=== PATIENT | male | born 1955 ===

== ENCOUNTER 2020-04-18 13:44 | Outpatient (REF) | payer OTHER, SELFPAY | END 2020-04-18 13:45 | disposition home or self-care (01) | LOC: HO.LAB 13:44 | PROVIDERS: PCP Family Medicine; Visit Provider Internal Medicine | DX: Z20.828 Contact with and (suspected) exposure to other viral communicable diseases (principal) | CPT/HCPCS: C9803; U0003 ==

== ENCOUNTER 2020-06-04 03:18 | Emergency (ER) | payer OTHER, SELFPAY ==
[2020-06-04 03:21] VITALS: BP 164/101; PULSE 110; RESP 18; TEMP 36.4; O2SAT 100; BMI 28.4
[2020-06-04 04:00] VITALS: BP 156/86; PULSE 106; RESP 18; O2SAT 99
[2020-06-04 04:46] LABS: Glucose Urine UA NEG (NEG); Leukocyte Esterase Urine NEG (NEG); Nitrite Urine NEG (NEG); Specific Gravity - Urine 1.025 (1.005-1.025); Urine Blood 3+ (NEG); Urine Ketones 5 MG/DL (NEG); Urine Protein TRACE MG/DL (NEG-TRACE)
[2020-06-04 05:01] LABS: Appearance Urine CLEAR; Color Urine YELLOW
[2020-06-04 05:12] LABS: Mucus Urine 2+ /LPF; Squamous Epithelial Cell Urine 1+ /LPF; Uric Acid Crystals Urine TRACE /LPF; WBC Urine 0-2 /HPF (0-4); Waxy Casts Urine 0-2 /LPF
[2020-06-04 05:13] LABS: Sperm Urine NOTED
--- NOTE | 2020-06-04 05:18 | ED_ITS ---
HPI - Male Genitourinary General Chief complaint: Urogenital-Male Stated complaint: Pain/Urination Time Seen by Provider: 06/04/20 04:02 Source: patient Mode of arrival: ambulatory History of Present Illness HPI Narrative: This is a 65-year-old male who presents with inability to urinate, which he states has happened previously. This is not associated with any fevers or chills or GI symptoms. Related Data Allergies Allergy/AdvReac Type Severity Reaction Status Date / Time No Known Allergies Allergy Unverified 01/20/20 15:01 [No Known Allergies*] Review of Systems Review of Systems: Pertinent positives and negatives as stated in HPI 10 point review of systems is otherwise negative. [facility] Past Medical History Source: nursing notes reviewed Medical History No known health problems Social History Social History Advance Directives: No Physical Exam Vital Signs: Vital Signs: Last Vital Signs Temp 97.6 F 06/04/20 03:21 Pulse 106 H 06/04/20 04:00 Resp 18 06/04/20 04:00 BP 156/86 H 06/04/20 04:00 Pulse Ox 99 06/04/20 04:00 Body Mass Index 28.4 VITAL SIGNS: Reviewed. GENERAL: Well developed, well nourished, in no acute distress. HEAD: Normocephalic/atraumatic, EYES: PERRLA, EOMI EARS: Ext canals without abnormality NOSE: Nares patent bilateral OROPHARYNX: no oral lesions noted, posterior pharynx clear NECK: Supple, no adenopathy LUNGS: Normal breath sounds. SpO2<100> CARDIOVASCULAR: Regular rate and rhythm without noted murmurs, no JVD or lower extremity edema. ABDOMEN: Soft, mild tenderness palpation suprapubic and a firmness noted, non- distended with bowel sounds. NEUROLOGIC: Alert and oriented x 4. Course Course Course Narrative: This is a 65-year-old male with history and clinical presentation consistent with urinary retention and no evidence of UTI in review of urinalysis. Patient had a Kelly catheter successfully placed and endorses that he is feeling much better on re-evaluation. The plan will be for him to follow up with Urology which she fully understands. MDM - Male Genitourinary Lab Data Labs: Lab Results 06/04/20 Range/Units 04:20 Urine Color YELLOW Urine Appearance CLEAR Urine pH 5.0 (5.0-8.0) Ur Specific [place] 1.025 (1.005-1.025) Urine Protein TRACE (NEG-TRACE) MG/DL Urine Glucose (UA) NEG (NEG) MG/DL Urine Ketones 5 (NEG) MG/DL Urine Blood 3+ H (NEG) Urine Nitrite NEG (NEG) Ur Leukocyte Esterase NEG (NEG) Urine RBC 15-29 H (0) /HPF Urine WBC 0-2 (0-4) /HPF Ur Squamous Epith Cells 1+ /LPF Uric Acid Crystals TRACE /LPF Urine Bacteria NONE /LPF Hyaline Casts 1-4 /LPF Waxy Casts 0-2 /LPF Urine Mucus 2+ /LPF Urine Sperm NOTED Discharge Plan Discharge Clinical Impression: Urinary retention Patient Disposition: Home, Self-Care Instructions: Urinary Retention in Men (ED), Kelly Catheter Placement and Care (ED) Additional Instructions: Please resume all home medications as prescribed. Please keep the Kelly catheter in place until you are further evaluated by Urology. Call the urology office on Friday morning to set up an appointment. Return to the emergency department if you developed acute worsening of your symptoms or notice that the Kelly catheter is no longer working. Referrals: Jorge Alberto Boss MD [Physician] - 2 days (Evaluation and treatment for urinary retention in a 65-year-old male. Kelly catheter was placed.)
== END 2020-06-04 06:30 | disposition home or self-care (01) ==
PROVIDERS: Emergency Provider Student in an Organized Health Care Education/Training Program; PCP Family Medicine
DX: R33.9 Retention of urine, unspecified (principal); R30.0 Dysuria
CPT/HCPCS: 81001; 81003; 99283; 99284

== ENCOUNTER 2020-06-08 14:20 | Emergency (ER) | payer OTHER, SELFPAY ==
[2020-06-08 15:35] VITALS: BP 181/94; PULSE 92; RESP 18; TEMP 36.6; O2SAT 92; BMI 29.2
--- NOTE | 2020-06-08 15:35 | ED.GENADULT ---
HPI - General Adult General Chief complaint: Urogenital-Male Stated complaint: PAIN @ F/C SITE Time Seen by Provider: 06/08/20 15:34 Source: patient Mode of arrival: ambulatory Limitations: no limitations History of Present Illness HPI narrative: 65 male here with pain at nunez catheter site. Placed friday for urinary retention, appt with urology next week. Having pain at site. No issues with draining. Related Data Allergies Allergy/AdvReac Type Severity Reaction Status Date / Time No Known Allergies Allergy Verified 06/08/20 15:40 [No Known Allergies*] Review of Systems Review of Systems: Yes all other systems are reviewed and are negative Constitutional: Constitutional: Reports no additional constitutional complaints, Denies body ache(s), Denies chills, Denies fever(s), Denies headache(s) and Denies weakness Eyes: Eyes: Reports no additional eye complaints and Denies change in vision ENT: Reports system reviewed and no additional complaints, except as documented, Denies dizziness, Denies headache(s), Denies nasal congestion, Denies nasal discharge and Denies neck pain Cardiovascular: Cardiovascular: Reports no additional cardiovascular complaints, Denies chest pain, Denies leg edema and Denies dyspnea Respiratory: Respiratory: Reports no additional respiratory complaints, Denies cough and Denies dyspnea Gastrointestinal: Gastrointestinal: Reports no additional gastrointestinal complaints, Denies abdominal pain, Denies diarrhea, Denies nausea and Denies vomiting Genitourinary: Genitourinary: Denies testicular pain Musculoskeletal: Musculoskeletal: Reports no additional musculoskeletal complaints, Denies back pain, Denies arthralgias, Denies joint swelling, Denies neck pain, Denies numbness and Denies tingling Integumentary/Breasts: Skin/Breast: Reports system reviewed and no additional complaints, except as docu and Denies rash Neurologic: Reports system reviewed and no additional complaints, except as documented, Denies Abnormal speech present, Denies dizziness, Denies headache(s), Denies numbness, Denies tingling and Denies weakness PMFSH Past Medical History Attestation statement: The following information was validated with the patient. Source: old records reviewed and nursing notes reviewed Medical History No known health problems Social History Social History Advance Directives: No Advance Directives Information Provided: No Physical Exam Vital Signs: Vital Signs: Last Vital Signs Temp 97.8 F 06/08/20 15:35 Pulse 92 06/08/20 15:35 Resp 18 06/08/20 15:35 BP 181/94 H 06/08/20 15:35 Pulse Ox 92 06/08/20 15:35 Body Mass Index 29.2 Const: General: cooperative, healthy appearing, comfortable and no acute distress Orientation/consciousness: patient oriented x3 Limitations: no limitations HENMT: Head: Yes normal to inspection Ears: hearing grossly normal bilaterally General nose exam: Normal external nose present Face and sinus: Yes normal facial exam Mouth: Normal oral and palatal mucosa present Throat: Yes posterior oropharynx normal Eyes: General: appearance normal, both eyes and all related structures Pupils: Equal, round and reactive pupils present Neck: Neck: Yes normal visual inspection Chest: Chest palpation & inspection: normal inspection of the chest Resp: Effort & Inspection: normal respiratory effort Auscultation: clear to auscultation bilaterally Cardio: Rate: regular rate Rhythm: regular rhythm Peripheral pulses: Peripheral pulses 2+ throughout GI: Inspection: Yes normal to inspection Palpation (GI): Soft to palpation and nontender Auscultation: normal bowel sounds : Other: nunez catheter noted, draining clear yellow urine. patient points to discomfort at urethra. No obvious lesion or skin breakdown or rash. Back/Spine/Pelvis: Thoracic/Lumbar Spine: thoracic and lumbar spine normal to inspection Skin: General skin exam: no rashes or lesions noted Neuro: General: patient oriented x3, no focal motor deficits and normal sensation to monofilament Cranial nerves: Yes Equal, round and reactive pupils present Cognition (Neuro): normal cognition Speech: No Abnormal speech present Gait exam (Neuro): Normal gait present Motor exam (neuro): 5/5 motor strength present throughout Extrem: General: Yes normal to inspection Course Course Course Narrative: 65 yo male here with pain at nunez catheter insertion site. Patient has 18fr nunez catheter in place, draining well. Urethra normal in appearance with no open areas or skin breakdown noted. To change catheter to help with discomfort. 1620-Nursing with difficulty to place catheter. Able to place a 16fr coude with no difficulty. Patient feels much improved after placement. Discussed nunez catheter care at home. Reviewed worrisome signs/symptoms with patient and when to return to ED. Comfortable with discharge home. Medical Decision Making Medical Records Medical records reviewed: Yes I reviewed the patient's medical records. Discharge Plan Discharge Clinical Impression: Nunez catheter problem Qualifiers: Encounter type: initial encounter Qualified Code(s): T83.9XXA - Unspecified complication of genitourinary prosthetic device, implant and graft, initial encounter Patient Disposition: Home, Self-Care Instructions: Nunez Catheter Placement and Care (ED)
== END 2020-06-08 17:39 | disposition home or self-care (01) ==
LOC: HO.ED 17:06
PROVIDERS: Emergency Provider Emergency Medicine; PCP Family Medicine
DX: T83.9XXA Unspecified complication of genitourinary prosthetic device, implant and graft, initial encounter (principal); X58.XXXA Exposure to other specified factors, initial encounter
CPT/HCPCS: 99283

== ENCOUNTER → 2020-06-13 09:21 | Outpatient (BNVA) | payer OTHER, SELFPAY | PROVIDERS: PCP Family Medicine; Visit Provider Urology | DX: N40.1 Benign prostatic hyperplasia with lower urinary tract symptoms (principal); N13.8 Other obstructive and reflux uropathy; R33.9 Retention of urine, unspecified; R39.12 Poor urinary stream | CPT/HCPCS: 51700; 99202 ==

== ENCOUNTER → 2020-07-11 14:36 | Outpatient (BNVA) | payer OTHER, SELFPAY | PROVIDERS: PCP Family Medicine; Visit Provider Urology | DX: Z13.9 Encounter for screening, unspecified (principal); N40.1 Benign prostatic hyperplasia with lower urinary tract symptoms; N13.8 Other obstructive and reflux uropathy | CPT/HCPCS: 81002; 99212 ==

== ENCOUNTER → 2020-08-03 09:59 | Outpatient (BNVA) | payer OTHER, SELFPAY | PROVIDERS: PCP Family Medicine; Visit Provider Surgery Vascular Surgery | DX: I73.9 Peripheral vascular disease, unspecified (principal) | CPT/HCPCS: 99202 ==

== ENCOUNTER 2020-08-08 08:45 | Outpatient (REF) | payer OTHER, SELFPAY ==
--- NOTE | ~2020-08-08 | US_ITS ---
EXAMINATION: NON-INVASIVE ASSESSMENT OF THE ARTERIES OF BOTH LOWER EXTREMITIES WITH ANKLE PRESSURE MEASUREMENTS, ANKLE BRACHIAL INDICES, PVR MEASUREMENTS AND BILATERAL LOWER EXTREMITY DUPLEX. CLINICAL INFORMATION: Peripheral vascular disease. TECHNIQUE: Ankle pressure measurements, ankle brachial indices and PVR tracings were obtained of the lower extremity arterial system bilaterally. In addition, duplex Doppler techniques with wave form analysis and measurement of velocities in the common femoral, profunda femoral, superficial femoral, popliteal and tibial arteries was performed. The study was performed only at rest. COMPARISON: None. FINDINGS: NONINVASIVE ASSESSMENT OF THE ARTERIES OF BOTH LOWER EXTREMITIES WITH ABIs: RIGHT LEG: Right ankle-brachial index: 1.06 PVR (ankle): Normal LEFT LEG: Ankle-brachial index: 1.05 PVR (ankle): Normal BILATERAL LOWER EXTREMITY DUPLEX ULTRASOUND: RIGHT LEG: Common femoral artery: 141 cm/s, Diastolic flow reversal: Yes Profunda femoris artery: 86.8 cm/s, Diastolic flow reversal: Yes Superficial femoral artery (proximal): 106 cm/s, Diastolic flow reversal: Yes Superficial femoral artery (mid): 93.2 cm/s, Diastolic flow reversal: Yes Superficial femoral artery (distal): 78 cm/s, Diastolic flow reversal: Yes Popliteal artery: 63.3 cm/s, Diastolic flow reversal: Yes Posterior tibial artery: 62.9 cm/s, Diastolic flow reversal: Yes LEFT LEG: Common femoral artery: 133 cm/s, Diastolic flow reversal: Yes Profunda femoris artery: 103 cm/s, Diastolic flow reversal: Yes Superficial femoral artery (proximal): 147 cm/s, Diastolic flow reversal: Yes Superficial femoral artery (mid): 138 cm/s, Diastolic flow reversal: Yes Superficial femoral artery (distal): 85 cm/s, Diastolic flow reversal: Yes Popliteal artery: 87.9 cm/s, Diastolic flow reversal: Yes Posterior tibial artery: 61.3 cm/s, Diastolic flow reversal: Yes US/US arterial duplex LE BI IMPRESSION: RIGHT LEG: LAMAR 1.06. No evidence of hemodynamically significant stenosis. LEFT LEG: LAMAR 1.05. Mild, nonhemodynamically significant stenosis throughout the left leg. LAMAR Reference: - >0.97-1.25 = normal - no significant arterial disease - 0.75-0.96 = mild peripheral arterial disease - 0.5-0.74 = moderate peripheral arterial disease - <0.50 = severe peripheral arterial disease
== END 2020-08-08 08:46 | disposition home or self-care (01) ==
LOC: HO.US 08:45
PROVIDERS: Visit Provider Surgery Vascular Surgery
DX: I70.213 Atherosclerosis of native arteries of extremities with intermittent claudication, bilateral legs (principal)
CPT/HCPCS: 93923; 93925

== ENCOUNTER → 2020-08-22 12:00 | Outpatient (BNVA) | payer OTHER, SELFPAY | PROVIDERS: PCP Family Medicine; Visit Provider Surgery Vascular Surgery | DX: M79.604 Pain in right leg (principal); M79.605 Pain in left leg | CPT/HCPCS: 99212 ==

== ENCOUNTER 2020-12-04 14:40 | Emergency (ER) | payer OTHER, SELFPAY ==
--- NOTE | ~2020-12-04 | CT_ITS ---
EXAMINATION: CT HEAD WITHOUT CONTRAST CLINICAL INFORMATION: Question TIA. COMPARISON: Head CT from 09/03/2015. TECHNIQUE: Contiguous axial imaging was performed from the skull base to vertex without intravenous administration of contrast. This CT examination was performed using dose optimization techniques as appropriate, variously including the following: *Automated exposure control *Adjustment of mA and/or kV according to patient size (this includes techniques or standardized protocols for targeted exams where dose is matched to indication/reason for exam; i.e. extremities or head) *Use of iterative reconstruction technique DLP: 688 mGy-cm FINDINGS: There is no evidence of acute intracranial hemorrhage or territorial infarction. No abnormal mass effect or midline shift is seen. Peoples to white matter differentiation is well preserved. No extra-axial fluid collections are identified. The ventricles are normal in size. There is no abnormal attenuation within the brain parenchyma. A depressed defect of the medial wall of the right orbit is unchanged, potentially chronically posttraumatic in etiology. The osseous structures and soft tissues are otherwise normal. The mastoid air cells and visualized portions of the paranasal sinuses are well aerated. CT/CT head/brain wo con IMPRESSION: No acute intracranial pathology.
[2020-12-04 16:19] VITALS: BP 100/66; PULSE 82; RESP 18; TEMP 36.8; O2SAT 97; BMI 27.2
[2020-12-04 18:03] LABS: Hemoglobin 13.1 g/dl (14.0-18.0); Mean Corpuscular HGB Conc 33.6 g/dl (31.0-36.0); Mean Corpuscular Hemoglobin 29.5 pg (27.0-33.0); Mean Corpuscular Volume 87.8 fL (80-98); Mean Platelet Volume 9.7 fL (9.4-12.4); Platelet Count 274 X10*3/uL (160-400); Red Blood Count 4.44 X10*6/uL (4.60-5.80); Red Cell Distribution Width 12.9 % (11.0-16.0); White Blood Count 7.1 X10*3/uL (4.8-10.8)
[2020-12-04 18:22] LABS: Anion Gap 15 (12-20); Blood Urea Nitrogen 24 mg/dL (9-16); Carbon Dioxide 26 mmol/L (22-29); Chloride 101 mmol/L (96-108); Creatinine Clr Calc Pharmacy 29.8; Estimated Glomerular Filt Rate 32; Glucose Random 114 mg/dL (60-115); Potassium 4.8 mmol/L (3.3-5.1); Sodium 137 mmol/L (135-145)
[2020-12-04 18:25] VITALS: BP 109/68; PULSE 73; RESP 18; O2SAT 100
[2020-12-04 18:28] LABS: Troponin-I High Sensitivity 4.5 ng/L (<3.5-35.0)
--- NOTE | 2020-12-04 18:40 | ED_ITS ---
HPI - Dizziness General Chief Complaint: Dizziness Stated Complaint: dizziness Time Seen by Provider: 12/04/20 18:39 Source: patient Mode of arrival: ambulatory Limitations: no limitations History of Present Illness HPI Narrative: Patient is 65 years old with history of hypertension, history of alcohol abuse comes in for dizziness for last 4 days off and on feels feels things spinning around whenever he quickly changes position. Around 1300 today patient suddenly noticed weakness in the right arm which lasted for 5 minutes and with complete recovery no other extremity weakness no nausea no vomiting at this time patient is back to normal no dizziness on arrival no palpitation no chest Related Data Home Medications Medication Instructions Recorded Confirmed alcohol swabs 0 pad TOPICAL 06/13/20 aspirin 81 mg tablet,delayed 81 mg PO DAILY 06/13/20 release atorvastatin 40 mg tablet mg PO 06/13/20 blood sugar diagnostic #10 ea 06/13/20 carvedilol 6.25 mg tablet 6.25 mg PO 06/13/20 flu vac qs 2019(4 yr up)CD(PF) ml IM 06/13/20 fluticasone propionate 50 0 mcg INTRANASAL 06/13/20 mcg/actuation nasal spray,suspension hydrochlorothiazide 25 mg tablet 25 mg PO QAM 06/13/20 lancets 33 gauge #100 ea 06/13/20 lisinopril 20 mg tablet 20 mg PO BEDTIME 06/13/20 loratadine 10 mg tablet 10 mg PO DAILY 06/13/20 metformin 500 mg tablet 500 mg PO BEDTIME 06/13/20 montelukast 10 mg tablet 10 mg PO DAILY 06/13/20 varicella-zoster glycoE [id number] ml IM 06/13/20 adj(PF) 50 mcg/0.5 mL IM susp, kit Previous Rx's Medication Instructions Recorded tamsulosin 0.4 mg capsule 0.4 mg PO BEDTIME #30 cap 07/04/20 finasteride 5 mg tablet 5 mg PO DAILY 90 Days #90 tab 11/15/20 amlodipine 5 mg tablet 5 mg PO DAILY #30 tab 12/04/20 glipizide 2.5 mg tablet, extended 2.5 mg PO DAILY #30 tab 12/04/20 release 24 hr Allergies Allergy/AdvReac Type Severity Reaction Status Date / Time No Known Allergies Allergy Verified 08/22/20 11:59 [No Known Allergies*] Review of Systems Review of Systems: Yes all other systems are reviewed and are negative [facility] Past Medical History Medical History Alcohol abuse Allergic rhinitis Backache Cardiomyopathy Depression Glaucoma HTN (hypertension) Hypercholesteremia Leg pain, bilateral No known health problems Pain in limb Sleep apnea Social History Social History Advance Directives: No Advance Directives Information Provided: Yes Physical Exam Vital Signs: Vital Signs: Last Vital Signs Temp 98.2 F 12/04/20 16:19 Pulse 74 12/04/20 20:30 Resp 16 12/04/20 20:30 BP 154/88 H 12/04/20 20:30 Pulse Ox 100 12/04/20 20:30 Body Mass Index 27.2 Appearance: Alert. Oriented X3. No acute distress. Eyes: PERRLA, No Nystagmus ENT: Pharynx normal. Oral Mucosa moist Neck: Normal inspection. Neck supple. CVS: Normal heart rate and rhythm. Pulses normal. Respiratory: No respiratory distress. Equal air entry bilateral, no wheezing/rales/rhonchi Abdomen: Soft and nontender. Bowel sounds are present, no mass palpable, no CVA tenderness Skin: Skin warm and dry. Normal skin color. Normal skin turgor. Extremities: No lower extremity edema. No calf tenderness Neuro: Oriented X 3. No motor deficit. No sensory deficit.No cerebellar signs , cranial nerves II-XII intact MDM - Dizziness MDM Narrative Medical decision making narrative: Patient nonspecific dizziness ambulatory in the ER CT scan negative no dizziness or weakness at this time patient is on aspirin also noticed to have elevated creatinine level previous creatinine was in 2019 patient advised to stop metformin lisinopril and hydrochlorothiazide advised to follow with dental hygienist mobile coordinator Lab Data Attestation: I reviewed the patient's lab results. Result diagrams: 12/04/20 17:48 12/04/20 17:48 Labs: Lab Results 12/04/20 12/04/20 12/04/20 Range/Units 17:48 17:48 17:48 WBC 7.1 (4.8-10.8) X10*3/uL RBC 4.44 L (4.60-5.80) X10*6/uL Hgb 13.1 L (14.0-18.0) g/dl Hct 39.0 L (42-52) % MCV 87.8 (80-98) fL MCH 29.5 (27.0-33.0) pg MCHC 33.6 (31.0-36.0) g/dl RDW 12.9 (11.0-16.0) % Plt Count 274 (160-400) X10*3/uL MPV 9.7 (9.4-12.4) fL Absolute Nucleated RBC 0.000 (0.0-0.012) X10*3/uL Nucleated RBC % (auto) 0.0 (0.0-0.2) /100WBC Sodium 137 (135-145) mmol/L Potassium 4.8 (3.3-5.1) mmol/L Chloride 101 (96-108) mmol/L Carbon Dioxide 26 (22-29) mmol/L Anion Gap 15 (12-20) BUN 24 H (9-16) mg/dL Creatinine 2.09 H (0.5-1.4) mg/dL Estim Creat Clear Calc 29.8 Estimated GFR 32 Random Glucose 114 (60-115) mg/dL Calcium 10.0 (8.4-10.2) mg/dL Troponin I High Sens 4.5 (<3.5-35.0) ng/L ECG Data Attestation: I personally reviewed and interpreted this ECG as follows: Interpretation: Normal sinus rhythm heart rate 69 beats per minute nonspecific ST T wave changes normal intervals no acute ischemia Discharge Plan Discharge Clinical Impression: Dizziness Acute kidney failure Qualifiers: Acute renal failure type: unspecified Qualified Code(s): N17.9 - Acute kidney failure, unspecified Patient Disposition: Home, Self-Care Instructions: Acute Kidney Injury (DC), Dizziness (ED) Additional Instructions: continue to take baby aspirin daily drink plenty of fluids Follow-up with dental hygienist mobile coordinator stop lisinopril and metformin and hydrochlorthiazide start on amlodipine 5 mg daily and glipizide daily Prescriptions: New amlodipine 5 mg tablet 5 mg PO DAILY Qty: 30 RF: 0 glipizide 2.5 mg tablet extended release 24hr 2.5 mg PO DAILY Qty: 30 RF: 0 No Action tamsulosin 0.4 mg capsule 0.4 mg PO BEDTIME Qty: 30 RF: 6 finasteride 5 mg tablet 5 mg PO DAILY 90 Days Qty: 90 RF: 1 (DME) lancets 33 gauge misc See Rx Instructions ea .ROUTE .MEDSUPPLY Qty: 100 RF: 0 (DME) FreeStyle Lite Strips Strip See Rx Instructions strip Not Applicable BID Qty: 10 RF: 0 hydrochlorothiazide 25 mg tablet 25 mg PO QAM RF: 0 aspirin 81 mg tablet,delayed release (DR/EC) 81 mg PO DAILY RF: 0 carvedilol 6.25 mg tablet 6.25 mg PO RF: 0 metformin 500 mg tablet 500 mg PO BEDTIME RF: 0 atorvastatin 40 mg tablet PO RF: 0 loratadine 10 mg tablet 10 mg PO DAILY RF: 0 fluticasone propionate 50 mcg/actuation spray,suspension 0 mcg intranasal RF: 0 alcohol swabs Pads, Medicated 0 pad topical RF: 0 montelukast 10 mg tablet 10 mg PO DAILY RF: 0 lisinopril 20 mg tablet 20 mg PO BEDTIME RF: 0 Flucelvax Quad (PF) 60 mcg (15 mcg x 4)/0.5 mL syringe IM RF: 0 Shingrix (PF) 50 mcg/0.5 mL suspension for reconstitution IM RF: 0 Referrals: Catrachito Pressley MD [Physician] - 2 days Interventions: ED Discharge Assessment Last Done: 12/04/20 21:38 Discharge Date/Time: 12/04/20 21:40
--- NOTE | 2020-12-04 19:04 | ECG_ITS ---
Test Reason : DIZZINESS Blood Pressure : / mmHG Vent. Rate : 069 BPM Atrial Rate : 069 BPM P-R Int : 136 ms QRS Dur : 088 ms QT Int : 352 ms P-R-T Axes : 052 029 036 degrees QTc Int : 377 ms Normal sinus rhythm Nonspecific T wave abnormality Abnormal ECG When compared with ECG of 12-SEP-2015 15:53, Nonspecific T wave abnormality, improved in Inferior leads Referred By: Abiel Wang Electronically Signed By:Sumanth Mcnamara
[2020-12-04 20:30] VITALS: BP 154/88; PULSE 74; RESP 16; O2SAT 100
[2020-12-04] MEDS: Aspirin 81 MG TAB.CHEW PO (21:35)
== END 2020-12-04 21:40 | disposition home or self-care (01) ==
PROVIDERS: Emergency Provider Internal Medicine; PCP Family Medicine
DX: R42 Dizziness and giddiness (principal); N17.9 Acute kidney failure, unspecified; I10 Essential (primary) hypertension; F10.10 Alcohol abuse, uncomplicated; Y90.9 Presence of alcohol in blood, level not specified
CPT/HCPCS: 36415; 70450; 80048; 84484; 85027; 93005; 99284

== ENCOUNTER → 2021-01-17 14:25 | Outpatient (BNVA) | payer OTHER, SELFPAY | PROVIDERS: PCP Family Medicine; Visit Provider Urology | DX: N40.1 Benign prostatic hyperplasia with lower urinary tract symptoms (principal); N13.8 Other obstructive and reflux uropathy; R39.12 Poor urinary stream; R39.15 Urgency of urination; R33.9 Retention of urine, unspecified; I10 Essential (primary) hypertension; E78.00 Pure hypercholesterolemia, unspecified; F10.10 Alcohol abuse, uncomplicated | CPT/HCPCS: 51798; 99212 ==

== ENCOUNTER 2021-04-10 09:00 | Outpatient (REF) | payer OTHER, SELFPAY ==
[2021-04-10 10:34] LABS: Hematocrit 41.4 % (42.0-52.0); Hemoglobin 13.8 g/dl (14.0-18.0); Mean Corpuscular HGB Conc 33.3 g/dl (31.0-36.0); Mean Corpuscular Hemoglobin 28.5 pg (27.0-33.0); Mean Corpuscular Volume 85.4 fL (80.0-98.0); Mean Platelet Volume 9.3 fL (9.4-12.4); Platelet Count 279 X10*3/uL (160-400); Red Blood Count 4.85 X10*6/uL (4.60-5.80); Red Cell Distribution Width 12.9 % (11.0-16.0); White Blood Count 6.6 X10*3/uL (4.8-10.8)
[2021-04-10 11:06] LABS: Estimated Glomerular Filt Rate > 60
[2021-04-10 11:43] LABS: PSA,Total (Free>4and<10) 2.09 ng/mL (0.00-4.00)
== END 2021-04-10 09:01 | disposition home or self-care (01) ==
LOC: HO.LAB 09:00
PROVIDERS: Urology; PCP Family Medicine; Referring Provider Family Medicine; Visit Provider Nurse Practitioner Family
DX: Z01.818 Encounter for other preprocedural examination (principal); Z12.5 Encounter for screening for malignant neoplasm of prostate; N13.8 Other obstructive and reflux uropathy; N40.1 Benign prostatic hyperplasia with lower urinary tract symptoms; R39.15 Urgency of urination; D36.9 Benign neoplasm, unspecified site
CPT/HCPCS: 36415; 82565; 84153; 85027; 99202

== ENCOUNTER → 2021-07-17 08:37 | Outpatient (BNVA) | payer OTHER, SELFPAY | PROVIDERS: PCP Family Medicine; Visit Provider Urology | DX: N40.1 Benign prostatic hyperplasia with lower urinary tract symptoms (principal); N13.8 Other obstructive and reflux uropathy; R39.12 Poor urinary stream | CPT/HCPCS: 51798; 99212 ==

== ENCOUNTER 2021-07-27 10:55 | Emergency (ER) | payer OTHER, SELFPAY ==
[2021-07-27 11:28] VITALS: BP 128/72; PULSE 73; RESP 16; TEMP 36.4; O2SAT 97; BMI 27.8
--- NOTE | 2021-07-27 12:41 | ED_ITS ---
HPI - Extremity Problem General Chief complaint: Extremity Problem Stated complaint: Leg/Foot pain Time Seen by Provider: 07/27/21 11:59 History of Present Illness HPI Narrative: Patient complains of longstanding pain in both feet which shoots down the legs and cause a burning and tingling sensation in both feet which makes it very hard for walk distance is more than 1 or 2 blocks He has seen his doctor who referred him to specialist for arterial testing so he saw Dr. morrell who evaluated and found that arterial blood flow was normal and was concerned might be diabetic neuropathy or some kind of sciatic presentation, patient has no weakness in his feet no changes to bowel or bladder Related Data Home Medications Medication Instructions Recorded Confirmed alcohol swabs 0 pad TOPICAL 06/13/20 aspirin 81 mg tablet,delayed 81 mg PO DAILY 06/13/20 release atorvastatin 40 mg tablet mg PO 06/13/20 blood sugar diagnostic #10 ea 06/13/20 carvedilol 6.25 mg tablet 6.25 mg PO 06/13/20 flu vac qs 2019(4 yr up)CD(PF) ml IM 06/13/20 fluticasone propionate 50 0 mcg INTRANASAL 06/13/20 mcg/actuation nasal spray,suspension hydrochlorothiazide 25 mg tablet 25 mg PO QAM 06/13/20 lancets 33 gauge #100 ea 06/13/20 lisinopril 20 mg tablet 20 mg PO BEDTIME 06/13/20 loratadine 10 mg tablet 10 mg PO DAILY 06/13/20 metformin 500 mg tablet 500 mg PO BEDTIME 06/13/20 montelukast 10 mg tablet 10 mg PO DAILY 06/13/20 varicella-zoster glycoE [id number] ml IM 06/13/20 adj(PF) 50 mcg/0.5 mL IM susp, kit amlodipine 10 mg tablet 10 mg PO DAILY 01/17/21 Previous Rx's Medication Instructions Recorded amlodipine 5 mg tablet 5 mg PO DAILY #30 tab 12/04/20 glipizide 2.5 mg tablet, extended 2.5 mg PO DAILY #30 tab 12/04/20 release 24 hr bisacodyl 5 mg tablet,delayed 10 mg PO ONCE 1 Days #2 tab 04/10/21 release (Dulcolax (bisacodyl)) polyethylene glycol 3350 17 238 g PO ONCE #238 g 04/10/21 gram/dose oral powder (Miralax) finasteride 5 mg tablet 5 mg PO DAILY 90 Days #90 tab 07/17/21 tamsulosin 0.4 mg capsule 0.4 mg PO BEDTIME #90 cap 07/17/21 oxycodone 5 mg tablet 5 mg PO Q6H PRN #20 tab 07/27/21 Allergies Allergy/AdvReac Type Severity Reaction Status Date / Time No Known Allergies Allergy Verified 07/27/21 11:30 [No Known Allergies*] Review of Systems Review of Systems: Positive for bilateral foot pain for months No acute changes no fever no dizziness no weakness no chest pain no shortness of breath no weakness no loss of sensation no rash Yes all other systems are reviewed and are negative [facility] Past Medical History Source: nursing notes reviewed Medical History Alcohol abuse Allergic rhinitis Backache Cardiomyopathy Depression Glaucoma HTN (hypertension) Hypercholesteremia Leg pain, bilateral No known health problems Pain in limb Sleep apnea Tubular adenoma Surgical History Hx of colonoscopy Social History Social History Alcohol intake: current Alcohol intake frequency: holidays/special occasions only Patient Tobacco Use Status: Never used Tobacco Physical Exam Vital Signs: Vital Signs: Last Vital Signs Temp 97.5 F 07/27/21 11:28 Pulse 73 07/27/21 11:28 Resp 16 07/27/21 11:28 BP 128/72 07/27/21 11:28 Pulse Ox 97 07/27/21 11:28 BMI result Body Mass Index 27.8 General appearance is no acute distress Head is normocephalic atraumatic Neck is supple Respiratory no distress Back full range of motion without any significant back tenderness The abdomen soft nontender Extremities is full range of motion x4, patient ambulates without a limp Bilateral feet are normal in appearance with no wounds no redness, sensation is intact and motor is 5/5 x4 symmetrical bilaterally and pulses are detectable by Doppler Course Course Course Narrative: Patient already had an evaluation of his arteries which was normal and is informed he likely has possibly sciatica radiating to both feet but more likely diabetic neuropathy and is treated pain killers Discharge Plan Discharge Clinical Impression: Bilateral lower extremity pain, Diabetic neuropathy Patient Disposition: Home, Self-Care Additional Instructions: I am not sure what is causing the pain in your legs and feet, but I am concerned it might be diabetic neuropathy which is a result of diabetes There are medications for this but often they need to be adjusted so best plan is follow with primary care doctor to discuss this of whether not You need treatment for diabetic neuropathy It is also possible that the pain is from pinched nerve in her back so again follow with primary doctor for appropriate referral and further evaluation Return any time any worse condition or any concerns Prescriptions: New oxycodone 5 mg tablet 5 mg PO Q6H PRN (Reason: pain) Qty: 20 0RF Rx Instructions: This medication may cause drowsiness so no driving for 6 hours after taking No Action amlodipine 5 mg tablet 5 mg PO DAILY Qty: 30 0RF glipizide 2.5 mg tablet extended release 24hr 2.5 mg PO DAILY Qty: 30 0RF amlodipine 10 mg tablet 10 mg PO DAILY 0RF tamsulosin 0.4 mg capsule 0.4 mg PO BEDTIME Qty: 90 2RF finasteride 5 mg tablet 5 mg PO DAILY 90 Days Qty: 90 1RF (DME) lancets 33 gauge misc See Rx Instructions ea .ROUTE .MEDSUPPLY Qty: 100 0RF Rx Instructions: As directed (DME) FreeStyle Lite Strips Strip See Rx Instructions strip Not Applicable BID Qty: 10 0RF Rx Instructions: As directed hydrochlorothiazide 25 mg tablet 25 mg PO QAM 0RF aspirin 81 mg tablet,delayed release (DR/EC) 81 mg PO DAILY 0RF carvedilol 6.25 mg tablet 6.25 mg PO 0RF metformin 500 mg tablet 500 mg PO BEDTIME 0RF atorvastatin 40 mg tablet PO 0RF loratadine 10 mg tablet 10 mg PO DAILY 0RF fluticasone propionate 50 mcg/actuation spray,suspension 0 mcg intranasal 0RF alcohol swabs Pads, Medicated 0 pad topical 0RF montelukast 10 mg tablet 10 mg PO DAILY 0RF lisinopril 20 mg tablet 20 mg PO BEDTIME 0RF Flucelvax Quad 2459-0383 (PF) 60 mcg (15 mcg x 4)/0.5 mL syringe IM 0RF Shingrix (PF) 50 mcg/0.5 mL suspension for reconstitution IM 0RF bisacodyl [Dulcolax (bisacodyl)] 5 mg tablet,delayed release (DR/EC) 10 mg PO ONCE 1 Days Qty: 2 0RF Rx Instructions: take 2 tabs at noon the day before your colonoscopy polyethylene glycol 3350 [Miralax] 17 gram/dose powder 238 g PO ONCE Qty: 238 0RF Rx Instructions: As directed by gastroenterology department at [facility] Interventions: ED Discharge Assessment Last Done: 07/27/21 12:53 Discharge Date/Time: 07/27/21 12:53
--- NOTE | 2021-07-27 12:51 | PC.NURSE ---
PT WAS EXAMINED BY PROVIDER. PLAN IS FOR DC HOME PT AGREEABLE TO DISPO GIVEN PAPERWORK BY Shan MARTINEZ
== END 2021-07-27 12:53 | disposition home or self-care (01) ==
PROVIDERS: Emergency Provider Emergency Medicine; PCP Family Medicine
DX: E11.40 Type 2 diabetes mellitus with diabetic neuropathy, unspecified (principal); M79.672 Pain in left foot; M79.671 Pain in right foot; M79.605 Pain in left leg; M79.604 Pain in right leg; E11.9 Type 2 diabetes mellitus without complications; I10 Essential (primary) hypertension
CPT/HCPCS: 99283

== ENCOUNTER 2022-02-21 05:41 | Emergency (ER) | payer OTHER, SELFPAY ==
[2022-02-21 05:48] VITALS: BP 158/79; PULSE 108; RESP 20; TEMP 36.6; O2SAT 96; BMI 27.8
[2022-02-21 06:01] LABS: Glucose, Whole Blood 151 mg/dL (60-115)
--- NOTE | 2022-02-21 06:32 | PC.NURSE ---
pt ambulates with steady gait.
--- NOTE | 2022-02-21 06:38 | ED_ITS ---
HPI - Extremity Problem General Chief complaint: Extremity Problem Stated complaint: foot pain Time Seen by Provider: 02/21/22 06:36 Source: patient Mode of arrival: ambulatory Limitations: no limitations History of Present Illness HPI Narrative: 66 yo male with hx of HTN, DM, HLD, PAD, BPH, here with c/o 1 year of foot pain burning in nature Complaint: extremity pain Onset (ago): year(s) (1) Pain Consistency: constant Location: left, right and other (foot) Quality: burning Radiation: none Relieving factors: nothing Exacerbating factors: nothing Associated symptoms: denies other symptoms Context: other (diabetic ) Related Data Home Medications Medication Instructions Recorded Confirmed alcohol swabs 0 pad topical 06/13/20 aspirin 81 mg tablet,delayed 81 mg PO DAILY 06/13/20 release atorvastatin 40 mg tablet mg PO 06/13/20 blood sugar diagnostic #10 ea 06/13/20 carvedilol 6.25 mg tablet 6.25 mg PO 06/13/20 flu vac qs 2019(4 yr up)CD(PF) 60 ml IM 06/13/20 mcg(15 mcgx4)/0.5 mL IM syringe fluticasone propionate 50 0 mcg intranasal 06/13/20 mcg/actuation nasal spray,suspension hydrochlorothiazide 25 mg tablet 25 mg PO QAM 06/13/20 lancets 33 gauge #100 ea 06/13/20 lisinopril 20 mg tablet 20 mg PO BEDTIME 06/13/20 loratadine 10 mg tablet 10 mg PO DAILY 06/13/20 metformin 500 mg tablet 500 mg PO BEDTIME 06/13/20 montelukast 10 mg tablet 10 mg PO DAILY 06/13/20 varicella-zoster glycoE [id number] ml IM 06/13/20 adj(PF) 50 mcg/0.5 mL IM susp, kit amlodipine 10 mg tablet 10 mg PO DAILY 01/17/21 Previous Rx's Medication Instructions Recorded amlodipine 5 mg tablet 5 mg PO DAILY #30 tabs 12/04/20 glipizide 2.5 mg tablet, extended 2.5 mg PO DAILY #30 tabs 12/04/20 release 24 hr tamsulosin 0.4 mg capsule 0.4 mg PO BEDTIME #90 caps 07/17/21 oxycodone 5 mg tablet 5 mg PO Q6H PRN pain #20 tabs 07/27/21 finasteride 5 mg tablet 5 mg PO DAILY 90 days #90 tabs 01/18/22 bisacodyl 5 mg tablet,delayed 10 mg PO ONCE 1 day #2 tabs 02/05/22 release (Dulcolax (bisacodyl)) polyethylene glycol 3350 17 238 g PO ONCE #238 grams 02/05/22 gram/dose oral powder (Miralax) gabapentin 100 mg capsule 100 mg PO TID #90 caps 02/21/22 Allergies Allergy/AdvReac Type Severity Reaction Status Date / Time No Known Allergies Allergy Verified 01/21/22 15:32 [No Known Allergies*] Review of Systems Review of Systems: Constitutional : No Fever, No Chills Cardiovascular : No Chest Pain, No SOB Respiratory : No Cough, No Dyspnea Gastrointestinal : No Nausea, No Vomiting, No Diarrhea, No abdominal Pain Genitourinary : No Dysuria, No Hematuria Musculoskeletal : positive joint pain, No Myalgias, No Joint Swelling Skin : No Skin lacerations, No rash Neuro : No Weakness, No Numbness, No Loss of Consciousness, No Dizziness, No Headache Psych : No Anxiety/Panic, No Depression PMFSH Past Medical History Medical History Alcohol abuse Allergic rhinitis Backache Cardiomyopathy Depression Glaucoma HTN (hypertension) Hypercholesteremia Leg pain, bilateral No known health problems Pain in limb Sleep apnea Tubular adenoma Surgical History Hx of colonoscopy Social History Social History Alcohol intake: current Alcohol intake frequency: holidays/special occasions only Patient Tobacco Use Status: Never used Tobacco Advance Directives: No Physical Exam Vital Signs: Vital Signs: Last Vital Signs Temp 97.8 F 02/21/22 05:48 Pulse 108 H 02/21/22 05:48 Resp 20 02/21/22 05:48 BP 158/79 H 02/21/22 05:48 Pulse Ox 96 02/21/22 05:48 O2 Del Method 02/21/22 05:48 BMI result Body Mass Index 27.8 Appearance: Alert. Oriented X3. No acute distress. Eyes: Pupils equal, round and reactive to light. ENT: Pharynx normal. Neck: Normal inspection. Neck supple. CVS: Normal heart rate and rhythm. Pulses normal. Respiratory: No respiratory distress. Breath sounds normal. Abdomen: Soft and nontender. Skin: Skin warm and dry. Normal skin color. Normal skin turgor. Extremities: No lower extremity edema. No calf ttp normal pulses in feet, skin intact, no signs of infection Neuro: Oriented X 3. No motor deficit. No sensory deficit. MDM - Extremity (Nontraumatic) MDM Narrative Medical decision making narrative: 66 yo male with hx of HTN, DM, HLD, PAD, BPH, here with c/o 1 year of foot pain where he feels like it is burning in nature and sometimes he cannot feel the heat of the shower water. He has no signs of infection, he has normal pulses. At this time given his DM history suspect diabetic neuropathy. BS stable here will start on gabapentin and refer to PCP and pain management. Lab Data Labs: Lab Results 02/21/22 Range/Units 05:59 POC Glucose 151 H (60-115) mg/dL Discharge Plan Discharge Clinical Impression: Diabetic neuropathy Qualifiers: Diabetes mellitus type: type 2 Diabetes mellitus complication detail: diabetic polyneuropathy Qualified Code(s): E11.42 - Type 2 diabetes mellitus with diabetic polyneuropathy Patient Disposition: Home, Self-Care Instructions: Diabetic Peripheral Neuropathy (ED) Additional Instructions: return to ED for any worsening symptoms or concerns Prescriptions: New gabapentin 100 mg capsule 100 mg PO TID Qty: 90 0RF No Action finasteride 5 mg tablet 5 mg PO DAILY 90 Days Qty: 90 1RF bisacodyl [Dulcolax (bisacodyl)] 5 mg tablet,delayed release (DR/EC) 10 mg PO ONCE 1 Days Qty: 2 0RF Rx Instructions: take 2 tabs at noon the day before your colonoscopy polyethylene glycol 3350 [Miralax] 17 gram/dose powder 238 g PO ONCE Qty: 238 0RF Rx Instructions: As directed by gastroenterology department at [facility] amlodipine 5 mg tablet 5 mg PO DAILY Qty: 30 0RF glipizide 2.5 mg tablet extended release 24hr 2.5 mg PO DAILY Qty: 30 0RF oxycodone 5 mg tablet 5 mg PO Q6H PRN (Reason: pain) Qty: 20 0RF Rx Instructions: This medication may cause drowsiness so no driving for 6 hours after taking amlodipine 10 mg tablet 10 mg PO DAILY tamsulosin 0.4 mg capsule 0.4 mg PO BEDTIME Qty: 90 2RF (DME) lancets 33 gauge misc See Rx Instructions .ROUTE .MEDSUPPLY Qty: 100 Rx Instructions: As directed (DME) FreeStyle Lite Strips Strip See Rx Instructions Not Applicable BID Qty: 10 Rx Instructions: As directed hydrochlorothiazide 25 mg tablet 25 mg PO QAM aspirin 81 mg tablet,delayed release (DR/EC) 81 mg PO DAILY carvedilol 6.25 mg tablet 6.25 mg PO metformin 500 mg tablet 500 mg PO BEDTIME atorvastatin 40 mg tablet PO loratadine 10 mg tablet 10 mg PO DAILY fluticasone propionate 50 mcg/actuation spray,suspension 0 mcg intranasal alcohol swabs Pads, Medicated 0 pad topical montelukast 10 mg tablet 10 mg PO DAILY lisinopril 20 mg tablet 20 mg PO BEDTIME Flucelvax Quad [id number] (PF) 60 mcg (15 mcg x 4)/0.5 mL syringe IM Shingrix (PF) 50 mcg/0.5 mL suspension for reconstitution IM Referrals: Dottie Christine MD [Primary Care Provider] - 1 week Print Language: St Helen[place]
--- NOTE | 2022-02-21 07:01 | PC.NURSE ---
patient a/ox4 . patient given contact information for pain management . went over discharge information as provided by provider . patient to return if symptoms worsen . no questions at this time .
== END 2022-02-21 07:03 | disposition home or self-care (01) ==
PROVIDERS: Emergency Provider Emergency Medicine; PCP Family Medicine
DX: E11.42 Type 2 diabetes mellitus with diabetic polyneuropathy (principal); Z79.899 Other long term (current) drug therapy
CPT/HCPCS: 82947; 99282; 99283

== ENCOUNTER → 2022-07-08 | Day surgery (SDC) | payer OTHER, SELFPAY ==
[2022-07-08 09:27] VITALS: BP 170/78; PULSE 87; RESP 16; TEMP 36.9; O2SAT 96; BMI 25.9
[2022-07-08] MEDS: Lactated Ringers 1,000 ML 50 ML IVCONT (09:32)
--- NOTE | 2022-07-08 09:42 | MHC.SHP ---
Pre-Procedural Eval Section A Date of Service: 07/08/22 The History & Physical has been completed within 30 days and I have reviewed it.: No Section B Chief Complaint: screening, tubular adenoma Details of Present Illness: COLON CANCER SCREENING Relevant Family History (Specify if Yes): No Relevant Social History: None Present Medications: see Short Stay Collaborative assessment Medical History: Significant History (Alcohol abuse Allergic rhinitis Backache Cardiomyopathy Depression Glaucoma HTN (hypertension) Hypercholesteremia Leg pain, bilateral No known health problems Pain in limb Sleep apnea) History of Previous Operations: Relevant previous surgery/procedure and date(s) (HISTORY OF COLONOSCOPY) Allergies: Allergies Allergy/AdvReac Type Severity Reaction Status Date / Time No Known Allergies Allergy Verified 07/03/22 15:25 [No Known Allergies*] Review of Systems Sugical H&P ROS: Negative: Constitution, Cardiovascular, Respiratory and Gastrointestinal Exam Surgical H&P Exam: Normal: Heart, Normal: Lungs, Normal: Extremities and Normal: Abdomen Plan Diagnosis/Plan: Unchanged I have reviewed the history and physical and performed a pertinent physical examination on my patient. No changes have occurred unless specified. Time Spent With Patient Time: Total time managing care of this patient today ____ minutes.
--- NOTE | 2022-07-08 09:48 | HO.ANESPROP2 ---
[facility] Active Problems Active Problems: All Active Problems (Updated 07/03/22 @ 15:36 by Belkys Archer, RN) Urinary retention with incomplete bladder emptying (Acute) Weak urinary stream (Acute) BPH w urinary obs/LUTS (Acute) PAD (peripheral artery disease) (Acute) Tubular adenoma (Acute) Past Medical History Medical History (Updated 07/03/22 @ 15:36 by Belkys Archer, RN) Alcohol abuse Allergic rhinitis Backache Cardiomyopathy Depression DM type 2 (diabetes mellitus, type 2) Glaucoma HTN (hypertension) Hypercholesteremia Leg pain, bilateral Pain in limb Sleep apnea Tubular adenoma Functional capacity: wheelchair bound Family History Family history of problems with anesthesia: No Surgical History Surgical History (Updated 07/03/22 @ 15:36 by Belkys Archer, RN) History of right inguinal hernia repair Hx of colonoscopy History of Problems with Anesthesia: No Social History Social History Alcohol intake: current Alcohol intake frequency: holidays/special occasions only Patient Tobacco Use Status: Never used Tobacco Advance Directives: No Meds Allergies Allergy/AdvReac Type Severity Reaction Status Date / Time No Known Allergies Allergy Verified 07/03/22 15:25 [No Known Allergies*] Home Medications Medication Instructions Recorded Confirmed Last Taken Type alcohol swabs 0 pad topical 06/13/20 Unknown History aspirin 81 mg tablet,delayed 81 mg PO DAILY 06/13/20 07/03/22 07/08/22 History release atorvastatin 40 mg tablet mg PO 06/13/20 Unknown History blood sugar diagnostic #10 ea 06/13/20 Unknown History carvedilol 6.25 mg tablet 6.25 mg PO 06/13/20 07/08/22 History fluticasone propionate 50 0 mcg intranasal 06/13/20 Unknown History mcg/actuation nasal spray,suspension hydrochlorothiazide 25 mg tablet 25 mg PO QAM 06/13/20 07/03/22 Unknown History lancets 33 gauge #100 ea 06/13/20 Unknown History loratadine 10 mg tablet 10 mg PO DAILY 06/13/20 07/03/22 Unknown History amlodipine 10 mg tablet 10 mg PO DAILY 01/17/21 07/03/22 07/08/22 History montelukast 10 mg tablet 10 mg PO QPM 07/03/22 07/03/22 Unknown History (Singulair) Exam Exam Date and Time: July 08, 2022 0948 Height,Weight and Vital Signs: Height 5 ft 2 in Weight 64.41 kg Last Vital Signs Temp 98.5 F 07/08/22 09:27 Pulse 87 07/08/22 09:27 Resp 16 07/08/22 09:27 BP 170/78 H 07/08/22 09:27 Pulse Ox 96 07/08/22 09:27 O2 Del Method 07/08/22 09:27 Airway Mallampati Class: II TM Dist: >3cm Neck ROM: Full Heart: rrr Lungs: cta Assessment and Plan Assessment Anesthesia Assessment: Anesthesia Plan Discussed and Chart Reviewed Final Anesthetic Review Family History of Problems with Anesthesia: No History of Problems with Anesthesia: No NPO: Yes ASA Class: II Final Preanesthetic Review: No Changes in Pt Med Stat, Meds/Allgs Chart Reviewed and Consent Obtained/Reviewed Patient Risk: Intermediate Procedure Risk: Intermediate Anesthetic Plan Anesthetic Plan: MAC: Disposition: Standard PACU
--- NOTE | 2022-07-08 09:50 | P.BOP_ITS ---
Brief Operative Note Date of Service: 07/08/22 Pre-op diagnosis: COLON CANCER SCREENING, HISTORY OF COLON POLYPS Post-op diagnosis: other (Colon polyps, diverticulosis, hemorrhoids) Procedure: COLONOSCOPY TILL CECUM WITH BIOPSIES, SNARE POLYPECTOMY, SUBMUCOSAL INJECTION AND HEMOCLIP PLACEMENT Surgeon: Naty Howe MD Anesthesia: MAC Was an Window Systems Administrator used for this Procedure?: Yes Window Systems Administrator: Tab Torres Estimated blood loss (mL): 2 Pathology: other (A) Polyps Transverse Colon B) Polyps Ascending Colon C) Polyps Cecum D) Polyps Sigmoid Colon 50cm) Condition: stable Disposition: PACU
--- NOTE | 2022-07-08 09:50 | W.PM.OPN ---
Operative Note Operative Note Date of Service: 07/08/22 Narrative: COLONOSCOPY TILL CECUM WITH BIOPSIES, SNARE POLYPECTOMY, SUBMUCOSAL INJECTION AND HEMOCLIP PLACEMENT Indication:? Colon cancer screening Endoscopist:? Naty Howe MD Anesthesia Provider:?Dr Rachel Anesthesia type:?MAC Consent: Indications for the procedure and potential complications of bleeding, perforation, reaction to medications and missed diagnosis were discussed with the patient with the help of an [facility] [place] knitter wire mesh and informed consent was obtained. Instrument: Olympus PCF H 190 L variable stiffness pediatric colonoscope Monitoring: Vital signs and clinical assessment, intermittent blood pressure monitoring, continuous EKG monitoring, Pulse oximetry and Carbon Dioxide monitoring were done throughout the procedure. Please see anesthesia flowsheet. Colon withdrawl time was 40 minutes. Procedure: The patient was placed in the left lateral decubitis position and pre-procedure medications were administered. After a digital rectal examination of the ano-rectum, the video colonoscope was inserted into the rectum and advanced through the colon to the cecum. The colonoscope was slowly withdrawn in a retrograde panoramic fashion and the colon mucosa was carefully examined including a retroflexed view of the rectum. Findings and interventions are described below. Procedure Difficulty: Without difficulty Findings: Terminal Ileum: Not evaluated Cecum: A 2.5 cms sessile polyp raised with 4 cc of normal saline and removed with a hot snare. Polypectomy site was closed with 2 hemoclips. Polyp was retrieved with the help of a [employer] Net. Ascending Colon: Three 15 to 20 mm sessile polyps removed with a hot snare Transverse Colon: Three 8 to 10 mm sessile polyps removed with a hot snare. A 4th 3-4 mm sessile polyp removed with a cold bx Descending Colon: Moderate diverticulosis Sigmoid Colon: Three 1.5 to 2.5 cms sessile polyps removed with a hot snare. A few additonal smaller polyps in the left colon - not removed due to excessive length of procedure. Moderate diverticulosis Rectum: Normal Ano-rectum: Moderate internal hemorrhoids Colon preparation: Good after copious irrigation Impression and Post Procedure Diagnosis: Colonoscopy Findings: Eleven medium to large sized polyps removed A few additonal smaller polyps in the left colon - not removed due to excessive length of procedure. Moderate diverticulosis seen in the left colon Moderate hemorrhoids on retroflexed exam. Plan: Await pathology results Patient has an appointment on 07/22/22 in the GI [facility] with Jaymie Beyer FNP-BC. Repeat Colonoscopy interval based on path results - in 6 to 12 months if polyps are adenomatous to check polypectomy sites in the cecum, rt and left colon/ Above findings were reviewed with the patient and colon polyps and diverticulosis handouts were given in the discharge area
[2022-07-08 10:19] LABS: Glucose, Whole Blood 121 mg/dL (60-115)
[2022-07-08 10:53] VITALS: BP 140/78; PULSE 78; RESP 14; TEMP 36.2; O2SAT 96
[2022-07-08 11:07] VITALS: BP 137/73; PULSE 73; RESP 16; TEMP 36.4; O2SAT 97
== END | disposition home or self-care (01) ==
PROVIDERS: PCP Family Medicine; Visit Provider Internal Medicine Gastroenterology
PROC: 0DJD8ZZ Inspection of Lower Intestinal Tract, Via Natural or Artificial Opening Endoscopic (ICD-10-PCS; CPT 45378; principal; 2022-07-08 10:10)
DX: Z12.11 Encounter for screening for malignant neoplasm of colon (principal); Z86.010 Personal history of colon polyps; D12.0 Benign neoplasm of cecum; D12.2 Benign neoplasm of ascending colon; D12.3 Benign neoplasm of transverse colon; D12.5 Benign neoplasm of sigmoid colon; K57.30 Diverticulosis of large intestine without perforation or abscess without bleeding; K64.8 Other hemorrhoids; I10 Essential (primary) hypertension; E78.00 Pure hypercholesterolemia, unspecified; I42.9 Cardiomyopathy, unspecified; J30.9 Allergic rhinitis, unspecified; R00.0 Tachycardia, unspecified; E11.9 Type 2 diabetes mellitus without complications; Z79.84 Long term (current) use of oral hypoglycemic drugs; Z79.899 Other long term (current) drug therapy; Z79.51 Long term (current) use of inhaled steroids; Z79.82 Long term (current) use of aspirin
CPT/HCPCS: 45385; 45380; 45381; 82947; 88305

== ENCOUNTER → 2022-07-22 08:45 | Outpatient (BNVA) | payer OTHER, SELFPAY | PROVIDERS: PCP Family Medicine; Visit Provider Nurse Practitioner Family | DX: D36.9 Benign neoplasm, unspecified site (principal); Z98.890 Other specified postprocedural states | CPT/HCPCS: 99212 ==

== ENCOUNTER 2022-11-21 19:13 | Emergency (ER) | payer OTHER, SELFPAY ==
--- NOTE | ~2022-11-21 | CT_ITS ---
Examination: CT brain and CT cervical spine without contrast. CLINICAL INDICATION: Head injury intoxicated. Change in behavior. COMPARISON: None. TECHNIQUE: 5 minutes thin axial and reformatted 2 minutes thin sagittal and coronal images of brain were obtained. Subsequently axial 3 minutes thin and reformatted 2 minutes thin sagittal and coronal images of cervical spine were obtained. DLP [id number]. FINDINGS: Brain: There is acute subarachnoid in the right cerebral fissure and along bilateral inferior frontal lobes and a subdural component projecting into the interhemispheric fissure and bilateral frontoparietal and maxillary. No acute infarction seen. There is no acute edema. No midline shift. The lateral ventricles are symmetrical in size and configuration without enlargement. Bone windows reveal no calvarial abnormality. There is no fracture identified. Bilateral paranasal sinuses are well-aerated except for mucoperiosteal thickening left frontal sinus. The paranasal sinuses and mastoid air cells are well-aerated. There is air-fluid level in the right maxillary sinus with no fracture identified. Cervical spine: Sagittal reconstructed images reveal maintained cervical lordosis. The vertebral heights and alignment is normal. There is loss of C5-C6 disc height with mild ventral spondylosis C3-C4, C4-C5 and C5-C6 disc levels. The craniovertebral junction and the C1-C2 alignment is normal. CT/CT cervical spine wo IV con IMPRESSION: 1. Acute subarachnoid hemorrhage right sylvian fissure and bilateral inferior frontal lobes. There is a small subdural component projecting into the interhemispheric fissure and bilateral frontoparietal convexity. 2. There is no calvarial fracture. 3. There is no acute fracture or dislocation cervical spine. There are degenerative disc changes C5-C6 disc level with mild ventral spondylosis C3-C4, C4-C5 and C5-C6 disc levels. 4. Results were called immediately by phone to Dr. Gill and Jean Cruz by phone in the ER at 10:25 PM
[2022-11-21 19:44] VITALS: BP 137/80; PULSE 90; O2SAT 94
[2022-11-21 19:55] VITALS: BP 146/71; PULSE 94; RESP 22; TEMP 36.4; O2SAT 88; BMI 24.3
[2022-11-21] MEDS: Haloperidol Lactate 5 MG/ML VIAL IM (20:08)
[2022-11-21] MEDS: LORazepam 2 MG/ML VIAL IM (20:09)
[2022-11-21 20:30] VITALS: RESP 22
[2022-11-21 20:31] LABS: MANUAL DIFF FLAG NO
--- NOTE | 2022-11-21 20:35 | ED_ITS ---
HPI - General Adult General Chief complaint: Altered Mental Status Stated complaint: FALL ON SIDEWALK Time Seen by Provider: 11/21/22 19:55 Source: EMS Mode of arrival: EMS Limitations: altered mental status History of Present Illness HPI narrative: 67-year-old male presents after a witness head injury. Patient was witnessed to fall backwards. Is unclear whether he lost consciousness. Patient was noted to have some tremulous movements when water was splashed on him. He arrives here with slurred speech, smell of alcohol. He is uncooperative, agitated, spitting on staff in flipping them off. Patient is generally non cooperative and history is only obtainable through EMS. History is limited by EMS as well. Related Data Home Medications Medication Instructions Recorded Confirmed alcohol swabs 0 pad topical 06/13/20 aspirin 81 mg tablet,delayed 81 mg PO DAILY 06/13/20 07/03/22 release atorvastatin 40 mg tablet mg PO 06/13/20 blood sugar diagnostic #10 ea 06/13/20 carvedilol 6.25 mg tablet 6.25 mg PO 06/13/20 fluticasone propionate 50 0 mcg intranasal 06/13/20 mcg/actuation nasal spray,suspension hydrochlorothiazide 25 mg tablet 25 mg PO QAM 06/13/20 07/03/22 lancets 33 gauge #100 ea 06/13/20 loratadine 10 mg tablet 10 mg PO DAILY 06/13/20 07/03/22 amlodipine 10 mg tablet 10 mg PO DAILY 01/17/21 07/03/22 montelukast 10 mg tablet 10 mg PO QPM 07/03/22 07/03/22 (Singulair) Previous Rx's Medication Instructions Recorded glipizide 2.5 mg tablet, extended 2.5 mg PO DAILY #30 tabs 12/04/20 release 24 hr finasteride 5 mg tablet 5 mg PO DAILY 90 days #90 tabs 01/18/22 gabapentin 100 mg capsule 100 mg PO TID #90 caps 02/21/22 tamsulosin 0.4 mg capsule 0.4 mg PO BEDTIME #90 caps 04/22/22 Allergies Allergy/AdvReac Type Severity Reaction Status Date / Time Unable to Assess Allergy Unverified 11/21/22 19:58 Review of Systems Review of Systems: Yes Unobtainable due to mental status [facility] Past Medical History Medical History Alcohol abuse Allergic rhinitis Backache Cardiomyopathy Depression DM type 2 (diabetes mellitus, type 2) Glaucoma HTN (hypertension) Hypercholesteremia Leg pain, bilateral Pain in limb Sleep apnea Tubular adenoma Surgical History History of right inguinal hernia repair Hx of colonoscopy Social History Social History Alcohol intake: current Alcohol intake frequency: a few times a week Alcohol type: beer Patient Tobacco Use Status: Never used Tobacco Smoked in Last 30 Days: Yes Use of substances other than those prescribed or required for medical reasons: No Advance Directives: No Advance Directives Information Provided: No Physical Exam ED Vital Signs: Vital Signs - 24 hr 11/21/22 19:55 11/21/22 20:30 Temperature 97.6 F Pulse Rate 94 Respiratory Rate 22 H 22 H Blood Pressure 146/71 H Pulse Oximetry 88 L Oxygen Delivery Method Room Air BMI result Body Mass Index 24.3 Initial vital signs unobtainable due to non cooperativeness GEN: Well developed, no acute distress, alert, disoriented, noncooperative, smell of alcohol HEENT: Normocephalic, atraumatic, normal external ears, nose appears normal, no oropharyngeal edema or exudates Eyes: Normal to appearance Neck: Supple, no lymphadenopathy, patient remove cervical collar Respiratory: Talks in complete sentences, no respiratory distress, clear to auscultation bilaterally Cardiovascular: Regular rate and rhythm, no murmurs rubs or gallops Abdomen: Soft, nontender, nondistended, no guarding, no rebound Back: No CVA tenderness Extremities: No clubbing cyanosis or edema Neurologic: No focal neurologic deficits, cranial nerves 2-12 intact, strength is 5/5 bilaterally Skin: No rash Course Course Course Narrative: Patient has altered mental status presumably due to alcohol intoxication or other intoxicant. Patient is spitting at staff members, posing a threat to o thers in limiting our ability to make sure he is in stable condition especially given head injury with mental status changes. This could be certainly concerning for intracranial injury. Patient will receive Haldol and Ativan in order to help us facilitate his complete workup. Reevaluation(s) Reevaluation #1: Patient may have evidence of a subarachnoid hemorrhage on CT scan. And have not been able to fully evaluate the images as his imaging studies were initially on Tom Virgen and currently being transitioned to his name. We will have the radiology department read the images stat and consideration for transfer to a [facility]. Time: 21:25 Medications Administered Discontinued Medications Generic Name Dose Route Start Last Admin Trade Name Noah PRN Reason Stop Dose Admin Haloperidol Lactate 5 mg 11/21/22 20:01 11/21/22 20:08 Haloperidol Lactate 5 Mg/Ml Vial IM 11/21/22 20:02 5 mg ONCE ONE Administration Lorazepam 2 mg 11/21/22 20:01 11/21/22 20:09 Lorazepam 2 Mg/Ml Vial IM 11/21/22 20:02 2 mg STAT STA Administration Medical Decision Making Medical Decision Making [facility] Narrative: 67-year-old male presents with a witnessed head injury. Patient appears to be intoxicated. He is agitated, noncooperative in actually spitting on staff. At this point in order to facilitate a complete workup to make sure patient does not have any intracranial bleeding, patient will be administered Ativan and Haldol. We will obtain a CT scan of the head and neck. Will obtain routine laboratory analysis as well. Differential diagnosis includes head injury, intoxication, subdural hematoma, epidural hematoma could Ms. Subarachnoid hemorrhage, cerebral contusion, and polysubstance abuse, encephalopathy. Differential Diagnosis Differential Diagnoses: The differential diagnosis associated with the presentation includes (See above) Admission/Observation Consideration of admission/observation: Escalation of care including admission/observation considered Lab Data [facility] Lab Attestation statement: I reviewed the patient's lab results. 11/21/22 20:27 11/21/22 20:27 Labs: Lab Results 11/21/22 11/21/22 Range/Units 20:27 20:27 WBC 8.5 (4.8-10.8) X10*3/uL RBC 5.43 (4.60-5.80) X10*6/uL Hgb 15.5 (14.0-18.0) g/dl Hct 45.5 (42.0-52.0) % MCV 83.8 (80.0-98.0) fL MCH 28.5 (27.0-33.0) pg MCHC 34.1 (31.0-36.0) g/dl RDW 13.2 (11.0-16.0) % Plt Count 265 (160-400) X10*3/uL MPV 9.2 L (9.4-12.4) fL Immature Gran % (Auto) 0.2 (0.0-0.4) % Neut % (Auto) 75.9 H (45-73) % Lymph % (Auto) 14.4 L (20-40) % Andrew % (Auto) 8.0 (2-11) % Eos % (Auto) 0.9 (0-4) % Baso % (Auto) 0.6 (0-2) % Lymph # (Auto) 1.2 (1.2-4.9) X10*3/uL Andrew # (Auto) 0.7 (0.1-1.2) X10*3/uL Eos # (Auto) 0.1 (0.0-0.4) X10*3/uL Baso # (Auto) 0.1 (0.0-0.2) X10*3/uL Abs Immat Gran (auto) 0.02 (0.00-0.03) X10*3/uL Absolute Neuts (auto) 6.5 (2.0-8.3) x10*3/uL Absolute Nucleated RBC 0.000 (0.0-0.012) X10*3/uL Nucleated RBC % (auto) 0.0 (0.0-0.2) /100WBC Sodium 134 L (135-145) mmol/L Potassium 3.3 D (3.3-5.1) mmol/L Chloride 99 (96-108) mmol/L Carbon Dioxide 24 (22-29) mmol/L Anion Gap 14 (12-20) BUN 18 H (9-16) mg/dL Creatinine 1.22 (0.5-1.4) mg/dL Estim Creat Clear Calc 56.8 Estimated GFR 59 Random Glucose 129 H (60-115) mg/dL Calcium 9.4 (8.4-10.2) mg/dL Total Bilirubin 0.6 (0.0-1.0) mg/dL AST 37 (5-37) U/L ALT 41 H (0-40) U/L Alkaline Phosphatase 83 (39-117) U/L Total Protein 7.4 (6.5-8.0) g/dL Albumin 4.4 (3.5-5.0) g/dL Ethyl Alcohol 337 H* mg/dL Independent Interpretation I performed an independent interpretation of an: CT Scan (C-spine: Degenerative changes with osteophyte formation, no acute traumatic fracture. CT scan head: Possible areas of left frontal subarachnoid hemorrhage) Radiology Impression Discussion of test interpretation with radiology: I have reviewed the radiologist's reading. Independent Historian Clinical information obtained from an independent historian. History obtained from or confirmed by: EMS Critical Care Time Critical Care Time Critical Care Time: Yes Total Critical Care Time: 40 Attestation: Approximately 40 minutes of critical care time spent with patient under direct patient care, re-evaluation patient, medical management, consultation with other staff members, attempts to calm patient down in order to make a full assessment offered potentially life-threatening condition all outside medical procedures. Discharge Plan Discharge Clinical Impression: Acute head injury, Alcoholic intoxication Patient Disposition: Still a Patient Instructions: Head Injury (ED) Prescriptions: No Action finasteride 5 mg tablet 5 mg PO DAILY 90 Days Qty: 90 1RF tamsulosin 0.4 mg capsule 0.4 mg PO BEDTIME Qty: 90 1RF glipizide 2.5 mg tablet extended release 24hr 2.5 mg PO DAILY Qty: 30 0RF gabapentin 100 mg capsule 100 mg PO TID Qty: 90 0RF montelukast [Singulair] 10 mg Tablet 10 mg PO QPM amlodipine 10 mg tablet 10 mg PO DAILY (DME) lancets 33 gauge misc See Rx Instructions .ROUTE .MEDSUPPLY Qty: 100 Rx Instructions: As directed (DME) blood sugar diagnostic Strip See Rx Instructions Not Applicable BID Qty: 10 Rx Instructions: As directed hydrochlorothiazide 25 mg tablet 25 mg PO QAM aspirin 81 mg tablet,delayed release (DR/EC) 81 mg PO DAILY carvedilol 6.25 mg tablet 6.25 mg PO atorvastatin 40 mg tablet PO loratadine 10 mg tablet 10 mg PO DAILY fluticasone propionate 50 mcg/actuation spray,suspension 0 mcg intranasal alcohol swabs Pads, Medicated 0 pad topical Referrals: [facility] [place] Family Medicine [Provider Group]
[2022-11-21 20:41] LABS: Basophils Absolute Auto 0.1 X10*3/uL (0.0-0.2); Basophils Percent Auto 0.6 % (0-2); Eosinophils Absolute Auto 0.1 X10*3/uL (0.0-0.4); Eosinophils Percent Auto 0.9 % (0-4); Hematocrit 45.5 % (42.0-52.0); Hemoglobin 15.5 g/dl (14.0-18.0); Imm Gran Abs Auto 0.02 X10*3/uL (0.00-0.03); Imm Gran Pct Auto 0.2 % (0.0-0.4); Lymphocytes Absolute Auto 1.2 X10*3/uL (1.2-4.9); Lymphocytes Percent Auto 14.4 % (20-40); Mean Corpuscular HGB Conc 34.1 g/dl (31.0-36.0); Mean Corpuscular Hemoglobin 28.5 pg (27.0-33.0); Mean Corpuscular Volume 83.8 fL (80.0-98.0); Mean Platelet Volume 9.2 fL (9.4-12.4); Monocytes Absolute Auto 0.7 X10*3/uL (0.1-1.2); Neutrophils Absolute Auto 6.5 x10*3/uL (2.0-8.3); Neutrophils Percent Auto 75.9 % (45-73); Platelet Count 265 X10*3/uL (160-400); Red Blood Count 5.43 X10*6/uL (4.60-5.80); Red Cell Distribution Width 13.2 % (11.0-16.0); White Blood Count 8.5 X10*3/uL (4.8-10.8)
--- NOTE | 2022-11-21 20:50 | PC.NURSE ---
Patient showing improvement in behavior and speech patterns. Remains confused as to date/time and location. Patient no longer exhibiting agitation or aggressive behavior at this time.
[2022-11-21 21:03] LABS: Alanine Aminotransferase 41 U/L (0-40); Albumin Level 4.4 g/dL (3.5-5.0); Alkaline Phosphatase 83 U/L (39-117); Anion Gap 14 (12-20); Aspartate Amino Transferase 37 U/L (5-37); Bilirubin Total 0.6 mg/dL (0.0-1.0); Blood Urea Nitrogen 18 mg/dL (9-16); Calcium 9.4 mg/dL (8.4-10.2); Carbon Dioxide 24 mmol/L (22-29); Chloride 99 mmol/L (96-108); Creatinine Clr Calc Pharmacy 56.8; Estimated Glomerular Filt Rate 59; Ethanol 337 mg/dL; Glucose Random 129 mg/dL (60-115); Potassium 3.3 mmol/L (3.3-5.1); Sodium 134 mmol/L (135-145); Total Protein 7.4 g/dL (6.5-8.0)
[2022-11-21 21:48] VITALS: BP 134/67; PULSE 89; RESP 20; TEMP 36.4; O2SAT 95
--- NOTE | 2022-11-21 21:48 | MHC.EDTECH ---
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
[2022-11-21 21:59] LABS: Partial Thromboplastin Time 30.9 SEC (26.0-36.4)
[2022-11-21 22:46] VITALS: BP 127/71; PULSE 94; RESP 20; TEMP 37.3; O2SAT 98
--- NOTE | 2022-11-21 22:49 | MHC.EDTECH ---
covid swab collected and sent to lab ,patient still sleeping .
[2022-11-21 23:17] LABS: COVID-19 Test Negative (Negative); IDNOW Serial# 6674DD1D
== END 2022-11-21 23:28 | disposition still patient (30) ==
PROVIDERS: Emergency Provider Emergency Medicine; PCP Family Medicine
DX: S06.6XAA Traumatic subarachnoid hemorrhage with loss of consciousness status unknown, initial encounter (principal); S06.5XAA Traumatic subdural hemorrhage with loss of consciousness status unknown, initial encounter; W18.30XA Fall on same level, unspecified, initial encounter; F10.120 Alcohol abuse with intoxication, uncomplicated; Y90.8 Blood alcohol level of 240 mg/100 ml or more; E11.9 Type 2 diabetes mellitus without complications; I10 Essential (primary) hypertension; E78.00 Pure hypercholesterolemia, unspecified; Y93.9 Activity, unspecified; Y92.9 Unspecified place or not applicable; Y99.9 Unspecified external cause status; Z79.82 Long term (current) use of aspirin; Z79.899 Other long term (current) drug therapy; Z20.822 Contact with and (suspected) exposure to COVID-19
CPT/HCPCS: 36415; 70450; 72125; 80053; 80307; 85025; 85730; 86850; 86900; 86901; 87635; 96372; 99285; J2060

== ENCOUNTER 2022-12-17 10:35 | Outpatient (REF) | payer OTHER, SELFPAY ==
[2022-12-17 11:11] LABS: MANUAL DIFF FLAG NO
[2022-12-17 11:27] LABS: Prothrombin Time 11.7 SEC (11.1-13.3)
[2022-12-17 11:30] LABS: Estimated Average Glucose 123 mg/dL; Hemoglobin A1c % 5.9 %
[2022-12-17 11:31] LABS: Basophils Absolute Auto 0.1 X10*3/uL (0.0-0.2); Basophils Percent Auto 1.2 % (0-2); Eosinophils Absolute Auto 0.1 X10*3/uL (0.0-0.4); Eosinophils Percent Auto 1.5 % (0-4); Hematocrit 47.5 % (42.0-52.0); Hemoglobin 15.2 g/dl (14.0-18.0); Imm Gran Abs Auto 0.02 X10*3/uL (0.00-0.03); Imm Gran Pct Auto 0.3 % (0.0-0.4); Lymphocytes Absolute Auto 1.2 X10*3/uL (1.2-4.9); Mean Corpuscular Hemoglobin 28.5 pg (27.0-33.0); Mean Corpuscular Volume 89.1 fL (80.0-98.0); Mean Platelet Volume 9.9 fL (9.4-12.4); Monocytes Absolute Auto 0.4 X10*3/uL (0.1-1.2); Monocytes Percent Auto 6.2 % (2-11); Neutrophils Absolute Auto 4.8 x10*3/uL (2.0-8.3); Neutrophils Percent Auto 72.8 % (45-73); Platelet Count 300 X10*3/uL (160-400); Red Blood Count 5.33 X10*6/uL (4.60-5.80); White Blood Count 6.6 X10*3/uL (4.8-10.8)
[2022-12-17 12:13] LABS: Alanine Aminotransferase 290 U/L (0-40); Albumin Level 4.2 g/dL (3.5-5.0); Alkaline Phosphatase 91 U/L (39-117); Anion Gap 12 (12-20); Aspartate Amino Transferase 168 U/L (5-37); Bilirubin Total 0.3 mg/dL (0.0-1.0); Blood Urea Nitrogen 24 mg/dL (9-16); Calcium 10.4 mg/dL (8.4-10.2); Carbon Dioxide 28 mmol/L (22-29); Chloride 106 mmol/L (96-108); Estimated Glomerular Filt Rate 56; Glucose Random 121 mg/dL (60-115); Iron 103 mcg/dL (45-160); Percent Iron Saturation 40 % (15-50); Potassium 4.1 mmol/L (3.3-5.1); Sodium 142 mmol/L (135-145); Total Iron Binding Capacity 258 mcg/dL (228-428); Total Protein 7.6 g/dL (6.5-8.0); Unsaturated Iron Binding 155 ug/dL
[2022-12-17 12:17] LABS: Syphilis Screen Nonreactive (Nonreactive)
[2022-12-17 12:19] LABS: HIV AB/AG Nonreactive (Nonreactive); HIV Num 1 0.07 S/CO (0.00-0.99)
[2022-12-17 12:30] LABS: Ferritin 532 ng/mL (20-250)
[2022-12-17 12:41] LABS: Vitamin B12 532 pg/mL (200-900)
== END 2022-12-17 10:36 | disposition home or self-care (01) ==
LOC: HO.HHCL 10:35
PROVIDERS: Visit Provider Student in an Organized Health Care Education/Training Program
DX: Z11.4 Encounter for screening for human immunodeficiency virus [HIV] (principal); R41.3 Other amnesia; E53.8 Deficiency of other specified B group vitamins; E11.9 Type 2 diabetes mellitus without complications; I60.9 Nontraumatic subarachnoid hemorrhage, unspecified; F10.10 Alcohol abuse, uncomplicated
CPT/HCPCS: 36415; 80053; 82607; 82728; 82746; 83036; 83540; 85025; 85610; 85730; 86780; 87389

== ENCOUNTER 2023-01-13 07:51 | Outpatient (AMB) | payer OTHER, SELFPAY ==
[2023-01-13 08:59] VITALS: BP 129/76; PULSE 68; BMI 21.4
--- NOTE | 2023-01-13 08:59 | A.OFFVIS_ITS ---
Intake Vital Signs 01/13/23 08:59 Height 5 ft 8 in Weight 140 lb 10.479 oz BMI 21.4 BP 129/76 Blood Pressure Location Lt brachial Position Sitting Pulse 68 Intake Visit Reasons: 6 month follow up Intake Note: [place] presents in office as a est.patient for a 6 month f/u s/p colonoscopy. Patient reports doing well today and denies having any GI issues. Newscast Producer Required: Yes Newscast Producer Language: Lao Accompanied by: Self / Same As Patient Allergies No Known Drug Allergies Allergy (Unknown, Verified 01/13/23 09:03) none HPI 6 month follow up HPI Details LAST VISIT Tubular adenoma Tubular adenoma found without high-grade dysplasia or carcinoma. Two of them were large polyps over 2 cm. Patient will need to return in 6-12 months for colonoscopy. Patient is agreeable and understands. Status post colonoscopy Patient denies any ill effects from the prep, anesthesia or procedure itself. He is aware that he needs to return for colorectal screening in 6-12 months. I will see him in 6 months so we can discuss going for colonoscopy. Patient will call us sooner if he will have any GI concerning symptoms. He is agreeable to this plan and verbalizes understanding of instructions. He was given the opportunity to ask questions all questions answered. ? TODAY'S VISIT: Patient is here today for follow-up and to discuss going for colonoscopy again. Patient had colonoscopy in July and was found to have 31.5-2.5 cm polyps. Recommendation was to return for colorectal screening in 6-12 months. Patient denies any GI concerning symptoms. Denies any issues with anesthesia in the past. No history of sleep apnea. Denies any cardiac or respiratory symptoms. Patient reports that he did well with it prep last time. Patient denies melena, hematochezia, unintentional weight loss or ribbon like stools. Denies dyspepsia, dysphagia or odynophagia [facility] Medical History DM type 2 (diabetes mellitus, type 2) Tubular adenoma Leg pain, bilateral Backache Alcohol abuse Cardiomyopathy HTN (hypertension) Hypercholesteremia Depression Glaucoma Allergic rhinitis Pain in limb Sleep apnea Surgical History History of right inguinal hernia repair Hx of colonoscopy Social History Alcohol intake: current Alcohol intake frequency: a few times a week Alcohol type: beer Patient Tobacco Use Status: Never used Tobacco Review of Systems Const Denies weight gain and Denies weight loss ENT Reports no additional complaints, Denies dysphagia and Denies odynophagia Card Reports no additional complaints Resp Reports no additional complaints GI Denies abdominal pain, Denies belching, Denies melena, Denies bloating, Denies change in bowel habits, Denies dysphagia, Denies excessive flatus, Denies dyspepsia, Denies heartburn, Denies diarrhea, Denies loose stools, Denies nausea, Denies odynophagia and Denies vomiting Reports no additional complaints Musc Reports no additional complaints Neuro Reports no additional complaints Psych Reports no additional complaints Endo Reports no additional complaints Physical Exam Vital Signs: Last Vital Signs Pulse 68 01/13/23 08:59 BP 129/76 01/13/23 08:59 BMI result Body Mass Index 21.4 Const General: healthy appearing, no acute distress and well developed Nutritional Appearance: well nourished Orientation/consciousness: patient oriented x3 HEENT Head: Yes normal to inspection, Yes normocephalic and Yes atraumatic Face and sinus: Yes normal facial exam Mouth: Normal oral and palatal mucosa present Throat: Yes posterior oropharynx normal, Yes tonsils normal and Yes uvula midline Eyes General: appearance normal, both eyes and all related structures Neck Neck: Yes normal visual inspection, Yes full ROM and Yes trachea midline Thyroid: Thyroid normal Resp Effort & Inspection: normal respiratory effort, able to speak in complete sentences, no tracheal deviation and symmetric chest movement Auscultation: clear to auscultation bilaterally Cardio Rate: regular rate Heart sounds: S1 normal heart sound present and S2 normal heart sound present GI Inspection: Yes normal to inspection and No distended Palpation (GI): Soft to palpation, not firm, nontender and No hepatosplenomegaly present Auscultation: normal bowel sounds General: Yes no CVA tenderness Back/Spine/Pelvis Back: no CVA tenderness Skin General skin exam: elasticity normal, turgor normal and dry skin Neuro General: patient oriented x3 Psych Appearance: grossly normal Mental Status: mental status grossly normal Speech and movement: Normal speech and movement present Assessment & Plan Assessment & Plan (1) Tubular adenoma: Code(s): D36.9 - Benign neoplasm, unspecified site Plan: Tubular adenoma without high-grade dysplasia or carcinoma seen on last colonoscopy. (2) Screen for colon cancer: Code(s): Z12.11 - Encounter for screening for malignant neoplasm of colon Plan: May proceed with procedure. Patient denies any melena, hematochezia, unintentional weight loss or ribbon like stools. Denies any issues with anesthesia in the past. No history of sleep apnea. Patient is on low-dose aspirin. What to expect before during and after the procedure discussed with patient. The importance of clear liquid diet as well as good bowel prep before the procedure discussed with patient. I will see him after the procedure, sooner on as needed basis. Patient is agreeable to this plan and verbalizes understanding of instructions. He was given the opportunity to ask questions and all questions answered. Thank you for allowing me to participate in his care Coding Level of Care Code Est Pt Level 3 (56433) Diagnoses Tubular adenoma D36.9 Screen for colon cancer Z12.11 Time Spent (min) 30 Comment 20 minutes spent with patient and additional 10 minutes spent reviewing his records
== END 2023-01-13 09:57 | disposition home or self-care (01) ==
PROVIDERS: Visit Provider Nurse Practitioner Family
DX: D36.9 Benign neoplasm, unspecified site (principal); Z12.11 Encounter for screening for malignant neoplasm of colon
CPT/HCPCS: 99213

== ENCOUNTER → 2023-01-13 07:51 | Outpatient (BNVA) | payer OTHER, SELFPAY | PROVIDERS: Visit Provider Nurse Practitioner Family | DX: D12.6 Benign neoplasm of colon, unspecified (principal) | CPT/HCPCS: 99212 ==

== ENCOUNTER 2023-02-13 10:01 | Outpatient (REF) | payer OTHER, SELFPAY ==
[2023-02-13 12:20] LABS: Alanine Aminotransferase 23 U/L (0-40); Albumin Level 4.3 g/dL (3.5-5.0); Alkaline Phosphatase 71 U/L (39-117); Aspartate Amino Transferase 22 U/L (5-37); Bilirubin Direct 0.2 mg/dL (0.0-0.5); Bilirubin Total 0.6 mg/dL (0.0-1.0); Total Protein 7.5 g/dL (6.5-8.0)
[2023-02-13 13:24] LABS: Microalbum/Creatinine Ratio Ur 3.6 ug/mg cr (<30)
== END 2023-02-13 10:02 | disposition home or self-care (01) ==
LOC: HO.HHCL 10:01
PROVIDERS: Visit Provider Family Medicine
DX: E11.9 Type 2 diabetes mellitus without complications (principal); R74.01 Elevation of levels of liver transaminase levels
CPT/HCPCS: 36415; 80076; 82043; 82570

== ENCOUNTER 2023-02-14 11:15 | Outpatient (AMB) | payer OTHER, SELFPAY ==
--- NOTE | 2023-02-14 11:20 | A.OFFVIS_ITS ---
Intake Intake Visit Reasons: follow up/PVR Intake Note: Patient is Present for Follow Up PVR Urology Medication: Finasteride, Tamsulosin Antibiotic Allergies: None Blood Thinners: Aspirin Pharmacy: [facility] PVR:0 Allergies No Known Drug Allergies Allergy (Unknown, Verified 02/14/23 11:28) none Medication List - Last Reconciled 02/14/23 by Jorge Alberto Boss MD alcohol swabs 0 pad topical amlodipine 10 mg PO DAILY aspirin 81 mg PO DAILY atorvastatin mg PO blood sugar diagnostic As directed carvedilol 6.25 mg PO finasteride 5 mg PO DAILY 90 days fluticasone propionate 50 mcg/actuation 0 mcg intranasal gabapentin 100 mg PO TID glipizide ER 2.5 mg PO DAILY hydrochlorothiazide 25 mg PO QAM lancets As directed loratadine 10 mg PO DAILY montelukast (Singulair) 10 mg PO QPM tamsulosin 0.4 mg PO BEDTIME HPI HPI Comments History of Present Illness Details Micho[place]ano is a pleasant male. He is a patient of Dr. Christine. He is seen for following urologic conditions - lower urinary tract symptoms with epis ode of urinary retention PVR 0 cc Remains on combination therapy with tamsulosin and finasteride Continue to follow Lower urinary tract symptoms Episode of urinary retention December 2020 Past initial voiding trial Follow-up PVR low Current therapy combination with tamsulosin 0.5 mg and finasteride Background of diabetes PSA 04/24 2.1, Cr 1.1 PFSH Medical History DM type 2 (diabetes mellitus, type 2) Tubular adenoma Leg pain, bilateral Backache Alcohol abuse Cardiomyopathy HTN (hypertension) Hypercholesteremia Depression Glaucoma Allergic rhinitis Pain in limb Sleep apnea Surgical History History of right inguinal hernia repair Hx of colonoscopy Social History Alcohol intake: current Alcohol intake frequency: a few times a week Alcohol type: beer Patient Tobacco Use Status: Never used Tobacco Review of Systems Const Denies chills and Denies fever(s) Card Reports no additional complaints and Denies syncope Resp Denies cough GI Denies abdominal pain and Denies heartburn Reports as per HPI and Denies change in libido Neuro Denies syncope Psych Denies change in libido Endo Denies change in libido Physical Exam Const General: cooperative, healthy appearing, comfortable and no acute distress Orientation/consciousness: patient oriented x3 HEENT Face and sinus: Yes normal facial exam Mouth: moist mucous membranes Neck Neck: Yes normal visual inspection, Yes full ROM and Yes trachea midline Chest Chest palpation & inspection: normal inspection of the chest Resp Effort & Inspection: normal respiratory effort, able to speak in complete sentences and no respiratory distress GI Inspection: Yes normal to inspection Back/Spine/Pelvis Cervical Spine: normal cervical lordosis Thoracic/Lumbar Spine: thoracic and lumbar spine normal to inspection Skin General skin exam: no rashes or lesions noted Neuro General: patient oriented x3, gait normal, tone normal and moves all extremities Extrem General: Yes normal to inspection and Yes capillary refill normal Office Procedures Post Void Residual Post Residual Void Post Void Residual (PVR): 0 [id number] Void Residual by ultrasound Results AMB Urinalysis, Automated UA Leukoctes 15 Sera/uL Last Edit by LUZ MARIA Andersen on 02/14/23 11:31 UA Nitrite Negative Last Edit by Valentina Rincon [facility] on 02/14/23 11:31 UA Urobilinogen 1 mg/dL Last Edit by Valentina Rincon [facility] on 02/14/23 11:31 UA Protein 30 mg/dL Last Edit by Valentina Rincon [facility] on 02/14/23 11:31 UA pH 6.0 Last Edit by Valentina Rincon [facility] on 02/14/23 11:31 UA Blood 0 Sergio/uL Last Edit by Valentina Rincon [facility] on 02/14/23 11:31 UA Specific [place] 1.025 Last Edit by Valentina Rincon [facility] on 02/14/23 11: 31 UA Ketone Positive Last Edit by Valentina Rincon [facility] on 02/14/23 11:31 5 mg/dL Valentina Rincon 02/14/23 11:31 UA Bilirubin 2 mg/dL Last Edit by Valentina Rincon [facility] on 02/14/23 11:31 UA Glucose 0 mg/dL Last Edit by Valentina Rincon [facility] on 02/14/23 11:31 Results Reviewed Results Reviewed: Laboratory Last Values Urine pH (Auto) 6.0 02/14/23 11:22 Specific [place] (Auto) 1.025 02/14/23 11:22 Urine Protein (Auto) 30 mg/dL 02/14/23 11:22 Glucose (UA)(Auto) 0 mg/dL 02/14/23 11:22 Urine Ketones (Auto) Positive 02/14/23 11:22 Urine Blood (Auto) 0 Sergio/uL 02/14/23 11:22 Urine Nitrite (Auto) Negative 02/14/23 11:22 Urine Bilirubin (Auto) 2 mg/dL 02/14/23 11:22 Urine Urobilinogen (Auto) 1 mg/dL 02/14/23 11:22 Leukocyte Esterase (Auto) 15 Sera/uL 02/14/23 11:22 Assessment & Plan Assessment & Plan (1) Urinary retention with incomplete bladder emptying: Code(s): R33.9 - Retention of urine, unspecified (2) BPH w urinary obs/LUTS: Code(s): N40.1 - Benign prostatic hyperplasia with lower urinary tract symptoms; N13.8 - Other obstructive and reflux uropathy Plan One year follow-up Orders: Orders AMB Urinalysis Automated 02/14/23 Z13.9 - Encounter for screening, unspecified AMB Post Void Residual by ultrasound 02/14/23 R33.9 - Retention of urine, unspecified Prostate Specific Antigen 364 Days N13.8 - Other obstructive and reflux uropathy, N40.1 - Benign prostatic hyperplasia with lower urinary tract symptoms Medications: New finasteride 5 mg PO DAILY 90 tabs 3RF 90 days N13.8 - Other obstructive and reflux uropathy, N40.0 - Benign prostatic hyperplasia without lower urinary tract symptoms, N40.1 - Benign prostatic hyperplasia with lower urinary tract symptoms Patient Instructions: Imaging studies, laboratory and physical exam results were discussed and reviewed in detail. No major barriers to patient understanding were identified. An opportunity to ask questions regarding the treatment plan was provided. All questions were answered. The patient expressed understanding and agreement with the above treatment plan. The patient is aware they should contact our office by phone for worsening of their current condition or the appearance of new urologic symptoms. Compliance is encouraged with any medications and followup testing that is ordered. It is a privilege to participate in the urologic care of your patient. If you have any questions or concerns regarding treatment for the above conditions, or other urologic issues, please do not hesitate to contact me. The office telephone contact is [phone]. This note is constructed using voice recognition software. While every effort has been made to ensure accuracy barrel centerer errors may have been included. Yours sincerely, Dr Jorge Alberto Boss MD, [facility] - Urology Providers of Expert, Compassionate Care for the Genitourinary System Coding Level of Care Code Est Pt Level 3 (73592) Diagnoses Urinary retention with incomplete bladder emptying R33.9 BPH w urinary obs/LUTS N40.1; N13.8 CPT Codes Post Residual Void - PVR CPT Code: 87757-Vqqn Void Residual by ultrasound ([id number])
== END 2023-02-14 11:37 | disposition home or self-care (01) ==
LOC: HO.HUSH 11:15
PROVIDERS: PCP Family Medicine; Visit Provider Urology
DX: R33.9 Retention of urine, unspecified (principal); N40.1 Benign prostatic hyperplasia with lower urinary tract symptoms; N13.8 Other obstructive and reflux uropathy
CPT/HCPCS: 99213

== ENCOUNTER → 2023-02-14 11:15 | Outpatient (BNVA) | payer OTHER, SELFPAY | PROVIDERS: PCP Family Medicine; Visit Provider Urology | DX: N40.1 Benign prostatic hyperplasia with lower urinary tract symptoms (principal); N13.8 Other obstructive and reflux uropathy; R33.9 Retention of urine, unspecified | CPT/HCPCS: 51798; 81003; 99212 ==

== ENCOUNTER 2023-04-04 20:26 | Emergency (ER) | payer OTHER, SELFPAY ==
--- NOTE | 2023-04-04 | ECG_ITS ---
Test Reason : FALL Blood Pressure : / mmHG Vent. Rate : 084 BPM Atrial Rate : 084 BPM P-R Int : 152 ms QRS Dur : 094 ms QT Int : 350 ms P-R-T Axes : 055 027 -32 degrees QTc Int : 413 ms Normal sinus rhythm Nonspecific T wave abnormality Abnormal ECG No previous ECGs available Referred By: Generic ED Physician Electronically Signed By:LUÍS TOMPKINS MD
--- NOTE | ~2023-04-04 | CT_ITS ---
EXAMINATION: CT HEAD WITHOUT CONTRAST CT FACIAL BONES WITHOUT CONTRAST CT CERVICAL SPINE WITHOUT CONTRAST CLINICAL INFORMATION: Trauma. COMPARISON: None. TECHNIQUE: Imaging was performed from the skull base to vertex without intravenous administration of contrast. In addition, helical noncontrast CT imaging was acquired through the cervical spine and facial bones and source images were reviewed along with axial reconstructions and sagittal and coronal MPRs. [This CT examination was performed using dose optimization techniques as appropriate, variously including the following: *Automated exposure control *Adjustment of mA and/or kV according to patient size (this includes techniques or standardized protocols for targeted exams where dose is matched to indication/reason for exam; i.e. extremities or head) *Use of iterative reconstruction technique] DLP: [phone] mGy-cm FINDINGS: HEAD: Hypodensity in the inferior frontal lobes bilaterally. This is likely due to old posttraumatic injury/infarct with gliosis. No acute intracranial abnormality. No intracranial hemorrhage or mass effect. No extra-axial collection. FACIAL BONES: Comminuted mildly displaced fracture of the left zygomatic arch. Mildly comminuted displaced fracture of the lateral wall of the left orbit. Comminuted mildly displaced fracture of the left maxillary sinus involving the lateral wall and the superior wall of the sinus extending into the floor of the left orbit. No evidence of trapping of the extraocular muscles. The left orbital globe and retrobulbar structures are normal. Fluid in the left ethmoid and maxillary sinuses consistent with hemo-sinus. CERVICAL SPINE: There is no evidence of acute cervical spine fracture. Vertebrae have normal height. There is degenerative spondylosis. Multilevel disc height narrowing and vertebral endplate spurring and mild facet joint arthrosis. No pre- or paravertebral soft tissue abnormality is identified. Limited assessment of the lung apices is unremarkable. CT/CT cervical spine wo IV con IMPRESSION: 1. No acute intracranial process . 2. Left facial bone fractures. 3. No acute cervical spine fracture or traumatic subluxation.
[2023-04-04 20:47] VITALS: BP 172/79; PULSE 87; RESP 16; TEMP 36.5; O2SAT 95; BMI 26.6
[2023-04-04 20:51] VITALS: BP 198/120; PULSE 88; O2SAT 98
[2023-04-04 20:52] VITALS: BP 172/79; PULSE 87; RESP 17; TEMP 36.5
[2023-04-04 21:07] LABS: MANUAL DIFF FLAG NO
[2023-04-04 21:09] LABS: Basophils Percent Auto 0.6 % (0-2); Eosinophils Percent Auto 0.4 % (0-4); Hematocrit 47.1 % (42.0-52.0); Hemoglobin 16.4 g/dl (14.0-18.0); Imm Gran Abs Auto 0.02 X10*3/uL (0.00-0.03); Imm Gran Pct Auto 0.3 % (0.0-0.4); Lymphocytes Absolute Auto 1.7 X10*3/uL (1.2-4.9); Lymphocytes Percent Auto 24.9 % (20-40); Mean Corpuscular HGB Conc 34.8 g/dl (31.0-36.0); Mean Corpuscular Hemoglobin 29.2 pg (27.0-33.0); Monocytes Absolute Auto 0.5 X10*3/uL (0.1-1.2); Monocytes Percent Auto 6.9 % (2-11); Neutrophils Absolute Auto 4.7 x10*3/uL (2.0-8.3); Neutrophils Percent Auto 66.9 % (45-73); Platelet Count 287 X10*3/uL (160-400); Red Blood Count 5.61 X10*6/uL (4.60-5.80); Red Cell Distribution Width 12.4 % (11.0-16.0)
[2023-04-04 21:41] LABS: Alanine Aminotransferase 30 U/L (0-40); Albumin Level 4.5 g/dL (3.5-5.0); Alkaline Phosphatase 80 U/L (39-117); Anion Gap 16 (12-20); Aspartate Amino Transferase 28 U/L (5-37); Bilirubin Direct 0.2 mg/dL (0.0-0.5); Bilirubin Total 0.5 mg/dL (0.0-1.0); Blood Urea Nitrogen 18 mg/dL (9-16); Calcium 9.3 mg/dL (8.4-10.2); Carbon Dioxide 22 mmol/L (22-29); Chloride 103 mmol/L (96-108); Creatinine Clr Calc Pharmacy 55.5; Estimated Glomerular Filt Rate > 60; Ethanol 331 mg/dL; Glucose Random 123 mg/dL (60-115); Potassium 3.2 mmol/L (3.3-5.1); Sodium 138 mmol/L (135-145); Total Protein 7.6 g/dL (6.5-8.0)
[2023-04-05] MEDS: Amoxicillin/Potassium Clav 875 MG TABLET PO (00:57)
[2023-04-05 00:58] VITALS: BP 120/72; PULSE 79; RESP 18; TEMP 36.3; O2SAT 92
--- OUTSIDE RECORDS SUMMARY | 2023-04-05 02:13 | XMS_ITS | Continuity of Care Document ---
Author Name Unknown Organization [facility] Address [address] [place] [address] [address] [place] [address]- Care Team Providers Care Tool Planner Name Role Phone Dottie Christine MD Primary Care Physician Encounter [id number] Date(s): 12/25/22 - 01/24/[address] [place] [address]- Attending Physician: Tutu Warner Admitting Physician: AdmtrTutu Referring Physician: Admtr Ar8 Allergies, Adverse Reactions, Alerts No Known Allergies Medications Ambien 10 mg oral tablet 1 tablet = 10 mg, By Mouth, Daily at bedtime, Maintenance Start Date: 08/28/10 Status: Ordered carvedilol 12.5 mg oral tablet 1 tablet = 12.5 mg, By Mouth, 2 times a day, Maintenance Start Date: 08/28/10 Status: Ordered Cerovite Senior 1 tablet, By Mouth, Daily, Maintenance Start Date: 08/28/10 Status: Ordered Claritin 10 mg oral tablet 10 mg, 1, tablet, By Mouth, Daily, PRN, Refills 0, Maintenance, Seasonal Allergies, 11/24/22 12:05:00 EDT, Partial fill upon patient request if the prescription is for a schedule II opioid drug. Start Date: 11/24/22 Status: Ordered Coreg 6.25 mg oral tablet 6.25 mg, 1, tablet, By Mouth, 2 times a day, Refills 0, Maintenance, 11/24/22 12:05:00 EDT, Partialfill upon patient request if the prescription is for a schedule II opioid drug. Start Date: 11/24/22 Status: Ordered Flomax 0.4 mg oral capsule 0.4 mg, 1, capsule, By Mouth, Daily at bedtime, Refills 0, Maintenance, 11/24/22 12:06:00 EDT, Partial fill upon patient request if the prescription is for a schedule II opioid drug. Start Date: 11/24/22 Status: Ordered Flonase Allergy Relief 50 mcg/inh nasal spray 1 sprays, Nares, Both, Daily, 0 Refills, Maintenance, 11/24/22 12:05:00 EDT, Partial fill upon patient request if the prescription is for a schedule II opioid drug. Start Date: 11/24/22 Status: Ordered glipiZIDE 2.5 mg oral tablet, extended release 1 tablet = 2.5 mg, By Mouth, Daily before breakfast, 0 Refills, Maintenance, 11/24/22 12:05:00 EDT,Partial fill upon patient request if the prescription is for a schedule II opioid drug. Start Date: 11/24/22 Status: Ordered levETIRAcetam 500 mg oral tablet = 500 mg, By Mouth, 2 times a day, 0 Refills, Maintenance, 11/24/22 16:38:00 EDT, Tablet, Partial fill upon patient request if the prescription is for a schedule II opioid drug. Start Date: 11/24/22 Status: Ordered Lipitor 40 mg oral tablet 1 tablet = 40 mg, By Mouth, Daily at bedtime, 0 Refills, Maintenance, 11/24/22 12:06:00 EDT, Partial fill upon patient request if the prescription is for a schedule II opioid drug. Start Date: 11/24/22 Status: Ordered Norvasc 10 mg oral tablet 10 mg, 1, tablet, By Mouth, Daily at supper, Refills 0, Maintenance, 11/24/22 12:04:00 EDT, Partialfill upon patient request if the prescription is for a schedule II opioid drug. Start Date: 11/24/22 Status: Ordered omeprazole 20 mg oral enteric coated capsule 1 capsule = 20 mg, By Mouth, Daily, Maintenance Start Date: 08/28/10 Status: Ordered oxycodone 5 mg oral tablet 1 tablet = 5 mg, By Mouth, Every 6 hours, PRN for pain, # 12 tablet, 0 Refills, Maintenance, Tablet Start Date: 10/04/11 Status: Ordered pravastatin 20 mg oral tablet 1 tablet = 20 mg, By Mouth, Daily at bedtime, Maintenance Start Date: 08/28/10 Status: Ordered sertraline 100 mg oral tablet 1 tablet = 100 mg, By Mouth, Daily at bedtime, Maintenance Start Date: 08/28/10 Status: Ordered Singulair 10 mg oral tablet 10 mg, 1, tablet, By Mouth, Daily at bedtime, Refills 0, Maintenance, 11/24/22 12:06:00 EDT, Partial fill upon patient request if the prescription is for a schedule II opioid drug. Start Date: 11/24/22 Status: Ordered Xalatam Multi-Pack 0.005% Ophthalmic Solution 1 drops, Eyes, Both, Daily at bedtime, Maintenance, Solution Start Date: 08/28/10 Status: Ordered Problem List Condition Confirmation Course Effective Dates Status Health St atus Informant Brain bleed Confirmed Active Patient Care team information Care Team Personnel Name: Dottie Christine MD Position: [facility] Outreach Member Role: PCP Address: Address: [address] [place] [address] [place] [id number]- Name: Dai Sainz RN Position: S RN Member Role: Primary Care Nurse Name: Lindsey Avelar RN Position: S RN Member Role: Primary Care Nurse Care Team Related Persons Name: SKYLAR GUTIERREZ Address: home [address] [place] [id number]
--- OUTSIDE RECORDS SUMMARY | 2023-04-05 02:13 | XMS_ITS | Continuity of Care Document ---
Author Name Unknown Organization [facility] Address [address] [place] [address] [address] [place] [address]- Care Team Providers Care Acrobatic Rigger Name Role Phone Nanci Dottie KO Primary Care Phys[facility] [id number] Date(s): 12/17/22 - 01/24/[address] [place] [address]- Attending Physician: Jen SIN MD, Curt T Allergies, Adverse Reactions, Alerts No Known Allergies [...] Care team information Care Team Personnel Name: Nanci KO , Dottie Cherry Position: [facility] Outreach Member Role: PCP Address: Address: [address] [place] [address] [place] [id number]- Name: Alistair HONG, Dai Position: S RN Member Role: Primary Care Nurse Name: Lindsey Avelar RN Position: S RN Member Role: Primary Care Nurse Care Team Related Persons Name: SKYLAR GUTIERREZ Address: home [address] [place] [id number]
--- OUTSIDE RECORDS SUMMARY | 2023-04-05 02:13 | XMS_ITS | Continuity of Care Document ---
Author Name Unknown Organization [facility] ter Address [address] [place] [id number] Care Team Providers Care Director Acute Name Role Phone Dottie Christine MD Primary Care Physician Encounter [facility] Date(s): 11/22/22 - 11/24/[address] [id number]- Encounter Diagnosis Trauma(Final) - 11/21/22 SAH (subarachnoid hemorrhage)(Final) - 11/22/22 SDH (subdural hematoma)(Final) - 11/22/22 Discharge Disposition: A-Transfer SNF Attending Physician: Benito Bergeron MD Admitting Physician: Benito Bergeron MD Referring Physician: Not on Staff, Referring MD Allergies, Adverse Reactions, Alerts No Known Allergies Medications Claritin 10 mg oral tablet 10 mg, [...] Coreg 6.25 mg oral tablet 6.25 mg, Tablet, By Mouth, 11/24/22 12:56:00 EDT Start Date: 11/24/22 Stop Date: 11/24/22 Status: Completed Flomax 0.4 mg oral capsule 0.4 mg, [...] opioid drug. Start Date: 11/24/22 Status: Ordered Singulair 10 mg oral tablet 10 mg, 1, tablet, By Mouth, Daily at bedtime, Refills 0, Maintenance, 11/24/22 12:06:00 EDT, Partial fill upon patient request if the prescription is for a schedule II opioid drug. Start Date: 11/24/22 Status: Ordered Problem List Condition Confirmation Course Effective Dates Status [facility] Informant Brain bleed Confirmed Active Results Orders for Microbiology Reports Name Date Blood Culture 11/22/22 Blood Culture #2 11/22/22 Microbiology Reports TEST:Blood Culture, Second Order STATUS:Unauthenticated BODY SITE: SOURCE:Blood COLLECTED DATE/TIME:11/22/22 1:02 AM Blood Culture, Second Order SPECIMEN DESCRIPTION : BLOOD LEFT HAND SPECIAL REQUESTS : NONE CULTURE : NO GROWTH AFTER 48 HOURS REPORT STATUS : PRELIMINARY REPORT TEST:Blood Culture STATUS:Unauthenticated BODY SITE: SOURCE:Blood COLLECTED DATE/TIME:11/22/22 12:51 AM Blood Culture SPECIMEN DESCRIPTION : BLOOD NO SITE SPECIAL REQUESTS : NONE CULTURE : NO GROWTH AFTER 48 HOURS REPORT STATUS : PRELIMINARY REPORT Radiology Reports * Exam Date Time Procedure Performing Provider Status 11/23/22 7:[address] Head/Brain W/O Contrast Jesus Sam; Auth (Verified) Notes: (CT Head/Brain W/O Contrast) Reason For Exam: Trauma RESULT: CT Head/Brain W/O Contrast CT Head/Brain W/O Contrast INDICATION: Reason: Trauma; Clinical Question(s): Hematoma; Order Comment: TECHNIQUE: Noncontrast head CT using axial technique and reconstructed in axial and coronal planes.Iterative reconstruction techniques are used to optimize dose and image quality. CTDIvol Head: 45.50 mGy, DLP Head: 772 mGy*cm. COMPARISON: 11/22/2022. Baseline 11/21/2022 exam. FINDINGS: Spiral Winder view findings, lines and tubes: None. BRAIN AND EXTRA-AXIAL SPACES: No significant change in extensive bifrontal hemorrhagic contusions that are greatest inferiorly. Dominant focal hematoma is seen inferiorly in the left frontal lobe measuring 1.7 x 2.4 x 1.6 cm, unchanged using similar technique. Unchanged moderate hemorrhage in the sylvian fissure and scattered regions of subarachnoid hemorrhage bilaterally. There remains effacement of bifrontal sulci with proximal edema. No midline shift. The ventricular system remains anatomic without intraventricular hemorrhage. Basal cisterns patent without surrounding hemorrhage. No white matter lesions. CALVARIUM, SKULL BASE, AND SOFT TISSUES: Nondisplaced right frontal bone fracture again noted. Chronic right orbital blowout deformity. The middle ears and mastoid air cells are clear. Mild mucosal thickening in the sinuses. Visualized orbits and globes reveal no acute abnormality. The extracranial soft tissues are unremarkable. IMPRESSION: No significant change since 11/22/2022. WSN: [id number] Ordering Physician: Shagufta Alexander Dictated By: Preston Tolentino MD Dictated Date/Time: 11/23/22 9:00 am Reviewed By: Preston Tolentino MD Signed By: Preston Tolentino MD Signed Date/Time: 11/23/22 9:00 am Transcribed By: PARTH Transcribed Date/Time: 11/23/22 8:52 am * Exam Date Time Procedure Performing Provider Status 11/22/22 12:00 AM Chest Portable Donna Barnes; Auth (Verified) Notes: (Chest Portable) Reason For Exam: Other: RESULT: Chest Portable Chest Portable INDICATION: Clinical Question(s): Trauma / Trauma COMPARISON: Subsequent chest CT. FINDINGS: LINES AND TUBES: None. LUNGS AND PLEURA: Low lung volumes with hazy opacity throughout the right mid to lower lung and to a lesser extent atthe left lung base. No pleural effusion. No pneumothorax. HEART, MEDIASTINUM AND OSCAR: Heart is normal in size. Normal mediastinal and hilar contour. BONES AND SOFT TISSUES: No acute abnormality. IMPRESSION: Hazy opacity in the right greater than left lung. In the setting of trauma this could be due to contusion or hemorrhage. Aspiration is also possible. WSN: [id number] Ordering Physician: Oswaldo Amaya Dictated By: Preston Vale MD Dictated Date/Time: 11/22/22 9:08 am Reviewed By: Preston Vale MD Signed By: Preston Vale MD Signed Date/Time: 11/22/22 9:08 am Transcribed By: PARTH Transcribed Date/Time: 11/22/22 9:07 am * Exam Date Time Procedure Performing Provider Status 11/22/22 5:[address] Head/Brain W/O Contrast Stupak , Ol eg; Auth (Verified) Notes: (CT Head/Brain W/O Contrast) Reason For Exam: Trauma RESULT: CT Head/Brain W/O Contrast CT Head/Brain W/O Contrast Reason: Trauma; Clinical Question(s): Hematoma. TECHNIQUE: Incremental CT without contrast through the head was formatted in axial and coronal plane. Weight-based protocol using automatic tube modulation was performed to optimize scan parameters. CTDIvol Head: 46.50 mGy, DLP Head: 772 mGy*cm. COMPARISON: Earlier the same day. FINDINGS: BRAIN and EXTRA-AXIAL SPACES: Worsening hemorrhagic parenchymal contusions in the bilateral frontallobes, the largest on the left measuring up to 2.8 cm in transverse dimension axial image 37 [id number], coronal image 13 series 205. Multifocal bifrontal subarachnoid and subdural hemorrhages also appears slightly increased in the interval. No parenchymal hemorrhage, midline shift or mass effect. Peoples-white matter CALVARIUM, SKULL BASE AND SOFT TISSUES: There is a vertical fracture superiorly along the right frontal bone which does not appear to extend into the frontal sinus. There is mild to moderate diffuse mucosal thickening along the included portions of the inferior frontal, bilateral ethmoid, sphenoid, and maxillary sinuses. Mastoid air cells are clear. Visualized orbits and globes are intact. The extracranial soft tissues are unremarkable. IMPRESSION: Increasing bifrontal hemorrhagic contusions, subarachnoid hemorrhages, and trace subdural hematomas. An actionable message ([place]) has been communicated via the [employer] system on 11/22/2022 8:49 AM, Message ID [id number]. WSN: [id number] Ordering Physician: Navneet Wagner Dictated By: Isaias Ramos MD Dictated Date/Time: 11/22/22 8:49 am Reviewed By: Isaias Ramos MD Signed By: Isaias Ramos MD Signed Date/Time: 11/22/22 8:49 am Transcribed By: PARTH Transcribed Date/Time: 11/22/22 8:39 am * Exam Date Time Procedure Performing Provider Status 11/22/22 12:[address] Chest W/ Contrast Adelfo Hurtado; Augustin [facility] (Verified) Notes: (CT Chest W/ Contrast) Reason For Exam: Chest trauma, blunt;Other: RESULT: CT Chest W/ Contrast CT Chest W/ Contrast INDICATION: Reason: Chest trauma, blunt; Clinical Question(s): Aortic hilar injury TECHNIQUE: Helical CT scan of the chest with IV contrast, formatted in 3 planes. 100 cc of Omnipaque 300 was administered intravenously. Weight-based protocol was performed using automatic exposure control. CTDIvol Body: 8.20 mGy, DLP Body: 319 mGy*cm. COMPARISON: None. FINDINGS: Mildly motion degraded. Spiral Winder view findings, lines and tubes: None. Trachea and airways: Patent without evidence of tracheal or endobronchial lesion. Lungs and pleura: Alveolar opacities centrally in the right lung. Small amount of groundglass opacity in the left lower lobe. No effusion or pneumothorax. Mediastinum and oscar: No mass or hematoma. No mediastinal or hilar lymphadenopathy. No esophageal abnormality. Heart: Heart is normal in size. No pericardial effusion. Aorta: No aortic aneurysm. Pulmonary arteries: Normal caliber. No evidence of pulmonary embolism on this study performed without angiographic technique. Chest wall soft tissues: No acute abnormality. Diaphragm: Intact. Upper abdomen: No significant abnormality. Bones: No acute abnormality. IMPRESSION: Right lung perihilar airspace opacities, in the setting of trauma may represent pulmonary contusionor hemorrhage. Differential includes aspiration pneumonia. I have personally reviewed the images and I agree with this report. WSN: [id number] Ordering Physician: Oswaldo Amaya Dictated By: Dave Lagos DO Dictated Date/Time: 11/22/22 7:06 am Reviewed By: Eran Mijares MD Signed By: Eran Mijares MD Signed Date/Time: 11/22/22 7:11 am Transcribed By: PARTH Transcribed Date/Time: 11/22/22 0:55 am * Exam Date Time Procedure Performing Provider Status 11/22/22 12:[address] Cervical Spine W/O Contrast Stupak , Adelfo; Auth (Verified) Notes: (CT Cervical Spine W/O Contrast) Reason For Exam: Neck trauma, dangerous injury mechanism;Other: RESULT: CT Cervical Spine W/O Contrast CT Head/Brain W/O Contrast, CT Cervical Spine W/O Contrast INDICATION: Reason: Head trauma, mod-severe; Clinical Question(s): Hematoma TECHNIQUE: Noncontrast head CT using axial technique was reconstructed in axial and coronal planes.Noncontrast spiral CT through the cervical spine was formatted in 3 planes. Automatic tube modulation was used for the cervical spine and iterative dose reconstruction was used for both the head and cervical spine to optimize scan parameters and image quality. CTDIvol Body: 15.10 mGy, DLP Body: 382 mGy*cm. CTDIvol Head: 39.30 mGy, DLP Head: 2014 mGy*cm. COMPARISON: None. FINDINGS: Significantly motion degraded. Spiral Winder View Findings, Lines and Tubes: None. BRAIN AND EXTRA-AXIAL SPACES: Small amount of subarachnoid and subdural hemorrhage overlying bilateral frontal lobes. 1.8 x 1.6 cm focus of parenchymal hemorrhage in the left frontal lobe. 1.3 cm focus of intraparenchymal hemorrhage in the right frontal lobe. Peoples-white matter differentiation is well preserved. No acute infarct. Ventricles, sulci, and basilar cisterns are normal. No white matter lesions. No subarachnoid hemorrhage. No subdural or epidural collection. CALVARIUM, SKULL BASE, AND SOFT TISSUES: Generally limited evaluation of the bony structures. Right frontal calvarial fracture without displacement. Scattered mucosal thickening in the paranasal sinuses. Mastoid air cells are clear. Visualized orbits and globes are intact. The extracranial soft tissues are unremarkable. CERVICAL SPINE: No fracture. No acute osseous abnormalities. Normal alignment. No locked or perched facet. Intervertebral disc spaces and vertebral body heightsare preserved. OTHER BONES: No acute abnormality. CERVICAL SOFT TISSUES AND LUNG APICES: Normal soft tissues. Visualized lung apices are clear. IMPRESSION: Extremely motion degraded. Small volume subarachnoid and subdural hemorrhage overlying the frontal lobes. An 1.8 cm focus of parenchymal hemorrhage in the left frontal lobe. 1.3 cm focus of parenchymal hemorrhage in the right frontal lobe. Evaluation of the bony structures is significantly limited, right frontal calvarial fracture. No evidence of cervical spine fracture or subluxation within the limits of motion degradation. Findings were communicated by [employer] by Dr. Dave Lagos to Navneetlayo Wagner DO on 11/22/2022 at 12:42 AM with understanding acknowledged. I have personally reviewed the images and I agree with this report. WSN: [id number] Ordering Physician: Oswaldo Amaya Dictated By: Dave Lagos DO Dictated Date/Time: 11/22/22 7:01 am Reviewed By: Eran Mijares MD Signed By: Eran Mijares MD Signed Date/Time: 11/22/22 7:06 am Transcribed By: PARTH Transcribed Date/Time: 11/22/22 0:42 am * Exam Date Time Procedure Performing Provider Status 11/22/22 12:[address] Head/Brain W/O Contrast Stupak , O leg; Auth (Verified) Notes: (CT Head/Brain W/O Contrast) Reason For Exam: Head trauma, mod-severe;Other: RESULT: CT Head/Brain W/O Contrast CT Head/Brain W/O Contrast, CT Cervical Spine W/O Contrast INDICATION: Reason: Head trauma, mod-severe; Clinical Question(s): Hematoma TECHNIQUE: Noncontrast head CT using axial technique was reconstructed in axial and coronal planes.Noncontrast spiral CT through the cervical spine was formatted in 3 planes. Automatic tube modulation was used for the cervical spine and iterative dose reconstruction was used for both the head and cervical spine to optimize scan parameters and image quality. CTDIvol Body: 15.10 mGy, DLP Body: 382 mGy*cm. CTDIvol Head: 39.30 mGy, DLP Head: 2014 mGy*cm. COMPARISON: None. FINDINGS: Significantly motion degraded. Spiral Winder View Findings, Lines and Tubes: None. BRAIN AND EXTRA-AXIAL SPACES: Small amount of subarachnoid and subdural hemorrhage overlying bilateral frontal lobes. 1.8 x 1.6 cm focus of parenchymal hemorrhage in the left frontal lobe. 1.3 cm focus of intraparenchymal hemorrhage in the right frontal lobe. Peoples-white matter differentiation is well preserved. No acute infarct. Ventricles, sulci, and basilar cisterns are normal. No white matter lesions. No subarachnoid hemorrhage. No subdural or epidural collection. CALVARIUM, SKULL BASE, AND SOFT TISSUES: Generally limited evaluation of the bony structures. Right frontal calvarial fracture without displacement. Scattered mucosal thickening in the paranasal sinuses. Mastoid air cells are clear. Visualized orbits and globes are intact. The extracranial soft tissues are unremarkable. CERVICAL SPINE: No fracture. No acute osseous abnormalities. Normal alignment. No locked or perched facet. Intervertebral disc spaces and vertebral body heightsare preserved. OTHER BONES: No acute abnormality. CERVICAL SOFT TISSUES AND LUNG APICES: Normal soft tissues. Visualized lung apices are clear. IMPRESSION: Extremely motion degraded. Small volume subarachnoid and subdural hemorrhage overlying the frontal lobes. An 1.8 cm focus of parenchymal hemorrhage in the left frontal lobe. 1.3 cm focus of parenchymal hemorrhage in the right frontal lobe. Evaluation of the bony structures is significantly limited, right frontal calvarial fracture. No evidence of cervical spine fracture or subluxation within the limits of motion degradation. Findings were communicated by [employer] by Dr. Dave Lagos to Navneet Wagner DO on 11/22/2022 at 12:42 AM with understanding acknowledged. I have personally reviewed the images and I agree with this report. WSN: [id number] Ordering Physician: Oswaldo Amaya Dictated By: Dave Lagos DO Dictated Date/Time: 11/22/22 7:01 am Reviewed By: Eran Mijares MD Signed By: Eran Mijares MD Signed Date/Time: 11/22/22 7:06 am Transcribed By: PARTH Transcribed Date/Time: 11/22/22 0:42 am Vital Signs Most recent to oldest [Reference Range]: 1 2 3 Weight 66.2 kg (11/23/22 4:58 AM) Oxygen Saturation [94-100 %] 95 % (11/24/22 2:00 PM) 98 % (11/24/22 12:00 PM) 94 % (11/24/22 10:00 AM) Pulse Rate [55-90 bpm] 85 bpm (11/24/22 12:42 PM) 88 bpm (11/23/22 6:03 PM) 90 bpm (11/23/22 3:06 PM) Blood Pressure [90-138/55-84 mm Hg] 123/63mm Hg (11/24/22 2:00 PM) 110/55mm Hg (11/24/22 1:15 PM) 110/55mm Hg (11/24/22 12:42 PM) Respiratory Rate [16-30 br/min] 22 br/min (11/24/22 2:00 PM) 16 br/min (11/24/22 1:15 PM) 19 br/min (11/24/22 12:00 PM) Temperature [96.8-100.4 DegF] 98.7 DegF (11/24/22 3:00 PM) 98.3 DegF (11/24/22 11:00 AM) 97.9 DegF (11/24/22 7:00 AM) Liters per Minute 4 L/min (11/23/22 8:00 PM) 4 L/min (11/23/22 6:00 PM) 4 L/min (11/23/22 4:00 PM) Mode of Delivery (Oxygen) Room air (11/24/22 12:00 PM) Room air (11/24/22 10:00 AM) Room air (11/24/22 8:00 AM) Blood pressure sites Arm, left (11/24/22 12:00 PM) Arm, left (11/24/22 10:00 AM) Arm, left (11/24/22 8:00 AM) Temperature Route Oral (11/24/22 3:00 PM) Oral (11/24/22 11:00 AM) Oral (11/24/22 7:00 AM) Dry Weight 66.2 kg (11/23/22 4:59 AM) Admission evaluation note * Jonatan Huynh DO: MODIFY, SIGN Monique KO, Oswaldo: PERFORM, MODIFY Oswaldo Amaya MD: MODIFY, SIGN Oswaldo Amaya MD: SIGN, VERIFY Oswaldo Amaya MD: VERIFY, MODIFY Oswaldo Amaya MD: MODIFY Event Display: Admission Note Authored Date: [id number] Patient: MARIO BATISTA Age: 67 years Sex: Male : 1955 Associated Diagnoses: None Author: Oswaldo Amaya MD Trauma History 67yoM cat2 trauma s/p FFS. ?LOC, +EtOH, GCS 14. Per EMS, at 1900 pt fell was brought to [facility], found to have frontal SAH and SDH. Given haldol and ativan for combativeness. Upon arrival, primary survey was completed and is as follows: airway patent, breath sounds present equal bilaterally, BP 110/58, pupils 3mm and reactive, GCS13 (E4 V3 M6). Secondary survey was completed and is documented below. [place] collar was placed for c-spine precaution. IV fluids were administered. Following CXR, the patient was taken to CT for further workup. Past Medical History unknown Past Surgical History unknown Medications aspirin Allergies unknown Family History noncontributory Social History unknown Review of Systems A 14-point review of systems was negative except as documented above Past Medical History Allergies No allergies have been recorded. Social History Social History No qualifying data available. . Physical Examination Vital Signs: T 99.7, BP 110/58, HR 106, RR 18, SpO2 88% on RA General: intoxicated Head: normocephalic, atraumatic, no hematomas, no abrasions, no wounds, no deformities Face: no ecchymosis, no abrasions, no wounds Eyes: pupils are 2mm L, 3mm R, round, and reactive; extraocular movement intact Ears: no hemotympanum, no blood in external auditory canal, no abrasions, no aragon's sign Nose: no epistaxis, no deformity Mandible: no deformity, no malocclusion Neck: cervical-collar in place, no hematoma, no ecchymosis, no wounds, trachea midline Chest: symmetric, no deformity, sternum, chest wall, and clavicles are nontender to palpation, no crepitus appreciated Heart: regular rate and rhythm Lungs: clear to auscultation bilaterally Abdomen: soft, nondistended, nontender, no wounds, no ecchymosis, no hematoma Pelvis: stable, nontender Back: no ecchymosis, no abrasions, no hematoma, no wounds Cervical spine: no midline deformities or stepoffs, no tenderness, cervical- collar in place Thoracic spine: no midline deformities or stepoffs, no tenderness Lumbar spine: no midline deformities or stepoffs, no tenderness Extremities: b/l UE ecchymoses of undetermined age. no long bone deformities, no wounds, no abrasions, no hematomas, full active range of motion Neurologic: GCS13; 5/5 strength and sensation to light touch intact in the bilateral upper and lower extremities Vascular: palpable dorsalis pedis and radial pulses bilaterally Impression and Plan 67yoM cat2 trauma s/p FFS. ?LOC, +EtOH, GCS 14. Per EMS, at 1900 pt fell was brought to [facility], found to have frontal SAH and SDH. Given haldol and ativan for combativeness. Upon arrival, primary survey was completed and is as follows: airway patent, breath sounds present equal bilaterally, BP 110/58, pupils 3mm and reactive, GCS13 (E4 V3 M6). Secondary survey was completed and is documented below. [place] collar was placed for c-spine precaution. IV fluids were administered. Following CXR, the patient was taken to CT for further workup. Injuries Small SAH SDH x2 frontal IPH Interventions none Consultants NSGY consulted at 00:00 Plan admit, intercare, Q4hr NC, repeat head CT, TXA [x], keppra, SBP <[address] chest for CAP - Aspiration vs Community Acquired Pneumonia. Discussed with Dr. Huynh [facility] Progress note * Alistair HONG, Dai: MODIFY, SIGN, PERFORM, SIGN, VERIFY Event Display: Progress Note Hospital Authored Date: Patient: MAIRO BATISTA Age: 67 years Sex: Male : 1955 Associated Diagnoses: None Author: Alistair HONG, Dai Findings Problem Related to Alteration in Neurological : Alteration in Neurological Function/new 11/24/2022 9:00 EDT Alteration in Neuro status Related to Traumatic brain injury, Other: traumatic bleed Goals & Outcomes, Neurological Lab studies/diagnostic tests within pt specific limits, Pt is safe with transfers & activities, Pt will be hemodynamically stable, Pt will be Neurologically stable, Pt will maintain intact skin integrity, Pt will remain free from injury, Pt/caregiver will receive psychosocial support as needed, Pt/caregiver will state understanding of plan/goals of care Interventions, Neurological Assess/monitor neurologic status, Assess/monitor VS per unit standards & prn, Call/Report variances in assessments to provider, Collaborate w/ provider to implement appropriate guidelines, Collaborate with provider re: medication regime, Identify psychosocial issues related to diagnosis/illness, If no bowel movement in 3 days activate bowel regime, Keep patient's head & body in good alignment, Maintain HOB at least 30 deg, Maintain normothermia, report temp >101.5 F, Maintain patient safety if unsteady gait, Monitor Fluid & Electrolytes, Serum Osmolarity, Monitor for headaches, nausea, vomiting, Monitor speech fluency, aphasia, word finding difficulty, Physical assessment per unit standards, Provide emotional support to Pt/caregiver, Teach & encourage deep breath & cough exercises, Teach pt/caregiver on plan of care, treatment, s/s & meds, Teach pt/caregiver on use of pain scale BH Goals/Interventions, Neurological Yes Neurological, Problem Start 11/22/2022 3:32 Reviewed plan with, Neurological Patient, Children Patient Progression, Neurological Pt progressing according to plan . Nursing Data Neurological Data. : Neurological Data. 11/24/2022 12:00 EDT Neurological Assessment Status Unchanged from recorder's assessment 11/24/2022 10:00 EDT Neurological Assessment Status Unchanged from recorder's assessment 11/24/2022 8:00 EDT Tongue Disposition Midline Neurological Symptoms Lack of coordination, Vertigo (feeling of spinning) Level of Consciousness Confusion Orientated to person, place, time Person, Place, Time Facial Symmetry Intact Characteristics of Speech Clear and normal Swallowing Difficulty None Pupil description, left Regular Pupil description, right Irregular Pupil reaction, left Brisk Pupil reaction, right Nonreactive Pupil Size, Left 3 mm Strength LUE 5-Active movement against gravity & full resistance Strength RUE 5-Active movement against gravity & full resistance Strength LLE 5-Active movement against gravity & full resistance Strength RLE 5-Active movement against gravity & full resistance Tone LUE Normal Tone RUE Normal Tone LLE Normal Tone RLE Normal Sensation LUE Intact Sensation RUE Intact Sensation LLE Intact Sensation RLE Intact Movement LUE Spontaneous, To command Movement RUE Spontaneous, To command Movement LLE Spontaneous, To command Movement RLE Spontaneous, To command Gait Unsteady Tremors None Response Eye Opening Spontaneously Motor Response-Adult Obeys commands Verbal Response-Adult Disoriented and converses Blake Coma Score 14 Neuro WNL except Corneal/Blink Reflex Intact left Headache None Memory Intact Swallow - Neuro Normal . Vital Signs : VITAL SIGNS SECTION 11/24/2022 13:15 EDT Respiratory Rate 16 br/min Systolic Blood Pressure 110 mm Hg Diastolic Blood Pressure 55 mm Hg 11/24/2022 13:07 EDT Early Warning Score 0.00 11/24/2022 12:42 EDT Early Warning Score 2.00 11/24/2022 12:42 EDT Pulse Rate 85 bpm Systolic Blood Pressure 110 mm Hg Diastolic Blood Pressure 55 mm Hg 11/24/2022 12:00 EDT Heart Rate Monitored 87 bpm Respiratory Rate 19 br/min Blood pressure sites Arm, left Oxygen Saturation 98 % Mode of Delivery (Oxygen) Room air 11/24/2022 11:04 EDT Early Warning Score 2.00 11/24/2022 11:00 EDT Temperature 98.3 DegF Temperature Route Oral 11/24/2022 10:21 EDT Early Warning Score 4.00 11/24/2022 10:00 EDT Heart Rate Monitored 81 bpm Respiratory Rate 18 br/min Systolic Blood Pressure 141 mm Hg H Diastolic Blood Pressure 60 mm Hg Blood pressure sites Arm, left Pulse Pressure 81 mm Hg Oxygen Saturation 94 % Mode of Delivery (Oxygen) Room air 11/24/2022 9:14 EDT Early Warning Score 5.00 11/24/2022 9:14 EDT Early Warning Score 5.00 11/24/2022 9:14 EDT Early Warning Score 5.00 11/24/2022 8:47 EDT Early Warning Score 5.00 11/24/2022 8:10 EDT Early Warning Score 5.00 11/24/2022 8:00 EDT Heart Rate Monitored 81 bpm Respiratory Rate 31 br/min H Systolic Blood Pressure 136 mm Hg Diastolic Blood Pressure 74 mm Hg Blood pressure sites Arm, left Pulse Pressure 62 mm Hg Oxygen Saturation 97 % Mode of Delivery (Oxygen) Room air 11/24/2022 7:42 EDT Early Warning Score 2.00 11/24/2022 7:00 EDT Temperature 97.9 DegF Temperature Route Oral . Narrative/Incidental No acute changes during the shift. Patient is alert/oriented x4, however waxes and wanes, off date and situation at times, wants to go home, continuous redirection and emotional support, R/pupil-irregular/non-reactive, L/pupil-3mm, round//brisk, denies any visual deficits, ? very slight R/facial droop, speech clear, follows commands. LOCKE-5/5, shoulder shrug intact, no pronator drift; he was able to ambulate with assist of one, unsteady gait.. Lungs diminished at bases, no respiratory distress. ekg monitor on-SR, +pedal pulses, +plantar/dorsi flexion, no edema. SBP w/in a goal. Multiple bruising/ecchymosis, RUE-abrasions. Bowel sounds present x4, Nunez cath patent, draining casi-coloredurine, UOP improved after AM bolus (verbal order). Patient denies any N/T, N/V, dizziness/weakness,acute pain/discomfort. Patient refused hospital food, however ate homemade meal that his daughter brought him. Call levy w/in a reach, safety precautions maintained, will continue to monitor and report changes. For further assessment please see [facility] Biophysical Patient will be transferred to Rehab facility at 5 PM, Nunez cath D/nena will monitor. Discharge Information Rehabilitation Discharge : Rehab Discharge Index 11/22/2022 10:21 EDT Comments on treatment indicated 67yo Guamanian speaking M cat2 trauma s/p FFS. ?LOC, +EtOH, GCS 14. Per EMS, at 1900 pt fell was brought to [facility], found to have frontal SAH and SDH. WBAT, fall risk. PT f/u for ther ex, bed mob, balance, txfrs, gait. Rec post-acute rehab/IRF. Distance pt will ambulate 100' Full chart review completed Yes Hospital course see comment Other findings Other findings Plan of care PT Gait training, Transfer training, Therapeutic exercise, Functional Activities, Balance training, Neuromuscular education 11/22/2022 10:13 EDT Comments on treatment indicated OT to address ADL's, transfers, safety/cog Full chart review completed Yes Hospital course Please see comment Transfer tub/shower OT Plan Contact guard * Trever Hewitt: PERFORM, SIGN, VERIFY Event Display: Progress Note Hospital Authored Date: Patient: MARIO BATISTA Age: 67 years Sex: Male : 1955 Associated Diagnoses: None Author: Trever Hewitt Subjective Patient seen at bedside during AM rounds, MIKEY overnight, he is voiding via nunez and receiving LR 84cc hr and got a 500cc bolus this morning due to decrease urine output. He otherwise has no complaints and tolerating a diet. Denies any fever, chills, nausea, vomiting, chest pain or shortness of breath. Objective Vital Signs Vitals 11/24/2022 10:00 EDT Heart Rate Monitored 81 bpm Respiratory Rate 18 br/min Systolic Blood Pressure 141 mm Hg H Diastolic Blood Pressure 60 mm Hg Blood pressure sites Arm, left Pulse Pressure 81 mm Hg Oxygen Saturation 94 % Mode of Delivery (Oxygen) Room air . GENERAL APPEARANCE: Comfortable in bed NECK: Trachea is midline. CHEST: Symmetric. Nontender to palpation. LUNGS: RR even/unlabored, no visible increased WOB HEART: Regular rate ABDOMEN: Soft, non tender EXTREMITIES: Full ROM of all extremities, no edema noted. NEUROLOGIC: No focal sensory or motor deficits are noted. Cranial nerves II through XII are intact.GCS15 SKIN: Warm, dry, and well perfused. Good turgor. Results Review 7 Day Results Results Laboratory 11/24/2022 8:06 EDT WBC 8.9 k/mm3 RBC 4.24 m/mm3 L Hgb 12.0 Gm/dL L Hct 37.1 % L MCV 87.5 femtoliters MCH 28.3 pg MCHC 32.3 g/dL L Platelet Count 220 k/mm3 RDW-SD 43.0 femtoliters MPV 9.6 femtoliters Nucleated RBC (Automated) 0.0 #/100 WBC'S Abs. NRBC 0.0 k/mm3 Abs. Neut 7.3 k/mm3 H Abs. Lymph 0.8 k/mm3 Abs. [place] 0.5 k/mm3 Abs. Eo 0.2 k/mm3 Abs. Baso 0.0 k/mm3 Neut % 81.8 % H Lymph % 9.4 % L [place] % 5.9 % Eos % 2.1 % Baso % 0.4 % Imm Gran 0.4 % Abs. Imm Gran 0.0 k/mm3 Sodium 139 mmol/L Potassium 3.8 mmol/L Chloride 104 mmol/L Bicarbonate Level 20 mmol/L L Anion Gap 15 Glucose Level 67 mg/dL L BUN 13 mg/dL Creatinine-Blood 0.8 mg/dL Estimated GFR Creatinine 97 ML/MIN/1.73 M2 Calcium, Ionized pH Corrected 1.27 mmol/L Phosphorus 2.3 mg/dL L Magnesium 2.1 mg/dL Phenobarb Level 7.1 mg/L L Impression and Plan Mr. Batista is a 67 year old man who presented as a trauma transfer from OSH on 11/21/22 s/p found down while intoxicated, reportedly on Aspirin. CT Head revealed bifrontal hemorrhagic contusions, scattered tSAH, and right frontal skull fracture. Repeat CT Head on 11/22 revealed worsening bifrontal hemorrhagic contusion. Repeat CT head on 11/23 was stable. Neuro intact on exam. Remainder of nsg recommendations as seen below. Tertiary on 11/23 did not reveal any additional injuries. Nunez placed forurine retention, however found to have low urine output despite fluids, will continue to monitor. Downgraded to [facility], pending for dispo to rehab [facility] 11/23 Dr. Oshea: Recommendations: - No acute neurosurgical intervention - Neuro checks q4hrs - HOB > 30 degrees - SBP goal less than 160 - Keppra 500mg BID x 7 days, to be completed on 11/28 PM - Ok for chemical DVT ppx on 11/24. Until then pneumatic compression boots - STAT CT Head for decline in neuro exam - Hold aspirin for 2 weeks - The risk of restarting or initializing anticoagulation or antiplatelet therapy may cause recurrent or progression of hemorrhage and must be balanced against the risks of SC/DVT/PE/CVA in individualpatients. There risks must be discussed with the patient/family prior to making any decisions. In general only patients with exceptionally high risk of SC/DVT/PE/CVA should be restarted or initiated o n anticoagulation or antiplatelet therapy. -Neurosurgery will sign off. No routine follow up required. Refer back PRN. Plan: Acute lvl care Continue to monitor CIWA need for phenobarbital Weightbearing: As tolerated Diet: Regular PT-OT/CM/SW: PT/OT/case management/social work Antibiotics: Not indicated Bowel regimen: As needed DVT ppx: SCDs, SQH started on 11/24 Code status: Full PT- Rec rehab on 11/22 CM to work on rehab Please page Trauma Surgery with any questions or concerns [phone]. Discussed with attending physician Dr. Loco * Lindsey Avelar RN: MODIFY, SIGN, MODIFY, SIGN, PERFORM, SIGN, VERIFY Event Display: Progress Note Hospital Authored Date: [id number] Patient: MARIO BATISTA Age: 67 years Sex: Male : 1955 Associated Diagnoses: None Author: Lindsey Avelar RN Findings Problem Related to Alteration in Neurological : Alteration in Neurological Function/new 11/23/2022 23:00 EDT Alteration in Neuro status Related to Traumatic brain injury, Other: traumatic bleed Goals & Outcomes, Neurological Lab studies/diagnostic tests within pt specific limits, Pt is safe with transfers & activities, Pt will be hemodynamically stable, Pt will be Neurologically stable, Pt will maintain intact skin integrity, Pt will remain free from injury, Pt/caregiver will receive psychosocial support as needed, Pt/caregiver will state understanding of plan/goals of care Interventions, Neurological Assess/monitor neurologic status, Assess/monitor VS per unit standards & prn, Maintain patient safety if unsteady gait, Monitor for headaches, nausea, vomiting, Monitor speech fluency, aphasia, word finding difficulty, Physical assessment per unit standards, Provide emotional support to Pt/caregiver, Teach pt/caregiver on plan of care, treatment, s/s & meds Goals/Interventions, Neurological Yes Neurological, Problem Start 11/22/2022 3:32 Reviewed plan with, Neurological Patient Patient Progression, Neurological Pt progressing according to plan . Nursing Data Neurological Data. : Neurological Data. 11/23/2022 20:13 EDT Tongue Disposition Midline Neurological Symptoms Alteration in level of consciousness, Alteration in speech quality, Other: traumatic bleed Level of Consciousness Confusion Orientated to person, place, time Person, Place, Time, Event Facial Symmetry Intact Characteristics of Speech Slurred, Other: occasionally Swallowing Difficulty None Pupil description, left Round Pupil description, right Irregular Pupil reaction, left Brisk Pupil reaction, right Nonreactive Strength LUE 5-Active movement against gravity & full resistance Strength RUE 5-Active movement against gravity & full resistance Strength LLE 5-Active movement against gravity & full resistance Strength RLE 5-Active movement against gravity & full resistance Tone LUE Normal Tone RUE Normal Tone LLE Normal Tone RLE Normal Sensation LUE Intact Sensation RUE Intact Sensation LLE Intact Sensation RLE Intact Movement LUE Spontaneous, To command Movement RUE Spontaneous, To command Movement LLE Spontaneous, To command Movement RLE Spontaneous, To command Gait Unsteady Response Eye Opening Spontaneously Motor Response-Adult Obeys commands Verbal Response-Adult Oriented and converses [place] Coma Score 15 Pain Intensity 5 Neuro WNL except Corneal/Blink Reflex Intact left Eyes and Movements Conjugate gaze: Move in same direction at same speed Headache None Swallow - Neuro Normal . Narrative/Incidental Patient is alert and oriented, withdrawn. Guamanian speaking primarily. s.p. fall with imaging showing multiple areas of bleed. Denies headache/dizziness/vision changes. (R) pupil irregular and nonreactive, (L) pupil round and briskly reactive. Face is symmetrical. Tongue is midline with intact swallow. Speech is occasionally slurred. Moving all extremities to command, 5/5. Denies numbness/tingling. +CMS/pulses distally. LS clear. Maintaining sats high 93 on room air without shortness of breath or difficulty breathing. Nasal cannula applied when asleep. BS+. Last BM 11/23/2022. Casi urine via nunez catheter. Oral fluids encouraged. IV fluids infusing. Resting in bed currently. SR on telemetry, HR 80s. BP has been well controlled, currently, 121/77. Skin is warm, dry, and intact. Oral kepprafor seizure ppx. Denies pain, but tylenol given for comfort Patient has not been eating. Does not like the food but when offered alternatives says he's not hungry. Asked patient if he would like to ambulate around the unit, he declined. Please refer to [facility]IS flowsheet for further assessment details. Will continue to monitor for and document any changes in patient's status. Addendum 11/24/2022 0556: Patient has been asleep in between care. No neuro changes noted. BP well controlled. No confusion or impulsivity overnight.. Consult note * Forrest Watts: PERFORM, MODIFY, MODIFY, MODIFY Event Display: Consultation Note Authored Date: [id number] Patient: ??TRAUMA, [id number] ? Age:??89 Years?Sex:??Male?:???? Chief Complaint/Reason for Consult Neurotrauma paged: [phone] bedside 0016 History of Present Illness gentleman??appears to be in his 60s presents as a transfer from outside hospital??after being found down??and intoxicated.?? Reported to have??scattered traumatic subarachnoid hemorrhage as well as a subdural hematoma on aspirin ruling him in for big 3 criteria prompting neurosurgical consu ltation. ?? At the time my examination, the patient??is??awake however??severely intoxicated and??an unreliable historian. Review of Systems cannot obtain Physical Exam Vitals & Measurements HR:??105??(Peripheral)?? RR:??29?? BP:??140/73?? SpO2:??98%?? On examination he is a gentleman??who appears to be in his 60s. ??He is awake, alert, following commands Right pupil appears to be traumatic??and is nonreactive to light, left pupil is round, 4 mm, reactive to light Speech??is??inappropriate??and at times incomprehensible, there is no facial asymmetry, hearing is intact to voice Bilateral upper and lower extremity strength and sensation??are intact Gait deferred for safety Hard cervical collar applied ?? GCS 13: [id number] Assessment/Plan Gentleman appears to be in his 60s??presents as a transfer after being found down.?? Head CT obtained??reveals??scattered traumatic subarachnoid hemorrhage, bilateral inferior frontal??contusions, and a 2 mm thin left frontal subdural hematoma. ??On examination??he is GCS 13 ?? Recommendations Every 4 hours neurochecks Head of bed greater than 30 degrees 500 mg of Keppra twice daily x7 days 1 g of TXA??IV Repeat head CT tomorrow at 6 AM, sooner for acute neurologic decline of 2 or more GCS points Systolic blood pressure 100-160 Please hold chemical DVT prophylaxis for now Neurosurgery will continue to follow ?? Discussed with Dr. Roy * Narcisa Wilder: PERFORM Event Display: Consultation Note Authored Date: Repeat CT head with??blossoming of??bifrontal hemorrhagic contusions, subarachnoid hemorrhages, andtrace subdural hematomas ?? Recommendations: No acute neurosurgical intervention Repeat head CT tomorrow at 6 AM, sooner for acute neurologic decline of 2 or more GCS points Every??2 hours neuro checks Head of bed greater than 30 degrees 500 mg of Keppra twice daily x 7 days Systolic blood pressure 100-160 Please hold chemical DVT prophylaxis for now Neurosurgery will continue to follow Note * Dai Sainz RN: PERFORM Event Display: Discharge/Transfer Note Hospital Authored Date: Nursing Discharge Note Entered On: 11/24/2022 18:13 EDT Performed On: 11/24/2022 18:11 EDT by Dai Sainz RN Nursing Discharge Note 2 Discharge Time : 11/24/2022 18:01 EDT Discharge Level of Care at Discharge : FDC facility Discharge Nursing Homes/Rehab Facilities : [facility] Patient Left Unit Via : Ambulance Patient Accompanied Off Unit with : Ambulance/Chair Van Personnel Handover Given to Transport Personnel : Yes DC Instructions Provided & Signed by Pt : No Patient Understands D/C Instructions : Yes Patient Instructions Discharge Signed : Yes Discharge Comments : IV access removed intact Did Pt have Specialty Bed or Wound Vac : No Dai Sainz RN - 11/24/2022 18:11 EDT * Oswaldo Amaya MD: PERFORM Event Display: Discharge/Transfer Note Hospital Authored Date: Patient: ??MARIO BATISTA ? Age:??67 Years?Sex:??Male?:??1955?? Admit Date Admission Date: 11/22/2022 Discharge Date 11/24/22 Hospital Course Mr. Batista is a 67 year old man who presented as a trauma transfer from OSH on 11/21/22 s/p found down while intoxicated, reportedly on Aspirin. CT Head revealed bifrontal hemorrhagic contusions, scattered tSAH, and right frontal skull fracture. Repeat CT Head on 11/22 revealed worsening bifrontal hemorrhagic contusion. Repeat CT head on 11/23 was stable. Neuro intact on exam. Remainder of nsg recommendations as seen below. Tertiary on 11/23 did not reveal any additional injuries. Nunez placed forurine retention (plan for dc nunez 11/25), however found to have low urine output despite fluids. Downgraded to floor. Pt discharged to rehab on 11/24 on Keppra with f/u in outpatient clinic. ?? [facility] 11/23 Dr. Oshea:?? Recommendations: - No acute neurosurgical intervention - Neuro checks q4hrs - HOB > 30 degrees - SBP goal less than 160 - Keppra 500mg BID x 7 days, to be completed on 11/28 PM - Ok for chemical DVT ppx on 11/24. Until then pneumatic compression boots - STAT CT Head for decline in neuro exam - Hold aspirin for 2 weeks - The risk of restarting or initializing anticoagulation or antiplatelet therapy may cause recurrent or progression of hemorrhage and must be balanced against the?risks of SC/DVT/PE/CVA in individual patients. There risks must be discussed with the patient/family prior to making any decisions. In general only patients?with exceptionally high risk of SC/DVT/PE/CVA should be restarted or initiated on anticoagulation or antiplatelet therapy.?? -Neurosurgery will sign off. No routine follow up required. Refer back PRN. ? Objective/Physical Exam on Day of Discharge Vitals & Measurements T:??98.7?F?? HR:??93??(Monitored)?? RR:??22?? BP:??123/63?? SpO2:??95%?? WT:??66.2??kg?? GENERAL APPEARANCE: ??Comfortable in bed NECK: Trachea is midline.?? CHEST: Symmetric. Nontender to palpation. LUNGS: RR even/unlabored, no visible increased WOB HEART: Regular rate?? ABDOMEN: Soft, non tender EXTREMITIES: Full ROM of all extremities, no edema noted. NEUROLOGIC: No focal sensory or motor deficits are noted. Cranial nerves II through XII are intact.GCS15 SKIN: Warm, dry, and well perfused. Good turgor. ?? Home Health Face to Face *Denotes mandatory rodriguez ?? *I certify that this patient is under my care and that I or an allowed non- physician working with me had a face to face encounter with the patient on this date:??11/24/2022 17:13 ?? *The encounter with the patient was in whole, or in part, for the following medical condition, which is the primary diagnosis(es) for home health care:??SAH (subarachnoid hemorrhage) (I60.9) SDH (subdural hematoma) (S06.5XAA) SDH (subdural hematoma) (S06.5XAA) Trauma (T14.90XA) ? *Select the indications for the discipline/s that are being arranged for this patient. Nursing (select all that apply): [_] None [_] Medication management (reconciliation, teaching)?? [_] Chronic disease management?? [_] Wound care and treatment?? [_] Home safety evaluation [_] Administer SQ/IM/IV medications?? [_] Cath care?? [_] Drain care?? [_] Trach or GT care?? Other _ Occupation Therapy (select all that apply): [_] None [_] ADL Management [_] Fall prevention training [_] Energy conservation [_] Cognitive training Other _ Physical Therapy (select all that apply): [_] None [x] Functional mobility training [x] Home exercise program to strengthen [_] Increase ROM?? [x] Falls prevention training [_] Home maintenance program for chronic disease Other _ Speech Therapy (select all that apply): [_] None [_] Swallow evaluation and training [_] Speech and language training [_] Cognitive training to process, organize, and/or recall information Other _ ? *Homebound due to (select all that apply): [x] Inability to leave home without assistance/supervision [_] Inability to ambulate without assistance [_] Pain [_] Decreased strength and endurance [_] Unsteady gait [_] Severe SOB and fatigue [_] Impaired transfers [_] Inability to negotiate stairs [_] Limited weight bearing [_] Mental status change? *Physician Signature:??Dr. Li ?? *By signing this, I certify that I have personally evaluated the patient and agree with the findings and recommendations as documented above. ? TF Inpatient Medications Medications (16) Active SCHEDULED: (14) Atorvastatin 40 mg Tablet (Lipitor 40 mg oral tablet) ??40 mg, By Mouth, Daily at bedtime Carvedilol 6.25 mg Tablet (Coreg 6.25 mg oral tablet) ??6.25 mg, By Mouth, 2 times a day Docusate Sodium 100 mg Capsule (docusate sodium 100 mg oral capsule) ??100 mg 1 capsule, By Mouth, 2 times a day Fluticasone Propionate 50mcg/inh Nasal [place] (fluticasone 50 mcg/inh nasal spray) ??100 mcg 2 sprays, Nares, Both, Daily Folic Acid 1 mg Tablet (Folic Acid Tablet) ??1 mg, By Mouth, Daily Heparin 5000 units/mL Inj (1 mL) (Heparin Inj) ??5,000 units 1 mL, Subcutaneous Injection, Every 8 hours Keppra 500mg Tablet (levETIRAcetam 500 mg oral tablet) ??500 mg, By Mouth, 2 times a day Melatonin 3 mg Tablet (Melatonin Tablet) ??9 mg, By Mouth, Daily at bedtime Montelukast 10 mg Tablet (Singulair 10 mg oral tablet) ??10 mg, By Mouth, Daily at bedtime Multivitamin Tablet ??1 tablet, By Mouth, Daily Phenobarbital 30 mg Tablet (Phenobarbital Tablet) ??60 mg, By Mouth, 2 times a day Pyridoxine 50 mg Tablet (Pyridoxine Tablet) ??50 mg, By Mouth, Daily Tamsulosin 0.4 mg Capsule (Flomax 0.4 mg oral capsule) ??0.4 mg, By Mouth, Daily Thiamine 100 mg Tablet (Thiamine Tablet) ??100 mg, By Mouth, 2 times a day CONTINUOUS: (0) PRN: (2) Acetaminophen 325 mg Tablet (Tylenol 325 mg oral tablet) ??650 mg, By Mouth, Every 6 hours Phenobarbital 65 mg/mL Inj (Phenobarbital Inj) ??65 mg 1 mL, IV Push, Every 2 hours Discharge Medications Amlodipine (Norvasc 10 mg oral tablet)?10?Milligram?1?tablet?By Mouth?Daily at supper Aspirin (aspirin 81 mg oral tablet)?1?tab(s)?81?Milligram?By Mouth?Daily Atorvastatin (Lipitor 40 mg oral tablet)?1?tab(s)?40?Milligram?By Mouth?Daily at bedtime Carvedilol (Coreg 6.25 mg oral tablet)?6.25?Milligram?1?tablet?By Mouth?2 times aday Fluticasone Nasal (Flonase Allergy Relief 50 mcg/inh nasal spray)?1?spray(s)?Nares, Both?Daily GlipiZIDE (glipiZIDE 2.5 mg oral tablet, extended release)?1?tab(s)?2.5?Milligram?ByMouth?Daily before breakfast levETIRAcetam (levETIRAcetam 500 mg oral tablet)?500?Milligram?By Mouth?2 times a day Loratadine (Claritin 10 mg oral tablet)?10?Milligram?1?tablet?By Mouth?Daily?as needed?Seasonal Allergies Montelukast (Singulair 10 mg oral tablet)?10?Milligram?1?tablet?By Mouth?Daily atbedtime Tamsulosin (Flomax 0.4 mg oral capsule)?0.4?Milligram?1?capsule?By Mouth?Daily atbedtime Labs Last 24 Hours BLOOD COUNT & DIFF ? Event Name?? Event Result?? Date/Time?? WBC 8.9 k/mm3 11/24/22 08:06:00 RBC 4.24 m/mm3??Low 11/24/22 08:06:00 Hgb 12 Gm/dL??Low 11/24/22 08:06:00 Hct 37.1 %??Low 11/24/22 08:06:00 MCV 87.5 femtoliters 11/24/22 08:06:00 MCH 28.3 pg 11/24/22 08:06:00 MCHC 32.3 g/dL??Low 11/24/22 08:06:00 Platelet Count 220 k/mm3 11/24/22 08:06:00 MPV 9.6 femtoliters 11/24/22 08:06:00 Nucleated RBC (Automated) 0 #/100 WBC'S 11/24/22 08:06:00 ? CHEM GENERAL ? Event Name?? Event Result?? Date/Time?? Sodium 139 mmol/L 11/24/22 08:06:00 Chloride 104 mmol/L 11/24/22 08:06:00 Bicarbonate Level 20 mmol/L??Low 11/24/22 08:06:00 Anion Gap 15 11/24/22 08:06:00 Glucose Level 67 mg/dL??Low 11/24/22 08:06:00 BUN 13 mg/dL 11/24/22 08:06:00 Creatinine-Blood 0.8 mg/dL 11/24/22 08:06:00 Calcium, Ionized pH Corrected 1.27 mmol/L 11/24/22 08:06:00 Phosphorus 2.3 mg/dL??Low 11/24/22 08:06:00 Magnesium 2.1 mg/dL 11/24/22 08:06:00 ? Follow-Up Appointments Added Follow Up ?Time Frame ?Comments Trauma Surgery?2 ?? Terrance Christine MD Patient Instructions ?? Avoid strenuous activity until the follow-up appointment with your MD. ?? No driving until completely off narcotic pain medication ?? Light walking is allowed and encouraged. ?? Daily showering is allowed and encouraged. ? Call MD office for: ? Persistent nausea and vomiting. ?? If you have any sudden weakness, numbness, tingling, or confusion * Heike Gipson RN: PERFORM, SIGN, VERIFY Event Display: Case Management Discharge Plan Authored Date: [id number] Patient: MARIO BATISTA Age: 67 years Sex: Male : 1955 Associated Diagnoses: None Author: Heike Gipson RN Discharge Plan Case Management Discharge Plan : Case Management Discharge Plan Data 11/24/2022 15:18 EDT Discharge Level of Care at Discharge FDC facility Discharge Nursing Homes/Rehab Facilities [facility] Discharge Transportation Arranged [facility] [address] [place] [phone] Discharge Arranged Transport Date/Time 11/24/2022 17:00 Mode of Transportation Arranged Ambulance Name of Agency #1 [facility] Service Categories #1 Physical Therapy, Fdc Name of Person Notified of Transfer daughter-Yoko * Alistair HONG, Dai: PERFORM Event Display: Patient Education/Instruction Authored Date: [id number] Inpatient Adult Discharge Instructions [address] [id number] Name: MARIO BATISTA : 1955 Visit: 11/22/2022 01:31:00 Current Date: 11/24/2022 17:53 Account: [id number] Inpatient Adult Discharge Instructions We would like to thank you for allowing us to assist you with your healthcare needs. The following includes patient education materials and information regarding your injury/illness. Our entire staffstrives to provide an excellent experience for our patients and their families. PLEASE ENSURE YOU FOLLOW-UP PER THE INSTRUCTIONS BELOW! ?? YOUR OPINION IS IMPORTANT TO US! Please complete the survey you may receive by mail or email. Your feedback will be used to make improvements to the healthcare experiences of our patients and their families. Surveys are administered by [employer] ?? If further treatment with your primary care physician or another doctor is recommended, it is important for you to keep the appointment. Call your primary care physician or return to the Emergency Department immediately if your condition worsens, fails to improve, or new symptoms develop. If you need to find a doctor, you can call [facility] ERCOM for a referral at [phone] or toll free at [phone] or log in to [email or web address].. ?? You can view and manage your care through the patient portal or by using a health care bashir of your choosing. [employer] is a website that allows you to securely view your medical information including your hospital discharge summary, office visit summaries, medications and follow-up visits. You can also request appointments, renew medications, and request access to your medical information using a health care bashir of your choosing, or just ask a question. You can enroll at [email or web address] or register during your next office visit. You have been discharged from [facility], Patient Care Unit: [facility]. If you have any questions regarding these instructions after you leave, please call us and we will be happy to assist you. [facility] Your Care Team Attending Physician Benito Bergeron MD Discharging Providers Oswaldo Amaya MD Reason for Admission see taruma flow sheet Your Diagnosis Trauma SDH (subdural hematoma) SAH (subarachnoid hemorrhage) SDH (subdural hematoma) Tests Performed Below is a partial list of the tests performed during your hospitalization. You may have had other tests and procedures not included in this list. Please discuss all test results with your provider. Alcohol Level Amphetamine Urine Screen Amylase Barbiturate Urine Screen Basic Metabolic Panel Benzodiazepine Urine Screen BUN Calcium Ionized Cannabinoid Urine Screen CBC w/ Differential Cocaine Urine Screen COVID-19 (2019 Novel Coronavirus) PCR Creatinine Glucose Level GLUCOSE POC HOLD GREEN TUBE Hold Red Top Tube Lactate Level Lactic Acid Level Lytes Magnesium Level Opiate Screen Urine Phenobarbital Level Phosphorus Level PT (INR) PTT Type and Screen Urinalysis Complete CT Cervical Spine W/O Contrast CT Chest W/ Contrast CT Head/Brain W/O Contrast CXR Portable Primary Care Provider Nanci KO , Dottie Cherry Advance Directive Health Care Proxy on File No Patient refuses to discuss Discharge Vitals Temperature: 98.7 DegF Weight: 66.2 kg Pulse Rate: 85 bpm ?? Respiratory Rate: 22 br/min ?? Systolic Blood Pressure: 123 mm Hg ?? Diastolic Blood Pressure: 63 mm Hg ?? Oxygen Saturation: 95 % ?? Studies Pending All tests and labs ordered during this hospital stay have been completed unless listed below. Please discuss all pending results with your provider listed above in these instructions. ?? BUN Blood Culture Blood Culture #2 CBC w/ Differential Creatinine Electrolytes (Lytes) Glucose Level Ionized Calcium (Calcium Ionized) Magnesium Level Phosphorus Level What to do next Instructions From Your Doctor Discharge Orders You Need to Schedule the Following Appointments Follow Up with??Trauma Surgery When:??In 2 weeks 12/08/2022 EDT Where: [facility] Office Building [address] [place] [address]- Business (1) Follow Up with??Dottie Christine MD When:??In 0 days Where: [address] [facility] [address] [place] [address]- Business (1) Discharge Medications RHYSEUGENIORO :1955 Visit Date:11/22/2022 Medications: Please continue your medications until treatment is completed or stopped by your provider. Medications not listed below should be discontinued. Discuss any questions related to medications with your provider. What How Much When Instructions Next Dose New levETIRAcetam (levETIRAcetam 500 mg oral tablet) 500 Milligram Oral Twice a day tonight at 9 PM, 11/24/2022 Unchanged Amlodipine (Norvasc 10 mg oral tablet) 1 tab(s) Oral Daily at supper tonight at 9 PM, 11/24/2022 Unchanged Atorvastatin (Lipitor 40 mg oral tablet) 1 tab(s) Oral Daily at Bedtime tomorrow at bedtime, 11/25/2022 Unchanged Carvedilol (Coreg 6.25 mg oral tablet) 1 tab(s) Oral Twice a day tonight at 9 PM, 11/24/2022 Unchanged Fluticasone Nasal (Flonase Allergy Relief 50 mcg/ inh nasal spray) 1 spray(s) Nares, Both Daily tomorrow in AM, 11/25/2022 Unchanged GlipiZIDE (glipiZIDE 2.5 mg oral tablet, extended release) 1 tab(s) Oral Daily before breakfast please, follow your home routine Unchanged Loratadine (Claritin 10 mg oral tablet) 1 tab(s) Oral Daily as needed for Seasonal Allergies please, follow your home routine Unchanged Montelukast (Singulair 10 mg oral tablet) 1 tab(s) Oral Daily at Bedtime please, follow your home routine Unchanged Tamsulosin (Flomax 0.4 mg oral capsule) 1 capsule Oral Daily at Bedtime tomorrow at bedtime. 11/25/2022 ?? What How Much When Comments Stop Taking Aspirin (aspirin 81 mg oral tablet) 1 tab(s) Oral Daily Test Results Below is a partial list of the most recent Laboratory test results done prior to this discharge. You may have had other tests and procedures not included in this list. Please discuss all test resultswith your provider. Alcohol Level (11/21/2022) ???Ethanol, Serum or Plasma - 252 mg/dL Amphetamine Urine Screen (11/22/2022) ???Amphetamine Screen, Urine - NONE DETECTED Amylase (11/21/2022) ???Amylase - 189 units/L Barbiturate Urine Screen (11/22/2022) ???Barbiturate Screen, Urine - NONE DETECTED Basic Metabolic Panel (11/21/2022) ???Sodium - 136 mmol/L???Potassium - 4.0 mmol/L???Chloride - 96 mmol/L???Bicarbonate Level - 23 mmol/L???Anion Gap - 17???Glucose Level - 120 mg/dL???BUN - 20 mg/dL???Creatinine-Blood - 1.3 mg/dL???Estimated GFR Creatinine - 45 ML/MIN/1.73 M2???Calcium - 9.2 mg/dL Benzodiazepine Urine Screen (11/22/2022) ???Benzodiazepine Screen, Urine - NONE DETECTED BUN (11/24/2022) ???BUN - 13 mg/dL Calcium Ionized (11/24/2022) ???Calcium, Ionized pH Corrected - 1.27 mmol/L Cannabinoid Urine Screen (11/22/2022) ???Cannabinoid Screen, Urine - NONE DETECTED CBC w/ Differential (11/24/2022) ???WBC - 8.9 k/mm3???RBC - 4.24 m/mm3???Hgb - 12.0 Gm/dL???Hct - 37.1 %???MCV - 87.5 femtoliters???MCH - 28.3 pg???MCHC - 32.3 g/dL???Platelet Count - 220 k/mm3???RDW-SD - 43.0 femtoliters???MPV - 9.6 femtoliters???Nucleated RBC (Automated) - 0.0 #/100 WBC'S???Abs. NRBC - 0.0 k/mm3???Abs. Neut - 7.3 k/mm3???Abs. Lymph - 0.8 k/mm3???Abs. [place] - 0.5 k/mm3???Abs. Eo - 0.2 k/mm3???Abs. Baso - 0.0 k/mm3???Neut % - 81.8 %???Lymph % - 9.4 %???[place] % - 5.9 %???Eos % - 2.1 %???Baso % - 0.4 %???Imm Gran - 0.4 %???Abs. Imm Gran - 0.0 k/mm3 Cocaine Urine Screen (11/22/2022) ???Cocaine Metabolite Screen, Urine - NONE DETECTED COVID-19 (2019 Novel Coronavirus) PCR (11/21/2022) ???COVID-19 PCR Specimen Source - NASAL???COVID-19 PCR Result - NEGATIVE Creatinine (11/24/2022) ???Creatinine-Blood - 0.8 mg/dL???Estimated GFR Creatinine - 97 ML/MIN/1.73 M2 Glucose Level (11/24/2022) ???Glucose Level - 67 mg/dL GLUCOSE POC (11/21/2022) ???Glucose, POC - 132 mg/dL HOLD GREEN TUBE (11/21/2022) ???Hold Green Top - SPECIMEN DISCARDED AFTER 1 WEEK Hold Red Top Tube (11/21/2022) ???Hold Red Top - SPECIMEN DISCARDED AFTER 1 WEEK Lactate Level (11/22/2022) ???Lactate - 3.6 mmol/L Lactic Acid Level (11/21/2022) ???Lactate - 3.4 mmol/L Lytes (11/24/2022) ???Sodium - 139 mmol/L???Potassium - 3.8 mmol/L???Chloride - 104 mmol/L???Bicarbonate Level - 20 mmol/L???Anion Gap - 15 Magnesium Level (11/24/2022) ???Magnesium - 2.1 mg/dL Opiate Screen Urine (11/22/2022) ???Opiate Screen, Urine - NONE DETECTED Phenobarbital Level (11/24/2022) ???Phenobarb Level - 7.1 mg/L Phosphorus Level (11/24/2022) ???Phosphorus - 2.3 mg/dL PT (INR) (11/21/2022) ???INR - 1.0???Protime (PT) - 10.7 seconds PTT (11/21/2022) ???APTT - 24.9 seconds Type and Screen (11/21/2022) ???Blood Type - A Positive???Antibody Screen - Negative Urinalysis Complete (11/22/2022) ???Appear/Color, Urine - COLORLESS???Specific [place], Urine - 1.022???pH, Urine - 6.0???Albumin, Urine - TRACE???Glucose, Urine - NEGATIVE???Ketones, Urine - TRACE???Bilirubin, Urine - NEGATIVE???Hemoglobin, Urine - 1+???Nitrite, Urine - NEGATIVE???Leukocyte, Urine - NEGATIVE???Urobilinogen - NORMAL???WBC's, Urine - 2 /HPF???RBC's, Urine - 10 /HPF Allergies (NKA means No Known Allergies) NKA Problems Active Problems??(1) Brain bleed?? Education Materials Below is the list of Educational Leaflet Providered with your Discharge Instructions. What Is a Subdural Hematoma??? Head Trauma (Traumatic Brain Injury)?? What Is a Subdural Hematoma??? Head Trauma (Traumatic Brain Injury)?? Valuables and Belongings I fully understand and agree that [facility] accepts no responsibility for all my personal property including clothing, toilet articles, radios, jewelry, dentures, hearing aids, rings, money, or any other property that is in my possession or is brought to me after admission. I understand certain valuables may be placed in a hospital safe for a short period of time. I understand that the hospital is not liable for loss or damage due to accident, fire, or other natural occurrence while said property is in the safe. I accept full responsibility for any personal property that I keep with me, and will not hold the hospital responsible in case of loss or disappearance. I acknowledge that i have been encouraged to send valuables and belongings home. ?? Review of Valuable and Belonging List: With witness Date for Pt to Sign Valuables/Belongings: 11/22/22 03:48:00 ?? Other Discharge Information ? Case Management Discharge Plan?? Discharge Plan?? Discharge Agency Information?? Discharge Level of Care at Discharge: FDC facility Name of Agency #1: [facility] Discharge Rx Program: Discharge Prescription Program Service Categories #1: Physical Therapy, Fdc Discharge Transportation Arranged: [facility] [address] [facility] [address] [phone] Name of Person Notified of Transfer: [place] Mode of Transportation Arranged: Ambulance ?? Discharge Arranged Transport Date/Time: 11/24/22 17:00:00 ?? Discharge Nursing Homes/Rehab Facilities: [facility] ? Pulmonary Rehab Status?? Pulmonary Rehab Discharge Status?? Respiratory Rate: 22 br/min ? Common Emergency Awareness Tips IS IT A STROKE? Act FAST and Check for these signs: FACE Does the face look uneven? ARM Does one arm drift down? SPEECH Does their speech sound strange? TIME Call at any sign of stroke ?? Heart Attack Signs Chest discomfort: Most heart attacks involve discomfort in the center of the chest and lasts more than a few minutes, or goes away and comes back. It can feel like uncomfortable pressure, squeezing, fullness or pain. Discomfort in upper body: Symptoms can include pain or discomfort in one or both arms, back, neck, jaw or stomach. Shortness of breath: With or without discomfort. Other signs: Breaking out in a cold sweat, nausea, or lightheaded. Remember, MINUTES DO MATTER. If you experience any of these heart attack warning signs, call to get immediate medical attention! ?? Smoking can increase your chances of developing chronic health problems and can cause harmful effects to other family members in your house. If you smoke, you are strongly encouraged to quit. Please call [facility] PayRange Link at [phone] or [phone] ([phone]) or log in to [email or web address] for referrals to smoking cessation programs. ?? 741 Suicide & Crisis Lifeline is available 25/11 if you or someone you know needs to find a reason to keep living. By calling 720 you'll be connected to a skilled, trained counselor at a crisis center in your area. INPATIENT DISCHARGE INSTRUCTIONS SIGNATURE PAGE MARIO BATISTA Location:[facility] Registration Date and Time:11/22/2022 01:31 EDT Primary Care Physician: Nanci KO , Dottie Cherry, Attending Physician: Rubio KO, Benito Bradley, I MARIO BATISTA, have received the above patient education materials/instructions and have verbalized understanding. If ambulance or transport services are being used I further acknowledge being given a choice of service. ?? If you need to contact me, please call me at this number: . 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 ?? 99587 What Is a Subdural Hematoma? A subdural hematoma is a buildup of blood on the surface of the brain. The blood builds up in a space between the layers that surround your brain. Your brain sits inside a bony skull. Inside your skull are several layers called the meninges. These layers cover and protect the brain. The layer just inside the skull is called the dura mater, or just dura. It's a tough, fibrous layer of tissue. On the inside of the dura is a layer called the arachnoid. When blood builds up between these layers, it can cause severe problems. A subdural hematomais a medical emergency. Call 1 This condition is a medical emergency. Call 911if you have the symptoms listed below. ?? What causes a subdural hematoma? The most common cause is a head injury. This may be from a fall, a car crash, a sports injury, or violent attack. The sudden impact can strain the blood vessels inside the dura. This causes them to rip and bleed. Small arteries may break in the subdural space. In some people, the brain shrinks. This is often from aging. The subdural space gets bigger. This can make the blood vessels more likely to break. Another cause is taking medicine to prevent blood clots. These include warfarin, aspirin, and otherblood thinners. Rare causes include leaking of cerebrospinal fluid, a tumor, or rupture of a weak part of a blood vessel (cerebral aneurysm). ?? Symptoms of a subdural hematoma It may cause symptoms right away. Or it may grow slowly and cause symptoms weeks later. Symptoms may include: ??? Headache ??? Nausea or vomiting ??? Loss of consciousness ??? Confusion ??? Dizziness??? Balance or walking problems ??? Speech problems ??? Vision problems ??? Sleepiness ??? Weaknessor numbness that may come and go ??? Seizures ?? Treating a subdural hematoma The most common treatment is surgery. This helps to relieve the pressure on the brain. There are two surgeries to treat the hematoma: ??? Drilling a hole in the skull to allow the blood to drain (ganesh hole) ??? Cutting a flap of skull open to remove the blood (craniotomy) If the subdural hematoma is small, your doctor may not do surgery right away. Instead, they may closely watch it. In this case, you will likely stay in the hospital. You may need: ??? Repeated CT scans to watch the hematoma ??? A sensor inserted in your head to measure your intracranial pressure ??? Medicines to control symptoms ??? To stop blood-thinner medicine ??? Vitamin K therapy to reverse the effects of some blood-thinner medicines ?? Last Reviewed Date: 2021 ?? 7590-5304 [employer]. All rights reserved. This information is not intended as a substitute for professional medical care. Always follow your healthcare professional's instructions. ?? * Alistair HONG, Dai: PERFORM Event Display: Patient Education Leaflets Authored Date: [id number] Head Trauma (Traumatic Brain Injury) ?? 28538 Head Trauma (Traumatic Brain Injury) Head trauma can be fatal. The effects from some types of head trauma may not appear right away. So,it???s important to??get immediate medical attention for any head injury. Don't move a person with a head injury unless it is necessary to save their life. Call 911 and waitfor help. Head trauma often comes with severe neck injury. Sudden movements can result in paralysis. ?? Call 911 Call 911 right away after a head blow that results in: ??? Prolonged loss of consciousness (more than a few seconds) or prolonged drowsiness ??? Memory problems or confusion ??? Severe headache ??? Nausea or vomiting ??? Pupils dilated or different sizes ??? Severe bleeding ??? Blood or watery fluid leaking from nose or ears ??? Broken skull or a soft spot on skull ??? Slow breathing ??? Loss of balance ??? Weakness of or trouble using an arm or leg ??? Slurred speech ??? Seizure ?? What to expect in the ER Here is what will happen:? A neurological exam??is done. This is a series of simple questions and tests that evaluate the nervous system. Reflexes, movement, response to commands, response to pain, and mental state are assessed. ??? The??healthcare provider??shines a bright light into the eyesto check how the pupils respond. This can reveal more about any head injuries. ??? A head CT??scan may be done. This test combines X-rays and computer scans to create detailed images of the brain to detect bleeding, swelling, brain injury, and skull fractures. ??? A head MRI scan may be done. This test detects minute bleeding (microhemorrhage), bruising, swelling, and scarring that may not be visible on CT scanning. ?? Treatment for head trauma Here is what is generally done:? Sometimes, severe head injuries cause bleeding on the brain that needs to be treated right away with??surgery. In certain cases, the injured person will be watched closely and taken for surgery only if injuries become worse. After surgery, special care helps prevent further brain damage. ??? Minor head trauma may need little treatment beyond pain control and observation. The??healthcare provider??may suggest using cold packs to reduce swelling and pain. ?? Once you are home After treatment for head trauma, know which symptoms to watch for. Then call for medical help. At home, call 911 right away if the affected person: ??? Becomes very drowsy or confused ??? Has a headache or trouble seeing ??? Has a stiff neck or muscle weakness ??? Vomits ??? Has seizures ??? Has bruising around the eyes or behind the ears ??? Has any blood or clear fluid coming out of the ears or nose ?? Last Reviewed Date: 2021 ?? [employer]. All rights reserved. This information is not intended as a substitute for professional medical care. Always follow your healthcare professional's instructions. ?? * Alistair HONG, Dai: PERFORM Event Display: Patient Education Leaflets Authored Date: [id number] What Is a Subdural Hematoma? ?? 94150 What Is a Subdural Hematoma? A subdural hematoma is a buildup of blood on the surface of the brain. The blood builds up in a space between the layers that surround your brain. Your brain sits inside a bony skull. Inside your skull are several layers called the meninges. These layers cover and protect the brain. The layer just inside the skull is called the dura mater, or just dura. It's a tough, fibrous layer of tissue. On the inside of the dura is a layer called the arachnoid. When blood builds up between these layers, it can cause severe problems. A subdural hematomais a medical emergency. Call 911 This condition is a medical emergency. Call 911if you have the symptoms listed below. ?? What causes a subdural hematoma? The most common cause is a head injury. This may be from a fall, a car crash, a sports injury, or violent attack. The sudden impact can strain the blood vessels inside the dura. This causes them to rip and bleed. Small arteries may break in the subdural space. In some people, the brain shrinks. This is often from aging. The subdural space gets bigger. This can make the blood vessels more likely to break. Another cause is taking medicine to prevent blood clots. These include warfarin, aspirin, and otherblood thinners. Rare causes include leaking of cerebrospinal fluid, a tumor, or rupture of a weak part of a blood vessel (cerebral aneurysm). ?? Symptoms of a subdural hematoma It may cause symptoms right away. Or it may grow slowly and cause symptoms weeks later. Symptoms may include: ??? Headache ??? Nausea or vomiting ??? Loss of consciousness ??? Confusion ??? Dizziness??? Balance or walking problems ??? Speech problems ??? Vision problems ??? Sleepiness ??? Weaknessor numbness that may come and go ??? Seizures ?? Treating a subdural hematoma The most common treatment is surgery. This helps to relieve the pressure on the brain. There are two surgeries to treat the hematoma: ??? Drilling a hole in the skull to allow the blood to drain (ganesh hole) ??? Cutting a flap of skull open to remove the blood (craniotomy) If the subdural hematoma is small, your doctor may not do surgery right away. Instead, they may closely watch it. In this case, you will likely stay in the hospital. You may need: ??? Repeated CT scans to watch the hematoma ??? A sensor inserted in your head to measure your intracranial pressure ??? Medicines to control symptoms ??? To stop blood-thinner medicine ??? Vitamin K therapy to reverse the effects of some blood-thinner medicines ?? Last Reviewed Date: 2021 ?? [id number] [employer]. All rights reserved. This information is not intended as a substitute for professional medical care. Always follow your healthcare professional's instructions. ?? Patient Care team information Care Team Personnel Name: Dottie Christine MD Position: [facility] Outreach Member Role: PCP Address: Address: [address] [place] [address] [place] [address]- Name: Dai Sainz RN Position: [facility] RN Member Role: Primary Care Nurse Name: Lindsey Avelar RN Position: [facility] RN Member Role: Primary Care Nurse Name: April MACIEL Attending Position: [facility] ED Medicine Name: Bernard LOBATO Navneet Position: [facility] Resident Member Role: ED Resident Address: Address: [address] [place] [address] [place] [address]- Name: Elly Grimaldo RN Position: [facility] ED RN W/OE and Tasks Member Role: Patient Care Provider Name: Hannah Orozco Position: [facility] ED TA [facility] Member Role: Patient Care Provider
--- NOTE | 2023-04-05 03:27 | ED_ITS ---
HPI - General Adult General Chief complaint: Fall Stated complaint: ETOH, Fall Time Seen by Provider: 04/04/23 20:47 History of Present Illness HPI narrative: The patient is a 67-year-old male who was brought to the hospital by ambulance after calling. He apparently was seen to fall down stairs 2 times at home. The patient seemed intoxicated. He seemed to have injuries to the face but no obvious other injuries. The patient denies any pain even facial pain. He admits to drinking alcohol. He is upset that he has had the emergency room. He says that he feels fine and has no other complaints. He denies chest pain, shortness of breath, abdominal pain, nausea, vomiting. He denies any pain in his extremities. He denies any sense of numbness, tingling, weakness, burning in his extremities. Related Data Previous Rx's Medication Instructions Recorded amoxicillin 875 mg-potassium 1 tab PO BID #10 tabs 04/05/23 clavulanate 125 mg tablet Allergies Allergy/AdvReac Type Severity Reaction Status Date / Time Unable to Assess Allergy Verified 04/04/23 20:48 Review of Systems 2 Review of Systems: Yes Unobtainable due to mental status [facility] Social History Social History Smoked in Last 30 Days: No Use of substances other than those prescribed or required for medical reasons: No Advance Directives: No Advance Directives Information Provided: Yes Physical Exam ED Vital Signs: Vital Signs - 24 hr 04/04/23 20:47 04/04/23 20:52 04/05/23 00:58 Temperature 97.7 F 97.7 F 97.4 F Pulse Rate 87 87 79 Respiratory Rate 16 17 18 Blood Pressure 172/79 H 172/79 H 120/72 Pulse Oximetry 95 92 Oxygen Delivery Method Room Air Room Air BMI result Body Mass Index 26.6 Const Other: The patient was awake and seemed intoxicated. He had some redness to the left side of his face. HENMT Other: There is some redness to the left side of his face without arun swelling. Eyes Other: No sign of injury to the eyes. Pupils are round equal, extraocular movements are intact. No limitation of upward gaze. Neck Other: The patient denies tenderness with palpation of the C-spine but he does not seem to be reliable medical donation professional. No obvious signs of trauma to the neck. Chest Other: No crepitus or chest wall tenderness. Resp Other: Breath sounds are clear and equal. Cardio Other: The patient has a regular rate and rhythm with no murmur GI Other: The abdomen seems soft and nontender. No distention. Back/Spine/Pelvis Other: No sign of trauma to the back. Skin Other: There is some erythema to the left cheek without arun soft tissue swelling. Skin is otherwise unremarkable. Neuro Other: Patient was awake but seemed intoxicated. Extraocular movements seem to be intact. No obvious facial asymmetry. Speech was fairly clear. He moves all 4 extremities symmetrically. Does not seem to have a focal deficit. Extrem Other: No sign of trauma to the extremities. He can move all 4 extremities well. Medications Administered Discontinued Medications Generic Name Dose Route Start Last Admin Trade Name Freq PRN Reason Stop Dose Admin Amoxicillin/Clavulanate Potassium 875 mg 04/04/23 23:01 04/05/23 00:57 Amoxicillin/Potassium Clav 875 Mg Tablet PO 04/04/23 23:02 875 mg ONCE ONE Administration Medical Decision Making Medical Decision Making [facility] Narrative: The patient is a 67-year-old male who was brought to the hospital by ambulance after falling down stairs at his apartment building. The only definite sign of trauma with some erythema to the left cheek. He seems intoxicated. CT scan of the head, facial bones, and C-spine were done. The CT of the head and C-spine are negative. The facial bone CT shows fractures in the region of the left cheek. CT report says ?comminuted mildly displaced fracture of the left zygomatic arch. Mildly comminuted displaced fracture of the lateral wall of the left orbit. Comminuted mildly displaced fracture of the left maxillary sinus involving the lateral wall and the superior wall of the sinus extending to the floor of the left orbit. No evidence of trapping of the extraocular muscles. Left orbital globes and retrobulbar structures are normal. Fluid in the left ethmoid and maxillary sinuses consistent with hemo sinus. The patient's ETOH level was 331. The patient was started on Augmentin for prophylaxis related to the injuries around his left sinus. None of these fractures communicate with the skin. Clinically the patient remained intoxicated and for the most part he was sleeping in the emergency department. I do not think his injuries require hospitalization or further evaluation in the emergency department. I think it would be appropriate for him to take a course of prophylactic Augmentin. He will stay in the emergency room into the seems sober enough for discharge. The patient gets his primary care through the [facility]. He is advised to follow-up with his regular doctor at the [facility]. He was also given the name and the local ENT doctor. His prescriptions were sent to the [facility]. Lab Data 04/04/23 21:04 04/04/23 21:04 Labs: Lab Results 04/04/23 Range/Units 21:04 WBC 7.0 (4.8-10.8) X10*3/uL RBC 5.61 (4.60-5.80) X10*6/uL Hgb 16.4 (14.0-18.0) g/dl Hct 47.1 (42.0-52.0) % MCV 84.0 (80.0-98.0) fL MCH 29.2 (27.0-33.0) pg MCHC 34.8 (31.0-36.0) g/dl RDW 12.4 (11.0-16.0) % Plt Count 287 (160-400) X10*3/uL MPV 9.0 L (9.4-12.4) fL Immature Gran % (Auto) 0.3 (0.0-0.4) % Neut % (Auto) 66.9 (45-73) % Lymph % (Auto) 24.9 (20-40) % [place] % (Auto) 6.9 (2-11) % Eos % (Auto) 0.4 (0-4) % Baso % (Auto) 0.6 (0-2) % Lymph # (Auto) 1.7 (1.2-4.9) X10*3/uL [place] # (Auto) 0.5 (0.1-1.2) X10*3/uL Eos # (Auto) 0.0 (0.0-0.4) X10*3/uL Baso # (Auto) 0.0 (0.0-0.2) X10*3/uL Abs Immat Gran (auto) 0.02 (0.00-0.03) X10*3/uL Absolute Neuts (auto) 4.7 (2.0-8.3) x10*3/uL Absolute Nucleated RBC 0.000 (0.0-0.012) X10*3/uL Nucleated RBC % (auto) 0.0 (0.0-0.2) /100WBC Sodium 138 (135-145) mmol/L Potassium 3.2 L (3.3-5.1) mmol/L Chloride 103 (96-108) mmol/L Carbon Dioxide 22 (22-29) mmol/L Anion Gap 16 (12-20) BUN 18 H (9-16) mg/dL Creatinine 1.08 (0.5-1.4) mg/dL Estim Creat Clear Calc 55.5 Estimated GFR > 60 Random Glucose 123 H (60-115) mg/dL Calcium 9.3 (8.4-10.2) mg/dL Total Bilirubin 0.5 (0.0-1.0) mg/dL Direct Bilirubin 0.2 (0.0-0.5) mg/dL AST 28 (5-37) U/L ALT 30 (0-40) U/L Alkaline Phosphatase 80 (39-117) U/L Total Protein 7.6 (6.5-8.0) g/dL Albumin 4.5 (3.5-5.0) g/dL Ethyl Alcohol 331 H* mg/dL Discharge Plan Discharge Clinical Impression: Facial bones, closed fracture, Alcohol intoxication, Fall Patient Disposition: Home, Self-Care Instructions: Abuse of Alcohol (ED), Facial Fracture (ED) Additional Instructions: You fell tonight and fractured some bones on the left side of your face near the left cheek. You are also quite intoxicated. Your alcohol level was very high. You have been prescribed some antibiotics to help make sure you do not developed a sinus infection because of the fractures on the left side of your face. The the prescription was sent to the [facility]. Please pear picker this prescription and take it 2 times a day until done. Please follow-up with your regular doctor at the [facility]. I have also given you the name and number of a local Ear, Nose, and Throat doctor you may see for the additional advice about the fractures in your face. Please try to reduce your alcohol use. Return to the emergency room if you are significantly worse at any time. Prescriptions: New amoxicillin-pot clavulanate 875-125 mg tablet 1 tab PO BID Qty: 10 0RF Referrals: Dottie Christine MD [Physician] - (Please follow-up with your regular doctor) Surjit Fuentes [Physician] - (Facial fractures)
== END 2023-04-05 05:19 | disposition home or self-care (01) ==
PROVIDERS: Emergency Provider Emergency Medicine
DX: F10.120 Alcohol abuse with intoxication, uncomplicated (principal); Y90.8 Blood alcohol level of 240 mg/100 ml or more; S02.40FA Zygomatic fracture, left side, initial encounter for closed fracture; S02.842A Fracture of lateral orbital wall, left side, initial encounter for closed fracture; S02.40DA Maxillary fracture, left side, initial encounter for closed fracture; W10.8XXA Fall (on) (from) other stairs and steps, initial encounter; Y93.9 Activity, unspecified; Y92.038 Other place in apartment as the place of occurrence of the external cause; Y99.9 Unspecified external cause status; E11.9 Type 2 diabetes mellitus without complications; I10 Essential (primary) hypertension; E78.00 Pure hypercholesterolemia, unspecified
CPT/HCPCS: 36415; 70450; 70486; 72125; 80048; 80076; 80307; 85025; 93005; 99284

== ENCOUNTER → 2023-04-04 20:52 | Outpatient (BNV) | payer OTHER, SELFPAY | PROVIDERS: Emergency Provider Emergency Medicine; Visit Provider Internal Medicine Cardiovascular Disease | DX: R94.31 Abnormal electrocardiogram [ECG] [EKG] (principal) | CPT/HCPCS: 93010 ==

== ENCOUNTER 2024-02-11 10:34 | Outpatient (REF) | payer OTHER, SELFPAY ==
[2024-02-11 12:11] LABS: Estimated Average Glucose 120 mg/dL; Hemoglobin A1C 158.7908 umol/L; Hemoglobin A1c % 5.8 % (<6.0); Total Hemoglobin (HGBA1C) 3930.7019 umol/L
[2024-02-11 12:17] LABS: Alanine Aminotransferase 58 U/L (0-40); Alkaline Phosphatase 97 U/L (39-117); Anion Gap 13 (12-20); Aspartate Amino Transferase 53 U/L (5-37); Bilirubin Direct 0.5 mg/dL (0.0-0.5); Bilirubin Total 1.5 mg/dL (0.0-1.0); Blood Urea Nitrogen 14 mg/dL (9-16); Calcium 9.3 mg/dL (8.4-10.2); Carbon Dioxide 25 mmol/L (22-29); Chloride 101 mmol/L (96-108); Cholesterol 223 mg/dL (<200); Estimated Glomerular Filt Rate > 60; Glucose Random 140 mg/dL (60-115); HDL Cholesterol 65 mg/dL (>40); LDL Cholesterol Calculated 144 mg/dL (<100); Potassium 3.6 mmol/L (3.3-5.1); Sodium 135 mmol/L (135-145); Triglycerides 74 mg/dL (<150)
[2024-02-11 12:26] LABS: Prostate Specific Antigen 2.89 ng/mL (<0.05-4.0)
[2024-02-11 14:22] LABS: Creatinine Urine 579.04 mg/dL; Microalbum/Creatinine Ratio Ur 8.6 ug/mg cr (<30)
== END 2024-02-11 10:35 | disposition home or self-care (01) ==
LOC: HO.HHCL 10:34
PROVIDERS: Urology; Visit Provider Family Medicine
DX: E11.9 Type 2 diabetes mellitus without complications (principal); N40.1 Benign prostatic hyperplasia with lower urinary tract symptoms; N13.8 Other obstructive and reflux uropathy; Z12.5 Encounter for screening for malignant neoplasm of prostate
CPT/HCPCS: 36415; 80048; 80061; 80076; 82043; 82570; 83036; 84153

== ENCOUNTER 2024-02-17 10:14 | Outpatient (AMB) | payer OTHER, SELFPAY ==
--- NOTE | 2024-02-17 10:15 | A.OFFVIS_ITS ---
Intake Visit Reasons: 1Y PSA/PVR(set) Intake Note: Patient is Present for Follow Up PVR/PSA Urology Medication: Finasteride, Tamsulosin Antibiotic Allergies: None Blood Thinners: Aspirin Pharmacy: [facility] [employer] Super[employer] Required: No Allergies No Known Drug Allergies Allergy (Unknown, Verified 02/17/24 10:16) none Medication List - Last Reconciled 02/17/24 by Jorge Alberto Boss MD alcohol swabs 0 pad topical amlodipine 10 mg PO DAILY amoxicillin-pot clavulanate 875-125 mg 1 tab PO BID aspirin 81 mg PO DAILY atorvastatin mg PO blood sugar diagnostic As directed carvedilol 6.25 mg PO finasteride 5 mg PO DAILY 90 days fluticasone propionate 50 mcg/actuation 0 mcg intranasal gabapentin 100 mg PO TID glipizide ER 2.5 mg PO DAILY hydrochlorothiazide 25 mg PO QAM lancets As directed loratadine 10 mg PO DAILY montelukast (Singulair) 10 mg PO QPM tamsulosin 0.4 mg PO BEDTIME HPI Comments Details: [place] is a pleasant male. He is a patient of Dr. Christine. He is seen for following urologic conditions - lower urinary tract symptoms with episode of urinary retention Yearly follow-up PVR 0 cc Remains on combination therapy with tamsulosin and finasteride - PSA suppressed Continue to follow - PVR and PSA yearly Lower urinary tract symptoms Episode of urinary retention December 2020 Past initial voiding trial Follow-up PVR low Current therapy combination with tamsulosin 0.5 mg and finasteride Background of diabetes PSA 04/24 2.1, Cr 1.1, 02/25 2.9 PFSH Medical History DM type 2 (diabetes mellitus, type 2) Tubular adenoma Leg pain, bilateral Backache Alcohol abuse Cardiomyopathy HTN (hypertension) Hypercholesteremia Depression Glaucoma Allergic rhinitis Pain in limb Sleep apnea Surgical History History of right inguinal hernia repair Hx of colonoscopy Social History (System 04/07/23 @ 07:19 by Colleen Carpenter) Alcohol intake: current Alcohol intake frequency: 0-2 drinks per day Alcohol type: beer Patient Tobacco Use Status: Never used Tobacco Review of Systems Const Denies chills and Denies fever(s) Card Reports no additional complaints and Denies syncope Resp Denies cough GI Denies abdominal pain and Denies heartburn Reports as per HPI and Denies change in libido Neuro Denies syncope Psych Denies change in libido Endo Denies change in libido Physical Exam Const General: cooperative, healthy appearing, comfortable and no acute distress Orientation/consciousness: patient oriented x3 HEENT Face and sinus: Yes normal facial exam Mouth: moist mucous membranes Neck Neck: Yes normal visual inspection, Yes full ROM and Yes trachea midline Chest Chest palpation & inspection: normal inspection of the chest Resp Effort & Inspection: normal respiratory effort, able to speak in complete sentences and no respiratory distress GI Inspection: Yes normal to inspection Back/Spine/Pelvis Cervical Spine: normal cervical lordosis Thoracic/Lumbar Spine: thoracic and lumbar spine normal to inspection Skin General skin exam: no rashes or lesions noted Neuro General: patient oriented x3, gait normal, tone normal and moves all extremities Extrem General: Yes normal to inspection and Yes capillary refill normal Office Procedures Post Void Residual Post Residual Void Post Void Residual (PVR): 0 56185-Uffe Void Residual by ultrasound Results AMB Urinalysis, Automated UA Leukoctes 0 Sera/uL Last Edit by YARA Fowler on 02/17/24 10:33 UA Nitrite Negative Last Edit by YARA Fowler on 02/17/24 10:33 UA Urobilinogen 0.2 mg/dL Last Edit by YARA Fowler on 02/17/24 10:3 3 UA Protein 30 mg/dL Last Edit by YARA Fowler on 02/17/24 10:33 UA pH 6.5 Last Edit by YARA Fowler on 02/17/24 10:33 UA Blood 25 Sergio/uL Last Edit by YARA Fowler on 02/17/24 10:33 UA Specific [place] 1.015 Last Edit by YARA Fowler on 02/17/24 10: 33 UA Ketone Positive Last Edit by YARA Fowler on 02/17/24 10:33 UA Bilirubin 1 mg/dL Last Edit by YARA Fowler on 02/17/24 10:33 UA Glucose 0 mg/dL Last Edit by YARA Fowler on 02/17/24 10:33 Results Reviewed Results Reviewed: Laboratory Last Values Urine pH (Auto) 6.5 02/17/24 10:32 Specific [place] (Auto) 1.015 02/17/24 10:32 Urine Protein (Auto) 30 mg/dL 02/17/24 10:32 Glucose (UA)(Auto) 0 mg/dL 02/17/24 10:32 Urine Ketones (Auto) Positive 02/17/24 10:32 Urine Blood (Auto) 25 Sergio/uL 02/17/24 10:32 Urine Nitrite (Auto) Negative 02/17/24 10:32 Urine Bilirubin (Auto) 1 mg/dL 02/17/24 10:32 Urine Urobilinogen (Auto) 0.2 mg/dL 02/17/24 10:32 Leukocyte Esterase (Auto) 0 Sera/uL 02/17/24 10:32 Assessment & Plan Assessment & Plan (1) Urinary retention with incomplete bladder emptying: Code(s): R33.9 - Retention of urine, unspecified Category: Medical (2) BPH w urinary obs/LUTS: Code(s): N40.1 - Benign prostatic hyperplasia with lower urinary tract symptoms; N13.8 - Other obstructive and reflux uropathy Category: Medical Plan Twelve month follow-up Orders: Orders Prostate Specific Antigen 364 Days N13.8 - Other obstructive and reflux uropathy, N40.1 - Benign prostatic hyperplasia with lower urinary tract symptoms AMB Urinalysis Automated Today Z13.9 - Encounter for screening, unspecified Patient Instructions: Imaging studies, laboratory and physical exam results were discussed and reviewed in detail. No major barriers to patient understanding were identified. An opportunity to ask questions regarding the treatment plan was provided. All questions were answered. The patient expressed understanding and agreement with the above treatment plan. The patient is aware they should contact our office by phone for worsening of their current condition or the appearance of new urologic symptoms. Compliance is encouraged with any medications and followup testing that is ordered. It is a privilege to participate in the urologic care of your patient. If you have any questions or concerns regarding treatment for the above conditions, or other urologic issues, please do not hesitate to contact me. The office telephone contact is [phone]. This note is constructed using voice recognition software. While every effort has been made to ensure accuracy support service tech errors may have been included. Yours sincerely, Dr Jorge Alberto Boss MD, [facility] Urology Providers of Expert, Compassionate Care for the Genitourinary System Coding Level of Care Code Est Pt Level 4 (30088) Diagnoses Urinary retention with incomplete bladder emptying R33.9 BPH w urinary obs/LUTS N40.1; N13.8 CPT Codes Post Residual Void - PVR CPT Code: 08016-Rtby Void Residual by ultrasound ([id number])
== END 2024-02-17 10:40 | disposition home or self-care (01) ==
PROVIDERS: PCP Family Medicine; Visit Provider Urology
DX: R33.9 Retention of urine, unspecified (principal); N40.1 Benign prostatic hyperplasia with lower urinary tract symptoms; N13.8 Other obstructive and reflux uropathy; Z13.9 Encounter for screening, unspecified
CPT/HCPCS: 99214

== ENCOUNTER → 2024-02-17 10:14 | Outpatient (BNVA) | payer OTHER, SELFPAY | PROVIDERS: PCP Family Medicine; Visit Provider Urology | DX: N40.1 Benign prostatic hyperplasia with lower urinary tract symptoms (principal); N13.8 Other obstructive and reflux uropathy; R33.9 Retention of urine, unspecified | CPT/HCPCS: 51798; 81003; 99212 ==

== ENCOUNTER 2024-09-16 15:11 | Outpatient (REF) | payer OTHER, SELFPAY ==
--- OUTSIDE RECORDS SUMMARY | 2024-09-16 15:47 | XMS_ITS | Encounter Summary ---
Author Organization [employer] Address [address] [place] [address] Care Team Providers Care Technology Manager Name Role Phone Dottie Christine MD Primary Care Provider [phone]- [phone] Randa Hoffman PharmD Unavailable [phone] Encounter Details Date Type Department Care Team (Late Contact Info) Description 10/29/2022 Abstract [facility] MEDICINE [address] [place] [address] [phone] Dottie Christine MD [address] [place], [place] [phone] Social History Tobacco Use Types Packs/Day Years Used Date Smoking Tobacco: Never Depression Answer Date Recorded Patient Health Questionnaire-9 Score 0 08/28/2022 Depression Answer Date Recorded Patient Health Questionnaire-2 Score 0 08/28/2022 Sex and Gender Information Value Date Recorded Sex Assigned at Male 03/04/2022 10:17 AM EDT Legal Sex Male 10:17 AM EDT Gender Identity Male 03/04/2022 10:17 AM EDT Sexual Orientation Straight 03/04/2022 10 :17 AM EDT COVID-19 Exposure Response Date Recorded In the last 10 days, have yo u been in contact with someone who was confirmed or suspected to have Coronavirus/COVID-19? No / Unsure 10/09/2022 2:23 PM EDT documented as of this encounter Plan of Treatment Upcoming Encounters Date Type Department Care Team (Late Contact Info) Description 09/20/2024 10:30 AM EDT Office Visit [facility] MEDICINE [address] [place] [address] [phone] Dottie Christine MD [address] [place] [address] 02/15/2025 3:00 PM EDT Office Visit [facility] OPTOMETRY [address] [place] [address] Carly Melara, OD [address] [place] [address] documented as of this encounter Goals Goal Patient Goal Type Associated Problems Recent Progress Patient-Stated? Author Blood Pressure < 140/90 Blood Pressure 122/60( 025 11:46 AM EDT) No Randa Armenta PharmD documented as of this encounter Visit Diagnoses Not on filedocumented in this encounter Additional Health Concerns Assessment Noted Time PHQ-9 Depression Total Score: 0 08/29/19 10:09 AM EDT documented as of this encounter Care Teams Technology Manager Relationship Specialty Start Date End Date Dottie Christine MD [address] [place] [address] PCP - General Family Medicine 05/05/18 Randa Hoffman, PharmD [address] [place] [address] Pharmacist Internal Medicine 10/09/22 documented as of this encounter
--- OUTSIDE RECORDS SUMMARY | 2024-09-16 15:47 | XMS_ITS | Encounter Summary ---
Author Organization [employer] Address [address] [place] [address] Care Team Providers Care Event Host Name Role Phone Dottie Christine MD Primary Care Provider +- [phone] Randa Hoffman PharmD Unavailable [phone] Reason for Visit * Reason Comments Med Refill Encounter Details Date Type Department Care Team ([facility] st Contact Info) Description 03/06/2023 Refill [facility] MEDICINE [address] [place], [place] [phone] Dottie Christine MD [address] [place], [place] [phone] Social History Tobacco Use Types Packs/Day Years Used Date Smoking Tobacco: Never Passive Smoke Exposure: Never Smokeless Tobacco: Never Alcohol Use Standard Drinks/Week Comments Yes 0 (1 standard drink = 0.6 oz pur e alcohol) Sometimes Depression Answer Date Recorded Patient Health Questionnaire-9 Score 0 08/28/2022 Housing Stability Answer Date Recorded What is your housing situation today? I have shen bautista 02/18/[address] you li ve. Do you have problems with any of the following? None of the above 02/18/2023 Food Insecurity Answer Date Recorded Within the past 12 months, y ou worried that your food would run out before you got money to buy more: Never True 02/18/2023 Within the past 12 months,th e food you bought just didn't last and you didn't have enough money to get more: Never True Transportation Answer Date Recorded In the past 12 months, has l ack of transportation kept you from medical appts, meetings, work or from getting things needed for daily living? No 02/18/2023 Utilities Answer Date Recorded In the past 12 months, has t he electric, gas, oil or water company threatened to shut off services in your home? No 02/18/2023 Depression Answer Date Recorded Patient Health Questionnaire-2 Score 0 08/28/2022 Sex and Gender Information Value Date Recorded Sex Assigned at Male 03/04/2022 10:17 AM EDT Legal Sex Male 10:17 AM EDT Gender Identity Male 03/04/2022 10:17 AM EDT Sexual Orientation Straight 03/04/2022 10 :17 AM EDT documented as of this encounter Plan of Treatment Upcoming Encounters Date Type Department Care Team (Late st Contact Info) Description 09/20/2024 10:30 AM EDT Office Visit [facility] MEDICINE [address] [place] [address] Dottie Christine MD [address] [place] [address] 02/15/2025 3:00 PM EDT Office Visit [facility] OPTOMETRY [address] [place] [address] Kelton, Carly, OD [address] [place] [address] documented as of this encounter Goals Goal Patient Goal Type Associated Problems Recent Progress Patient-Stated? Author Blood Pressure < 140/90 Blood Pressure 122/60(2024 11:46 AM EDT) No Piers-Gambabbi e, Randa, PharmD Hemoglobin A1c < 7 Result Component 5.8( 10:40 AM EDT) No Piers-Gambl e, Randa, PharmD documented as of this encounter Visit Diagnoses Not on filedocumented in this encounter Additional Health Concerns Assessment Noted Time PHQ-9 Depression Total Score: 0 08/29/19 23 10:09 AM EDT documented as of this encounter Care Teams Event Host Relationship Specialty Start Date End Date Dottie Christine MD [address] [place] [id number] PCP - General Family Medicine 05/05/18 Randa Hoffman, PharmD [address] [place] [phone] Pharmacist Internal Medicine 10/09/22 documented as of this encounter
--- OUTSIDE RECORDS SUMMARY | 2024-09-16 15:47 | XMS_ITS | Encounter Summary ---
Author Organization [employer] Address [address] [facility] [address] [place] [address] Care Team Providers Care Supply Chain Coordinator Name Role Phone Dottie Christine MD Primary Care Provider [phone] Randa Hoffman PharmD Unavailable [phone] Reason for Visit * Reason Onset Date Comments Appt/Refferal 01/24/2023 Encounter Details Date Type Department Care Team (Late st Contact Info) Description 01/24/2023 Telephone [facility] MEDICINE [address] [place] [address] Dottie Christine MD [address] [place] [address] Appt/Refferal Social History Tobacco Use Types Packs/Day Years [...] AM EDT documented as of this encounter Miscellaneous Notes * Telephone Encounter - Justa Lee - 01/24/2023 12:38 PM EDT Tc from pt daughter requesting a clarification on an appt below for: Referrals: [facility] Patient Appointment Information Date: 01/24/2023 Time: 1:00 PM Location: [address] [place] [address] Drive [address] [place], [place] [phone] Daughter states she communicated herself with the facility in regards to appt above, and facility informed daughter that pt does not have an appt on that day nor time. Please contact pt daughter at [phone] documented in this encounter Plan of Treatment Upcoming Encounters Date Type Department Care Team (Late st Contact Info) Description 09/20/2024 10:30 AM EDT Office Visit [facility] MEDICINE [address] [place] [address] Dottie Christine MD [address] [place] [address] 02/15/2025 3:00 PM EDT Office Visit [facility] OPTOMETRY [address] [place] [address] Kelton, Carly, OD [address] [place] [address] documented as of this encounter Goals Goal Patient Goal Type Associated Problems Recent Progress Patient-Stated? Author Blood Pressure < 140/90 Blood Pressure 122/60(2024 11:46 AM EDT) No Piers-Gambl e, Randa, PharmD Hemoglobin A1c < 7 Result Component 5.8( 10:40 AM EDT) No Piers-Gambl e, Randa, PharmD documented as of this encounter Visit Diagnoses Not on filedocumented in this encounter Additional Health Concerns Assessment Noted Time PHQ-9 Depression Total Score: 0 08/29/19 23 10:09 AM EDT documented as of this encounter Care Teams Supply Chain Coordinator Relationship Specialty Start Date End Date Dottie Christine MD [address] [place] [address] PCP - General Family Medicine 05/05/18 Randa Hoffman, PharmD [address] [place] [id number] Pharmacist Internal Medicine 10/09/22 documented as of this encounter
--- OUTSIDE RECORDS SUMMARY | 2024-09-16 15:47 | XMS_ITS | Encounter Summary ---
Author Organization [employer] Address [address] [facility] [address] [place] [address] Care Team Providers Care Casing Puller Name Role Phone Dottie Christine MD Primary Care Provider +- [phone] Randa Hoffman PharmD Unavailable [phone] Encounter Details Date Type Department Care Team (Late st Contact Info) Description 01/09/2023 Telephone [facility] MEDICINE [address] [place] [address] Dottie Christine MD [address] [place] [address] Social History Tobacco Use Types Packs/Day Years Used Date Smoking Tobacco: Never Passive Smoke Exposure: Never Smokeless Tobacco: Never Depression Answer Date Recorded Patient [...] encounter Miscellaneous Notes * Telephone Encounter - Susie Cardona - 01/09/2023 1:46 PM EDT Tc from [facility] QU[facility] calling to inform pt is being discharged from services today . Any questions may contact phone # [phone] documented in this encounter Plan of Treatment Upcoming Encounters Date Type Department Care Team (Late st Contact Info) Description 09/20/2024 10:30 AM EDT Office Visit [facility] MEDICINE [address] [place] [address] Dottie Christine MD [address] [place] [address] 02/15/2025 3:00 PM EDT Office Visit [facility] OPTOMETRY [address] [place] [address] Kelton, Carly, OD 230 [place] [address] documented as of this encounter Goals Goal Patient Goal Type Associated Problems Recent Progress Patient-Stated? Author Blood Pressure < 140/90 Blood Pressure 122/60(2024 11:46 AM EDT) No Davids-Randa Londono, PharmD Hemoglobin A1c < 7 Result Component 5.8( 10:40 AM EDT) No Davids-Randa Londono, PharmD documented as of this encounter Visit Diagnoses Not on filedocumented in this encounter Additional Health Concerns Assessment Noted Time PHQ-9 Depression Total Score: 0 08/29/19 23 10:09 AM EDT documented as of this encounter Care Teams Casing Puller Relationship Specialty Start Date End Date Dottie Christine MD [address] [place] [address] PCP - General Family Medicine 05/05/18 Randa Hoffman, PharmD [address] [place] [address] Pharmacist Internal Medicine 10/09/22 documented as of this encounter
--- OUTSIDE RECORDS SUMMARY | 2024-09-16 15:47 | XMS_ITS | Encounter Summary ---
Author Organization [employer] Address [address] [facility] [address] [place] [address] Care Team Providers Care Spiral Tube Winder Helper Name Role Phone Dottie Christine MD Primary Care Provider +- [phone] Randa Hoffman PharmD Unavailable [phone] Reason for Visit * Reason Comments Med Refill Encounter Details Date Type Department Care Team ([facility] st Contact Info) Description 04/22/2023 Refill [facility] MEDICINE [address] [place], [place] [phone] Dottie Christine MD 230 [place], [place] [phone] Allergic rhinitis, unspecified seasonality, unspecified trigger Social History Tobacco Use Types Packs/Day Years [...] Description 09/20/2024 10:30 AM EDT Office Visit [facility] MEDICINE [address] [place] [address] Dottie Christine MD [address] [place] [address] 02/15/2025 3:00 PM EDT Office Visit [facility] OPTOMETRY [address] [place] [address] Kelton, Carly, OD [address] [place] [address] documented as of this encounter Goals Goal Patient Goal Type Associated Problems Recent Progress Patient-Stated? Author Blood Pressure < 140/90 Blood Pressure 122/60(2024 11:46 AM EDT) No Piers-Gambl e, Randa, PharmD Hemoglobin A1c < 7 Result Component 5.8( 10:40 AM EDT) No Piers-Gambl e, Randa, PharmD documented as of this encounter Visit Diagnoses Diagnosis Allergic rhinitis, unspecified seasonality, unspecified trigger documented in this encounter Additional Health Concerns Assessment Noted Time PHQ-9 Depression Total Score: 0 08/29/19 23 10:09 AM EDT documented as of this encounter Care Teams Spiral Tube Winder Helper Relationship Specialty Start Date End Date Dottie Christine MD [address] [place] [address] PCP - General Family Medicine 05/05/18 Randa Hoffman, TomyD [address] [place] [address] Pharmacist Internal Medicine 10/09/22 documented as of this encounter
--- OUTSIDE RECORDS SUMMARY | 2024-09-16 15:47 | XMS_ITS | Encounter Summary ---
Author Organization [employer] Address [address] [facility] 7t [place] [address] Care Team Providers Care Hand Edger Name Role Phone Dottie Christine MD Primary Care Provider + [phone] Randa Hoffman PharmD Unavailable [phone] Encounter Details Date Type Department Care Team (Late st Contact Info) Description 06/07/2022 Abstract [facility] MEDICINE [address] [place] [address] Dottie Christine MD [address] [place] [address] Social History Tobacco Use Types Packs/Day Years Used Date Smoking Tobacco: Never Assessed Sex and Gender Information Value Date Recorded Sex Assigned at Male 03/04/2022 10:17 AM EDT Legal Sex Male 10:17 AM EDT Gender Identity Male 03/04/2022 10:17 AM EDT Sexual Orientation Straight 03/04/2022 10 :17 AM EDT documented as of this encounter Plan of Treatment Upcoming Encounters Date Type Department Care Team (Late st Contact Info) Description 09/20/2024 10:30 AM EDT Office Visit [facility] MEDICINE [address] [place] [address] Dottie Christine MD [address] [place], [place] [phone] 02/15/2025 3:00 PM EDT Office Visit [facility] OPTOMETRY [address] [place] [address] KeltonCarly degroot, OD 230 [place] [address] documented as of this encounter Procedures Procedure Name Priority Date/Time Associated Diagnosis Comments COLONOSCOPY Routine 07/08/2022 COLONOSCOPY Routine 05/19/2014 documented in this encounter Results * (ABNORMAL) Colonoscopy (07/08/2022) Colonoscopy Abnormal(A ) Normal us Historical Provider HEALTH MAINTENANCE Final Result * Colonoscopy (05/19/2014) Colonoscopy tubular adenoma with Dr. Kaye us Historical Provider HEALTH MAINTENANCE Final Result documented in this encounter Visit Diagnoses Not on filedocumented in this encounter Care Teams Hand Edger Relationship Specialty Start Date End Date Dottie Christine MD [address] [place] [address] PCP - General Family Medicine 05/05/18 Randa Hoffman, TomyD [address] [place] [address] Pharmacist Internal Medicine 10/09/22 documented as of this encounter
--- OUTSIDE RECORDS SUMMARY | 2024-09-16 15:47 | XMS_ITS | Encounter Summary ---
Author Organization [id number] Address [address] [facility] [address] [place] [address] Care Team Providers Care Onion Farmer Name Role Phone [place], Dottie KO Primary Care Provider +- [phone] Randa Hoffman PharmD Unavailable [phone] Encounter Details Date Type Department Care Team ([facility] st Contact Info) Description 08/25/2024 Telephone [facility] OPTOMETRY [address] [place], [place] [phone] Kera Gil, OD [address] [place], [place] [phone] Social History Tobacco Use Types Packs/Day Years Used Date Smoking Tobacco: Never Passive Smoke Exposure: Never Smokeless Tobacco: Never Alcohol Use Standard Drinks/Week Comments Yes 0 (1 standard drink = 0.6 oz pur e alcohol) Sometimes Alcohol Answer Date Recorded How often do you have a drink containing alcohol ? 2 03/22/2024 Average Number of Drinks Not on file 024 Frequency of Binge Drinking Not on file 03/05 Depression Answer Date Recorded Patient Health Questionnaire-9 Score 8 03/22/2024 Patient Health Questionnaire-9 Score 8 03/22/2024 Last PHQ-9: Questionnaire Data Not on file 1 05/22/2023 Housing Stability Answer Date Recorded What is [...] Date Recorded Patient Health Questionnaire-2 Score 0 03/22/2024 Internet Access Answer Date Recorded Internet Access Q1 No 03/11/2024 Internet Access Q2 I do not want or need it 11/2023 Sex and Gender Information Value Date Recorded Sex Assigned at Male 03/04/2022 10:17 AM EDT Legal Sex Male 10:17 AM EDT Gender Identity Male 03/04/2022 10:17 AM EDT Sexual Orientation Straight 03/04/2022 10 :17 AM EDT documented as of this encounter Plan of Treatment Upcoming Encounters Date Type Department Care Team (Late st Contact Info) Description 09/20/2024 10:30 AM EDT Office Visit [facility] MEDICINE [address] [place] [address] Dottie Christine MD [address] [place] [address] 02/15/2025 3:00 PM EDT Office Visit [facility] OPTOMETRY [address] [place] [address] Carly Melara, OD 230 [place] [address] documented as of this encounter Goals Goal Patient Goal Type Associated Problems Recent Progress Patient-Stated? Author Blood Pressure < 140/90 Blood Pressure 122/60(2024 11:46 AM EDT) No DavidsRanda Stewart, PharmD Hemoglobin A1c < 7 Result Component 5.8( 10:40 AM EDT) No Randa Armenta, PharmD documented as of this encounter Visit Diagnoses Not on filedocumented in this encounter Additional Health Concerns Assessment Noted Time PHQ-9 Depression Total Score: 8 03/22/20 24 11:10 AM EST documented as of this encounter Care Teams Onion Farmer Relationship Specialty Start Date End Date Dottie Christine MD 230 [place] [address] PCP - General Family Medicine 05/05/18 Randa Hoffman, Christiana [address] [place] [address] Pharmacist Internal Medicine 10/09/22 documented as of this encounter
--- OUTSIDE RECORDS SUMMARY | 2024-09-16 15:47 | XMS_ITS | Encounter Summary ---
Author Organization [employer] Address [address] [facility] 7t [place] [address] Care Team Providers Care Portable Power Tool Repairer Name Role Phone Dottie Christine MD Primary Care Provider + [phone] Randa Hoffman PharmD Unavailable [phone] Encounter Details Date Type Department Care Team (Late st Contact Info) Description 05/17/2022 Orders Only [facility]S [address] [place], [place] [phone] Valentina Garcia LPN Social History Tobacco Use Types Packs/Day Years [...] Description 09/20/2024 10:30 AM EDT Office Visit [facility] MEDICINE [address] [place] [address] Dottie Christine MD [address] [place] [address] 02/15/2025 3:00 PM EDT Office Visit [facility] OPTOMETRY [address] [place] [address] Carly Melara, OD 230 [place] [address] documented as of this encounter Visit Diagnoses Not on filedocumented in this encounter Care Teams Portable Power Tool Repairer Relationship Specialty Start Date End Date Dottie Christine MD [address] [place] [address] PCP - General Family Medicine 05/05/18 Randa Hoffman, TomyD [address] [place] [address] Pharmacist Internal Medicine 10/09/22 documented as of this encounter
--- OUTSIDE RECORDS SUMMARY | 2024-09-16 15:47 | XMS_ITS | Encounter Summary ---
Author Organization [employer] Address [address] [facility] [address] [place] [address] Care Team Providers Care Diesel Engine Erector Name Role Phone Dottie Christine MD Primary Care Provider + [phone] Randa Hoffman PharmD Unavailable [phone] Encounter Details Date Type Department Care Team (Late st Contact Info) Description 01/03/2023 Abstract [facility] [address] [place] [address] Dottie Christine MD [address] [place], [place] [phone] Social History Tobacco Use Types Packs/Day Years [...] 09/20/2024 10:30 AM EDT Office Visit [facility] MEDICINE 230 [place], [place] [phone] Dottie Christine MD [address] [place], [place] [phone] 02/15/2025 3:00 PM EDT Office Visit [facility] OPTOMETRY [address] [place] [address] Carly Melara, OD [address] [place] [address] documented as of this encounter Goals Goal Patient Goal Type Associated Problems Recent Progress Patient-Stated? Author Blood Pressure < 140/90 Blood Pressure 122/60(2024 11:46 AM EDT) No Randa Armenta, PharmD Hemoglobin A1c < 7 Result Component 5.8( 10:40 AM EDT) No Randa Armenta, PharmD documented as of this encounter Visit Diagnoses Not on filedocumented in this encounter Additional Health Concerns Assessment Noted Time PHQ-9 Depression Total Score: 0 08/29/19 10:09 AM EDT documented as of this encounter Care Teams Diesel Engine Erector Relationship Specialty Start Date End Date Dottie Christine MD [address] [place] [address] PCP - General Family Medicine 05/05/18 Randa Hoffman PharmD [address] [place] [address] Pharmacist Internal Medicine 10/09/22 documented as of this encounter
--- OUTSIDE RECORDS SUMMARY | 2024-09-16 15:47 | XMS_ITS | Encounter Summary ---
Author Organization [employer] Address [address] [facility] [address]t [place] [address] Care Team Providers Care Staple Side Laster Name Role Phone Dawes, Dottie KO Primary Care Provider +- [phone] Randa Hoffman PharmD Unavailable [phone] Reason for Referral * Consultation (Routine) - Closed Specialty Diagnoses / Procedures Referred By Contac t Referred To Contact Pharmacy Diagnoses Hypertension Kinza Rivera MD [address] [place] [address] Phone: tel: fax: Referral ID Status Reason Start Date Expiration Date V isits Requested Visits Authorized [id number] Closed Continuity of Care 08/30/2024 08/30/2025 6 6 Encounter Details Date Type Department Care Team (Late st Contact Info) Description 08/27/2024 Orders Only [facility] MEDICINE [address] [place] [address] Kinza Rivera MD [address] [place], [place] [phone] Hypertension (Primary Dx) Social History Tobacco Use Types Packs/Day Years [...] Description 09/20/2024 10:30 AM EDT Office Visit [facility] MEDICINE [address] [place] [address] Dottie Christine MD [address] [place] [address] 02/15/2025 3:00 PM EDT Office Visit [facility] OPTOMETRY [address] [place] [address] Carly Melara, OD [address] [place] [address] Scheduled Referrals Name Type Priority Associated Diagnoses Orde r Schedule Referral to Pharmacy [facility] Outpatient Referral Routine Hypertension Ordered: 08/30/2024 documented as of this encounter Goals Goal Patient Goal Type Associated Problems Recent Progress Patient-Stated? Author Blood Pressure < 140/90 Blood Pressure 122/60(2024 11:46 AM EDT) No Randa Armenta, PharmD Hemoglobin A1c < 7 Result Component 5.8( 10:40 AM EDT) No Randa Armenta, PharmD documented as of this encounter Visit Diagnoses Diagnosis Hypertension- Primary Unspecified essential hypertension documented in this encounter Additional Health Concerns Assessment Noted Time PHQ-9 Depression Total Score: 8 03/22/20 24 11:10 AM EST documented as of this encounter Care Teams Staple Side Laster Relationship Specialty Start Date End Date Dottie Christine MD [address] [place] [address] PCP - General Family Medicine 05/05/18 Randa Hoffman PharmD [address] [place] [address] Pharmacist Internal Medicine 10/09/22 documented as of this encounter
--- OUTSIDE RECORDS SUMMARY | 2024-09-16 15:47 | XMS_ITS | Encounter Summary ---
Author Organization [employer] Address [address] [facility] [address] [place] [address] Care Team Providers Care Manager Mass Name Role Phone Dottie Christine MD Primary Care Provider + [phone] Randa Hoffman PharmD Unavailable [phone] Encounter Details Date Type Department Care Team (Late st Contact Info) Description 07/01/2022 Orders Only [facility] MEDICINE [address] [place] [address] Anca Jacob LPN Social History Tobacco Use Types Packs/Day [...] Description 09/20/2024 10:30 AM EDT Office Visit [facility] MEDICINE [address] [place] [address] Dottie Christine MD 230 [place] [address] 02/15/2025 3:00 PM EDT Office Visit [facility] OPTOMETRY [address] [place] [address] Carly Melara, OD [address] [place] [address] documented as of this encounter Visit Diagnoses Not on filedocumented in this encounter Care Teams Manager Mass Relationship Specialty Start Date End Date Dottie Christine MD [address] [place] [address] PCP - General Family Medicine 05/05/18 Randa Hoffman PharmD 230 [place] [address] Pharmacist Internal Medicine 10/09/22 documented as of this encounter
--- OUTSIDE RECORDS SUMMARY | 2024-09-16 15:47 | XMS_ITS | Clinical Summary ---
Author Organization [employer] Address [address] [facility] [facility] [address] [place] [address] Care Team Providers Care Mammography Technician Name Role Phone Dottie Christine MD Primary Care Provider [phone]- [phone] Randa Hoffman PharmD Unavailable [phone] Allergies No known active allergies Medications tamsulosin (Flomax) 0.4 MG 24 hr capsule Take 0.4 mg by mouth at bedtime. Active finasteride (Proscar) 5 MG tablet t1 BY MOUTH EVERY EVENING Active Alcohol Swabs (Alcohol Prep) 70 % padsIndications :Type 2 diabetes mellitus without complication, without long-term current use of insulin ([facility]) USE DIRECTED TO TEST BLOOD SUGAR AND WITH INSULIN 100 each 11 024 Active Lancets (OneTouch Delica Plus [id number]) miscIndications :Type 2 diabetes mellitus without complication, without long-term current use of insulin ([facility]) TEST BLOOD SUGAR TWICE DAILY 100 each 3 024 Active OneTouch Ultra Test test stripIndication s:Type 2 diabetes mellitus without complication, without long-term current use of insulin ([facility]) TEST BLOOD SUGAR TWICE DAILY 100 strip 3 024 Active thiamine (Vitamin B-1) 100 MG tabletIndicatio ns:Alcohol use disorder TAKE 1 TABLET BY MOUTH EVERY MORNING 90 tablet 3 024 Active folic acid (Folvite) 1 MG tabletIndicatio ns:Alcohol use disorder TAKE 1 TABLET BY MOUTH EVERY MORNING 90 tablet 3 024 Active carvedilol (Coreg) 6.25 MG tabletIndicatio ns:Primary hypertension TAKE 1 TABLET BY MOUTH TWICE DAILY IN THE MORNING AND IN THE EVENING WITH FOOD 60 tablet 11 Active hydroCHLOROthia zide (HYDRODiuril) 25 MG tabletIndicatio ns:Primary hypertension Take 1 tablet (25 mg) by mouth Once per day. 30 tablet 11 024 2024 Active Blood Pressure kitIndications: Primary hypertension For hypertension Use twice a week 1 kit Active fluticasone (Flonase) 50 MCG/ACT nasal sprayIndication s:Seasonal allergies Administer 1 spray into each nostril Once per day. Shake gently. Before first use, prime pump. After use, clean tip and replace cap. 48 g 1 Active loratadine (Claritin) 10 MG tabletIndicatio ns:Seasonal allergies Take 1 tablet (10 mg) by mouth if needed each day for allergies. 30 tablet 11 024 2024 Active amLODIPine (Norvasc) 10 MG tabletIndicatio ns:Primary hypertension Take 1 tablet (10 mg) by mouth at bedtime. 90 tablet 3 025 Active amLODIPine (Norvasc) 10 MG tabletIndicatio ns:Primary hypertension Take 1 tablet (10 mg) by mouth at bedtime. 90 tablet 3 025 Active montelukast (Singulair) 10 MG tabletIndicatio ns:Allergic rhinitis, unspecified TAKE 1 TABLET BY MOUTH EVERY EVENING 90 tablet 1 025 Active brimonidine (AlphaGAN) 0.2 % ophthalmic solution Administer 1 drop into both eyes 2 times daily. 10 mL 11 025 2025 Active cromolyn (Opticrom) 4 % ophthalmic solution PLACE 1 DROP IN THE AFFECTED EYE (s) FOUR TIMES DAILY NEEDED 022 2024 Discontinued(M ed list cleanup (will not trigger notification to Pharmacy)) brimonidine (AlphaGAN P) 0.1 % ophthalmic solution Administer 1 drop into both eyes 2 times daily. 5 mL 5 025 2024 Discontinued(A lternate therapy) Active Problems Patient Care Coordination No te Formatting of this note migh t be different from the original. CDTM DM and CDTM HTN with Randa Hoffman, PharmD, CDE [facility] Outdoor Illuminating Engineer: Lory [employer] Supervisor [facility] Problem Noted Date Diagnosed Date Alcohol use disorder 03/22/2024 Overview (03/22/2024): - Drinks half a bottle over the weekend Assessment & Plan (03/22/2024 1:11 PM EST): - Drinks half a bottle over the weekend Urinary retention 03/22/2024 Overview (03/22/2024): -Seen by urologist, Dr. Jorge Alberto Boss 03/2024 for Urinary retention with incomplete bladder emptying and BPH w urinary obs/LUTS Assessment & Plan (03/22/2024 12:01 PM EST): -Seen by urologist, Dr. Jorge Alberto Boss 03/2024 for Urinary retention with incomplete bladder emptying and BPH w urinary obs/LUTS Dysphagia 03/22/2024 Overview (03/22/2024): - Referred to ENT 03/22/24 Assessment & Plan (03/22/2024 1:08 PM EST): - Referred to ENT 03/22/24 Enlarged and hypertrophic nails 02/13/2023 Overview (02/13/2023): -Toe nails clipped at [facility] today Assessment & Plan (02/13/2023 9:41 AM EDT): -Toe nails clipped at [facility] today Neck pain 02/13/2023 Overview (02/13/2023): Pt requesting pillow for neck 02/13/2023 Assessment & Plan (02/13/2023 9:36 AM EDT): Pt requesting pillow for neck 02/13/2023 Transaminitis 12/17/2022 Overview (03/22/2024): Lab Results Component Value Date TOTALBILIRUB 1.5 (H) 02/11/2024 AST 53 (H) 02/11/2024 AST 23 08/28/2022 ALT 58 (H) 02/11/2024 ALT 26 08/28/2022 ALP 97 02/11/2024 HEPCAB NON-REACTIVE 08/28/2022 FERRITIN 532 (H) 12/17/2022 -Ordered HFP 03/22/24 Assessment & Plan (03/22/2024 1:15 PM EST): Lab Results Component Value Date TOTALBILIRUB 1.5 (H) 02/11/2024 AST 53 (H) 02/11/2024 AST 23 08/28/2022 ALT 58 (H) 02/11/2024 ALT 26 08/28/2022 ALP 97 02/11/2024 HEPCAB NON-REACTIVE 08/28/2022 FERRITIN 532 (H) 12/17/2022 -Ordered HFP 03/22/24 Assessment & Plan (12/17/2022 4:55 PM EDT): During stay at rehab noted elevated LFTs from normal before statins were dc for now -will repeat chem today -to stop phenobarbital that may also cause elevation in LFts but in rare situations -pt will f w PCP in next 3 to 4 weeks to monitor labs and symptoms and to check if ok to resume statins -continue to hold x now Alcohol abuse 12/17/2022 Assessment & Plan (12/17/2022 4:45 PM EDT): Pt reports hx of ETOH abuse and from dc papers hx of alcohol withdrawal symptoms Last intake was 2 days ago -reports lately only taking 1 to 2 beers -advised in length to avoid ETOH -pt interested in CRS referral for alcohol cessation program-referred today -will f w PCP next month Subarachnoid hemorrhage 12/04/2022 Overview (02/13/2023): Admitted to [facility] on 11/21/22 after he was found down in the setting of EtOH use. Found to have acute subarachnoid hemorrhage, subdural hematoma and frontal skull fracture and transferred to [facility] 11/22/22- 11/24/22. Received Keppra x 7 days and phenobarb for sz prophylaxis. -Admitted to [facility] 11/24-12/05/22 -0n 11/28/22 he reported worsening headaches and was transferred from [facility] to [facility] ER, scan stable and returned to SNF with MSIR prn, developed mental status changes and MSIR discontinued. -During SNF he developed mild transaminitis and statin was discontinued. -has NETWORK TECHNICIAN hours -Home VNA discontinued 01/2023 -seen by neurology, Dr. Ghislaine Livingston MD 02/11/23 for memory loss after subarachnoid hemorrgage. He was given diagnosis of multifactoral dementia. Consider MMS or MOCA test in the future Assessment & Plan (02/13/2023 11:52 AM EDT): Admitted to [facility] on 11/21/22 after he was found down in the setting of EtOH use. Found to have acute subarachnoid hemorrhage, subdural hematoma and frontal skull fracture and transferred to [facility] 11/22/22- 11/24/22. Received Keppra x 7 days and phenobarb for sz prophylaxis. -Admitted to [facility] 11/24-12/05/22 -0n 11/28/22 he reported worsening headaches and was transferred from [facility] to [facility] ER, scan stable and returned to SNF with MSIR prn, developed mental status changes and MSIR discontinued. -During SNF he developed mild transaminitis and statin was discontinued. -has NETWORK TECHNICIAN hours -Home VNA discontinued 01/2023 -seen by neurology, Dr. Ghislaine Livingston MD 02/11/23 for memory loss after subarachnoid hemorrgage. He was given diagnosis of multifactoral dementia. Consider MMS or MOCA test in the future Assessment & Plan (12/17/2022 4:40 PM EDT): Pt with subdural hematoma and subarrhacnoid hemorrhages after trauma -CT cervical spine and Brain w/o contrast 11/22/2022 : small amount of subarachnoid and subdural hemorrhage overlying bilateral frontal lobes 1.8 x 1.6 x cm focus of parenchymal hemorrhage in left frontal lobe . 1.3 cm focus of intraparenchymal hemorrhage in right frontal lobe. Right frontal calvarium fracture with no displacement. Cervical spine: no acute abnormalities. -CT head w/o contrast 11/23/2022 : no significant change in extensive bifrontal hemorrhagic contusion that is greatest inferiorly . Dominant focal hematoma is seen inferiorly in left frontal lobe measuring 1.7 x 2.4 x 1.6 cm .Unchanged ,moderate hemorrhage in sylvian fissure and scattered regions of subarachnoid hemorrhage bilaterally .There remains effacement of bifrontal sulci with proximal edema ,non displaced right frontal bone fracture. -CT chest w contrast 11/22/2022 : right lung perihilar airspace opacities in the setting of trauma may represent pulmonary contusion or hemorrhage ,also small amount of groundglass opacity in left lower lobe. -pt reports ongoing PATRICK but unchanged since hospitalization with normal neuro exam ( beside right pupil asymmetry reported per pt as chronic) ,but also reporting memory loss -I called [facility] today Trauma surgeon # [phone] and confirmed pt should had been call for f up last week -scheduled apt for 12/25/2022 At 10H40 am at [facility] Medical Office Building [address] ,[address] ,[facility] and gave pt information of apt as well gave info to Chika -VNA -from discharge summer there was no plan to continue phenobarbital so ok to stop -discussed today w pt and VNA -pt on ASA-per NS recs at discharge was ok to resume ASA after 2 weeks , pt stared 1 week ago ,denies changes since started medication -discussed w pt about ordering brain image as MRI vs CT scan of brain to f up for known bleeding but will hold given pt will follow up w trauma surgeon next week for this. -with ongoing memory loss referred today to neurologist , symptoms likely from trauma, bleeding and medications as phenobarbital to be dc today -for PATRICK in setting of intracranial bleeding advised pt to take only tylenol but not in excess given noted LFTs elevated at dc -alarm signs and symptoms discussed w pt -VNA services are starting process ti obtain NETWORK TECHNICIAN services for pt -requested by VNA prescription for RW and hand held shower-requested today to nurse staff to do orders. -may need to consider repeating CXR aprox 6 weeks after trauma to monitor CT chest findings thought to be from trauma Traumatic subarachnoid hemor rhage without loss of consciousness, subsequent encounter 11/24/2022 Other specified health status 10/30/2022 Overview (03/22/2024): -next comprehensive annual evaluation due after 03/22/2025 -eye care facilitated by followed by Dr. Richardson Flood of [facility] -dental home is [facility] - Health Care Proxy 03/22/24 Assessment & Plan (03/22/2024 1:12 PM EST): -next comprehensive annual evaluation due after 03/22/2025 -eye care facilitated by followed by Dr. Richardson Flood of [facility] -dental home is [facility] - Health Care Proxy 03/22/24 Assessment & Plan (02/13/2023 9:46 AM EDT): -next physical exam due 02/14/2024 -eye care facilitated by followed by Dr. Richardson Flood of [facility] -dental home is [facility] Total body pain 08/28/2022 Overview (01/15/2023): -Multiple labs orderes based on results will refer to rheumatology and pain mangament. Assessment & Plan (02/13/2023 9:08 AM EDT): -Multiple labs orderes based on results will refer to rheumatology and pain mangament. Assessment & Plan (08/28/2022 10:33 AM EDT): Multiple labsMultiple labs orderes based on results will refer to rheumatology and pain mangament. BPH without urinary obstruction 07/17/2022 Overview (02/18/2024): He saw urology for BPH on JUL 17 2021 and is on tamsulosin 0.4mg and finasteride 5mg daily. -seen by urologist Dr. Jorge Alberto Boss 02/17/24 Assessment & Plan (02/13/2023 9:04 AM EDT): He saw urology for BPH on JUL 17 2021 and is on tamsulosin 0.4mg and finasteride 5mg daily. Assessment & Plan (08/27/2022 10:21 AM EDT): He saw urology for BPH on JUL 17 2021 and is on tamsulosin 0.4mg and finasteride 5mg daily. Microscopic hematuria 07/17/2022 Overview (01/22/2023): On 06.04.2020, he had 15-29 RBCs in his UA during ER visit due to having a Kelly cath placed due to urinary obstruction. Assessment & Plan (02/13/2023 9:06 AM EDT): On 06.04.2020, he had 15-29 RBCs in his UA during ER visit due to having a Kelly cath placed due to urinary obstruction. Assessment & Plan (08/27/2022 10:21 AM EDT): On 06.04.2020, he had 15-29 RBCs in his UA during ER visit due to having a Kelly cath placed due to urinary obstruction. Tubular adenoma 07/26/2021 Overview (03/22/2024): -Tubular adenoma on colonoscopy with Dr. Kaye 06/2014 and 07/2022 -07/20/2022Tubular adenoma found without high-grade dysplasia or carcinoma. Two of them were large polyps over 2 cm. Patient will need to return in 6-12 months for colonoscopy. Patient is agreeable and understands. -Given the size of polyp, Pt needs repeat in 1 year. - Referred to GI 03/22/24 Assessment & Plan (03/22/2024 1:09 PM EST): -Tubular adenoma on colonoscopy with Dr. Kaye 06/2014 and 07/2022 -07/20/2022Tubular adenoma found without high-grade dysplasia or carcinoma. Two of them were large polyps over 2 cm. Patient will need to return in 6-12 months for colonoscopy. Patient is agreeable and understands. -Given the size of polyp, Pt needs repeat in 1 year. - Referred to GI 03/22/24 Assessment & Plan (02/13/2023 9:06 AM EDT): -Tubular adenoma on colonoscopy with Dr. Kaye 06/2014 and 07/2022 -07/20/2022Tubular adenoma found without high-grade dysplasia or carcinoma. Two of them were large polyps over 2 cm. Patient will need to return in 6-12 months for colonoscopy. Patient is agreeable and understands. -Given the size of polyp, Pt needs repeat in 1 year. Assessment & Plan (08/28/2022 12:03 PM EDT): -Tubular adenoma on colonoscopy with Dr. Kaye 06/2014 and 07/2022 -07/20/2022Tubular adenoma found without high-grade dysplasia or carcinoma. Two of them were large polyps over 2 cm. Patient will need to return in 6-12 months for colonoscopy. Patient is agreeable and understands. -Given the size of polyp, Pt needs repeat in 1 year. Type 2 diabetes mellitus 07/26/2021 Overview (03/22/2024): Formally diagnosed on 05/21/18 due to A1C 6.5% from 2016 Diabetes is controlled. -Follows with [facility]agment [facility] with our PharmD, [email or web address] Lab Results Component Value Date HGBA1C 5.8 02/11/2024 HGBA1C 5.9 12/17/2022 HGBA1C 6.1 (H) 11/25/2022 - Lab Results Component Value Date MICROALBUR 50.0 02/11/2024 CREATININE 0.88 02/11/2024 -Dwayne/Arb: -Statin therapy: discontinue dby SNF 11/2022 due to transaminits -Diabetic eye exam: 03/12/23 [facility] -Diabetic foot exam: Done 03/22/24 -Continue lifestyle modifications -Continue current medications Assessment & Plan (03/22/2024 1:20 PM EST): Formally diagnosed on 05/21/18 due to A1C 6.5% from 2016 Diabetes is controlled. -Follows with Collaborative Drug Therapy Managment Program with our PharmD, [email or web address] Lab Results Component Value Date HGBA1C 5.8 02/11/2024 HGBA1C 5.9 12/17/2022 HGBA1C 6.1 (H) 11/25/2022 - Lab Results Component Value Date MICROALBUR 50.0 02/11/2024 CREATININE 0.88 02/11/2024 -Dwayne/Arb: -Statin therapy: discontinue dby SNF 11/2022 due to transaminits -Diabetic eye exam: 03/12/23 [facility] -Diabetic foot exam: Done 03/22/24 -Continue lifestyle modifications -Continue current medications Assessment & Plan (02/13/2023 9:09 AM EDT): Diabetes is controlled. -Formally diagnosed on 05/21/18 due to A1C 6.5% from 2016 Diabetes is controlled. -Will referto CDTM to see if we can ween some of his medications specifically glipizide. Lab Results Component Value Date HGBA1C 5.9 12/17/2022 HGBA1C 6.4 (A) 08/28/2022 HGBA1C 6.3 (H) 07/20/2020 -No results found for: POCA1C - Lab Results Component Value Date MICROALBUR 3.5 07/26/2021 CREATININE 1.28 12/17/2022 -Dwayne/Arb: -Statin therapy: -Diabetic eye exam: -Diabetic foot exam: -Continue lifestyle modifications -Continue current medications Assessment & Plan (08/28/2022 10:35 AM EDT): Formally diagnosed on 05/21/18 due to A1C 6.5% from 2016 Diabetes is controlled. -Will referto CDTM to see if we can ween some of his medications specifically glipizide. Lab Results Component Value Date HGBA1C 6.3 (H) 07/20/2020 - Lab Results Component Value Date MICROALBUR 3.5 07/26/2021 CREATININE 1.09 04/10/2021 CREATININE 1.09 04/10/2021 CREATININE 1.09 04/10/2021 -Changes: -Dwayne/Arb: -Statin therapy: -Diabetic eye exam: -Diabetic foot exam: -Continue lifestyle modifications -Continue current medications Vitamin B12 deficiency (non anemic) 07/26/2021 Overview (01/15/2023): -B12 deficiency: b12 410 on 07/20/2020 Assessment & Plan (02/13/2023 9:08 AM EDT): -B12 deficiency: b12 410 on 07/20/2020 Assessment & Plan (08/28/2022 12:03 PM EDT): -B12 deficiency: b12 410 on 07/20/2020 Backache 03/07/2014 Overview (10/30/2022): -MRI L-spine JUL 16 2018 says There are mild spondylitic changes with facet arthropathy at L3-L4, L4-L5 and L5-S1 and there is no foraminal nerve root impingement and there is no central stenosis. Assessment & Plan (02/13/2023 9:04 AM EDT): -MRI L-spine JUL 16 2018 says There are mild spondylitic changes with facet arthropathy at L3-L4, L4-L5 and L5-S1 and there is no foraminal nerve root impingement and there is no central stenosis. Assessment & Plan (08/27/2022 7:48 PM EDT): -MRI L-spine JUL 16 2018 says There are mild spondylitic changes with facet arthropathy at L3-L4, L4-L5 and L5-S1 and there is no foraminal nerve root impingement and there is no central stenosis. Allergic rhinitis 10/30/2011 Cardiomyopathy, alcoholic 10/30/2011 Overview (01/15/2023): - Echo with EF 50-55 on 03/[address] Kwok Assessment & Plan (02/13/2023 9:04 AM EDT): - Echo with EF 50-55 on 03/[address] Kwok Assessment & Plan (08/27/2022 7:38 PM EDT): Sober for several years. Echo with EF 50-55 on 03/[address] Kwok -his last cards visit was September 13, 2020 Depressive disorder 10/30/2011 Glaucoma 10/30/2011 Hypercholesterolemia 10/30/2011 Overview (03/22/2024): Lab Results Component Value Date CHOLESTEROL 163 08/28/2022 LDLCHOL 98 08/28/2022 LDLCHOL 101 (H) 07/26/2021 LDLCHOL 80 07/20/2020 TRIG 74 02/11/2024 TRIG 123 08/28/2022 HDLCHOL 43 08/28/2022 CHOLHDLRAT 3.8 08/28/2022 -continue lifestyle modifications -statin discontinued in [facility] 11/2022 due to transaminitis Assessment & Plan (03/22/2024 11:57 AM EST): Lab Results Component Value Date CHOLESTEROL 163 08/28/2022 LDLCHOL 98 08/28/2022 LDLCHOL 101 (H) 07/26/2021 LDLCHOL 80 07/20/2020 TRIG 74 02/11/2024 TRIG 123 08/28/2022 HDLCHOL 43 08/28/2022 CHOLHDLRAT 3.8 08/28/2022 -continue lifestyle modifications -statin discontinued in [facility] 11/2022 due to transaminitis Assessment & Plan (02/13/2023 9:04 AM EDT): Lab Results Component Value Date CHOLESTEROL 163 08/28/2022 LDLCHOL 98 08/28/2022 LDLCHOL 101 (H) 07/26/2021 LDLCHOL 80 07/20/2020 TRIG 123 08/28/2022 HDLCHOL 43 08/28/2022 CHOLHDLRAT 3.8 08/28/2022 -continue lifestyle modifications Obstructive sleep apnea syndrome 10/30/2011 Hypertension 10/23/2011 Overview (03/22/2024): -Blood pressure is not at goal 03/22/24 -Continue lifestyle modifications -Continue current medications -Start Hydrochlorothiazide 25 mg 03/22/24 - Provide BP monitor and encouraged to monitor at home 03/22/24 -Following up in 2 weeks Assessment & Plan (03/22/2024 1:18 PM EST): -Blood pressure is not at goal 03/22/24 -Continue lifestyle modifications -Continue current medications -Start Hydrochlorothiazide 25 mg 03/22/24 - Provide BP monitor and encouraged to monitor at home 03/22/24 -Following up in 2 weeks Assessment & Plan (02/13/2023 9:06 AM EDT): -Blood pressure is at goal -Continue lifestyle modifications -Continue current medications Assessment & Plan (08/28/2022 12:02 PM EDT): -Blood pressure is not at goal -Continue lifestyle modifications -Continue current medications -referred to CDTM 08/2022 Resolved Problems Problem Noted Date Diagnosed Date Resolved Date Physical exam 02/13/2023 03/22/2024 Overview (03/22/2024): -Normal growth and development. -Anticipatory guidance discussed. -Preventative care / harm reduction discussed. - Next annual exam is due after 03/22/25 - Health Care Proxy 03/22/24 Assessment & Plan (02/13/2023 9:03 AM EDT): -Normal growth and development. -Anticipatory guidance discussed. -Preventative care / harm reduction discussed. Encounters Date Type Department Care Team Description 08/27/2024 Orders Only [facility] [address] [place] [address] Kinza Rivera MD Hypertension (Primary Dx) 08/25/2024 Telephone [facility] [address] [place] [address] Kera Gil, OD 08/16/2024 9:30 AM EDT Office Visit [facility] [address] [place] [address] Carly Melara, OD Diabetes type 2, no ocular involvement (CMS/HCC) (Primary Dx); Primary open angle glaucoma (POAG) of both eyes, indeterminate stage; Combined forms of age-related cataract of both eyes; Dry eye syndrome of both eyes; Presbyopia 08/16/2024 Refill [facility] [address] [place] [address] Carly Melara, OD 08/16/2024 Travel 08/05/2024 Telephone [facility] [address] [place] [address] Dottie Christine MD Paperwork/Forms 07/05/2024 Refill [facility] [address] [place] [address] Dottie Christine MD Allergic rhinitis, unspecified 06/22/2024 Telephone [facility] [address] [place] [address] Dottie Christine MD September Recalls from Last 3 Months Immunizations Immunization Administration Dates Next Due Hep A, Adult 04/26/2009,10/25/2008 Hep B, adult 04/26/2009,11/24/2008,10/25/2008 Influenza High-dose Quadriva lent Preservative Free 01/23/2023,01/24/2021 Influenza Injectable Quadriv alant Preservative Free IIV4 MDCK 02/24/2020 Influenza injectable quadriv alent IIV4 with preservative 01/21/2018,03/20/2017,02/29/2016,2014 Influenza injectable quadriv alent preservative free 04/16/2019,07/08/2014 Influenza, High Dose Seasona l, Preservative Free 03/22/2024 Influenza, IIV3, injectable 03/23/2010, 9,03/05/2006 Influenza, Split (incl. gianni fied surface antigen) 02/01/2013 Moderna Covid-19 Vaccine 12+ 08/03/2021,07/21/19 21,06/22/2020 Moderna Covid-19 Vaccine 6+ Bivalent 08/28/2022 PPD Test 12/02/2022 Pfizer Covid-19 Vaccine 12+ 03/22/2024, Pneumococcal Conjugate PCV 13 10/18/2020 Pneumococcal Conjugate PCV 20 11/19/2022 Tdap 07/08/2014 Zoster, Recombinant 10/06/2020,02/24/2020 Social History Tobacco Use Types Packs/Day Years Used Date Smoking Tobacco: Never Passive Smoke Exposure: Never Smokeless Tobacco: Never Tobacco Cessation:Counseling Given: Not Answered Alcohol Use Standard Drinks/Week Comments Yes 0 [...] Orientation Straight 03/04/2022 10 :17 AM EDT Last Filed Vital Signs Vital Sign Reading Time Taken Comments Blood Pressure 122/60 08/30/2024 11:46 AM EDT Pulse 65 03/22/2024 11:08 AM EST Temperature 36.2 ??C (97.1 ??F) 03/22/2024 11:[address] Respiratory Rate 18 03/22/2024 11:08 AM EST Oxygen Saturation 95% 03/22/2024 11:08 AM EST Inhaled Oxygen Concentration - - Weight 62.6 kg (138 lb) 03/22/2024 11:08 AM EST Height 152.4 cm (5') 03/22/2024 11:08 AM EST Body Mass Index 26.95 03/22/2024 11:08 AM EST Plan of Treatment Upcoming Encounters Date Type Department Care Team (Late st Contact Info) Description 09/20/2024 10:30 AM EDT Office Visit [facility] [address] [place] [address] Dottie Christine MD [address] [place] [address] 02/15/2025 3:00 PM EDT Office Visit [facility] [address] [place] [address] Carly Melara, OD [address] [place] [address] Health Maintenance Due Date Last Done Comments CT Colonography 1955 FIT DNA/Cologuard 1955 FIT 1955 FOBT 1955 Sigmoidoscopy 1955 Colonoscopy 07/09/2023 07/08/2022, 05/19/2014 Colorectal Cancer Screening 07/09/2023 DTaP/Tdap/Td Vaccines (2 - Td or Tdap) 07/08/2024 07/08/2014 SDOH Screening 07/27/2024 07/28/2023 Diabetes: Hemoglobin A1C 08/11/2024 024, 12/17/2022, 11/25/2022, Additional history exists COVID-19 Vaccine ( season) 2024 03/22/2024, 02/13/2023, 08/28/2022, Additional history exists Diabetes: Urine Protein Screening 02/10/2025 02/11/2024, 02/13/2023, 02/13/2023, Additional history exists Lipid Panel 02/10/2025 02/11/2024, 0410/2022, 07/26/2021, Additional history exists Alcohol/Substance Use Screening 03/22/2025 03/22/2024 Depression Screening 03/22/2025 03/22/2024, 03/22/20 Diabetes: Foot Exam 03/22/2025 03/22/2024, 03/22/2024, 03/22/2024, Additional history exists Tobacco Screening 08/20/2025 08/20/2024 Eye Exam 08/16/2026 08/16/2024, 08/03, 08/16/2024, Additional history exists RSV Patients and Patients Aged 60 years or older (1 - 1-dose 75+ series) 2030 Hepatitis A Vaccines Aged Out 04/26/2009, 10/26/19 09 No longer eligible based on patient's age to complete this topic Hepatitis B Vaccines Completed 04/26/2009, 11/24/2008, 10/25/2008 Zoster Vaccines Completed 10/06/2020, 02/24/2020 Hepatitis C Screening Completed 08/28/2022 Pneumococcal Vaccine: 50+ Years Completed 11/19/2022, 10/18/2020 Influenza Vaccine Completed 03/22/2024, , 01/24/2021, Additional history exists HIB Vaccines Aged Out No longer eligi ble based on patient's age to complete this topic HPV Vaccines Aged Out No longer eligi ble based on patient's age to complete this topic IPV Vaccines Aged Out No longer eligi ble based on patient's age to complete this topic Meningococcal B Vaccine Aged Out No l onger eligible based on patient's age to complete this topic Meningococcal Vaccine Aged Out No moira mihaela eligible based on patient's age to complete this topic RSV under 20 months Aged Out No longe r eligible based on patient's age to complete this topic Rotavirus Vaccines Aged Out No longer eligible based on patient's age to complete this topic Goals Goal Patient Goal Type Associated Problems Recent Progress Patient-Stated? Author Blood Pressure < 140/90 Blood Pressure 122/60(2024 11:46 AM EDT) No Randa Armenta PharmD Hemoglobin A1c < 7 Result Component 5.8( 10:40 AM EDT) No Randa Armenta PharmD Procedures Procedure Name Priority Date/Time Associated Diagnosis Comments OCT, OPTIC NERVE - OU - BOTH EYES Routine 08/16/2024 10:42 AM EDT Primary open angle glaucoma (POAG) of both eyes, indeterminate stage ALBUMIN, RANDOM URINE W/CREATININE Routine 02/11/2024 11:45 AM EDT Type 2 diabetes mellitus without complication, without long-term current use of insulin (CMS/HCC) HEMOGLOBIN A1C Routine 02/11/2024 10:40 AM EDT Type 2 diabetes mellitus without complication, without long-term current use of insulin (CMS/HCC) LIPID PANEL, STANDARD Routine 02/11/2024 10:40 AM EDT Type 2 diabetes mellitus without complication, without long-term current use of insulin (CMS/HCC) HEPATITIS C AB W/REFL TO HCV RNA, QN, PCR Routine 08/28/2022 10:49 AM EDT Encounter for hepatitis C screening test for low risk patient HM COLONOSCOPY Routine 07/08/2022 from Last 3 Months or Most Recently Relevant to Health Maintenance Results * Albumin, Random Urine W/Creatinine (02/11/2024 11:45 AM EDT) Creatinine, Urine 579.04 mg/dL [facility] Microalbumin Urine 50.0 mg/L [facility] Microalbum Creatinine Ratio Ur 8.6 <30 ug/mg cr [facility] Comment:Albumin/Creatinine R atio Reference Ranges: Normal: < 30 ug/mg creatinine Microalbuminuria: 30 - 300 ug/mg creatinineClinical Albuminuria: > 300 ug/mg creatinine Urine 02/11/2024 11:4 5 AM EDT 02/11/2024 1:23 PM EDT us Dottie Christine MD LAB URINE ORDERABLES Final Result [facility] [address] [place] [phone] * Hemoglobin A1c (02/11/2024 10:40 AM EDT) Hemoglobin A1c 5.8 <6.0 % [facility] Comment:Hemoglobin A1C Refer ence Range Adults: 4.8 - 6.0 % Non diabetic: < 6.0 % Goal: < 7.0 %Additional Action Suggested: > 8.0 %Note: Hemoglobin A1c results are invalid for patients with abnormal amounts of HbF. Blood transfusions may impact the HbA1c concentration in the patient sample. Estimated Average Glucose 120 mg/dL [facility] Comment:eAG = Estimated ave rage glucose which is %A1C expressed asaverage glucose, using the formula of the [id number] Glucose study (ADAG), Diabetes Care, Vol.31,#8,Dec. 2007 Blood Venous blood specimen / Unknown 02/11/2024 10:40 AM EDT 02/11/2024 11:31 AM EDT us Dottie Christine MD LAB BLOOD ORDERABLES Final Result [facility] [address] [place] [phone] * (ABNORMAL) Lipid Panel, Standard (02/11/2024 10:40 AM EDT) Triglycerides 74 <150 mg/dL [facility] Comment:Desirable Triglyceri de: less than 150 mg/dLBorderline High Triglyceride 150-199 mg/dLHigh Triglyceride: 200-499 mg/dLVery High Triglyceride: greater than or equal to 5OO mg/dL Cholesterol 223(H) <200 mg/dL [facility] Comment:Desirable Cholestero l: less than 200 mg/dLBorderline High Cholesterol: 200-239 mg/dLHigh Cholesterol: greater than 239 mg/dL LDL Cholesterol Calculated 144(H) <100 mg/dL [facility] Comment:Desirable LDL: less than 100 mg/dLNear Optimal/Above Optimal LDL: 110- 129 mg/dLBorderline High LDL: 130-159 mg/dLHigh LDL: 160-189 mg/dLVery High LDL: greater than or equal to 190 mg/dL HDL Cholesterol 65 >40 mg/dL [facility] Comment:Desirable HDL: great er than 40 mg/dL Note: This HDL assay may give artificially low results in patients with liver disease. Blood Venous blood specimen / Unknown 02/11/2024 10:40 AM EDT 02/11/2024 11:31 AM EDT Dottie Christine MD LAB BLOOD ORDERABLES Final Result [facility] [address] [place] [address] [phone] * Hepatitis C Antibody with Reflex to HCV, RNA, Quantitative, Real-Time PCR (08/28/2022 10:49 AM EDT) Hepatitis C Antibody NON-REACT CJ NON-REACT CJ [facility] Index 0.12 <1.00 [facility] Comment: HCV antibody was non-reactive. There is no laboratory evidence of HCV infection. In most cases, no further action is required. However, if recent HCV exposure is suspected, a test for HCV RNA (test code 13134) is suggested. For additional information please refer to http://education.alike/faq/ZJS80m5 (This link is being provided for informational/ educational purposes only.) Blood Venous blood specimen / Unknown 08/28/2022 10:49 AM EDT 08/28/2022 10:49 AM EDT Narrative [facility] - 08/29/2022 3:21 PM EDT FASTING:YES FASTING: YES Dottie Christine MD LAB BLOOD ORDERABLES Final Result [facility] [address], [place] [phone] [facility] [address] [place] [phone] * (ABNORMAL) Hm Colonoscopy (07/08/2022) Colonoscopy Abnormal(A ) Normal Historical Provider HEALTH MAINTENANCE Final Result from Last 3 Months or Most Recently Relevant to Health Maintenance Insurance [facility] [employer] OPT[employer] (O D-SNP) Advance Directives Documents on File Type Date Recorded Patient 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
[2024-09-16 16:31] LABS: Estimated Average Glucose 148 mg/dL; Hemoglobin A1C 213.1127 umol/L; Hemoglobin A1c % 6.8 % (<6.0)
[2024-09-16 17:10] LABS: Alanine Aminotransferase 36 U/L (0-40); Albumin Level 3.9 g/dL (3.5-5.0); Alkaline Phosphatase 61 U/L (39-117); Anion Gap 14 (12-20); Aspartate Amino Transferase 28 U/L (5-37); Bilirubin Direct 0.3 mg/dL (0.0-0.5); Bilirubin Total 0.9 mg/dL (0.0-1.0); Blood Urea Nitrogen 13 mg/dL (9-16); Calcium 9.5 mg/dL (8.4-10.2); Carbon Dioxide 27 mmol/L (22-29); Chloride 100 mmol/L (96-108); Estimated Glomerular Filt Rate > 60; Glucose Random 152 mg/dL (60-115); Potassium 2.8 mmol/L (3.3-5.1); Sodium 138 mmol/L (135-145); Total Protein 6.8 g/dL (6.5-8.0)
== END 2024-09-16 15:12 | disposition home or self-care (01) ==
LOC: HO.HHCL 15:11
PROVIDERS: Visit Provider Family Medicine
DX: E11.9 Type 2 diabetes mellitus without complications (principal); I10 Essential (primary) hypertension; R74.01 Elevation of levels of liver transaminase levels
CPT/HCPCS: 36415; 80048; 80076; 83036

== ENCOUNTER 2024-09-20 08:04 | Outpatient (REF) | payer OTHER, SELFPAY ==
--- OUTSIDE RECORDS SUMMARY | 2024-09-20 08:06 | XMS_ITS | Clinical Summary ---
Author Organization [employer] Address [address] [facility] 7[address] [place] [address] Care Team Providers Care Airport Electrician Name Role Phone Dottie Christine MD Primary Care Provider +- [phone] Randa Hoffman PharmD Unavailable [phone] Allergies No known active allergies Medications tamsulosin (Flomax) 0.4 MG 24 hr capsule Take 0.4 mg by mouth at bedtime. Active finasteride (Proscar) 5 MG tablet t1 BY MOUTH EVERY EVENING Active Alcohol Swabs (Alcohol Prep) 70 % padsIndications :Type 2 diabetes mellitus without complication, without long-term current use of insulin ([facility]) USE DIRECTED TO TEST BLOOD SUGAR AND WITH INSULIN 100 each 11 024 Active Lancets (OneTouch Delica Plus [id number]) miscIndications :Type 2 diabetes mellitus without complication, without long-term current use of insulin ([facility]) TEST BLOOD SUGAR TWICE DAILY 100 each 3 024 Active OneTouch Ultra Test test stripIndication s:Type 2 diabetes mellitus without complication, without long-term current use of insulin ([facility]) TEST BLOOD SUGAR TWICE DAILY 100 [...] each day for allergies. 30 tablet 11 2024 Active amLODIPine (Norvasc) 10 MG tabletIndicatio ns:Primary hypertension Take 1 tablet (10 mg) by mouth at bedtime. 90 tablet 3 025 Active amLODIPine (Norvasc) 10 MG tabletIndicatio ns:Primary hypertension Take 1 tablet (10 mg) by mouth at bedtime. 90 tablet 3 025 Active montelukast (Singulair) 10 MG tabletIndicatio ns:Allergic rhinitis, unspecified TAKE 1 TABLET BY MOUTH EVERY EVENING 90 tablet 1 Active brimonidine (AlphaGAN) 0.2 % ophthalmic solution Administer 1 drop into both eyes 2 times daily. 10 mL 025 2025 Active potassium chloride CR (Klor-Con M20) 20 MEQ ER tablet Take 1 tablet (20 mEq) by mouth 3 times daily for 5 days. Do not crush or chew. 15 tablet 025 2024 Active cromolyn (Opticrom) 4 % ophthalmic solution PLACE 1 DROP IN THE AFFECTED EYE (s) FOUR TIMES DAILY NEEDED 022 2024 Discontinued(M ed list cleanup (will not trigger notification to Pharmacy)) Active Problems Patient Care Coordination No te Formatting of this note migh t be different from the original. CDTM DM and CDTM HTN with Randa Hoffman, PharmD, CDE [facility] Circle Cotton Stripper: Lory Ticketing Clerk Agency: [employer] [facility] [place], [facility] Problem Noted Date Diagnosed Date Hypokalemia 09/20/2024 Alcohol use disorder 03/22/2024 Overview (03/22/2024): - [...] 02/13/2023 Overview (02/13/2023): -Toe nails clipped at [facility] today Assessment & Plan (02/13/2023 9:41 AM EDT): -Toe nails clipped at [facility] today Neck pain 02/13/2023 Overview (02/13/2023): Pt requesting pillow for neck 02/13/2023 Assessment & Plan (02/13/2023 9:36 AM EDT): Pt requesting pillow for neck 02/13/2023 Transaminitis 12/17/2022 Overview (09/20/2024): Lab Results Component Value Date TOTALBILIRUB 0.9 09/16/2024 AST 28 09/16/2024 AST 23 08/28/2022 ALT 36 09/16/2024 ALT 26 08/28/2022 ALP 61 09/16/2024 HEPCAB NON-REACTIVE 08/28/2022 FERRITIN 532 (H) 12/17/2022 -improved Assessment & Plan (03/22/2024 1:15 PM EST): [...] Subarachnoid hemorrhage 12/04/2022 Overview (02/13/2023): Admitted to [facility] on 11/21/22 after he was found down in the setting of EtOH use. Found to have acute subarachnoid hemorrhage, subdural hematoma and frontal skull fracture and transferred to [facility] 11/22/22- 11/24/22. Received Keppra x 7 days and phenobarb for sz prophylaxis. -Admitted to [facility] 11/24-12/05/22 -0n 11/28/22 he reported worsening headaches and was transferred from [facility] to [facility], scan stable and returned to SNF with MSIR prn, developed mental status changes and MSIR discontinued. -During SNF he developed mild transaminitis and statin was discontinued. 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 Ghislaine Livingston MD 02/11/23 for memory loss after subarachnoid hemorrgage. He was given diagnosis of multifactoral dementia. Consider MMS or MOCA test in the future Assessment & Plan (02/13/2023 11:52 AM EDT): Admitted to [facility] on 11/21/22 after he was found down in the setting of EtOH use. Found to have acute subarachnoid hemorrhage, subdural hematoma and frontal skull fracture and transferred to [facility] 11/22/22- 11/24/22. Received Keppra x 7 days and phenobarb for sz prophylaxis. -Admitted to [facility] 11/24-12/05/22 -0n 11/28/22 he reported worsening headaches and was transferred from [facility] to [facility], scan stable and returned to SNF with MSIR prn, developed mental status changes and MSIR discontinued. -During SNF he developed mild transaminitis and statin was discontinued. 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 and gave pt information of apt [...] -VNA services are starting process ti obtain PROJECTION ENGINEER services for pt -requested by VNA prescription [...] by followed by Dr. Richardson Flood of [facility] -[facility] - Health Care Proxy 03/22/24 Assessment & Plan (03/22/2024 1:12 PM EST): -next comprehensive annual evaluation due after 03/22/2025 -eye care facilitated by followed by Dr. Richardson Flood of [facility] -dental home is [facility] - Health Care Proxy 03/22/24 Assessment & Plan (02/13/2023 9:46 AM EDT): -next physical exam due 02/14/2024 -eye care facilitated by followed by Dr. Richardson Flood of [facility] -[facility] Total body pain 08/28/2022 Overview (01/15/2023): -Multiple [...] year. Type 2 diabetes mellitus 07/26/2021 Overview (09/20/2024): Formally diagnosed on 05/21/18 due to A1C 6.5% from 2016 Diabetes is controlled. -Follows with [facility] Therapy Managment Program with our PharmD, Hokey PokeyES Lab Results Component Value Date HGBA1C 6.8 (H) 09/16/2024 HGBA1C 5.8 02/11/2024 HGBA1C 5.9 12/17/2022 - Lab Results Component Value Date MICROALBUR 50.0 02/11/2024 CREATININE 1.03 09/16/2024 -Dwayne/Arb: -Statin therapy: discontinue dby SNF 11/2022 due to transaminits -Diabetic eye exam: 03/12/23 [facility] -Diabetic foot exam: Done 03/22/24 -Continue lifestyle modifications -Continue current medications Assessment & Plan (03/22/2024 1:20 PM EST): Formally diagnosed on 05/21/18 due to A1C 6.5% from 2016 Diabetes is controlled. -Follows with [facility] Drug Therapy Managment Program with our PharmD, Hokey PokeyES Lab Results Component Value Date HGBA1C 5.8 02/11/2024 HGBA1C 5.9 12/17/2022 HGBA1C 6.1 (H) 11/25/2022 - Lab Results Component Value Date MICROALBUR 50.0 02/11/2024 CREATININE 0.88 02/11/2024 -Dwayne/Arb: -Statin therapy: discontinue dby SNF 11/2022 due to transaminits -Diabetic eye exam: 03/12/23 [facility] -Diabetic foot exam: Done 03/22/24 [...] 08/28/2022 -continue lifestyle modifications -statin discontinued in [facility] 11/2022 due to transaminitis Assessment & Plan (03/22/2024 11:57 AM EST): Lab Results Component Value Date CHOLESTEROL 163 08/28/2022 LDLCHOL 98 08/28/2022 LDLCHOL 101 (H) 07/26/2021 LDLCHOL 80 07/20/2020 TRIG 74 02/11/2024 TRIG 123 08/28/2022 HDLCHOL 43 08/28/2022 CHOLHDLRAT 3.8 08/28/2022 -continue lifestyle modifications -statin discontinued in [facility] 11/2022 due to transaminitis Assessment & Plan [...] Encounters Date Type Department Care Team Description 09/17/2024 Telephone [facility] MEDICINE [address] [place] [phone] Dottie Christine MD CHART PREP 09/17/2024 Results Follow-Up [facility] MEDICINE [address] [place], [place] [address]jailene [place] [address] Dottie Christine MD Basic Metabolic Panel, Hepatic Function Panel 09/16/2024 Telephone [facility] [place] [address] Valentina Nava DO MECHANIC FOREMAN PHONE TRIAGE 09/16/2024 Orders Only [facility] MED[facility] [place] [address] Dottie Christien MD 08/27/2024 Orders Only [facility] MEDICINE [address] [place], [place] [address]jaileen [facility] [place] [address] Kinza Rivera MD Hypertension (Primary Dx) 08/25/2024 Telephone [facility] OPTOMETRY [address] [place] [address] Kera Gil, OD 08/16/2024 9:30 AM EDT Office Visit [facility] OPTOMETRY [address] [place] [address] Carly Melara, OD Diabetes type 2, no ocular involvement (CMS/HCC) (Primary Dx); Primary open angle glaucoma (POAG) of both eyes, indeterminate stage; Combined forms of age-related cataract of both eyes; Dry eye syndrome of both eyes; Presbyopia 08/16/2024 Refill [facility] OPTOMETRY [address] [place] [address] Carly Melara, OD 08/16/2024 Travel 08/05/2024 Telephone [facility] MEDICINE [address] [place] [address] Dottie Christine MD Paperwork/Forms 07/05/2024 Refill [facility] MEDICINE [address] [place] [address] Dottie Christine MD Allergic rhinitis, unspecified from Last 3 Months Immunizations Immunization Administration [...] is your housing situation today? I have shenbrandie bautista 02/18/[address] you [...] Description 09/20/2024 10:30 AM EDT Office Visit [facility] MEDICINE [address] [place] [address] Dottie Christine MD [address] [place] [address] 02/15/2025 3:00 PM EDT Office Visit [facility] OPTOMETRY [address] [place] [address] Carly Melara, OD [address] [place] [address] Health Maintenance Due Date Last Done Comments CT Colonography 1955 FIT DNA/Cologuard 1955 FIT 1955 FOBT 1955 Sigmoidoscopy 1955 Colonoscopy 07/09/2023 07/08/2022, 05/19/2014 Colorectal Cancer Screening 07/09/2023 DTaP/Tdap/Td Vaccines (2 - Td or Tdap) 07/08/2024 07/08/2014 SDOH Screening 07/27/2024 07/28/2023 COVID-19 Vaccine ( season) 2024 03/22/2024, 02/13/2023, 08/28/2022, Additional history exists Diabetes: Urine Protein Screening 02/10/2025 02/11/2024, 02/13/2023, 02/13/2023, Additional history exists Lipid Panel 02/10/2025 02/11/2024, 08/04, 07/26/2021, Additional history exists Diabetes: Hemoglobin A1C 03/19/2025 025, 02/11/2024, 12/17/2022, Additional history exists Alcohol/Substance Use Screening 03/22/2025 03/22/2024 Depression Screening 03/22/2025 03/22/2024, 03/22/20 Diabetes: Foot Exam 03/22/2025 03/22/2024, 03/22/2024, 03/22/2024, Additional history exists Tobacco Screening 08/20/2025 08/20/2024 Eye Exam 08/16/2026 08/16/2024, 0408/2024, 08/16/2024, Additional history exists RSV Patients and [...] Blood Pressure 122/60(2024 11:46 AM EDT) No Davids-Gambl Randa wall, PharmD Hemoglobin A1c < 7 Result Component 6.8( 3:13 PM EDT) No Piers-Gambl e, Randa, PharmD Procedures Procedure Name Priority Date/Time Associated Diagnosis Comments HEMOGLOBIN A1C Routine 09/16/2024 3:13 PM EDT HEPATIC FUNCTION PANEL Routine 09/16/2024 3:13 PM EDT Transaminitis BASIC METABOLIC PANEL Routine 09/16/2024 3:13 PM EDT Primary hypertension OCT, OPTIC NERVE - OU - BOTH [...] Recently Relevant to Health Maintenance Results * (ABNORMAL) Hemoglobin A1c (09/16/2024 3:13 PM EDT) Hemoglobin A1c 6.8(H) <6.0 % [facility] Comment:Hemoglobin A1C Refer ence Range Adults: 4.8 - 6.0 % Non diabetic: < 6.0 % Goal: < 7.0 %Additional Action Suggested: > 8.0 %Note: Hemoglobin A1c results are invalid for patients with abnormal amounts of HbF. Blood transfusions may impact the HbA1c concentration in the patient sample. Estimated Average Glucose 148 mg/dL [facility] Comment:eAG = Estimated ave rage glucose which is %A1C expressed asaverage glucose, using the formula of the U5T-EllqbvvMbjjnwu Glucose study (ADAG), Diabetes Care, Vol.31,#8,2007 09/16/2024 3:13 PM EDT 09/16/2024 4:13 PM EDT Dottie Christine MD LAB BLOOD ORDERABLES Final Result Performing Organization Address [facility] de Phone Number [facility] [address] [place] [phone] * Hepatic Function Panel (09/16/2024 3:13 PM EDT) Bilirubin, Total 0.9 0.0 - 1.0 mg/dL [facility] Bilirubin, Direct 0.3 0.0 - 0.5 mg/dL [facility] Aspartate Amino Transferase 28 5 - 37 U/L [facility] Alanine Aminotransferase 36 0 - 40 U/L [facility] Total Protein 6.8 6.5 - 8.0 g/dL [facility] Albumin Level 3.9 3.5 - 5.0 g/dL [facility] Alkaline Phosphatase 61 39 - 117 U/L [facility] Blood Venous blood specimen / Unknown 09/16/2024 3:13 PM EDT 09/16/2024 4:13 PM EDT Dottie Christine MD LAB BLOOD ORDERABLES Final Result Performing Organization Address [facility] Co de Phone Number [facility] [address] [place] [phone] * (ABNORMAL) Basic Metabolic Panel (09/16/2024 3:13 PM EDT) Sodium 138 135 - 145 mmol/L [facility] Potassium 2.8(LL) 3.3 - 5.1 mmol/L [facility] Comment:Critical value for t est(s): POTS Results called to and readback by: Person calling: [email or web address] Date: 09/16/24Time:1658 Chloride 100 96 - 108 mmol/L [facility] Carbon Dioxide 27 22 - 29 mmol/L [facility] Anion Gap 14 12 - 20 [facility] Urea Nitrogen (BUN) 13 9 - 16 mg/dL [facility] Creatinine, Serum 1.03 0.5 - 1.4 mg/dL [facility] Estimated Glomerular Filt Rate >60 [facility] Comment:Chronic Kidney Disea se: Estimated GFR < 60 mL/min/1.03c3Aqvghr Kidney Disease: Estimated GFR < 15 mL/min/1.73m2 Glucose 152(H) 60 - 115 mg/dL [facility] Calcium 9.5 8.4 - 10.2 mg/dL [facility] Blood Venous blood specimen / Unknown 09/16/2024 3:13 PM EDT 09/16/2024 4:13 PM EDT Dottie Christine MD LAB BLOOD ORDERABLES Final Result [facility] [address] [place] [phone] * Albumin, Random Urine W/Creatinine (02/11/2024 11:45 AM EDT) Creatinine, Urine 579.04 mg/dL [facility] Microalbumin Urine 50.0 mg/L [facility] Microalbum Creatinine Ratio Ur 8.6 <30 ug/mg cr [facility] Comment:Albumin/Creatinine R atio Reference Ranges: Normal: < 30 ug/mg creatinine Microalbuminuria: 30 - 300 ug/mg creatinineClinical Albuminuria: > 300 ug/mg creatinine Urine 02/11/2024 11:4 5 AM EDT 02/11/2024 1:23 PM EDT Dottie Christine MD LAB URINE ORDERABLES Final Result Performing Organization Address [facility] Co de Phone Number [facility] [address] [place] [phone] * (ABNORMAL) Lipid Panel, Standard (02/11/2024 10:40 AM EDT) Triglycerides 74 <150 mg/dL [facility] Comment:Desirable Triglyceri de: less than 150 mg/dLBorderline High Triglyceride 150-199 mg/dLHigh Triglyceride: 200-499 mg/dLVery High Triglyceride: greater than or equal to 5OO mg/dL Cholesterol 223(H) <200 mg/dL [facility] Comment:Desirable Cholestero l: less than 200 mg/dLBorderline High Cholesterol: 200-239 mg/dLHigh Cholesterol: greater than 239 mg/dL LDL Cholesterol Calculated 144(H) <100 mg/dL [facility] Comment:Desirable LDL: less than 100 mg/dLNear Optimal/Above Optimal LDL: 110- 129 mg/dLBorderline High LDL: 130-159 mg/dLHigh LDL: 160-189 mg/dLVery High LDL: greater than or equal to 190 mg/dL HDL Cholesterol 65 >40 mg/dL [facility] Comment:Desirable HDL: great er than 40 mg/dL Note: This HDL assay may give artificially low results in patients with liver disease. Blood Venous blood specimen / Unknown 02/11/2024 10:40 AM EDT 02/11/2024 11:31 AM EDT Dottie Christine MD LAB BLOOD ORDERABLES Final Result Performing Organization Address [facility]/ZIP Co de Phone Number [facility] [address] [place] [phone] * Hepatitis C Antibody with Reflex to HCV, RNA, Quantitative, Real-Time PCR (08/28/2022 10:49 AM EDT) Hepatitis C Antibody NON-REACT CJ NON-REACT CJ [facility] [place] [employer] Index 0.12 <1.00 [facility] [employer] Comment: HCV antibody was non-reactive. There is no laboratory evidence of HCV infection. In most cases, no further action is required. However, if recent HCV exposure is suspected, a test for HCV RNA (test code 15323) is suggested. For additional information please refer to http://education.[employer]/faq/JHF47n6 (This link is being provided for informational/ educational purposes only.) Blood Venous blood specimen / Unknown 08/28/2022 10:49 AM EDT 08/28/2022 10:49 AM EDT Narrative [facility] - 08/29/2022 3:21 PM EDT FASTING:YES FASTING: YES Dottie Christine MD LAB BLOOD ORDERABLES Final Result [facility] [address], [place] [phone] [facility] [employer] [address] [place] [phone] * (ABNORMAL) Colonoscopy (07/08/2022) Colonoscopy Abnormal(A ) Normal Historical Provider HEALTH MAINTENANCE Final Result from Last 3 Months or Most Recently Relevant to Health Maintenance Insurance [facility] LONG TERM OPTIONS (O D-SNP) JUAN VALENCIA [id number] Advance Directives Documents on File Type Date Recorded Patient 3Rd Pressman Expl anation Advance Directives and Living Will 03/22/2024 Health Care Proxy 03/22/24 Care Teams Airport Electrician Relationship Specialty Start Date End Date [place], MD Dottie [address] [place] [address] PCP - General Family Medicine 05/05/18 Randa Hoffman, TomyD [address] [place] [phone] Pharmacist Internal Medicine 10/09/22
--- OUTSIDE RECORDS SUMMARY | 2024-09-20 08:07 | XMS_ITS | Encounter Summary ---
Author Organization [employer] Address [address] [facility] 7[address] [place] [address] Care Team Providers Care Tap Grinder Name Role Phone Ravalli, Dottie KO Primary Care Provider +- [phone] Randa Hoffman PharmD Unavailable [phone] Encounter Details Date Type Department Care Team ([facility] st Contact Info) Description 08/25/2024 Telephone [facility] OPTOMETRY [address] [place], [place] [phone] Kera Gil, OD [address] [place], [place] [phone] Social History Tobacco Use Types Packs/Day Years [...] Description 09/20/2024 10:30 AM EDT Office Visit [facility] MEDICINE [address] [place] [address] Dottie Christine MD [address] [place] [address] 02/15/2025 3:00 PM EDT Office Visit [facility] OPTOMETRY [address] [place] [address] Carly Melara, OD [address] [place] [address] documented as of this encounter Goals Goal Patient Goal Type Associated Problems Recent Progress Patient-Stated? Author Blood Pressure < 140/90 Blood Pressure 122/60(2024 11:46 AM EDT) No Davids-Randa Londono, PharmD Hemoglobin A1c < 7 Result Component 6.8( 3:13 PM EDT) No DavidsRanda Stewart, PharmD documented as of this encounter Visit Diagnoses Not on filedocumented in this encounter Additional Health Concerns Assessment Noted Time PHQ-9 Depression Total Score: 8 03/22/20 24 11:10 AM EST documented as of this encounter Care Teams Tap Grinder Relationship Specialty Start Date End Date Dottie Christine MD [address] [place] [address] PCP - General Family Medicine 05/05/18 Randa Hoffman, Christiana [address] [place] [address] Pharmacist Internal Medicine 10/09/22 documented as of this encounter
--- OUTSIDE RECORDS SUMMARY | 2024-09-20 08:07 | XMS_ITS | Encounter Summary ---
Author Organization [employer] Address [address] [facility] 7t [place] [address] Care Team Providers Care Explosive Technician Name Role Phone Dottie Christine MD Primary Care Provider +- [phone] Randa Hoffman PharmD Unavailable [phone] Reason for Visit * Reason Comments Med Refill Encounter Details Date Type Department Care Team ([facility] st Contact Info) Description 04/22/2023 Refill [facility] [address] [place], [place] [phone] Dottie Christine MD [address] [place], [place] [phone] Allergic rhinitis, unspecified seasonality, unspecified trigger Social [...] Description 09/20/2024 10:30 AM EDT Office Visit [facility] MED[facility] [address] [place] [address] Dottie Christine MD [address] [place] [address] 02/15/2025 3:00 PM EDT Office Visit [facility] OPTOMETRY [address] [place] [address] Kelton, Carly, OD [address] [place] [address] documented as of this encounter Goals Goal Patient Goal Type Associated Problems Recent Progress Patient-Stated? Author Blood Pressure < 140/90 Blood Pressure 122/60(2024 11:46 AM EDT) No Piers-Gambl Sendy wallsa, PharmD Hemoglobin A1c < 7 Result Component 6.8( 3:13 PM EDT) No Piers-Gambl e, Randa, PharmD documented as of this encounter Visit Diagnoses Diagnosis Allergic rhinitis, unspecified seasonality, unspecified trigger Hypokalemia- Primary Hypopotassemia Type 2 diabetes mellitus without complication, without long-term current use of insulin ([facility]) Transaminitis Nonspecific elevation of levels of transaminase or lactic acid dehydrogenase (LDH) Alcohol use disorder Tubular adenoma Benign neoplasm of unspecified site documented in this encounter Additional Health Concerns Assessment Noted Time PHQ-9 Depression Total Score: 0 08/29/19 23 10:09 AM EDT documented as of this encounter Care Teams Explosive Technician Relationship Specialty Start Date End Date Dottie Christine MD [address] [place] [address] PCP - General Family Medicine 05/05/18 Randa Hoffman PharmD [address] [place] [address] Pharmacist Internal Medicine 10/09/22 documented as of this encounter
--- OUTSIDE RECORDS SUMMARY | 2024-09-20 08:07 | XMS_ITS | Encounter Summary ---
Author Organization [email or web address] Address 75 [facility] 7t [place] [address] Care Team Providers Care Engineering Lecturer Name Role Phone Dottie Christine MD Primary Care Provider +- [phone] Randa Hoffman PharmD Unavailable [phone] Reason for Visit * Reason Comments Med Refill Encounter Details Date Type Department Care Team ([facility] st Contact Info) Description 03/06/2023 Refill [facility] [address] [place], [place] [phone] Dottie Christine MD 230 [place], [place] [phone] Social History Tobacco Use Types Packs/Day Years [...] Description 09/20/2024 10:30 AM EDT Office Visit [facility] [address] [place] [address] Dottie Christine MD 230 [place] [address] 02/15/2025 3:00 PM EDT Office Visit [facility] [address] [place] [address] Kelton, Carly, OD 230 [place] [address] documented as of this encounter Goals Goal [...] documented as of this encounter Care Teams Engineering Lecturer Relationship Specialty Start Date End Date Dottie Christine MD [address] [place] [address] PCP - General Family Medicine 05/05/18 Randa Hoffman, PharmD [address] [place] [address] Pharmacist Internal Medicine 10/09/22 documented as of this encounter
--- OUTSIDE RECORDS SUMMARY | 2024-09-20 08:07 | XMS_ITS | Encounter Summary ---
Author Organization [employer] Address 75 [facility] 7t [place] [address] Care Team Providers Care Social Services Director Name Role Phone [place], Dottie KO Primary Care Provider +- [phone] Randa Hoffman PharmD Unavailable [phone] Reason for Referral * Consultation (Routine) - Closed Specialty Diagnoses / Procedures Referred By Contac t Referred To Contact Pharmacy Diagnoses Hypertension Kinza Rivera MD 230 [place] [address] Phone: tel: fax: Referral ID Status Reason Start Date Expiration Date V isits Requested Visits Authorized [id number] Closed Continuity of Care 08/30/2024 08/30/2025 6 6 Encounter Details Date Type Department Care Team (Late st Contact Info) Description 08/27/2024 Orders Only [facility] [address] [place] [address] Kinza Rivera MD [address] [place], [place] [phone] Hypertension (Primary Dx) Social History Tobacco Use [...] Description 09/20/2024 10:30 AM EDT Office Visit [facility] [address] [place] [address] Dottie Christine MD 230 [place] [address] 02/15/2025 3:00 PM EDT Office Visit [facility] [address] [place] [address] Carly Melara, OD 230 [place] [address] Scheduled Referrals Name Type Priority Associated Diagnoses Orde r Schedule Referral to Pharmacy [place] Outpatient Referral Routine Hypertension Ordered: 08/30/2024 documented as of this encounter Goals Goal Patient Goal Type Associated Problems Recent Progress Patient-Stated? Author Blood Pressure < 140/90 Blood Pressure 122/60(2024 11:46 AM EDT) No Randa Armenta PharmD Hemoglobin A1c < 7 Result Component 6.8( 3:13 PM EDT) No Randa Armenta PharmD documented as of this encounter Visit Diagnoses Diagnosis Hypertension- Primary Unspecified essential hypertension Hypokalemia- Primary Hypopotassemia Type 2 diabetes mellitus without complication, without long-term current use of insulin ([facility]) Transaminitis Nonspecific elevation of levels of transaminase or lactic acid dehydrogenase (LDH) Alcohol use disorder Tubular adenoma Benign neoplasm of unspecified site documented in this encounter Additional Health Concerns Assessment Noted Time PHQ-9 Depression Total Score: 8 03/22/20 24 11:10 AM EST documented as of this encounter Care Teams Social Services Director Relationship Specialty Start Date End Date Dottie Christine MD 230 [place] [address] PCP - General Family Medicine 05/05/18 Randa Hoffman PharmD 230 [place] [address] Pharmacist Internal Medicine 10/09/22 documented as of this encounter
--- OUTSIDE RECORDS SUMMARY | 2024-09-20 08:07 | XMS_ITS | Encounter Summary ---
Author Organization [employer] Address 75 [facility] 7t [place] [address] Care Team Providers Care Campaign Analyst Name Role Phone Dottie Christine MD Primary Care Provider +1- [phone] Randa Hoffman PharmD Unavailable [phone] Reason for Visit * Reason Onset Date Comments Results 09/17/2024 Lab Orders 09/17/2024 Encounter Details Date Type Department Care Team ([facility] st Contact Info) Description 09/17/2024 Results Follow-Up [facility] 230 [place] [address] Dottie Christine MD 230 [place] [address] Basic Metabolic Panel, Hepatic Function Panel Social History Tobacco Use Types Packs/Day Years [...] the past 12 months, has t he [employer], gas, oil or water [employer] threatened to shut off services in your [...] encounter Miscellaneous Notes * Telephone Encounter - Sury Charles RN - 09/17/2024 9:10 AM EDT Telephone call placed to pt. Informed potassium low. Pt states, I know already . Advised to come to the lab anytime on Friday, not fasting. Pt agreeable. Denied having any questions or concerns at this time. * Telephone Encounter - Sury Charles RN - 09/17/2024 9:08 AM EDT ----- Message from Dottie Christine MD sent at 09/17/2024 8:48 AM EDT ----- Please let [place] know I sent new lab slip for him to recheck his potassium next Friday. Thank you. ----- Message ----- From: Interface, Lab Results In Sent: 09/16/2024 5:10 PM EDT To: Dottie Christine MD documented in this encounter Plan of Treatment Upcoming Encounters Date Type Department Care Team (Late st Contact Info) Description 09/20/2024 10:30 AM EDT Office Visit [facility] [address] [place] [address] Dottie Christine MD 230 [place] [address] 02/15/2025 3:00 PM EDT Office Visit [facility] [address] [place], [place] [phone] KeltonCarly degroot, OD 230 [place] [address] Scheduled Orders Name Type Priority Associated Diagnoses Orde r Schedule Potassium Lab Routine Hypokalemia Expected: 09/17/2024, Expires: 09/17/2025 Magnesium Lab Routine Hypokalemia Expected: 09/17/2024, Expires: 09/17/2025 documented as of this encounter Goals Goal Patient Goal Type Associated Problems Recent Progress Patient-Stated? Author Blood Pressure < 140/90 Blood Pressure 122/60(2024 11:46 AM EDT) No Randa Armenta, PharmD Hemoglobin A1c < 7 Result Component 6.8( 3:13 PM EDT) No Randa Armenta PharmD documented as of this encounter Visit Diagnoses Diagnosis Hypokalemia- Primary Hypopotassemia Hypokalemia- Primary Hypopotassemia Type 2 diabetes mellitus without complication, without long-term current use of insulin ([facility]) Transaminitis Nonspecific elevation of levels of transaminase or lactic acid dehydrogenase (LDH) Alcohol use disorder Tubular adenoma Benign neoplasm of unspecified site documented in this encounter Additional Health Concerns Assessment Noted Time PHQ-9 Depression Total Score: 8 03/22/20 24 11:10 AM EST documented as of this encounter Care Teams Campaign Analyst Relationship Specialty Start Date End Date Dottie Christine MD [address] [place], [place] [phone] PCP - General Family Medicine 05/05/18 Randa Hoffman, TomyD [address] [place] [address] Pharmacist Internal Medicine 10/09/22 documented as of this encounter
--- OUTSIDE RECORDS SUMMARY | 2024-09-20 08:07 | XMS_ITS | Encounter Summary ---
Author Organization [employer] Address 75 [facility] 7t [place] [address] Care Team Providers Care Flamer After Lasting Name Role Phone Dottie Christine MD Primary Care Provider +- [phone] Randa Hoffman PharmD Unavailable [phone] Encounter Details Date Type Department Care Team (Late st Contact Info) Description 09/16/2024 Orders Only [facility] MED[facility]INE [address] [place], [place] [phone] Dottie Christine MD 230 [place], [place] [phone] Social History Tobacco Use Types Packs/Day Years [...] Description 09/20/2024 10:30 AM EDT Office Visit [facility] [address] [place] [address] Dottie Christine MD [address] [place] [address] 02/15/2025 3:00 PM EDT Office Visit [facility] OPTOMETRY [address] [place] [address] Carly Melara, OD 230 [place] [address] documented as of this encounter Goals Goal Patient Goal Type Associated Problems Recent Progress Patient-Stated? Author Blood Pressure < 140/90 Blood Pressure 122/60(2024 11:46 AM EDT) No Randa Armenta, PharmAmparo Hemoglobin A1c < 7 Result Component 6.8( 3:13 PM EDT) No Randa Armenta PharmD documented as of this encounter Procedures Procedure Name Priority Date/Time Associated Diagnosis Comments HEMOGLOBIN A1C Routine 09/16/2024 3:13 PM EDT documented in this encounter Results * (ABNORMAL) Hemoglobin A1c (09/16/2024 3:13 PM EDT) Hemoglobin A1c 6.8(H) <6.0 % [facility] Comment:Hemoglobin A1C Refer ence Range Adults: 4.8 - 6.0 % Non diabetic: < 6.0 % Goal: < 7.0 %Additional Action Suggested: > 8.0 %Note: Hemoglobin A1c results are invalid for patients with abnormal amounts of HbF. Blood transfusions may impact the HbA1c concentration in the patient sample. Estimated Average Glucose 148 mg/dL [facility] Comment:eAG = Estimated ave rage glucose which is %A1C expressed asaverage glucose, using the formula of the X6Q-QodvrryLxwgigf Glucose study (ADAG), Diabetes Care, Vol.31,#8,Dec. 2007 09/16/2024 3:13 PM EDT 09/16/2024 4:13 PM EDT us Dottie Christine MD LAB BLOOD ORDERABLES Final Result [facility] [address] [place] [phone] documented in this encounter Visit Diagnoses Not on filedocumented in this encounter Additional Health Concerns Assessment Noted Time PHQ-9 Depression Total Score: 8 03/22/20 24 11:10 AM EST documented as of this encounter Care Teams Flamer After Lasting Relationship Specialty Start Date End Date Dottie Christine MD 230 [place] [address] PCP - General Family Medicine 05/05/18 Randa Hoffman, Christiana [address] [place] [address] Pharmacist Internal Medicine 10/09/22 documented as of this encounter
--- OUTSIDE RECORDS SUMMARY | 2024-09-20 08:07 | XMS_ITS | Encounter Summary ---
Author Organization [employer] Address 75 [facility] 7t [place] [address] Care Team Providers Care Letter Carrier Name Role Phone Dottie Christine MD Primary Care Provider + [phone] Randa Hoffman PharmD Unavailable [phone] Encounter Details Date Type Department Care Team (Late st Contact Info) Description 01/03/2023 Abstract [facility] 230 [place] [address] Dottie Christine MD 230 [place], [place] [phone] Social History Tobacco Use Types Packs/Day Years [...] Description 09/20/2024 10:30 AM EDT Office Visit [facility] MEDICINE [address] [place], [place] [phone] Dottie Christine MD [address] [place], [place] [phone] 02/15/2025 3:00 PM EDT Office Visit [facility] OPTOMETRY [address] [place] [address] Carly Melara, OD [address] [place] [address] documented as of this encounter Goals Goal Patient Goal Type Associated Problems Recent Progress Patient-Stated? Author Blood Pressure < 140/90 Blood Pressure 122/60(2024 11:46 AM EDT) No Randa Armenta, PharmD Hemoglobin A1c < 7 Result Component 6.8( 3:13 PM EDT) No Randa Armenta, PharmD documented as of this encounter Visit Diagnoses Not on filedocumented in this encounter Additional Health Concerns Assessment Noted Time PHQ-9 Depression Total Score: 0 08/29/19 10:09 AM EDT documented as of this encounter Care Teams Letter Carrier Relationship Specialty Start Date End Date Dottie Christine MD 230 [place] [address] PCP - General Family Medicine 05/05/18 Randa Hoffman PharmD 230 [place] [address] Pharmacist Internal Medicine 10/09/22 documented as of this encounter
--- OUTSIDE RECORDS SUMMARY | 2024-09-20 08:07 | XMS_ITS | Encounter Summary ---
Author Organization [employer] Address 75 [facility] [address] [place] [address] Care Team Providers Care Anatomic Pathologist Name Role Phone Dottie Christine MD Primary Care Provider +- [phone] Randa Hoffman PharmD Unavailable [phone] Encounter Details Date Type Department Care Team (Late Contact Info) Description 10/29/2022 Abstract [facility] MEDICINE [address] [place] [phone] Dottie Christine MD 230 [place], [place] [phone] Social History Tobacco Use Types Packs/Day Years [...] Description 09/20/2024 10:30 AM EDT Office Visit [facility] [address] [place] [address] [phone] Dottie Christine MD 230 [place] [address] 02/15/2025 3:00 PM EDT Office Visit [facility] OPTOMETRY [address] [place] [address] Carly Melara, OD [address] [place] [address] documented as of this encounter Goals Goal [...] documented as of this encounter Care Teams Anatomic Pathologist Relationship Specialty Start Date End Date Dottie Christine MD [address] [place] [address] PCP - General Family Medicine 05/05/18 Randa oHffman, PharmD [address] [place] [address] Pharmacist Internal Medicine 10/09/22 documented as of this encounter
--- OUTSIDE RECORDS SUMMARY | 2024-09-20 08:07 | XMS_ITS | Encounter Summary ---
Author Organization [employer] Address 75 [facility] 7t [place] [address] Care Team Providers Care Satellite Tv Technician Installer Name Role Phone Dottie Christine MD Primary Care Provider + [phone] Randa Hoffman PharmD Unavailable [phone] Encounter Details Date Type Department Care Team (Late st Contact Info) Description 07/01/2022 Orders Only [facility] [address] [place] [address] Anca Jacob LPN Social History Tobacco Use [...] 09/20/2024 10:30 AM EDT Office Visit [facility] [address] [place] [address] Dottie Christine MD [address] [place] [address] 02/15/2025 3:00 PM EDT Office Visit [facility] OPT[facility] [address] [place] [address] Carly Melara, OD 230 [place] [address] documented as of this encounter Visit Diagnoses Not on filedocumented in this encounter Care Teams Satellite Tv Technician Installer Relationship Specialty Start Date End Date Dottie Christine MD [address] [place] [address] PCP - General Family Medicine 05/05/18 Randa Hoffman PharmD [address] [place] [address] Pharmacist Internal Medicine 10/09/22 documented as of this encounter
--- OUTSIDE RECORDS SUMMARY | 2024-09-20 08:07 | XMS_ITS | Encounter Summary ---
Author Organization [employer] Address 75 [facility] 7t [place] [address] Care Team Providers Care Frame Stripper Name Role Phone Dottie Christine MD Primary Care Provider +1- [phone] Randa Hoffman PharmD Unavailable [phone] Reason for Visit * Reason Onset Date Comments CHART PREP 09/17/2024 Encounter Details Date Type Department Care Team ([facility] st Contact Info) Description 09/17/2024 Telephone [facility] MEDICINE 230 [place], [place] [phone] Dottie Christine MD 230 [place], [place] [phone] CHART PREP Social History Tobacco Use Types Packs/Day Years [...] encounter Miscellaneous Notes * Telephone Encounter - Blaire Weber MA - 09/17/2024 10:16 AM EDT Chart Prep Labs: not done 09/17/24 Images: not applicable Referrals: not applicable Vaccines due: DTAP Screenings: colonoscopy pt had a colo on 07/08/22 repeat 6-12 months Overdue care gaps: Glucose, SDOH, and Oral health screening documented in this encounter Plan of Treatment Upcoming Encounters Date Type Department Care Team (Late st Contact Info) Description 09/20/2024 10:30 AM EDT Office Visit [facility] MED[facility]INE [address] [place] [address] Dottie Christine MD [address] [place] [address] 02/15/2025 3:00 PM EDT Office Visit [facility] OPTOMETRY [address] [place] [address] Carly Melara OD 230 [place] [address] documented as of this encounter Goals Goal [...] documented as of this encounter Care Teams Frame Stripper Relationship Specialty Start Date End Date Dottie Christine MD 230 [place] [address] PCP - General Family Medicine 05/05/18 Randa Hoffman, PharmD [address] [place] [address] Pharmacist Internal Medicine 10/09/22 documented as of this encounter
--- OUTSIDE RECORDS SUMMARY | 2024-09-20 08:07 | XMS_ITS | Encounter Summary ---
Author Organization [employer] Address 75 [facility] 7[place] [address] Care Team Providers Care Studio Designer Name Role Phone Dottie Christine MD Primary Care Provider +- [phone] Randa Hoffman PharmD Unavailable [phone] Encounter Details Date Type Department Care Team (Late st Contact Info) Description 01/09/2023 Telephone [facility] MEDICINE [address] [place] [address] Dottie Christine MD [address] [place] [address] Social History Tobacco Use Types Packs/Day Years [...] . Any questions may contact phone # [phone] documented in this encounter Plan of Treatment Upcoming Encounters Date Type Department Care Team (Late st Contact Info) Description 09/20/2024 10:30 AM EDT Office Visit [facility] MEDICINE [address] [place] [address] Dottie Christine MD [address] [place] [address] 02/15/2025 3:00 PM EDT Office Visit [facility] OPTOMETRY [address] [place] [address] Kelton, Carly, OD 230 [place] [address] documented as of this encounter Goals Goal Patient Goal Type Associated Problems Recent Progress Patient-Stated? Author Blood Pressure < 140/90 Blood Pressure 122/60(2024 11:46 AM EDT) No Davids-Mitch wall, Randa, PharmD Hemoglobin A1c < 7 Result Component 6.8( 3:13 PM EDT) No Davids-Evl Sendy wallsa, PharmD documented as of this encounter Visit Diagnoses Not on filedocumented in this encounter Additional Health Concerns Assessment Noted Time PHQ-9 Depression Total Score: 0 08/29/19 23 10:09 AM EDT documented as of this encounter Care Teams Studio Designer Relationship Specialty Start Date End Date Dottie Christine MD [address] [place] [address] PCP - General Family Medicine 05/05/18 Randa Hoffman, PharmD [address] [place] [address] Pharmacist Internal Medicine 10/09/22 documented as of this encounter
--- OUTSIDE RECORDS SUMMARY | 2024-09-20 08:07 | XMS_ITS | Encounter Summary ---
Author Organization [employer] Address 75 [facility] 7[address] [place] [address] Care Team Providers Care Chaplain Resident Name Role Phone Dottie Christine MD Primary Care Provider +1- [phone] Randa Hoffman PharmD Unavailable [phone] Reason for Visit * Reason Onset Date Comments Appt/Refferal 01/24/2023 Encounter Details Date Type Department Care Team (Late st Contact Info) Description 01/24/2023 Telephone [facility] MEDICINE 230 [place] [address] Dottie Christine MD [address] [place] [address] Appt/Refferal Social History Tobacco Use Types Packs/Day [...] clarification on an appt below for: Referrals: [facility] Tra[facility] Acute [facility] Patient Appointment Information Date: 01/24/2023 Time: 1:00 PM Location: [address] [place] [address] Drive [address] [place], [place] [phone] Daughter states she communicated herself with the facility in regards to appt above, and facility informed daughter that pt does not have an appt on that day nor time. Please contact pt daughter at [phone] documented in this encounter Plan of Treatment Upcoming Encounters Date Type Department Care Team (Late st Contact Info) Description 09/20/2024 10:30 AM EDT Office Visit [facility] MEDICINE [address] [place] [address] Dottie Christine MD [address] [place] [address] 02/15/2025 3:00 PM EDT Office Visit [facility] OPTOMETRY [address] [place] [address] Kelton, Carly, OD 230 [place] [address] documented as of this encounter Goals Goal [...] documented as of this encounter Care Teams Chaplain Resident Relationship Specialty Start Date End Date Dottie Christine MD [address] [place] [address] PCP - General Family Medicine 05/05/18 Randa Hoffman, PharmD [address] [place] [address] Pharmacist Internal Medicine 10/09/22 documented as of this encounter
--- OUTSIDE RECORDS SUMMARY | 2024-09-20 08:07 | XMS_ITS | Encounter Summary ---
Author Organization [email or web address] Address 75 [facility] 7t [place] [address] Care Team Providers Care Warehouse General Laborer Name Role Phone Butler, Dottie KO Primary Care Provider +- [phone] Randa Hoffman PharmD Unavailable [phone] Reason for Visit * Reason Onset Date Comments CONTACT CENTER ENGINEER PHONE TRIAGE 09/16/2024 Encounter Details Date Type Department Care Team ([facility] st Contact Info) Description 09/16/2024 Telephone [facility] 230 [place], [place] [phone] Valentina Nava DO 230 [place], [place] [phone] CONTACT CENTER ENGINEER PHONE TRIAGE Social History Tobacco Use Types Packs/Day Years [...] t he electric, gas, oil or water [employer] threatened to shut off services in your [...] encounter Miscellaneous Notes * Telephone Encounter - Valentina Nava DO - 09/16/2024 5:27 PM EDT Received call from [facility] lab with critical K+ level of 2.8, Cr nml. Called pt at [phone] and advised pt of low K+ and need to go to ED for IV replacement. He put his friend on the phone who told me that pt was at his home drinking beer with friends and did not want to go to ED. [place] was told that the low K+ could cause arrhythmia and but still did not want to go to the ED. His friend agreed to attempt to convince him to go to the ED. Advised pt will send rx for PO K+ supplement to [facility] pharmacy which his friend will cherry picker operator for him if he continues to refuse to go to theED. Advised pt and friend go to ED if he develops any mm weakness, paresthesias, dizziness or palpitations. Will notify PCP and have RN f/u with patient. documented in this encounter Plan of Treatment Upcoming Encounters Date Type Department Care Team (Late st Contact Info) Description 09/20/2024 10:30 AM EDT Office Visit [facility] MEDICINE 230 [place] [address] Dottie Christine MD [address] [place] [address] 02/15/2025 3:00 PM EDT Office Visit [facility] OPTOMETRY [address] [place] [address] Carly Melara OD 230 [place] [address] documented as of this encounter Goals Goal [...] documented as of this encounter Care Teams Warehouse General Laborer Relationship Specialty Start Date End Date Dottie Christine MD [address] [place] [address] PCP - General Family Medicine 05/05/18 Randa Hoffman, PharmD [address] [place] [address] [phone] Pharmacist Internal Medicine 10/09/22 documented as of this encounter
--- OUTSIDE RECORDS SUMMARY | 2024-09-20 08:07 | XMS_ITS | Encounter Summary ---
Author Organization [employer] Address 75 [facility] 7t [place] [address] Care Team Providers Care Fern Cutter Name Role Phone Dottie Christine MD Primary Care Provider + [phone] Randa Hoffman PharmD Unavailable [phone] Encounter Details Date Type Department Care Team (Late st Contact Info) Description 05/17/2022 Orders Only [facility] [address] [place], [place] [phone] Valentina Garcia LPN Social History Tobacco Use [...] 09/20/2024 10:30 AM EDT Office Visit [facility] MEDICINE 230 [place] [address] Dottie Christine MD [address] [place] [address] 02/15/2025 3:00 PM EDT Office Visit [facility] OPTOM[facility] [address] [place] [address] Carly Melara, OD 230 [place] [address] documented as of this encounter Visit Diagnoses Not on filedocumented in this encounter Care Teams Fern Cutter Relationship Specialty Start Date End Date Dottie Christine MD 230 [place] [address] PCP - General Family Medicine 05/05/18 Randa Hoffman, TomyD [address] [place] [address] Pharmacist Internal Medicine 10/09/22 documented as of this encounter
--- OUTSIDE RECORDS SUMMARY | 2024-09-20 08:07 | XMS_ITS | Encounter Summary ---
Author Organization [employer] Address [address] [facility] [address] [place] [address] Care Team Providers Care Cotton Ball Bagger Name Role Phone Dottie Christine MD Primary Care Provider + [phone] Randa Hoffman PharmD Unavailable [phone]- [phone] Encounter Details Date Type Department Care Team (Late st Contact Info) Description 06/07/[address] [facility] [address] [place] [address] Dottie Christine MD [address] [place] [address] Social History Tobacco Use Types Packs/Day Years [...] Description 09/20/2024 10:30 AM EDT Office Visit [facility] [address] [place] [address] Dottie Christine MD [address] [place], [place] [phone] 02/15/2025 3:00 PM EDT Office Visit [facility] [address] [place] [address] KeltonCarly degroot, OD [address] [place] [address] documented as of this encounter Procedures Procedure [...] on filedocumented in this encounter Care Teams Cotton Ball Bagger Relationship Specialty Start Date End Date Dottie Christine MD [address] [place] [address] PCP - General Family Medicine 05/05/18 Randa Hoffman, TomyD [address] [place] [address] Pharmacist Internal Medicine 10/09/22 documented as of this encounter
[2024-09-20 11:43] LABS: Magnesium 1.9 mg/dL (1.6-2.6); Potassium 4.2 mmol/L (3.3-5.1)
== END 2024-09-20 08:05 | disposition home or self-care (01) ==
LOC: HO.HHCL 08:04
PROVIDERS: Visit Provider Family Medicine
DX: E87.6 Hypokalemia (principal)
CPT/HCPCS: 36415; 83735; 84132

== ENCOUNTER 2025-01-26 13:11 | Outpatient (REF) | payer OTHER, SELFPAY ==
--- OUTSIDE RECORDS SUMMARY | 2025-01-26 15:34 | XMS_ITS | Encounter Summary ---
Author Organization [employer] Address [address] [facility] [address] [place] [address] Care Team Providers Care Construction Electrician Name Role Phone Dottie Christine MD Primary Care Provider +- [phone] Randa Hoffman PharmD Unavailable [phone]- [phone] Reason for Visit * Reason Comments Med Refill Encounter Details Date Type Department Care Team ([facility] st Contact Info) Description 03/06/2023 Refill [facility] [address] [place], [place] [phone] Dottie Christine MD [address] [place] [address] Social History Tobacco Use Types Packs/Day Years [...] Care Team (Late st Contact Info) Description 01/28/2025 10:00 AM EDT Office Visit [facility] [address] [place] [address] Dottie Christine MD [address] [place] [address] 02/15/2025 3:00 PM EDT Office Visit [facility] [address] [place] [address] Kelton, Carly, OD [address] [place] [address] documented as of this encounter Goals Goal Patient Goal Type Associated Problems Recent Progress Patient-Stated? Author Blood Pressure < 140/90 Blood Pressure 124/77(2024 9:15 AM EDT) No Piers-Gambl e, Randa, PharmD Hemoglobin A1c < 7 Result Component 6.8( 3:13 PM EDT) No Piers-Gambl e, Randa, PharmD documented as of this encounter Visit Diagnoses Not on filedocumented in this encounter Additional Health Concerns Assessment Noted Time PHQ-9 Depression Total Score: 0 08/29/19 23 10:09 AM EDT documented as of this encounter Care Teams Construction Electrician Relationship Specialty Start Date End Date Dottie Christine MD [address] [place] [id number] PCP - General Family Medicine 05/05/18 Randa Hoffman, PharmD [address] [place] [id number] Pharmacist Internal Medicine 10/09/22 documented as of this encounter
--- OUTSIDE RECORDS SUMMARY | 2025-01-26 15:34 | XMS_ITS | Encounter Summary ---
Author Organization [employer] Address [address] [facility] [address] [place] [address] Care Team Providers Care Social Media Marketer Name Role Phone Dottie Christine MD Primary Care Provider +- [phone] Randa Hoffman PharmD Unavailable [phone]- [phone] Reason for Referral * Consultation (Routine) - Closed Specialty Diagnoses / Procedures Referred By Contac t Referred To Contact Pharmacy Diagnoses Hypertension Kinza Rivera MD [address] [place] [address] Phone: tel: fax: Referral ID Status Reason Start Date Expiration Date V isits Requested Visits Authorized [id number] Closed Continuity of Care 08/30/2024 08/30/2025 6 6 Encounter Details Date Type Department Care Team (Late st Contact Info) Description 08/27/2024 Orders Only [facility] [address] [place] [address] Kinza Rivera MD [address] [place], [place] [phone] Hypertension (Primary Dx) Social History Tobacco Use [...] Description 01/28/2025 10:00 AM EDT Office Visit [facility] [address] [place] [address] Dottie Christine MD [address] [place] [address] 02/15/2025 3:00 PM EDT Office Visit [facility] [address] [place] [address] Carly Melara, OD [address] [place] [address] Scheduled Referrals Name Type Priority Associated Diagnoses Orde r Schedule Referral to Pharmacy [facility] Outpatient Referral Routine Hypertension Ordered: 08/30/2024 documented as of this encounter Goals Goal Patient Goal Type Associated Problems Recent Progress Patient-Stated? Author Blood Pressure < 140/90 Blood Pressure 124/77(2024 9:15 AM EDT) No Randa Armenta, PharmD Hemoglobin A1c < 7 Result Component 6.8( 3:13 PM EDT) No Randa Armenta, PharmD documented as of this encounter Visit Diagnoses Diagnosis Hypertension- Primary Unspecified essential hypertension documented in this encounter Additional Health Concerns Assessment Noted Time PHQ-9 Depression Total Score: 8 03/22/20 24 11:10 AM EST documented as of this encounter Care Teams Social Media Marketer Relationship Specialty Start Date End Date Dottie Christine MD [address] [place] [address] PCP - General Family Medicine 05/05/18 Randa Hoffman PharmD [address] [place] [address] Pharmacist Internal Medicine 10/09/22 documented as of this encounter
--- OUTSIDE RECORDS SUMMARY | 2025-01-26 15:34 | XMS_ITS | Encounter Summary ---
Author Organization [facility] Address [address] [facility] [address] [place] [address] Care Team Providers Care Artificial Flowers Starcher Name Role Phone Dottie Christine MD Primary Care Provider + [phone] Randa Hoffman PharmD Unavailable [phone] Reason for Visit * Reason Comments Med Refill Encounter Details Date Type Department Care Team ([facility] st Contact Info) Description 04/22/2023 Refill [facility] [address] [place], [place] [phone] Dottie Christine MD [address] [place] [address] Allergic rhinitis, unspecified seasonality, unspecified trigger Social [...] Description 01/28/2025 10:00 AM EDT Office Visit [facility] [address] [place] [address] Dottie Christine MD [address] [place] [address] 02/15/2025 3:00 PM EDT Office Visit [facility] [address] [place] [address] Kelton, Carly, OD [address] [place] [address] documented as of this encounter Goals Goal [...] documented as of this encounter Care Teams Artificial Flowers Starcher Relationship Specialty Start Date End Date Dottie Christine MD [address] [place] [id number] PCP - General Family Medicine 05/05/18 Randa Hoffman, TomyD [address] [place] [phone] Pharmacist Internal Medicine 10/09/22 documented as of this encounter
--- OUTSIDE RECORDS SUMMARY | 2025-01-26 15:34 | XMS_ITS | Clinical Summary ---
Author Organization [employer] Address [address] [place] [address] Care Team Providers Care Insurance Sales Producer Name Role Phone Dottie Christine MD Primary Care Provider [phone]- [phone] Randa Hoffman PharmD Unavailable [phone] Allergies No known active allergies Medications tamsulosin (Flomax) 0.4 MG 24 hr capsule Take 0.4 mg by mouth at bedtime. 02/15/20 23 Active finasteride (Proscar) 5 MG tablet t1 BY MOUTH EVERY EVENING 02/15/20 23 Active folic acid (Folvite) 1 MG tabletIndication s:Alcohol use disorder TAKE 1 TABLET BY MOUTH EVERY MORNING 90 tablet 3 02/05/20 24 Active carvedilol (Coreg) 6.25 MG tabletIndication s:Primary hypertension TAKE 1 TABLET BY MOUTH TWICE DAILY IN THE MORNING AND IN THE EVENING WITH FOOD 60 tablet 11 03/08/20 24 Active hydroCHLOROthiaz tomer (HYDRODiuril) 25 MG tabletIndication s:Primary hypertension Take 1 tablet (25 mg) by mouth Once per day. 30 tablet 11 03/22/20 24 025 Active fluticasone (Flonase) 50 MCG/ACT nasal sprayIndications :Seasonal allergies Administer 1 spray into each nostril Once per day. Shake gently. Before first use, prime pump. After use, clean tip and replace cap. 48 g 1 03/23/20 24 Active loratadine (Claritin) 10 MG tabletIndication s:Seasonal allergies Take 1 tablet (10 mg) by mouth if needed each day for allergies. 30 tablet 11 03/23/20 24 025 Active amLODIPine (Norvasc) 10 MG tabletIndication s:Primary hypertension Take 1 tablet (10 mg) by mouth at bedtime. 90 tablet 3 05/18/19 25 Active brimonidine (AlphaGAN) 0.2 % ophthalmic solution Administer 1 drop into both eyes 2 times daily. 10 mL 11 08/19/19 25 026 Active Lancets (OneTouch Delica Plus [id number]) miscIndications: Type 2 diabetes mellitus without complication, without long-term current use of insulin ([facility]) TEST BLOOD SUGAR TWICE DAILY 100 each 11 10/08/19 25 Active OneTouch Ultra Test test stripIndications :Type 2 diabetes mellitus without complication, without long-term current use of insulin ([facility]) TEST BLOOD SUGAR TWICE DAILY 100 strip 11 10/08/19 25 Active Alcohol Swabs (Alcohol Prep) 70 % padsIndications: Type 2 diabetes mellitus without complication, without long-term current use of insulin ([facility]) USE DIRECTED TO TEST BLOOD SUGAR AND WITH INSULIN 100 each 11 12/23/19 25 Active montelukast (Singulair) 10 MG tabletIndication s:Allergic rhinitis, unspecified TAKE 1 TABLET BY MOUTH EVERY EVENING 90 tablet 1 01/20/20 25 Active thiamine (Vitamin B-1) 100 MG tabletIndication s:Alcohol use disorder TAKE 1 TABLET BY MOUTH EVERY MORNING 90 tablet 3 01/21/20 25 Active thiamine (Vitamin B-1) 100 MG tabletIndication s:Alcohol use disorder TAKE 1 TABLET BY MOUTH EVERY MORNING 90 tablet 3 02/05/20 24 025 Discontinued montelukast (Singulair) 10 MG tabletIndication s:Allergic rhinitis, unspecified TAKE 1 TABLET BY MOUTH EVERY EVENING 90 tablet 1 07/07/19 25 025 Discontinued Active Problems Patient Care Coordination No te Formatting of this note migh t be different from the original. CDTM DM and CDTM HTN with Randa Hoffman, TomyD, CDE [facility] [place] [employer] Returner: Lory Diamond Selector Agency[facility] Problem Noted Date Diagnosed Date Hypokalemia 09/20/2024 Overview (09/20/2024): No visits with results within 1 Day(s) from this visit. Latest known visit with results is: Results Follow-Up on 09/17/2024 Component Date Value Potassium 09/20/2024 4.2 Magnesium 09/20/2024 1.9 Potassium was 2.8 on 09/16/24, was replaced and today remains stable. Assessment & Plan (09/20/2024 6:14 PM EDT): No visits with results within 1 Day(s) from this visit. Latest known visit with results is: Results Follow-Up on 09/17/2024 Component Date Value Potassium 09/20/2024 4.2 Magnesium 09/20/2024 1.9 Potassium was 2.8 on 09/16/24, was replaced and today remains stable. Overweight 09/20/2024 Overview (09/20/2024): Discussed weight, diet, exercise with patient in relation to health conditions. Used motivational interviewing to illicit change talk and established initial goals with patient. Assessment & Plan (09/20/2024 6:14 PM EDT): Discussed weight, diet, exercise with patient in relation to health conditions. Used motivational interviewing to illicit change talk and established initial goals with patient. Dietary counseling 09/20/2024 Assessment & Plan (09/20/2024 6:15 PM EDT): Dietary Recommendations: Fruits, vegetables, whole grains, protein foods, and fat-free or low-fat dairy products are healthy choices. Eat different types of protein foods in your diet. This can include seafood, lean meats, poultry, beans, peas, lentils, nuts, seeds, soy products, and eggs. Limit foods and beverages higher in added sugars, saturated fat, and sodium. Exercise counseling 09/20/2024 Assessment & Plan (09/20/2024 6:15 PM EDT): Exercise Recommendations: At least 150 minutes of moderate-intensity physical activity per week, or an equivalent combination of moderate- and vigorous-intensity activity. Chronic pain of both knees 09/20/2024 Overview (09/20/2024): Ambulates with a cane, and agrees to physical therapy for evaluation as he would like a scooter, and it's unclear if he qualifies. -referred to physical therapy 09/20/24 Assessment & Plan (09/20/2024 6:12 PM EDT): Ambulates with a cane, and agrees to physical therapy for evaluation as he would like a scooter, and it's unclear if he qualifies. -referred to physical therapy 09/20/24 Alcohol use disorder 03/22/2024 Overview (09/20/2024): - Drinks half a beer a day, guarded about use. Assessment & Plan (09/20/2024 6:12 PM EDT): - Drinks half a beer a day, guarded about use. Assessment & Plan (03/22/2024 1:11 PM EST): [...] 02/13/2023 Overview (02/13/2023): -Toe nails clipped at [facility] today Assessment & Plan (02/13/2023 9:41 AM EDT): -Toe nails clipped at [facility] today Neck pain 02/13/2023 Overview (02/13/2023): Pt requesting pillow for neck 02/13/2023 Assessment & Plan (02/13/2023 9:36 AM EDT): Pt requesting pillow for neck 02/13/2023 Transaminitis 12/17/2022 Overview (09/20/2024): Lab Results Component Value Date TOTALBILIRUB 0.9 09/16/2024 AST 28 09/16/2024 AST 23 08/28/2022 ALT 36 09/16/2024 ALT 26 08/28/2022 ALP 61 09/16/2024 HEPCAB NON-REACTIVE 08/28/2022 FERRITIN 532 (H) 12/17/2022 -improved Assessment & Plan (09/20/2024 6:14 PM EDT): Lab Results Component Value Date TOTALBILIRUB 0.9 [...] and frontal skull fracture and transferred to [facility] 11/22/22- 11/24/22. Received Keppra x 7 days and phenobarb for sz prophylaxis. -Admitted to [facility] 11/24-12/05/22 -0n 11/28/22 he reported worsening headaches and was transferred from [facility] to [facility] ER, scan stable and returned to SNF with MSIR prn, developed mental status changes and MSIR discontinued. -During SNF he developed mild transaminitis and statin was discontinued. -has [employer] hours -Home VNA discontinued 01/2023 -seen by [...] and frontal skull fracture and transferred to [facility] 11/22/22- 11/24/22. Received Keppra x 7 days and phenobarb for sz prophylaxis. -Admitted to [facility] 11/24-12/05/22 -0n 11/28/22 he reported worsening headaches and was transferred from [facility] to [facility] ER, scan stable and returned to SNF with MSIR prn, developed mental status changes and MSIR discontinued. -During SNF he developed mild transaminitis and statin was discontinued. -has [employer] hours -Home VNA discontinued 01/2023 -seen by [...] ,but also reporting memory loss -I called [facility] today Trauma surgeon # [phone] and confirmed pt should had been call for f up last week -scheduled apt for 12/25/2022 At 10H40 am at [facility] [address] ,[address] ,[facility] and gave pt information of apt as [...] -VNA services are starting process ti obtain [employer] services for pt -requested by VNA prescription [...] by followed by Dr. Richardson Flood of [facility] -dental home is [facility] Care Proxy 03/22/24 Assessment & Plan (03/22/2024 1:12 PM EST): -next comprehensive annual evaluation due after 03/22/2025 -eye care facilitated by followed by Dr. Richardson Flood of [facility] -dental home is [facility] - Health Care Proxy 03/22/24 Assessment & Plan (02/13/2023 9:46 AM EDT): -next physical exam due 02/14/2024 -eye care facilitated by followed by Dr. Richardson Flood of [facility] -dental home is [facility] Total body pain 08/28/2022 Overview (01/15/2023): -Multiple [...] to urinary obstruction. Tubular adenoma 07/26/2021 Overview (09/20/2024): -Tubular adenoma on colonoscopy with Dr. Kaye 06/2014 and 07/2022 -07/20/2022Tubular adenoma found without high-grade dysplasia or carcinoma. Two of them were large polyps over 2 cm. Patient will need to return in 6-12 months for colonoscopy. Patient is agreeable and understands. -Given the size of polyp, Pt needs repeat in 1 year. - Referred to GI 03/22/24 - Declined colonoscopy 09/20/24 Assessment & Plan (09/20/2024 6:12 PM EDT): -Tubular adenoma on colonoscopy with Dr. Kaye 06/2014 and 07/2022 -07/20/2022Tubular adenoma found without high-grade dysplasia or carcinoma. Two of them were large polyps over 2 cm. Patient will need to return in 6-12 months for colonoscopy. Patient is agreeable and understands. -Given the size of polyp, Pt needs repeat in 1 year. - Referred to GI 03/22/24 - Declined colonoscopy 09/20/24 Assessment & Plan (03/22/2024 1:09 PM EST): [...] on 05/21/18 due to A1C 6.5% from 2015 Diabetes is controlled. -Follows with [facility] Therapy Managment Program with our PharmAmparo, GEORGESES Lab Results Component Value Date HGBA1C 6.8 (H) 09/16/2024 HGBA1C 5.8 02/11/2024 HGBA1C 5.9 12/17/2022 - Lab Results Component Value Date MICROALBUR 50.0 02/11/2024 CREATININE 1.03 09/16/2024 -Dwayne/Arb: -Statin therapy: discontinue dby SNF 11/2022 due to transaminits -Diabetic eye exam: 03/12/23 [facility] -Diabetic foot exam: Done 03/22/24 -Continue lifestyle modifications -Continue current medications Assessment & Plan (09/20/2024 6:14 PM EDT): Formally diagnosed on 05/21/18 due to A1C 6.5% from 2015 Diabetes is controlled. -Follows with Collabor[facility] Drug Therapy Managment Program with our PharmAmparo, CDCES Lab Results Component Value Date HGBA1C 6.8 (H) 09/16/2024 HGBA1C 5.8 02/11/2024 HGBA1C 5.9 12/17/2022 - Lab Results Component Value Date MICROALBUR 50.0 02/11/2024 CREATININE 1.03 09/16/2024 -Dwayne/Arb: -Statin therapy: discontinue dby SNF 11/2022 due to transaminits -Diabetic eye exam: 03/12/23 [facility] -Diabetic foot exam: Done 03/22/24 -Continue lifestyle modifications -Continue current medications Assessment & Plan (03/22/2024 1:20 PM EST): Formally diagnosed on 05/21/18 due to A1C 6.5% from 2016 Diabetes is controlled. -Follows with Collaborative Drug Therapy Managment Program with our VIKAS Villeda Lab Results Component Value Date HGBA1C 5.8 02/11/2024 HGBA1C 5.9 12/17/2022 HGBA1C 6.1 (H) 11/25/2022 - Lab Results Component Value Date MICROALBUR 50.0 02/11/2024 CREATININE 0.88 02/11/2024 -Dwayne/Arb: -Statin therapy: discontinue dby SNF 11/2022 due to transaminits -Diabetic eye exam: 03/12/23 [facility] -Diabetic foot exam: Done 03/22/24 [...] Allergic rhinitis 10/30/2011 Cardiomyopathy, alcoholic 10/30/2011 Overview (09/20/2024): - Echo with EF 50-55 on 03/[address] Kwok -asymptomatic Assessment & Plan (09/20/2024 6:15 PM EDT): - Echo with EF 50-55 on 03/[address] Kwok -asymptomatic Assessment & Plan (02/13/2023 9:04 AM EDT): - Echo with EF 50-55 on 03/[address] Kwok Assessment & Plan (08/27/2022 7:38 PM EDT): Sober for several years. Echo with EF 50-55 on 03/[address] Kwok -his last cards visit was September 13, 2020 Depressive disorder 10/30/2011 Glaucoma 10/30/2011 Hypercholesterolemia 10/30/2011 Overview (09/20/2024): Lab Results Component Value Date CHOL 223 (H) 02/11/2024 TRIG 74 02/11/2024 TRIG 123 08/28/2022 HDL 65 02/11/2024 LDLCHOLCAL 144 (H) 02/11/2024 -continue lifestyle modification -statin discontinued in [facility] 11/2022 due to transaminitis Assessment & Plan (09/20/2024 6:15 PM EDT): Lab Results Component Value Date CHOL 223 (H) 02/11/2024 TRIG 74 02/11/2024 TRIG 123 08/28/2022 HDL 65 02/11/2024 LDLCHOLCAL 144 (H) 02/11/2024 -continue lifestyle modification -statin discontinued in [facility] 11/2022 due to transaminitis Assessment & Plan (03/22/2024 11:57 AM EST): Lab Results Component Value Date CHOLESTEROL 163 08/28/2022 LDLCHOL 98 08/28/2022 LDLCHOL 101 (H) 07/26/2021 LDLCHOL 80 07/20/2020 TRIG 74 02/11/2024 TRIG 123 08/28/2022 HDLCHOL 43 08/28/2022 CHOLHDLRAT 3.8 08/28/2022 -continue lifestyle modifications -statin discontinued in [facility] 11/2022 due to transaminitis Assessment [...] Encounters Date Type Department Care Team Description 01/25/2025 Telephone [facility] [address] [place] [phone] Dottie Christine MD Pre-op Exam 01/20/2025 Refill [facility] [address] [place] [address] Dottie Christine MD Alcohol use disorder 01/18/2025 Refill [facility] [address] [place], [place] [phone] Dottie Christine MD Allergic rhinitis, unspecified 12/18/2024 Refill [facility] [address] [place] [address] Dottie Christine MD Type 2 diabetes mellitus without complication, without long-term current use of insulin ([facility]) from Last 3 Months Immunizations Immunization Administration [...] Test 12/02/2022 Pfizer Covid-19 Vaccine 12+ 03/22/2024, 3 Pneumococcal Conjugate PCV 13 10/18/2020 Pneumococcal Conjugate PCV 20 11/19/2022 Tdap 09/20/2024,07/08/2014 Zoster, Recombinant 10/06/2020,02/24/2020 Family History Medical History Relation Name Comments Diabetes Sister Relation Name Status Comments Sister Social History Tobacco Use Types Packs/Day Years [...] housing situation today? I have shen bautista 09/20/[address] you li ve. Do you have problems with any of the following? None of the above 09/20/2024 Food Insecurity Answer Date Recorded Within the past 12 months, y ou worried that your food would run out before you got money to buy more: Never True 09/20/2024 Within the past 12 months,th e food you bought just didn't last and you didn't have enough money to get more: Never True Transportation Answer Date Recorded In the past 12 months, has l ack of transportation kept you from medical appts, meetings, work or from getting things needed for daily living? No 09/20/2024 Utilities Answer Date Recorded In the past 12 months, has t he electric, gas, oil or water company threatened to shut off services in your home? No 09/20/2024 Depression Answer Date Recorded Patient Health Questionnaire-2 Score 0 03/22/2024 Internet Access Answer Date Recorded Internet Access Q1 Yes 09/20/2024 Internet Access Q2 I do not want or need it 09/02 Sex and Gender Information Value Date Recorded Sex Assigned at Male 03/04/2022 10:17 AM EDT Legal Sex Male 10:17 AM EDT Gender Identity Male 03/04/2022 10:17 AM EDT Sexual Orientation Straight 03/04/2022 10 :17 AM EDT Last Filed Vital Signs Vital Sign Reading Time Taken Comments Blood Pressure 124/77 09/20/2024 9:15 AM EDT Pulse 70 09/20/2024 9:15 AM EDT Temperature 36.1 C (96.9 F) 09/20/2024 9:15 AM EDT Respiratory Rate 17 09/20/2024 9:15 AM EDT Oxygen Saturation 95% 03/22/2024 11:08 AM EST Inhaled Oxygen Concentration - - Weight 63.5 kg (140 lb) 09/20/2024 9:15 AM EDT Height 152.4 cm (5') 09/20/2024 9:15 AM EDT Body Mass Index 27.34 09/20/2024 9:15 AM EDT Plan of Treatment Upcoming Encounters Date Type Department Care Team (Late st Contact Info) Description 01/28/2025 10:00 AM EDT Office Visit [facility] [address] [place] [address] Dottie Christine MD [address] [place] [address] 02/15/2025 3:00 PM EDT Office Visit [facility] [address] [place] [address] Kelton, Carly, OD [address] [place] [address] Health Maintenance Due Date Last Done Comments CT Colonography 1955 FIT DNA/Cologuard 1955 FIT 1955 FOBT 1955 Sigmoidoscopy 1955 Colonoscopy 07/09/2023 07/08/2022, 05/19/2014 Colorectal Cancer Screening 07/09/2023 COVID-19 Vaccine ( season) 2025 03/22/2024, 02/13/2023, 08/28/2022, Additional history exists Influenza Vaccine (#1) 2025 , 01/23/2023, 01/24/2021, Additional history exists Diabetes: Urine Protein Screening 02/10/2025 02/11/2024, 02/13/2023, 02/13/2023, Additional history exists Lipid Panel 02/10/2025 02/11/2024, 08/04, 07/26/2021, Additional history exists Diabetes: Hemoglobin A1C 03/19/2025 025, 02/11/2024, 12/17/2022, Additional history exists Alcohol/Substance Use Screening 03/22/2025 03/22/2024 Depression Screening 03/22/2025 03/22/2024, 03/22/20 Diabetes: Foot Exam 03/22/2025 03/22/2024, 03/22/2024, 03/22/2024, Additional history exists SDOH Screening 09/20/2025 09/20/2024 Tobacco Screening 09/20/2025 09/20/2024 Eye Exam 08/16/2026 08/16/2024, 08/03, 08/16/2024, Additional history exists RSV Patients and Patients Aged 60 years or older (1 - 1-dose 75+ series) 2030 DTaP/Tdap/Td Vaccines (3 - Td or Tdap) 09/20/2034 09/20/2024, 07/08/2014 Hepatitis A Vaccines Aged Out 04/26/2009, 10/26/19 09 No longer eligible based on patient's age to complete this topic Hepatitis B Vaccines Completed 04/26/2009, 11/24/2008, 10/25/2008 Zoster Vaccines Completed 10/06/2020, 02/24/2020 Hepatitis C Screening Completed 08/28/2022 Pneumococcal Vaccine: 50+ Years Completed 11/19/2022, 10/18/2020 HIB Vaccines Aged Out No longer eligi [...] Pressure 124/77(2024 9:15 AM EDT) No Randa Armenta PharmD Hemoglobin A1c < 7 Result Component 6.8( 3:13 PM EDT) No Randa Armenta PharmD Procedures Procedure Name Priority Date/Time Associated Diagnosis Comments HEMOGLOBIN A1C Routine 09/16/2024 3:13 PM EDT ALBUMIN, RANDOM URINE W/CREATININE Routine 02/11/2024 11:45 [...] PM EDT) Hemoglobin A1c 6.8(H) <6.0 % [facility] Comment:Hemoglobin A1C Refer ence Range Adults: 4.8 - 6.0 % Non diabetic: < 6.0 % Goal: < 7.0 %Additional Action Suggested: > 8.0 %Note: Hemoglobin A1c results are invalid for patients with abnormal amounts of HbF. Blood transfusions may impact the HbA1c concentration in the patient sample. Estimated Average Glucose 148 mg/dL [facility] Comment:eAG = Estimated ave rage glucose which is %A1C expressed asaverage glucose, using the formula of the G1D-ZbfydybZsrawrd Glucose study (ADAG), Diabetes Care, Vol.31,#8,2007 09/16/2024 3:13 PM EDT 09/16/2024 4:13 PM EDT Dottie Christine MD LAB BLOOD ORDERABLES Final Result Performing Organization Address [facility] Co de Phone Number [facility] [address] [place] [phone] * Albumin, Random Urine W/Creatinine (02/11/2024 11:45 AM EDT) Creatinine, Urine 579.04 mg/dL [facility] Microalbumin Urine 50.0 mg/L [facility] Microalbum Creatinine Ratio Ur 8.6 <30 ug/mg cr [facility] Comment:Albumin/Creatinine R atio Reference Ranges: Normal: < 30 ug/mg creatinine Microalbuminuria: 30 - 300 ug/mg creatinineClinical Albuminuria: > 300 ug/mg creatinine Urine 02/11/2024 11:4 5 AM EDT 02/11/2024 1:23 PM EDT Dottie Christine MD LAB URINE ORDERABLES Final Result Performing Organization Address [facility] Co de Phone Number [facility] [address] [place] [phone] * (ABNORMAL) Lipid Panel, Standard (02/11/2024 10:40 AM EDT) Triglycerides 74 <150 mg/dL [facility] Comment:Desirable Triglyceri de: less than 150 mg/dLBorderline High Triglyceride 150-199 mg/dLHigh Triglyceride: 200-499 mg/dLVery High Triglyceride: greater than or equal to 5OO mg/dL Cholesterol 223(H) <200 mg/dL [facility] Comment:Desirable Cholestero l: less than 200 mg/dLBorderline High Cholesterol: 200-239 mg/dLHigh Cholesterol: greater than 239 mg/dL LDL Cholesterol Calculated 144(H) <100 mg/dL [facility] Comment:Desirable LDL: less than 100 mg/dLNear Optimal/Above Optimal LDL: 110- 129 mg/dLBorderline High LDL: 130-159 mg/dLHigh LDL: 160-189 mg/dLVery High LDL: greater than or equal to 190 mg/dL HDL Cholesterol 65 >40 mg/dL [facility] Comment:Desirable HDL: great er than 40 mg/dL Note: This HDL assay may give artificially low results in patients with liver disease. Blood Venous blood specimen / Unknown 02/11/2024 10:40 AM EDT 02/11/2024 11:31 AM EDT Dottie Christine MD LAB BLOOD ORDERABLES Final Result [facility] [address] [place] [phone] * Hepatitis C Antibody with Reflex to HCV, RNA, Quantitative, Real-Time PCR (08/28/2022 10:49 AM EDT) Hepatitis C Antibody NON-REACT CJ NON-REACT CJ [facility] Index 0.12 <1.00 [facility] Comment: HCV antibody was non-reactive. There is no laboratory evidence of HCV infection. In most cases, no further action is required. However, if recent HCV exposure is suspected, a test for HCV RNA (test code 82863) is suggested. For additional information please refer to http://education.[employer]/faq/KAT82l9 (This link is being provided for informational/ educational purposes only.) Blood Venous blood specimen / Unknown 08/28/2022 10:49 AM EDT 08/28/2022 10:49 AM EDT Narrative [facility] - 08/29/2022 3:21 PM EDT FASTING:YES FASTING: YES Dottie Christine MD LAB BLOOD ORDERABLES Final Result Performing Organization Address City/[facility]/ZIP Co de Phone Number [facility] [address], [place] [address] [employer] [place] [employer] [address] [place] [phone] * (ABNORMAL) Hm Colonoscopy (07/08/2022) Colonoscopy Abnormal(A ) Normal us Historical Provider HEALTH MAINTENANCE Final Result from Last 3 Months or Most Recently Relevant to Health Maintenance Insurance [facility] RETIREMENT OPTIONS (HMO D-SNP) JU[place]IA [id number] Advance Directives Documents on File Type Date Recorded Patient Assembly Adjuster Expl anation Advance Directives and Living Will 03/22/2024 Health Care Proxy 03/22/24 Care Teams Insurance Sales Producer Relationship Specialty Start Date End Date [place], MD Dottie [address] [place] [phone] PCP - General Family Medicine 05/05/18 Randa Hoffman, Christiana [address] [place] [phone] Pharmacist Internal Medicine 10/09/22
--- OUTSIDE RECORDS SUMMARY | 2025-01-26 15:34 | XMS_ITS | Encounter Summary ---
Author Organization [employer] Address 75 [facility] [address] [place] [address] Care Team Providers Care Panel Raiser Operator Name Role Phone Dottie Christine MD Primary Care Provider + [phone] Randa Hoffman PharmD Unavailable Encounter Details Date Type Department Care Team (Late Contact Info) Description 01/09/2023 Telephone [facility] MEDICINE [address] [place] [address] Dottie Christine MD 230 [place] [address] Social History Tobacco Use Types Packs/Day Years [...] . Any questions may contact phone # [phone] documented in this encounter Plan of Treatment Upcoming Encounters Date Type Department Care Team (Late st Contact Info) Description 01/28/2025 10:00 AM EDT Office Visit [facility] MEDICINE [address] [place] [address] Dottie Christine MD [address] [place] [address] 02/15/2025 3:00 PM EDT Office Visit [facility] OPTOMETRY [address] [place] [address] Kelton, Carly, OD 230 [place] [address] documented as of this encounter Goals Goal Patient Goal Type Associated Problems Recent Progress Patient-Stated? Author Blood Pressure < 140/90 Blood Pressure 124/77(2024 9:15 AM EDT) No Davids-Sendy Londonosa, PharmD Hemoglobin A1c < 7 Result Component 6.8( 3:13 PM EDT) No Davids-Randa Londono, PharmD documented as of this encounter Visit Diagnoses Not on filedocumented in this encounter Additional Health Concerns Assessment Noted Time PHQ-9 Depression Total Score: 0 08/29/19 23 10:09 AM EDT documented as of this encounter Care Teams Panel Raiser Operator Relationship Specialty Start Date End Date Dottie Christine MD [address] [place] [address] [phone] PCP - General Family Medicine 05/05/18 Randa Hoffman, PharmD [address] [place] [phone] Pharmacist Internal Medicine 10/09/22 documented as of this encounter
--- OUTSIDE RECORDS SUMMARY | 2025-01-26 15:34 | XMS_ITS | Clinical Summary ---
Author Organization [facility] Address [address] [address] Phone Care Team Providers Care Line Maintainer Name Role Phone Cailin Madsen Primary Care Provider Allergies No known active allergies Medications thiamine (VITAMIN B-1) 100 MG tablet Take 100 mg by mouth. Active morphine (MSIR) 15 MG tablet [The details of the medication are not available because there are pending changes by a home health clinician.] 10 tablet 3 Active Additional Information Patient not taking.Reason: Therapy complete, Reported on 12/10/2022 amLODIPine (NORVASC) 10 MG tablet Take 10 mg by mouth daily. client takes in the evening 3 Active tamsulosin (FLOMAX) 0.4 mg Cap Take 0.4 mg by mouth daily. at HS 3 Active aspirin 81 MG EC tablet Take 81 mg by mouth daily. to be restarted on Friday12/09/22 per neurosurgeon 3 Active montelukast (SINGULAIR) 10 mg tablet Take 10 mg by mouth nightly at bedtime. 3 Active loratadine (CLARITIN) 10 mg tablet Take 10 mg by mouth daily. 3 Active folic acid (FOLVITE) 1 MG tablet Take 1 mg by mouth daily. 3 Active acetaminophen (TYLENOL) 500 MG tablet Take 1,000 mg by mouth every 8 (eight) hours as needed for pain (specific location in comments). headache 3 Active carvedilol (COREG) 6.25 MG tablet Take 6.25 mg by mouth 2 (two) times a day with meals. 3 Active atorvastatin (LIPITOR) 10 MG tablet Take by mouth daily. 023 Discontin ued(No longer taking) PHENobarbitaL 60 MG tablet Take 60 mg by mouth 2 (two) times a day. 023 Discontin ued(Thera py Completed /No Longer Necessary ) Social History Tobacco Use Types Packs/Day Years Used Date Smoking Tobacco: Never Assessed Home Health Assessment: Transportation Answer Date Recorded Lack of Transportation (Medical) No 01/09/2023 Lack of Transportation (Non-Medical) No 01/09/2023 Patient Unable or Declines to Respond No 01/09/2023 Education Answer Date Recorded Are you interested in more education? Not on hipolito e 11/25/2022 Are you concerned about learning? Not on file 11/25/2022 No 11/25/2022 No 11/25/2022 Digital Access Answer Date Recorded No 11/25/2022 No 11/25/2022 Reliable internet access at home? Not on file 11/25/2022 Device with a working camera? Not on file Intimate Partner Violence Answer Date R ecorded Are you denied basic needs s uch as food, clothing, or medical care? No 11/28/2022 In the past 12 months have y ou been in a relationship with a person who hurts, threatens, or tries to control you? No 11/28/2022 Are you denied basic needs s uch as food, clothing, or medical care? No 11/28/2022 In the past 12 months have y ou been in a relationship with a person who hurts, threatens, or tries to control you? No 11/28/2022 Sex and Gender Information Value Date Recorded Sex Assigned at Not on file Legal Sex Male 12:26 PM EDT Gender Identity Not on file Sexual Orientation Not on file Last Filed Vital Signs Vital Sign Reading Time Taken Comments Blood Pressure 130/78 01/09/2023 1:10 PM EDT Pulse 68 01/09/2023 1:10 PM EDT Temperature 36.6 C (97.8 F) 01/09/2023 1:10 PM EDT Respiratory Rate 18 01/09/2023 1:10 PM EDT Oxygen Saturation 97% 01/09/2023 1:10 PM EDT Inhaled Oxygen Concentration - - Weight 66.2 kg (146 lb) 12/06/2022 12:50 PM EDT Height 198.1 cm (6' 6 ) 12/06/2022 12:50 PM EDT Body Mass Index 16.87 12/06/2022 12:50 PM EDT Plan of Treatment Health Maintenance Due Date Last Done Comments LIPID PANEL 1955 DEPRESSION SCREENING 1967 SMOKING Hx and SMOKELESS TOB ACCO SCREENING 1968 HEPATITIS C SCREENING 1973 COLOGUARD 2000 COLONOSCOPY 2000 COLORECTAL CANCER SCREENING 2000 FIT TEST 2000 FOBT 2000 SIGMOIDOSCOPY 2000 VIRTUAL COLONOSCOPY 2000 PNEUMOCOCCAL VACCINES (50+ y ears) (1 of 1 - PCV) 2005 ZOSTER VACCINES (1 of 2) 2005 Adult Td,Tdap Booster 07/08/2024 07/08/2014 INFLUENZA VACCINE (#1) 2024 COVID-19 VACCINE (1 - 2023-2 5 season) 2025 RSV VACCINE (1 - 1-dose 75+ series) 2030 HEPATITIS A VACCINES Aged Out No long er eligible based on patient's age to complete this topic HIB VACCINES Aged Out No longer eligi ble based on patient's age to complete this topic MENINGOCOCCAL VACCINES (ACWY) Aged Out No longer eligible based on patient's age to complete this topic MENINGOCOCCAL VACCINES (B) Aged Out N o longer eligible based on patient's age to complete this topic Medical Devices Not on file Insurance MEDICARE PART A & B [facility] MEDICARE PART A & B Member Subscriber Plan / Payer (Ef fective 2012-Present) Name:Young Batistaro Member ID:[id number] Relation to Subscriber:Self Name:LesterYoungro Subscriber ID:[id number] Payer ID:[id number] Group ID:Not on file Type:Medicare Address: [employer] [address] [address] [facility] MEDICARE REPLACEMENT MEDICARE PART A & B [facility] [place] [address] MEDICARE PART A & B [facility] [place] [address] MEDICARE PART A & B [facility] MEDICARE REPLACEMENT MEDICARE PART A & B [facility] MEDICARE REPLACEMENT Care Teams Line Maintainer Relationship Specialty Start [place] [address] [place] [address] [place] [phone] [email or web address] PCP - General Unknown Provider Specialty 11/28/22 Additional Source Comments The information contained in this document represents components of the legal health record. It is not the complete legal health record.[facility]
--- OUTSIDE RECORDS SUMMARY | 2025-01-26 15:34 | XMS_ITS | Encounter Summary ---
Author Organization [employer] Address 75 [facility] 7t [place] [address] Care Team Providers Care Hospital Fellow Name Role Phone [place], Dottie KO Primary Care Provider +- [phone] Randa Hoffman PharmD Unavailable +1- [phone] Encounter Details Date Type Department Care Team ([facility] st Contact Info) Description 08/25/2024 Telephone [facility] OPTOMETRY [address] [place], [place] [phone] Kera Gil, OD [address] [place], [place] [phone] Social History Tobacco Use Types Packs/Day Years [...] Description 01/28/2025 10:00 AM EDT Office Visit [facility] MEDICINE [address] [place] [address] Dottie Christine MD 230 [place] [address] 02/15/2025 3:00 PM EDT Office Visit [facility] OPTOMETRY [address] [place] [address] Kelton, Carly, OD 230 [place] [address] documented as of this encounter Goals Goal Patient Goal Type Associated Problems Recent Progress Patient-Stated? Author Blood Pressure < 140/90 Blood Pressure 124/77(2024 9:15 AM EDT) No DavidsRanda Stewart, PharmD Hemoglobin A1c < 7 Result Component 6.8( 3:13 PM EDT) No Randa Armenta, PharmD documented as of this encounter Visit Diagnoses Not on filedocumented in this encounter Additional Health Concerns Assessment Noted Time PHQ-9 Depression Total Score: 8 03/22/20 24 11:10 AM EST documented as of this encounter Care Teams Hospital Fellow Relationship Specialty Start Date End Date Dottie Christine MD 230 [place] [address] PCP - General Family Medicine 05/05/18 Randa Hoffman, TomyD [address] [place] [address] Pharmacist Internal Medicine 10/09/22 documented as of this encounter
--- OUTSIDE RECORDS SUMMARY | 2025-01-26 15:34 | XMS_ITS | Encounter Summary ---
Author Organization [employer] Address 75 [facility] [address] [place] [address] Care Team Providers Care Synthetic Plasterer Name Role Phone Dottie Christine MD Primary Care Provider +- [phone] Randa Hoffman PharmD Unavailable Reason for Visit * Reason Onset Date Comments Appt/Refferal 01/24/2023 Encounter Details Date Type Department Care Team (Late st Contact Info) Description 01/24/2023 Telephone [facility] MEDICINE [address] [place] [address] Dottie Christine MD [address] [place] [address] Appt/Refferal Social History Tobacco Use Types Packs/Day [...] clarification on an appt below for: Referrals: [facility] Trauma and Acute Care Surgery Patient Appointment Information Date: 01/24/2023 Time: 1:00 PM Location: [address] [place] [address] Drive [address] [place], [place] [phone] Daughter states she communicated herself with the facility in regards to appt above, and facility informed daughter that pt does not have an appt on that day nor time. Please contact pt daughter at [phone] documented in this encounter Plan of Treatment Upcoming Encounters Date Type Department Care Team (Late st Contact Info) Description 01/28/2025 10:00 AM EDT Office Visit [facility] MEDICINE [address] [place] [address] Dottie Christine MD [address] [place] [address] 02/15/2025 3:00 PM EDT Office Visit [facility] OPTOMETRY [address] [place] [address] Kelton, Carly, OD 230 [place] [address] documented as of this encounter Goals Goal [...] documented as of this encounter Care Teams Synthetic Plasterer Relationship Specialty Start Date End Date Dottie Christine MD [address] [place] [address] PCP - General Family Medicine 05/05/18 Randa Hoffman, PharmD [address] [place] [address] Pharmacist Internal Medicine 10/09/22 documented as of this encounter
--- OUTSIDE RECORDS SUMMARY | 2025-01-26 15:34 | XMS_ITS | Encounter Summary ---
Author Organization [employer] Address 75 [facility] 7t [place] [address] Care Team Providers Care Microstrategy Bi Developer Name Role Phone Dottie Christine MD Primary Care Provider +- [phone] Randa Hoffman PharmD Unavailable +1- [phone] Reason for Visit * Reason Onset Date Comments Pre-op Exam 01/25/2025 Encounter Details Date Type Department Care Team (Late st Contact Info) Description 01/25/2025 Telephone [facility] MEDICINE [address] [place] [address] Dottie Christine MD [address] [place] [address] Pre-op Exam Social History Tobacco Use Types Packs/Day Years [...] encounter Miscellaneous Notes * Telephone Encounter - Tesfaye Liu - 01/26/2025 8:53 AM EDT TC placed to pt who agreed to pre-op visit in 01/[address] Christine * Telephone Encounter - Jayjay Luna - 01/25/2025 11:27 AM EDT Date of Surgery: 02/04/2025 Surgical procedure being done: Cataract Type of anesthesia: MAC Lab needed: No EKG: No Surgeon's name: Dr. Karla reinoso Facility name[facility] Surgeon's office number: [phone] Surgeon's office fax number: [phone] Contact name (person you spoke with): Alethea Last office note from surgeon requested: Yes Send Message to Tesfaye Liu Contact facility first, then they will call pt. documented in this encounter Plan of Treatment Upcoming Encounters Date Type Department Care Team (Late st Contact Info) Description 01/28/2025 10:00 AM EDT Office Visit [facility] MEDICINE [address] [place] [address] Dottie Christine MD [address] [place] [address] 02/15/2025 3:00 PM EDT Office Visit [facility] OPTOMETRY [address] [place] [address] Kelton, Carly, OD 230 [place] [address] documented as of this encounter Goals Goal [...] documented as of this encounter Care Teams Microstrategy Bi Developer Relationship Specialty Start Date End Date Dottie Christine MD [address] [place] [address] PCP - General Family Medicine 05/05/18 Randa Hoffman, PharmD [address] [place] [address] Pharmacist Internal Medicine 10/09/22 documented as of this encounter
--- OUTSIDE RECORDS SUMMARY | 2025-01-26 15:34 | XMS_ITS | Encounter Summary ---
Author Organization [employer] Address 75 [facility] [address] [place] [address] Care Team Providers Care Stab Setter And Driller Name Role Phone Dottie Christine MD Primary Care Provider + [phone] Randa Hoffman PharmD Unavailable Encounter Details Date Type Department Care Team (Late st Contact Info) Description 01/03/2023 Abstract [facility] [address] [place] [address] Dottie Christine MD 230 [place], [place] [phone] Social History Tobacco Use Types Packs/Day Years [...] EDT Office Visit [facility] MEDICINE 230 [place], [place] [phone] Dottie Christine MD [address] [place] [address] [phone] 02/15/2025 3:00 PM EDT Office Visit [facility] OPTOMETRY [address] [place] [address] Kelton, Carly, OD 230 [place] [address] documented as of this encounter Goals Goal Patient Goal Type Associated Problems Recent Progress Patient-Stated? Author Blood Pressure < 140/90 Blood Pressure 124/77(2024 9:15 AM EDT) No Davids-Randa Londono, PharmD Hemoglobin A1c < 7 Result Component 6.8( 3:13 PM EDT) No DavidsRanda Stewart, PharmD documented as of this encounter Visit Diagnoses Not on filedocumented in this encounter Additional Health Concerns Assessment Noted Time PHQ-9 Depression Total Score: 0 08/29/19 10:09 AM EDT documented as of this encounter Care Teams Stab Setter And Driller Relationship Specialty Start Date End Date Dottie Christine MD [address] [place] [address] PCP - General Family Medicine 05/05/18 Randa Hoffman PharmD 230 [place] [address] Pharmacist Internal Medicine 10/09/22 documented as of this encounter
--- OUTSIDE RECORDS SUMMARY | 2025-01-26 15:34 | XMS_ITS | Encounter Summary ---
Author Organization [employer] Address 75 [facility] 7t [place] [address] Care Team Providers Care Auditor Internal Name Role Phone Dottie Christine MD Primary Care Provider +- [phone] Randa Hoffman PharmD Unavailable +[phone]- [phone] Encounter Details Date Type Department Care Team (Late st Contact Info) Description 09/20/2024 Orders Only [facility] MEDICINE [address] [place], [place] [phone] Dottie Christine MD 230 [place], [place] [phone] Social History Tobacco Use Types Packs/Day Years [...] Description 01/28/2025 10:00 AM EDT Office Visit [facility] MEDICINE [address] [place] [address] Dottie Christine MD [address] [place] [address] 02/15/2025 3:00 PM EDT Office Visit [facility] OPTOMETRY [address] [place] [address] Carly Melara, OD 230 [place] [address] documented as of this encounter Goals Goal Patient Goal Type Associated Problems Recent Progress Patient-Stated? Author Blood Pressure < 140/90 Blood Pressure 124/77(2024 9:15 AM EDT) No Piers-Gambl eSnedysa, PharmD Hemoglobin A1c < 7 Result Component 6.8( 3:13 PM EDT) No Piers-Gambl eRanda, PharmD documented as of this encounter Visit Diagnoses Not on filedocumented in this encounter Additional Health Concerns Assessment Noted Time PHQ-9 Depression Total Score: 8 03/22/20 24 11:10 AM EST documented as of this encounter Care Teams Auditor Internal Relationship Specialty Start Date End Date Dottie Christine MD [address] [place] [address] PCP - General Family Medicine 05/05/18 Randa Hoffman, TomyD [address] [place] [address] Pharmacist Internal Medicine 10/09/22 documented as of this encounter
--- OUTSIDE RECORDS SUMMARY | 2025-01-26 15:35 | XMS_ITS | Encounter Summary ---
Author Organization [facility] Address [address] [facility] [address] [place] [address] Phone Care Team Providers Care Apprentice Machinist Outside Name Role Phone Cailin Madsen Primary Care Provider +1 [phone] Encounter Details Date Type Department Care Team (Late st Contact Info) Description 11/28/2022 Procedure Pass [facility], Ct Scan - [address] [phone] Social History Tobacco Use Types Packs/Day Years Used Date Smoking Tobacco: Never Assessed Education Answer Date Recorded Are you interested [...] on file Sexual Orientation Not on file documented as of this encounter Functional Status * Calculated C-SSRS Risk Score (Lifetime/Recent) Answer Date of Assessment Author No Risk Indicated 11/28/2022 11:31 AM EDT Dougie Amezcua RN * Andrew Suicide Severity Rating Scale (Screener/Recent Self-Report) Question Answer Date of Assessment Author 1. Wish to be (Past 1 Month) No 11/28/2022 11:31 AM SEFERINOT Dougie Amezcua RN 2. Non-Specific Active Suici jin Thoughts (Past 1 Month) No 11/28/2022 11:31 AM EDT Riana Amezcua RN 6. Suicidal Behavior (Lifetime) No 11:31 AM EDT Dougie Amezcua RN documented as of this encounter Plan of Treatment Not on file documented as of this encounter Visit Diagnoses Not on filedocumented in this encounter Care Teams Apprentice Machinist Outside Relationship Specialty Start Date End Date Cailin Madsen PA [facility] [place] [address] [email or web address] PCP - General Unknown Provider Specialty 11/28/22 documented as of this encounter Additional Source Comments The information contained in this document represents components of the legal health record. It is not the complete legal health record.[facility]
--- OUTSIDE RECORDS SUMMARY | 2025-01-26 15:35 | XMS_ITS | Encounter Summary ---
Author Organization [employer] Address 75 [facility] [address] [place] [address] Care Team Providers Care Geodetic Advisor Name Role Phone Dottie Christine MD Primary Care Provider + [phone] Randa Hoffman PharmD Unavailable Encounter Details Date Type Department Care Team (Late Contact Info) Description 10/29/2022 Abstract [facility] MEDICINE [address] [place] [address] [phone] Dottie Christine MD 230 [place], [place] [phone] Social History Tobacco Use Types Packs/Day Years [...] Upcoming Encounters Date Type Department Care Team ([facility] Contact Info) Description 01/28/2025 10:00 AM EDT Office Visit [facility] MEDICINE [address] [place] [address] [phone] Dottie Christine MD [address] [place] [address] 02/15/2025 3:00 PM EDT Office Visit [facility] OPTOMETRY [address] [place] [address] Carly Melara, OD 230 [place] [address] documented as of this encounter Goals Goal Patient Goal Type Associated Problems Recent Progress Patient-Stated? Author Blood Pressure < 140/90 Blood Pressure 124/77( 025 9:15 AM EDT) No Randa Armenta PharmD documented as of this encounter Visit Diagnoses Not on filedocumented in this encounter Additional Health Concerns Assessment Noted Time PHQ-9 Depression Total Score: 0 08/29/19 10:09 AM EDT documented as of this encounter Care Teams Geodetic Advisor Relationship Specialty Start Date End Date Dottie Christine MD 230 [place] [address] PCP - General Family Medicine 05/05/18 Randa Hoffman, PharmD 230 [place] [address] Pharmacist Internal Medicine 10/09/22 documented as of this encounter
--- OUTSIDE RECORDS SUMMARY | 2025-01-26 15:35 | XMS_ITS | Encounter Summary ---
Author Organization [employer] Address 75 [facility] 7t [place] [address] Care Team Providers Care Plastic Worker Name Role Phone Dottie Christine MD Primary Care Provider + [phone] Randa Hoffman PharmD Unavailable Encounter Details Date Type Department Care Team (Late st Contact Info) Description 05/17/2022 Orders Only [facility] [address] [place], [place] [phone] Valentina Garcia LPN Social History Tobacco Use [...] Description 01/28/2025 10:00 AM EDT Office Visit [facility] MEDICINE [address] [place] [address] Dottie Christine MD [address] [place] [address] 02/15/2025 3:00 PM EDT Office Visit [facility] OPTOMETRY [address] [place] [address] Carly Melara, OD 230 [place] [address] documented as of this encounter Visit Diagnoses Not on filedocumented in this encounter Care Teams Plastic Worker Relationship Specialty Start Date End Date Dottie Christine MD [address] [place] [address] PCP - General Family Medicine 05/05/18 Randa Hoffman, TomyD [address] [place] [address] Pharmacist Internal Medicine 10/09/22 documented as of this encounter
--- OUTSIDE RECORDS SUMMARY | 2025-01-26 15:35 | XMS_ITS | Encounter Summary ---
Author Organization [employer] Address 75 [facility] [address] [place] [address] Care Team Providers Care Insurance Claims Specialist Name Role Phone Dottie Christine MD Primary Care Provider + [phone] Randa Hoffman PharmD Unavailable [phone] Encounter Details Date Type Department Care Team (Late st Contact Info) Description 07/01/2022 Orders Only [facility] MEDICINE [address] [place] [address] Anca Jacob LPN Social History Tobacco Use [...] Description 01/28/2025 10:00 AM EDT Office Visit [facility] MEDICINE [address] [place] [address] Dottie Christine MD 230 [place] [address] 02/15/2025 3:00 PM EDT Office Visit [facility] OPTOMETRY [address] [place] [address] Carly Melara, OD 230 [place] [address] documented as of this encounter Visit Diagnoses Not on filedocumented in this encounter Care Teams Insurance Claims Specialist Relationship Specialty Start Date End Date Dottie Christine MD 230 [place] [address] PCP - General Family Medicine 05/05/18 Randa Hoffman, Christiana 230 [place] [address] Pharmacist Internal Medicine 10/09/22 documented as of this encounter
--- OUTSIDE RECORDS SUMMARY | 2025-01-26 15:35 | XMS_ITS | Encounter Summary ---
Author Organization [employer] Address [address] [facility] [address] [place] [address] Care Team Providers Care Neurology Nurse Name Role Phone Dottie Christine MD Primary Care Provider Randa Hoffman PharmD Unavailable Encounter Details Date Type Department Care Team (Late st Contact Info) Description 06/07/2022 Abstract [facility] [address] [place] [address] Dottie Christine MD [address] [place] [address] Social History Tobacco Use Types Packs/Day Years [...] Description 01/28/2025 10:00 AM EDT Office Visit [facility] [address] [place] [address] Dottie Christine MD [address] [place], [place] [phone] 02/15/2025 3:00 PM EDT Office Visit [facility] OPTOMETRY [address] [place] [address] Carly Melara, OD [address] [place] [address] documented as of this encounter Procedures Procedure Name Priority Date/Time Associated Diagnosis Comments COLONOSCOPY Routine 07/08/2022 COLONOSCOPY Routine 05/19/2014 documented in this encounter Results * (ABNORMAL) Colonoscopy (07/08/2022) Colonoscopy Abnormal(A ) Normal us Historical Provider MD HEALTH MAINTENANCE Final Result * Colonoscopy (05/19/2014) Colonoscopy tubular adenoma with Dr. Kaye us Historical Provider HEALTH MAINTENANCE Final Result documented in this encounter Visit Diagnoses Not on filedocumented in this encounter Care Teams Neurology Nurse Relationship Specialty Start Date End Date Dottie Christine MD [address] [place] [address] PCP - General Family Medicine 05/05/18 Randa Hoffman, TomyD [address] [place] [address] Pharmacist Internal Medicine 10/09/22 documented as of this encounter
--- OUTSIDE RECORDS SUMMARY | 2025-01-26 15:35 | XMS_ITS | Patient Health Record ---
Author Organization [facility] Address [address] [place] [phone] Care Team Providers Care Part Time Receptionist Name Role Phone Tab Hernandez Unavailable [phone] Reason For Referral No Information Plan Of Treatment No Information
[2025-01-26 16:55] LABS: Hemoglobin A1C 224.2482 umol/L; Total Hemoglobin (HGBA1C) 4124.4241 umol/L
== END 2025-01-26 13:12 | disposition home or self-care (01) ==
LOC: HO.HHCL 13:11
PROVIDERS: PCP Family Medicine; Visit Provider Family Medicine
DX: E11.9 Type 2 diabetes mellitus without complications (principal)
CPT/HCPCS: 36415; 83036

== ENCOUNTER 2025-02-01 14:12 | Outpatient (REF) | payer OTHER, SELFPAY ==
--- OUTSIDE RECORDS SUMMARY | 2025-01-28 10:00 | XMS_ITS | Encounter Summary ---
Author Organization [employer] Address [address] [facility] [address] [place] [address] Care Team Providers Care Business Line Manager Name Role Phone Dottie Christine MD Primary Care Provider +- [phone] Randa Hoffman PharmD Unavailable Reason for Visit * Reason Comments Pre-op Exam Encounter Details Date Type Department Care Team ([facility] st Contact Info) Description 01/28/2025 10:00 AM EDT Office Visit [facility]INE [address] [place] [address] Dottie Christine MD [address] [place] [address] Preop examination (Primary Dx); Combined forms of age-related cataract of both eyes; Primary hypertension; Type 2 diabetes mellitus without complication, without long-term current use of insulin ([facility]); Overweight; Dietary counseling; Exercise counseling; Encounter for immunization Social History Tobacco Use Types Packs/Day Years [...] Date Recorded Patient Health Questionnaire-2 Score 0 01/28/2025 Internet Access Answer Date Recorded Internet Access Q1 Yes 09/20/2024 Internet Access Q2 I do not want or need it 09/02 Sex and Gender Information Value Date Recorded Sex Assigned at Male 03/04/2022 10:17 AM EDT Legal Sex Male 10:17 AM EDT Gender Identity Male 03/04/2022 10:17 AM EDT Sexual Orientation Straight 03/04/2022 10 :17 AM EDT documented as of this encounter Last Filed Vital Signs Vital Sign Reading Time Taken Comments Blood Pressure 110/64 01/28/2025 9:24 AM EDT Pulse 79 01/28/2025 9:24 AM EDT Temperature 37.2 C (98.9 F) 01/28/2025 9:24 AM EDT Respiratory Rate 20 01/28/2025 9:24 AM EDT Oxygen Saturation 98% 01/28/2025 9:24 AM EDT Inhaled Oxygen Concentration - - Weight 65 kg (143 lb 6.4 oz) 01/28/2025 9:24 AM EDT Height - - Body Mass Index 28.01 09/20/2024 9:15 AM EDT documented in this encounter Functional Status * Question Answer Date of Assessment Author Feeling nervous, anxious, or on edge 0 01/04 9:25 AM EDT Brenda Rodriguez MA Not being able to stop or co ntrol worrying 0 01/28/2025 9:25 AM Brenda Garcia MA * Over the past 2 weeks, how often have you been bothered by any of the following problems? Question Answer Date of Assessment Author Patient Health Questionnaire-2 Score 0 01/04 9:25 AM Brenda Garcia MA * Little interest or pleasure in doing things Answer Date of Assessment Author Not at all 01/28/2025 9:25 AM JIMMIE Rodriguez, As HARESH eaton * Feeling down, depressed, or hopeless Answer Date of Assessment Author Not at all 01/28/2025 9:25 AM JIMMIE Rodriguez, As HARESH eaton * Trouble falling or staying asleep, or sleeping too much Answer Date of Assessment Author Not at all 01/28/2025 9:25 AM JIMMIE Rodriguez, As HARESH eaton * Feeling tired or having little energy Answer Date of Assessment Author Not at all 01/28/2025 9:25 AM JIMMIE Rodriguez, As HARESH eaton * Poor appetite or overeating Answer Date of Assessment Author Not at all 01/28/2025 9:25 AM JIMMIE Rodriguez, As HARESH eaton * Trouble concentrating on things, such as reading the newspaper or watching television Answer Date of Assessment Author Not at all 01/28/2025 9:25 AM JIMMIE Rodriguez, As HARESH eaton * Moving or speaking so slowly that other people could have noticed? Or the opposite - being so fidgety or restless that you have been moving around a lot more than usual. Answer Date of Assessment Author Not at all 01/28/2025 9:25 AM JIMMIE Rodriguez, Divya eaton MA * Thoughts that you would be better off or hurting yourself in some way Answer Date of Assessment Author Not at all 01/28/2025 9:25 AM JIMMIE Rodriguez, As HARESH eaton documented as of this encounter Progress Notes * Dottie Christine MD - 01/28/2025 10:00 AM EDT Michoacano Batista is a 69 y.o. male with past medical history of type 2 diabetes, cardiomyopathy, alcohol use disroder, hypertension and subarachnoid hemorrhage 11/2022 who presents to the office for apreoperative evaluation. Primary Care Provider: Dottie Christine MD Procedure[facility] Surgeon: Dr. Karla Reinoso Date of Procedure: 02/04/2025 ext [phone] Fax: [phone] Type of Anesthesia: MAC Procedure risk: Low Risk Lab: No EKG: No Contact name (person you spoke with): Alethea Last office note from surgeon requested: Yes Pt reports doing well. He denies any recent chest pain, fever, fatigue or dizziness. He agrees to flu sot today. Chronic Medical Conditions: Problem List[1] Allergies: Allergies[2] Medications Ordered Prior to Encounter[3] Review of Systems Constitutional: Negative for fatigue, fever and unexpected weight change. Respiratory: Negative for shortness of breath. Cardiovascular: Negative for chest pain. Gastrointestinal: Negative for abdominal pain. Genitourinary: Negative for difficulty urinating. Neurological: Negative for dizziness. Social History Denies tobacco, EtOh or recreational drugs Objective Visit Vitals BP 110/64 (BP Location: Left arm, Patient Position: Sitting, BP Cuff Size: Adult) Pulse 79 Temp 98.9 ??F (37.2 ??C) (Oral) Resp 20 Wt 143 lb 6.4 oz (65 kg) SpO2 98% BMI 28.01 kg/m?? Smoking Status Never BSA 1.66 m?? Physical Exam Constitutional: Appearance: Normal appearance. HENT: Right Ear: Tympanic membrane normal. Left Ear: Tympanic membrane normal. Nose: Nose normal. Mouth/Throat: Pharynx: Oropharynx is clear. Eyes: Extraocular Movements: Extraocular movements intact. Pupils: Pupils are equal, round, and reactive to light. Cardiovascular: Rate and Rhythm: Normal rate and regular rhythm. Heart sounds: Normal heart sounds. Pulmonary: Effort: Pulmonary effort is normal. Breath sounds: Normal breath sounds. No wheezing. Abdominal: General: Abdomen is flat. Palpations: Abdomen is soft. Tenderness: There is no abdominal tenderness. Musculoskeletal: General: Normal range of motion. Skin: General: Skin is warm and dry. Neurological: General: No focal deficit present. Mental Status: He is alert. Psychiatric: Mood and Affect: Mood normal. Behavior: Behavior normal. Assessment & Plan Preop examination This patient is at low risk for an low risk procedure. The patient is at acceptable risk for the proposed procedure. Reviewed with patient that no surgery is completely free of risk and this evaluation is to assist surgeon in accurately reviewing informed consent. H&P completed -Medication list reviewed with patient and up to date. Medication Recs: none. Combined forms of age-related cataract of both eyes Procedure: [facility] Surgeon: Dr. Karla reinoso Date of Procedure: 02/04/2025 ext [phone] Fax: [phone] Type of Anesthesia: MAC Procedure risk: Low Risk Primary hypertension -Blood pressure is at goal 01/28/25 -Continue lifestyle modifications -Continue current medications -Continue Hydrochlorothiazide 25 mg, started on 03/22/24 Type 2 diabetes mellitus without complication, without long-term current use of insulin ([facility]) Formally diagnosed on 05/21/18 due to A1C 6.5% from 2016 Diabetes is controlled. -Follows with Collaborative Drug Therapy Managment Program with our TomyD, [place] Lab Results Component Value Date HGBA1C 7.1 (H) 01/26/2025 HGBA1C 6.8 (H) 09/16/2024 HGBA1C 5.8 02/11/2024 - Lab Results Component Value Date MICROALBUR 50.0 02/11/2024 CREATININE 1.03 09/16/2024 -Dwayne/Arb: -Statin therapy: discontinue dby SNF 11/2022 due to transaminits -Diabetic eye exam: 08/15/24 [facility] -Diabetic foot exam: Done 03/22/24 -Continue lifestyle modifications -Continue current medications Orders: Albumin, Random Urine W/Creatinine; Future Hepatic Function Panel; Future Lipid Panel, Standard; Future Basic Metabolic Panel; Future Overweight Discussed weight, diet, exercise with patient in relation to health conditions. Used motivational interviewing to illicit change talk and established initial goals with patient. Dietary counseling Dietary Recommendations: Fruits, vegetables, whole grains, protein foods, and fat-free or low-fat dairy products are healthychoices. Eat different types of protein foods in your diet. This can include seafood, lean meats, poultry, beans, peas, lentils, nuts, seeds, soy products, and eggs. Limit foods and beverages higher in added sugars, saturated fat, and sodium. Exercise counseling Exercise Recommendations: At least 150 minutes of moderate-intensity physical activity per week, or an equivalent combinationof moderate- and vigorous-intensity activity. Encounter for immunization Follow up in about 6 months (around 07/28/2025) for physical. I, Teodoro Bloom, am serving as a scribe to document services personally performed by Dr. Horvath, based on the patient's response to questions by provider and providers statements to me. [1] Patient Active Problem List Diagnosis Allergic rhinitis Backache BPH without urinary obstruction Cardiomyopathy, alcoholic (CMS/HCC) Depressive disorder Glaucoma Hypercholesterolemia Hypertension Obstructive sleep apnea syndrome Microscopic hematuria Tubular adenoma Type 2 diabetes mellitus (CMS/HCC) Vitamin B12 deficiency (non anemic) Total body pain Other specified health status Subarachnoid hemorrhage (CMS/HCC) Transaminitis Traumatic subarachnoid hemorrhage without loss of consciousness, subsequent encounter Enlarged and hypertrophic nails Neck pain Alcohol use disorder Urinary retention Dysphagia Hypokalemia Overweight Chronic pain of both knees Combined forms of age-related cataract of both eyes [2] No Known Allergies [3] Current Outpatient Medications on File Prior to Visit Medication Sig Dispense Refill Alcohol Swabs (Alcohol Prep) 70 % pads USE DIRECTED TO TEST BLOOD SUGAR AND WITH INSULIN 100 each 11 amLODIPine (Norvasc) 10 MG tablet Take 1 tablet (10 mg) by mouth at bedtime. 90 tablet 3 brimonidine (AlphaGAN) 0.2 % ophthalmic solution Administer 1 drop into both eyes 2 times daily. 10mL 11 carvedilol (Coreg) 6.25 MG tablet TAKE 1 TABLET BY MOUTH TWICE DAILY IN THE MORNING AND IN THE EVENING WITH FOOD 60 tablet 11 finasteride (Proscar) 5 MG tablet t1 BY MOUTH EVERY EVENING fluticasone (Flonase) 50 MCG/ACT nasal spray Administer 1 spray into each nostril Once per day. Shake gently. Before first use, prime pump. After use, clean tip and replace cap. 48 g 1 folic acid (Folvite) 1 MG tablet TAKE 1 TABLET BY MOUTH EVERY MORNING 90 tablet 3 hydroCHLOROthiazide (HYDRODiuril) 25 MG tablet Take 1 tablet (25 mg) by mouth Once per day. 30 tablet 11 Lancets (OneTouch Delica Plus [id number]) [facility] TEST BLOOD SUGAR TWICE DAILY 100 each 11 loratadine (Claritin) 10 MG tablet Take 1 tablet (10 mg) by mouth if needed each day for allergies.30 tablet 11 montelukast (Singulair) 10 MG tablet TAKE 1 TABLET BY MOUTH EVERY EVENING 90 tablet 1 OneTouch Ultra Test test strip TEST BLOOD SUGAR TWICE DAILY 100 strip 11 tamsulosin (Flomax) 0.4 MG 24 hr capsule Take 0.4 mg by mouth at bedtime. thiamine (Vitamin B-1) 100 MG tablet TAKE 1 TABLET BY MOUTH EVERY MORNING 90 tablet 3 No current facility-administered medications on file prior to visit. documented in this encounter Miscellaneous Notes * Assessment & Plan Note - Dottie Christine MD - 01/28/2025 10:00 AM EDT Associated Problem(s): Hypertension -Blood pressure is at goal 01/28/25 -Continue lifestyle modifications -Continue current medications -Continue Hydrochlorothiazide 25 mg, started on 03/22/24 * Assessment & Plan Note - Dottie Christine MD - 01/28/2025 10:00 AM EDT Associated Problem(s): Type 2 diabetes mellitus (CMS/[facility]) Formally diagnosed on 05/21/18 due to A1C 6.5% from 2016 Diabetes is controlled. -Follows with Collaborative Drug Therapy Managment Program with our Christiana, [place]KAS Lab Results Component Value Date HGBA1C 7.1 (H) 01/26/2025 HGBA1C 6.8 (H) 09/16/2024 HGBA1C 5.8 02/11/2024 - Lab Results Component Value Date MICROALBUR 50.0 02/11/2024 CREATININE 1.03 09/16/2024 -Dwayne/Arb: -Statin therapy: discontinue dby SNF 11/2022 due to transaminits -Diabetic eye exam: 08/15/24 [facility] -Diabetic foot exam: Done 03/22/24 -Continue lifestyle modifications -Continue current medications Orders: Albumin, Random Urine W/Creatinine; Future Hepatic Function Panel; Future Lipid Panel, Standard; Future Basic Metabolic Panel; Future * Assessment & Plan Note - Dottie Christine MD - 01/28/2025 10:00 AM EDT Associated Problem(s): Overweight Discussed weight, diet, exercise with patient in relation to health conditions. Used motivational interviewing to illicit change talk and established initial goals with patient. * Assessment & Plan Note - Dottie Christine MD - 01/28/2025 10:00 AM EDT Associated Problem(s): Combined forms of age-related cataract of both eyes Procedure: [facility] Surgeon: Dr. Karla reinoso Date of Procedure: 02/04/2025 ext [phone] Fax: [phone] Type of Anesthesia: MAC Procedure risk: Low Risk documented in this encounter Plan of Treatment Upcoming Encounters Date Type Department Care Team (Late st Contact Info) Description 02/15/2025 3:00 PM EDT Office Visit [facility] OPTOMETRY [address] [place] [address] Carly Melara, OD [address] [place] [address] Scheduled Orders Name Type Priority Associated Diagnoses Orde r Schedule Albumin, Random Urine W/Creatinine Lab Routine Type 2 diabetes mellitus without complication, without long-term current use of insulin (CMS/HCC) Expected: 01/28/2025 (Approximate), Expires: 01/28/2026 Hepatic Function Panel Lab Routine Type 2 diabetes mellitus without complication, without long-term current use of insulin (CMS/HCC) Expected: 01/28/2025 (Approximate), Expires: 01/28/2026 Lipid Panel, Standard Lab Routine Type 2 diabetes mellitus without complication, without long-term current use of insulin (CMS/HCC) Expected: 01/28/2025 (Approximate), Expires: 01/28/2026 Basic Metabolic Panel Lab Routine Type 2 diabetes mellitus without complication, without long-term current use of insulin (CMS/HCC) Expected: 01/28/2025 (Approximate), Expires: 01/28/2026 documented as of this encounter Goals Goal Patient Goal Type Associated Problems Recent Progress Patient-Stated? Author Blood Pressure < 140/90 Blood Pressure 110/64(2024 9:24 AM EDT) No Randa Armenta PharmD Hemoglobin A1c < 7 Result Component 7.1( 1:19 PM EDT) No Randa Armenta PharmD documented as of this encounter Visit Diagnoses Diagnosis Preop examination- Primary Unspecified pre-operative examination Combined forms of age-related cataract of both eyes Primary hypertension Unspecified essential hypertension Type 2 diabetes mellitus without complication, without long-term current use of insulin (HCC) Overweight Dietary counseling Dietary surveillance and counseling Exercise counseling Encounter for immunization documented in this encounter Additional Health Concerns Assessment Noted Time PHQ-9 Depression Total Score: 8 03/22/20 24 11:10 AM EST documented as of this encounter Care Teams Business Line Manager Relationship Specialty Start Date End Date Dottie Christine MD [address] [place] [address] PCP - General Family Medicine 05/05/18 Randa Hoffman, PharmD [address] [place] [address] Pharmacist Internal Medicine 10/09/22 documented as of this encounter
--- OUTSIDE RECORDS SUMMARY | 2025-02-01 15:35 | XMS_ITS | Encounter Summary ---
Author Organization [employer] Address [address] [facility] [address] [place] [address] Care Team Providers Care Group Burner Machine Name Role Phone Dottie Christine MD Primary Care Provider +- [phone] Randa Hoffman PharmD Unavailable Encounter Details Date Type Department Care Team (Late st Contact Info) Description 01/09/2023 Telephone [facility] [address] [place] [address] Dottie Christine MD [address] [place] [address] Social History Tobacco Use Types Packs/Day Years [...] . Any questions may contact phone # [phone] documented in this encounter Plan of Treatment Upcoming Encounters Date Type Department Care Team (Late st Contact Info) Description 02/15/2025 3:00 PM EDT Office Visit [facility] OPTOMETRY [address] [place] [address] Carly Melara, NICK [address] [place] [address] documented as of this encounter Goals Goal Patient Goal Type Associated Problems Recent Progress Patient-Stated? Author Blood Pressure < 140/90 Blood Pressure 110/64(2024 9:24 AM EDT) No Randa Armenta, PharmD Hemoglobin A1c < 7 Result Component 7.1( 1:19 PM EDT) No Randa Armenta PharmD documented as of this encounter Visit Diagnoses Not on filedocumented in this encounter Additional Health Concerns Assessment Noted Time PHQ-9 Depression Total Score: 0 08/29/19 23 10:09 AM EDT documented as of this encounter Care Teams Group Burner Machine Relationship Specialty Start Date End Date Dottie Christine MD [address] [place] [address] PCP - General Family Medicine 05/05/18 Randa Hoffman PharmD [address] [place] [address] Pharmacist Internal Medicine 10/09/22 documented as of this encounter
--- OUTSIDE RECORDS SUMMARY | 2025-02-01 15:35 | XMS_ITS | Encounter Summary ---
Author Organization [employer] Address [address] [facility] [address] [place] [address] Care Team Providers Care Spike Machine Feeder Name Role Phone Dottie Christine MD Primary Care Provider +- [phone] Randa Hoffman PharmD Unavailable [phone] Reason for Visit * Reason Comments Med Refill Encounter Details Date Type Department Care Team ([facility] st Contact Info) Description 03/06/2023 Refill [facility] MED[facility] [address] [place], [place] [phone] Dottie Christine MD [address] [place] [address] Social History Tobacco Use Types Packs/Day Years [...] Description 02/15/2025 3:00 PM EDT Office Visit [facility] OPTOMETRY [address] [place], [place] [phone] Carly Melara, OD [address] [place] [address] documented as of this encounter Goals Goal Patient Goal Type Associated Problems Recent Progress Patient-Stated? Author Blood Pressure < 140/90 Blood Pressure 110/64(2024 9:24 AM EDT) No Davids-Randa Londono, PharmD Hemoglobin A1c < 7 Result Component 7.1( 1:19 PM EDT) No Davids-Randa Londono, PharmD documented as of this encounter Visit Diagnoses Not on filedocumented in this encounter Additional Health Concerns Assessment Noted Time PHQ-9 Depression Total Score: 0 08/29/19 23 10:09 AM EDT documented as of this encounter Care Teams Spike Machine Feeder Relationship Specialty Start Date End Date Dottie Christine MD [address] [place] [address] PCP - General Family Medicine 05/05/18 Randa Hoffman, PharmD [address] [place] [address] Pharmacist Internal Medicine 10/09/22 documented as of this encounter
--- OUTSIDE RECORDS SUMMARY | 2025-02-01 15:35 | XMS_ITS | Encounter Summary ---
Author Organization [facility] Address [address] [facility] [address] [place] [address] Phone Care Team Providers Care Wall To Wall Carpet Installer Name Role Phone Cailin Madsen Primary Care Provider +1 [phone] Encounter Details Date Type Department Care Team (Late st Contact Info) Description 11/28/2022 Procedure Pass [facility], Ct Scan - [address] [phone] Social History Tobacco Use Types Packs/Day Years [...] 11:31 AM EDT Dougie Amezcua RN * [place] Suicide Severity Rating Scale (Screener/Recent Self-Report) Question [...] on filedocumented in this encounter Care Teams Wall To Wall Carpet Installer Relationship Specialty Start Date End Date Cailin Madsen PA [facility] [place] [address] [email or web address] PCP - General Unknown Provider Specialty 11/28/22 documented as of this encounter Additional Source Comments The information contained in this document represents components of the legal health record. It is not the complete legal health record.[facility]
--- OUTSIDE RECORDS SUMMARY | 2025-02-01 15:35 | XMS_ITS | Patient Health Record ---
Author Organization [facility] Address [address] [place] [phone] Care Team Providers Care Junior Web Designer Name Role Phone Tab Hernandez Unavailable [phone] Reason For Referral No Information Plan Of Treatment No Information
--- OUTSIDE RECORDS SUMMARY | 2025-02-01 15:35 | XMS_ITS | Encounter Summary ---
Author Organization [employer] Address [address] [facility] [address] [place] [address] Care Team Providers Care Educational Sign Language Interpreter Name Role Phone Dottie Christine MD Primary Care Provider +- [phone] Randa Hoffman PharmD Unavailable Reason for Visit * Reason Onset Date Comments Paperwork/Forms 01/28/2025 Encounter Details Date Type Department Care Team (Late st Contact Info) Description 01/28/2025 Telephone [facility] [address] [place] [address] Dottie Christine MD [address] [place] [address] Paperwork/Forms Social History Tobacco Use Types Packs/Day Years [...] AM EDT documented as of this encounter Functional Status * Question Answer Date of Assessment Author Feeling nervous, anxious, or on edge 0 01/04 9:25 AM Brenda Garcia MA Not being able to stop or [...] Author Not at all 01/28/2025 9:25 AM Divya Garcia MA * Feeling down, depressed, or hopeless Answer Date of Assessment Author Not at all 01/28/2025 9:25 AM Divya Garcia MA * Trouble falling or staying asleep, or sleeping too much Answer Date of Assessment Author Not at all 01/28/2025 9:25 AM Divya Garcia MA * Feeling tired or having little energy Answer Date of Assessment Author Not at all 01/28/2025 9:25 AM EDT Michael, As HARESH eaton * Poor appetite or overeating Answer Date of Assessment Author Not at all 01/28/2025 9:25 AM EDT Michael, Divya eaton MA * Trouble concentrating on things, such as reading the newspaper or watching television Answer Date of Assessment Author Not at all 01/28/2025 9:25 AM EDT Michael, As HARESH eaton * Moving or speaking so slowly that other people could have noticed? Or the opposite - being so fidgety or restless that you have been moving around a lot more than usual. Answer Date of Assessment Author Not at all 01/28/2025 9:25 AM EDT Michael, Divya eaton MA * Thoughts that you would be better off or hurting yourself in some way Answer Date of Assessment Author Not at all 01/28/2025 9:25 AM EDT Michael, As HARESH eaton documented as of this encounter Miscellaneous Notes * Telephone Encounter - Shara Quijano RN - 01/28/2025 3:26 PM EDT Faxed pre op clearance note to Dr Solomon Rice's office at [phone]. Confirmation received. * Telephone Encounter - Dottie Christine MD - 01/28/2025 10:54 AM EDT Op note done, ok to fax to ophto office. documented in this encounter Plan of Treatment Upcoming Encounters Date Type Department Care Team (Late st Contact Info) Description 02/15/2025 3:00 PM EDT Office Visit [facility] [address] [place] [address] Carly Melara, OD [address] [place] [address] documented as of this encounter Goals Goal Patient Goal Type Associated Problems Recent Progress Patient-Stated? Author Blood Pressure < 140/90 Blood Pressure 110/64(2024 9:24 AM EDT) No Randa Armenta, Christiana Hemoglobin A1c < 7 Result Component 7.1( 1:19 PM EDT) No Randa Armenta PharmD documented as of this encounter Visit Diagnoses Not on filedocumented in this encounter Additional Health Concerns Assessment Noted Time PHQ-9 Depression Total Score: 8 03/22/20 24 11:10 AM EST documented as of this encounter Care Teams Educational Sign Language Interpreter Relationship Specialty Start Date End Date Dottie Christine MD [address] [place] [address] PCP - General Family Medicine 05/05/18 Randa Hoffman PharmD [address] [place] [address] Pharmacist Internal Medicine 10/09/22 documented as of this encounter
--- OUTSIDE RECORDS SUMMARY | 2025-02-01 15:35 | XMS_ITS | Encounter Summary ---
Author Organization [employer] Address [address] [facility] [address] [place] [address] Care Team Providers Care Rib Trim Separator Name Role Phone Dottie Christine MD Primary Care Provider +- [phone] Randa Hoffman PharmD Unavailable [phone]- [phone] Reason for Visit * Reason Onset Date Comments Error (VOID this visit) 02/01/2025 Encounter Details Date Type Department Care Team ([facility] st Contact Info) Description 02/01/2025 Telephone [facility] [address] [place] [address] Dottie Christine MD [address] [place], [place] [phone] Error (VOID this visit) Social History Tobacco Use Types Packs/Day Years [...] the past 12 months, has t he [employer], oil or water [employer] threatened to shut off services in your [...] Description 02/15/2025 3:00 PM EDT Office Visit [facility] OPTOMETRY [address] [place] [address] Kelton, Carly, OD [address] [place] [address] documented as of this encounter Goals Goal Patient Goal Type Associated Problems Recent Progress Patient-Stated? Author Blood Pressure < 140/90 Blood Pressure 110/64(2024 9:24 AM EDT) No Piers-Gambl e, Randa, PharmD Hemoglobin A1c < 7 Result Component 7.1( 1:19 PM EDT) No Piers-Gambl e, Randa, PharmD documented as of this encounter Visit Diagnoses Not on filedocumented in this encounter Additional Health Concerns Assessment Noted Time PHQ-9 Depression Total Score: 8 03/22/20 24 11:10 AM EST documented as of this encounter Care Teams Rib Trim Separator Relationship Specialty Start Date End Date Dottie Christine MD [address] [place] [address] PCP - General Family Medicine 05/05/18 Randa Hoffman, Christiana [address] [place] [address] Pharmacist Internal Medicine 10/09/22 documented as of this encounter
--- OUTSIDE RECORDS SUMMARY | 2025-02-01 15:35 | XMS_ITS | Clinical Summary ---
Author Organization [employer] Address [address] [facility] 7[address] [place] [address] Care Team Providers Care Manufacture Specialist Name Role Phone Dottie Christine MD Primary Care Provider +- [phone] Randa Hoffman PharmD Unavailable Allergies No known active allergies Medications tamsulosin [...] 25 026 Active Lancets (OneTouch Delica Plus [id number]) miscIndications: Type 2 diabetes mellitus without complication, without long-term current use of insulin ([facility]) TEST BLOOD SUGAR TWICE DAILY 100 each 11 10/08/19 25 Active OneTouch Ultra Test test stripIndications :Type 2 diabetes mellitus without complication, without long-term current use of insulin ([facility]) TEST BLOOD SUGAR TWICE DAILY 100 strip 11 10/08/19 25 Active Alcohol Swabs (Alcohol Prep) 70 % padsIndications: Type 2 diabetes mellitus without complication, without long-term current use of insulin ([facility]) USE DIRECTED TO TEST BLOOD [...] CDTM HTN with Randa Hoffman, PharmD, CDE Formerly [facility] [place] Circulation Representative: Lory Manager Concrete Agency: [facility], [facility] Problem Noted Date Diagnosed Date Combined forms of age-related cataract of both e yes 01/28/2025 Assessment & Plan (01/28/2025 10:54 AM EDT): Procedure: [facility] Surgeon: Dr. Karla reinoso Date of Procedure: 02/04/2025 ext [phone] Fax: [phone] Type of Anesthesia: MAC Procedure risk: Low Risk Hypokalemia 09/20/2024 Overview (01/28/2025): Lab Results Component Value Date K 4.2 09/20/2024 K 2.8 (LL) 09/16/2024 K 3.6 02/11/2024 Potassium was 2.8 on 09/16/24, was replaced [...] initial goals with patient. Assessment & Plan (01/28/2025 10:54 AM EDT): Discussed weight, diet, exercise with patient in relation to health conditions. Used motivational interviewing to illicit change talk and established initial goals with patient. Assessment & Plan (09/20/2024 6:14 PM EDT): Discussed weight, diet, exercise with patient in relation to health conditions. Used motivational interviewing to illicit change talk and established initial goals with patient. Chronic pain of both knees 09/20/2024 Overview [...] 02/13/2023 Overview (02/13/2023): -Toe nails clipped at [facility] today Assessment & Plan (02/13/2023 9:41 AM EDT): -Toe nails clipped at [facility] today Neck pain 02/13/2023 Overview (02/13/2023): [...] resume statins -continue to hold x now Subarachnoid hemorrhage (CMS/HCC) 12/04/2022 Overview (02/13/2023): Admitted to [facility] on 11/21/22 after he was found down in the setting of EtOH use. Found to have acute subarachnoid hemorrhage, subdural hematoma and frontal skull fracture and transferred to [facility] 11/22/22- 11/24/22. Received Keppra x 7 days and phenobarb for sz prophylaxis. -Admitted to [facility] 11/24-12/05/22 -0n 11/28/22 he reported worsening headaches and was transferred from [facility] to [facility] ER, scan stable and returned to SNF with MSIR prn, developed mental status changes and MSIR discontinued. -During SNF he developed mild transaminitis and statin was discontinued. -has [employer] hours -Home VNA discontinued 01/2023 -seen by neurology, Dr. Ghislaine Livingston MD 02/11/23 for memory loss after subarachnoid hemorrgage. He was given diagnosis of multifactoral dementia. Consider MMS or MOCA test in the future Assessment & Plan (02/13/2023 11:52 AM EDT): Admitted to [facility] on 11/21/22 after he was found down in the setting of EtOH use. Found to have acute subarachnoid hemorrhage, subdural hematoma and frontal skull fracture and transferred to [facility] 11/22/22- 11/24/22. Received Keppra x 7 days and phenobarb for sz prophylaxis. -Admitted to [facility] 11/24-12/05/22 -0n 11/28/22 he reported worsening headaches and was transferred from [facility] to [facility] ER, scan stable and returned to SNF with MSIR prn, developed mental status changes and MSIR discontinued. -During SNF he developed mild transaminitis and statin was discontinued. -has [employer] hours -Home VNA discontinued 01/2023 -seen by [...] ,but also reporting memory loss -I called [facility] today Trauma surgeon # [phone] and confirmed pt should had been call for f up last week -scheduled apt for 12/25/2022 At 10H40 am at [facility] Medical Office [facility] [address] ,[address] ,[facility] and gave pt information of apt [...] -VNA services are starting process ti obtain [employer] services for pt -requested by VNA prescription [...] by followed by Dr. Richardson Flood of [facility] -dental home is [facility] - Health Care Proxy 03/22/24 Assessment & Plan (03/22/2024 1:12 PM EST): -next comprehensive annual evaluation due after 03/22/2025 -eye care facilitated by followed by Dr. Richardson Flood of [facility] -dental home is [facility] - Health Care Proxy 03/22/24 Assessment & Plan (02/13/2023 9:46 AM EDT): -next physical exam due 02/14/2024 -eye care facilitated by followed by Dr. Richardsno Flood of [facility] -dental home is [facility] Total body pain 08/28/2022 Overview (01/15/2023): -Multiple [...] year. Type 2 diabetes mellitus 07/26/2021 Overview (01/28/2025): Formally diagnosed on 05/21/18 due to A1C 6.5% from 2016 Diabetes is controlled. -Follows with [facility]agment Program with our PharmD, CDCES Lab Results Component Value Date HGBA1C 7.1 (H) 01/26/2025 HGBA1C 6.8 (H) 09/16/2024 HGBA1C 5.8 02/11/2024 - Lab Results Component Value Date MICROALBUR 50.0 02/11/2024 CREATININE 1.03 09/16/2024 -Dwayne/Arb: -Statin therapy: discontinue dby SNF 11/2022 due to transaminits -Diabetic eye exam: 08/15/24 [facility] -Diabetic foot exam: Done 03/22/24 -Continue lifestyle modifications -Continue current medications Assessment & Plan (01/28/2025 10:54 AM EDT): Formally diagnosed on 05/21/18 due to A1C 6.5% from 2016 Diabetes is controlled. -Follows with Collaborative Drug Therapy Managment Program with our VIKAS Villeda Lab Results Component Value Date HGBA1C 7.1 (H) 01/26/2025 HGBA1C 6.8 (H) 09/16/2024 HGBA1C 5.8 02/11/2024 - Lab Results Component Value Date MICROALBUR 50.0 02/11/2024 CREATININE 1.03 09/16/2024 -Dwayne/Arb: -Statin therapy: discontinue dby SNF 11/2022 due to transaminits -Diabetic eye exam: 08/15/24 [facility] [place] -Diabetic foot exam: Done 03/22/24 -Continue lifestyle modifications -Continue current medications Orders: Albumin, Random Urine W/Creatinine; Future Hepatic Function Panel; Future Lipid Panel, Standard; Future Basic Metabolic Panel; Future Assessment & Plan (09/20/2024 6:14 PM EDT): Formally diagnosed on 05/21/18 due to A1C 6.5% from 2016 Diabetes is controlled. -Follows with Collaborative Drug Therapy Managment Program with our VIKAS Villeda Lab Results Component Value Date HGBA1C 6.8 (H) 09/16/2024 HGBA1C 5.8 02/11/2024 HGBA1C 5.9 12/17/2022 - Lab Results Component Value Date MICROALBUR 50.0 02/11/2024 CREATININE 1.03 09/16/2024 -Dwayne/Arb: -Statin therapy: discontinue dby SNF 11/2022 due to transaminits -Diabetic eye exam: 03/12/23 [facility] -Diabetic foot exam: Done 03/22/24 -Continue lifestyle modifications -Continue current medications Assessment & Plan (03/22/2024 1:20 PM EST): Formally diagnosed on 05/21/18 due to A1C 6.5% from 2016 Diabetes is controlled. -Follows with Collaborative Drug Therapy Managment Program with our TomyDVIKAS Lab Results Component Value Date HGBA1C 5.8 02/11/2024 HGBA1C 5.9 12/17/2022 HGBA1C 6.1 (H) 11/25/2022 - Lab Results Component Value Date MICROALBUR 50.0 02/11/2024 CREATININE 0.88 02/11/2024 -Dwayne/Arb: -Statin therapy: discontinue dby [facility] 11/2022 due to transaminits -Diabetic eye exam: 03/12/23 [facility] -Diabetic foot exam: Done [...] 02/11/2024 -continue lifestyle modification -statin discontinued in [facility] 11/2022 due to transaminitis Assessment & Plan (09/20/2024 6:15 PM EDT): Lab Results Component Value Date CHOL 223 (H) 02/11/2024 TRIG 74 02/11/2024 TRIG 123 08/28/2022 HDL 65 02/11/2024 LDLCHOLCAL 144 (H) 02/11/2024 -continue lifestyle modification -statin discontinued in [facility] 11/2022 due to transaminitis Assessment & Plan (03/22/2024 11:57 AM EST): Lab Results Component Value Date CHOLESTEROL 163 08/28/2022 LDLCHOL 98 08/28/2022 LDLCHOL 101 (H) 07/26/2021 LDLCHOL 80 07/20/2020 TRIG 74 02/11/2024 TRIG 123 08/28/2022 HDLCHOL 43 08/28/2022 CHOLHDLRAT 3.8 08/28/2022 -continue lifestyle modifications -statin discontinued in SNF 11/2022 due to transaminitis Assessment & Plan (02/13/2023 9:04 AM EDT): Lab Results Component Value Date CHOLESTEROL 163 08/28/2022 LDLCHOL 98 08/28/2022 LDLCHOL 101 (H) 07/26/2021 LDLCHOL 80 07/20/2020 TRIG 123 08/28/2022 HDLCHOL 43 08/28/2022 CHOLHDLRAT 3.8 08/28/2022 -continue lifestyle modifications Obstructive sleep apnea syndrome 10/30/2011 Hypertension 10/23/2011 Overview (01/28/2025): -Blood pressure is at goal 01/28/25 -Continue lifestyle modifications -Continue current medications -Continue Hydrochlorothiazide 25 mg, started on 03/22/24 Assessment & Plan (01/28/2025 10:54 AM EDT): -Blood pressure is at goal 01/28/25 -Continue lifestyle modifications -Continue current medications -Continue Hydrochlorothiazide 25 mg, started on 03/22/24 Assessment & Plan (03/22/2024 1:18 PM EST): [...] Problem Noted Date Diagnosed Date Resolved Date Dietary counseling 09/20/2024 Assessment & Plan (09/20/2024 [...] saturated fat, and sodium. Exercise counseling 09/20/2024 01/29/20 Assessment & Plan (09/20/2024 6:15 PM EDT): Exercise Recommendations: At least 150 minutes of moderate-intensity physical activity per week, or an equivalent combination of moderate- and vigorous-intensity activity. Physical exam 02/13/2023 03/22/2024 Overview (03/22/2024): -Normal growth and development. -Anticipatory guidance discussed. -Preventative care / harm reduction discussed. - Next annual exam is due after 03/22/25 - Health Care Proxy 03/22/24 Assessment & Plan (02/13/2023 9:03 AM EDT): -Normal growth and development. -Anticipatory guidance discussed. -Preventative care / harm reduction discussed. Alcohol abuse 12/17/2022 01/28/2025 Assessment & Plan (12/17/2022 4:45 PM EDT): Pt reports hx of ETOH abuse and from dc papers hx of alcohol withdrawal symptoms Last intake was 2 days ago -reports lately only taking 1 to 2 beers -advised in length to avoid ETOH -pt interested in CRS referral for alcohol cessation program-referred today -will f w PCP next month Encounters Date Type Department Care Team Description 02/01/2025 Telephone [facility] MEDIC[facility] [address] [place] [phone] Dottie Christine MD Error (VOID this visit) 01/28/2025 10:00 AM EDT Office Visit [facility] [address] [place] [phone] Dottie Christine MD Preop examination (Primary Dx); Combined forms of age-related cataract of both eyes; Primary hypertension; Type 2 diabetes mellitus without complication, without long-term current use of insulin ([facility]); Overweight; Dietary counseling; Exercise counseling; Encounter for immunization 01/28/2025 Telephone [facility] [address] [place] [address] Dottie Christine MD Paperwork/Forms 01/28/2025 Travel 01/26/2025 Orders Only [facility] [address] [place] [address] Dottie Christine MD 01/25/2025 Telephone [facility] [address] [place] [address] Dottie Christine MD Pre-op Exam 01/20/2025 Refill [facility] [address] [place] [address] Dottie Christine MD Alcohol use disorder 01/18/2025 Refill [facility] [address] [place] [address] Dottie Christine MD Allergic rhinitis, unspecified 12/18/2024 Refill [facility] [address] [place] [address] Dottie Christine MD Type 2 diabetes mellitus without complication, without long-term current use of insulin ([facility]) from Last 3 Months Immunizations [...] Split (incl. gianni fied surface antigen) 02/01/2013 Influenza, seasonal, injecta ble, preservative free 01/28/2025 Moderna Covid-19 Vaccine 12+ 08/03/2021,07/21/19 21,06/22/2020 Moderna [...] 6.4 oz) 01/28/2025 9:24 AM EDT Height 152.4 cm (5') 09/20/2024 9:15 AM EDT Body Mass Index 28.01 09/20/2024 9:15 AM EDT Plan of Treatment Upcoming Encounters Date Type Department Care Team (Late st Contact Info) Description 02/15/2025 3:00 PM EDT Office Visit [facility] OPTOMETRY [address] [place] [address] Kelton, Carly, OD [address] [place] [address] Health Maintenance Due Date Last Done Comments CT Colonography 1955 FIT DNA/Cologuard 1955 FIT 1955 FOBT 1955 Sigmoidoscopy 1955 Colonoscopy 07/09/2023 07/08/2022, 05/19/2014 Colorectal Cancer Screening 07/09/2023 COVID-19 Vaccine ( season) 2025 03/22/2024, 02/13/2023, 08/28/2022, Additional history exists Diabetes: Urine Protein Screening 02/10/2025 02/11/2024, 02/13/2023, 02/13/2023, Additional history exists Lipid Panel 02/10/2025 02/11/2024, 0410/2022, 07/26/2021, Additional history exists Diabetes: Foot Exam 03/22/2025 03/22/2024, 03/22/2024, 03/22/2024, Additional history exists Diabetes: Hemoglobin A1C 04/27/2025 025, 09/16/2024, 02/11/2024, Additional history exists SDOH Screening 09/20/2025 09/20/2024 Alcohol/Substance Use Screening 01/28/2026 01/28/2025 Depression Screening 01/28/2026 01/28/2025, 03/22/20 24 Tobacco Screening 01/28/2026 01/28/2025 Eye Exam 08/16/2026 08/16/2024, 08/03, 08/16/2024, Additional [...] Years Completed 11/19/2022, 10/18/2020 Influenza Vaccine Completed 01/28/2025, , 01/23/2023, Additional history exists HIB Vaccines Aged Out [...] 1:19 PM EDT) No Randa Armenta PharmD Procedures Procedure Name Priority Date/Time Associated Diagnosis Comments HEMOGLOBIN A1C Routine 01/26/2025 1:19 PM EDT ALBUMIN, RANDOM URINE W/CREATININE Routine [...] Health Maintenance Results * (ABNORMAL) Hemoglobin A1c (01/26/2025 1:19 PM EDT) Hemoglobin A1c 7.1(H) <6.0 % [facility] Comment:Hemoglobin A1C Refer ence Range Adults: 4.8 - 6.0 % Non diabetic: < 6.0 % Goal: < 7.0 %Additional Action Suggested: > 8.0 %Note: Hemoglobin A1c results are invalid for patients with abnormal amounts of HbF. Blood transfusions may impact the HbA1c concentration in the patient sample. Estimated Average Glucose 157 mg/dL [facility] Comment:eAG = Estimated ave rage glucose which is %A1C expressed asaverage glucose, using the formula of the G3R-WfokhweLtippjj Glucose study (ADAG), Diabetes Care, Vol.31,#8,2007 01/26/2025 1:19 PM EDT 01/26/2025 4:13 PM EDT Dottie Christine MD LAB BLOOD ORDERABLES Final Result Performing Organization Address [facility] Co de Phone Number [facility] [address] [place] [address] [phone] * Albumin, Random Urine W/Creatinine (02/11/2024 11:45 AM EDT) Creatinine, Urine 579.04 mg/dL [facility] Microalbumin Urine 50.0 mg/L [facility] Microalbum Creatinine Ratio Ur 8.6 <30 ug/mg cr [facility] Comment:Albumin/Creatinine R atio Reference Ranges: Normal: < 30 ug/mg creatinine Microalbuminuria: 30 - 300 ug/mg creatinineClinical Albuminuria: > 300 ug/mg creatinine Urine 02/11/2024 11:4 5 AM EDT 02/11/2024 1:23 PM EDT Dottie Christine MD LAB URINE ORDERABLES Final Result Performing Organization Address [facility] Co de Phone Number [facility] [address] [place] [address] [phone] * (ABNORMAL) Lipid Panel, Standard (02/11/2024 10:40 AM EDT) Triglycerides 74 <150 mg/dL [facility] Comment:Desirable Triglyceri de: less than 150 mg/dLBorderline High Triglyceride 150-199 mg/dLHigh Triglyceride: 200-499 mg/dLVery High Triglyceride: greater than or equal to 5OO mg/dL Cholesterol 223(H) <200 mg/dL [facility] Comment:Desirable Cholestero l: less than 200 mg/dLBorderline High Cholesterol: 200-239 mg/dLHigh Cholesterol: greater than 239 mg/dL LDL Cholesterol Calculated 144(H) <100 mg/dL [facility] Comment:Desirable LDL: less than 100 mg/dLNear Optimal/Above Optimal LDL: 110- 129 mg/dLBorderline High LDL: 130-159 mg/dLHigh LDL: 160-189 mg/dLVery High LDL: greater than or equal to 190 mg/dL HDL Cholesterol 65 >40 mg/dL [facility] Comment:Desirable HDL: great er than 40 mg/dL Note: This HDL assay may give artificially low results in patients with liver disease. Blood Venous blood specimen / Unknown 02/11/2024 10:40 AM EDT 02/11/2024 11:31 AM EDT Dottie Christine MD LAB BLOOD ORDERABLES Final Result [facility] [address] [place] [phone] * Hepatitis C Antibody with Reflex to HCV, RNA, Quantitative, Real-Time PCR (08/28/2022 10:49 AM EDT) Hepatitis C Antibody NON-REACT CJ NON-REACT CJ [facility] Index 0.12 <1.00 [facility] Comment: HCV antibody was non-reactive. There is no laboratory evidence of HCV infection. In most cases, no further action is required. However, if recent HCV exposure is suspected, a test for HCV RNA (test code 66708) is suggested. For additional information please refer to http://education.[employer]/faq/HZJ12z8 (This link is being provided for informational/ educational purposes only.) Blood Venous blood specimen / Unknown 08/28/2022 10:49 AM EDT 08/28/2022 10:49 AM EDT Narrative [facility] - 08/29/2022 3:21 PM EDT FASTING:YES FASTING: YES Dottie Christine MD LAB BLOOD ORDERABLES Final Result [facility] [address] [facility], [place] [address] [facility] [address] [place] [address] * (ABNORMAL) Colonoscopy (07/08/2022) Colonoscopy Abnormal(A ) Normal Historical Provider HEALTH MAINTENANCE Final Result from Last 3 Months or Most Recently Relevant to Health Maintenance Insurance [employer] (O D-SNP) [place] [id number] Advance Directives Documents on File Type Date Recorded Patient Leisure Studies Professor Expl anation Advance Directives and Living Will 03/22/2024 Health Care Proxy 03/22/24 Care Teams Manufacture Specialist Relationship Specialty Start Date End Date Dottie Christine MD [address] [place] [phone] PCP - General Family Medicine 05/05/18 Randa Hoffman, PharmD [address] [place] [phone] Pharmacist Internal Medicine 10/09/22
--- OUTSIDE RECORDS SUMMARY | 2025-02-01 15:35 | XMS_ITS | Encounter Summary ---
Author Organization [employer] Address [address] [facility] [address] [place] [address] Care Team Providers Care Picker Tender Helper Name Role Phone Dottie Christine MD Primary Care Provider +- [phone] Randa Hoffman PharmD Unavailable [phone] Encounter Details Date Type Department Care Team (Late st Contact Info) Description 09/20/2024 Orders Only [facility] [address] [place], [place] [phone] Dottie Christine MD [address] [place], [place] [phone] Social History Tobacco Use Types Packs/Day Years [...] Description 02/15/2025 3:00 PM EDT Office Visit [facility] OPTOMETRY [address] [place] [address] Carly Melara OD [address] [place] [address] documented as of this encounter Goals Goal [...] documented as of this encounter Care Teams Picker Tender Helper Relationship Specialty Start Date End Date Dottie Christine MD [address] [place] [address] PCP - General Family Medicine 05/05/18 Randa Hoffman, TomyD [address] [place] [phone] Pharmacist Internal Medicine 10/09/22 documented as of this encounter
--- OUTSIDE RECORDS SUMMARY | 2025-02-01 15:35 | XMS_ITS | Encounter Summary ---
Author Organization [employer] Address [address] [facility] [address] [place] [address] Care Team Providers Care Fuel Assembler Name Role Phone Cascilla, Dottie KO Primary Care Provider +- [phone] Randa Hoffman PharmD Unavailable [phone] Encounter Details Date Type Department Care Team ([facility] st Contact Info) Description 08/25/2024 Telephone [facility] OPTOMETRY [address] [place], [place] [phone] Kera Gil, OD [address] [place], [place] [phone] Social History Tobacco Use Types Packs/Day Years [...] Description 02/15/2025 3:[address]T Office [address] [facility] OPTOMETRY [address] [place] [address] Carly Melara, NICK [address] [place] [address] documented as of this encounter Goals Goal [...] documented as of this encounter Care Teams Fuel Assembler Relationship Specialty Start Date End Date Dottie Christine MD [address] [place] [address] PCP - General Family Medicine 05/05/18 Randa Hoffman, TomyD [address] [place] [phone] Pharmacist Internal Medicine 10/09/22 documented as of this encounter
--- OUTSIDE RECORDS SUMMARY | 2025-02-01 15:35 | XMS_ITS | Encounter Summary ---
Author Organization [employer] Address [address] [facility] [address] [place] [address] Care Team Providers Care Account Development Executive Name Role Phone Dottie Christine MD Primary Care Provider +- [phone] Randa Hoffman PharmD Unavailable Reason for Visit * Reason Onset Date Comments Appt/Refferal 01/24/2023 Encounter Details Date Type Department Care Team (Late st Contact Info) Description 01/24/2023 Telephone [facility] [address] [place] [address] Dottie Christine MD [address] [place] [address] Appt/Refferal Social History Tobacco Use Types Packs/Day [...] clarification on an appt below for: Referrals: [facility] Trauma and Acute Care Surgery Patient Appointment Information Date: 01/24/2023 Time: 1:00 PM Location: [address] [place] [address] Drive [address] [place], [place] [phone] Daughter states she communicated herself with the facility in regards to appt above, and facility informed daughter that pt does not have an appt on that day nor time. Please contact pt daughter at [phone] documented in this encounter Plan of Treatment Upcoming Encounters Date Type Department Care Team (Late st Contact Info) Description 02/15/2025 3:00 PM EDT Office Visit [facility] OPTOMETRY [address] [place], [place] [phone] Carly Melara, OD [address] [place] [address] documented as of this encounter Goals Goal Patient Goal Type Associated Problems Recent Progress Patient-Stated? Author Blood Pressure < 140/90 Blood Pressure 110/64(2024 9:24 AM EDT) No Davids-Randa Londono, PharmD Hemoglobin A1c < 7 Result Component 7.1( 1:19 PM EDT) No Randa Armenta, PharmD documented as of this encounter Visit Diagnoses Not on filedocumented in this encounter Additional Health Concerns Assessment Noted Time PHQ-9 Depression Total Score: 0 08/29/19 23 10:09 AM EDT documented as of this encounter Care Teams Account Development Executive Relationship Specialty Start Date End Date Dottie Christine MD [address] [place], [place] [phone] PCP - General Family Medicine 05/05/18 Randa Hoffman, PharmD [address] [place] [phone] Pharmacist Internal Medicine 10/09/22 documented as of this encounter
--- OUTSIDE RECORDS SUMMARY | 2025-02-01 15:35 | XMS_ITS | Encounter Summary ---
Author Organization [employer] Address [address] [facility] 7t [place] [address] Care Team Providers Care General Maintenance Mechanic Name Role Phone Dottie Christine MD Primary Care Provider + [phone] Randa Hoffman PharmD Unavailable Reason for Visit * Reason Comments Med Refill Encounter Details Date Type Department Care Team ([facility] st Contact Info) Description 04/22/2023 Refill [facility] MEDICINE [address] [place], [place] [id number] Dottie Christine MD [address] [place] [address] Allergic rhinitis, unspecified seasonality, unspecified trigger Social [...] EDT Office Visit [facility] OPTOMETRY [address] [place], [place] [id number] Kelton, Carly, OD 230 [place] [address] documented as of this encounter Goals Goal Patient Goal Type Associated Problems Recent Progress Patient-Stated? Author Blood Pressure < 140/90 Blood Pressure 110/64(2024 9:24 AM EDT) No Davids-Randa Londono, PharmD Hemoglobin A1c < 7 Result Component 7.1( 1:19 PM EDT) No Davids-Gambl eRanda, PharmD documented as of this encounter Visit Diagnoses Diagnosis Allergic rhinitis, unspecified seasonality, unspecified trigger documented in this encounter Additional Health Concerns Assessment Noted Time PHQ-9 Depression Total Score: 0 08/29/19 10:09 AM EDT documented as of this encounter Care Teams General Maintenance Mechanic Relationship Specialty Start Date End Date Dottie Christine MD [address] [place] [address] PCP - General Family Medicine 05/05/18 Randa Hoffman, PharmD [address] [place] [address] Pharmacist Internal Medicine 10/09/22 documented as of this encounter
--- OUTSIDE RECORDS SUMMARY | 2025-02-01 15:35 | XMS_ITS | Clinical Summary ---
Author Organization [facility] Address [address] [address] Phone Care Team Providers Care Solid Propellant Processor Name Role Phone Cailin Madsen Primary Care [...] file Insurance MEDICARE PART A & [facility] MEDICARE PART A & B [facility] MEDICARE REPLACEMENT MEDICARE PART A & B [facility] [place] [address] MEDICARE PART A & B [facility] [place] [address] MEDICARE PART A & B [facility] MEDICARE REPLACEMENT MEDICARE PART A & B [facility] MEDICARE REPLACEMENT Care Teams Solid Propellant Processor Relationship Specialty [place] [address] [place] [address] [place] [id number] [email or web address] PCP - General Unknown Provider Specialty 11/28/22 Additional Source Comments The information contained in this document represents components of the legal health record. It is not the complete legal health record.[facility]
--- OUTSIDE RECORDS SUMMARY | 2025-02-01 15:35 | XMS_ITS | Encounter Summary ---
Author Organization [employer] Address 75 [facility] [address] [place] [address] Care Team Providers Care Family Service Counselor Name Role Phone Dottie Christine MD Primary Care Provider +- [phone] Randa Hoffman PharmD Unavailable Encounter Details Date Type Department Care Team (Late Contact Info) Description 10/29/2022 Abstract [facility] MEDICINE 230 [place] [address] Dottie Christine MD [address] [place] [address] Social History Tobacco Use Types Packs/Day Years [...] Department Care Team (Late Contact Info) Description 02/15/2025 3:00 PM EDT Office Visit [facility] OPTOMETRY [address] [place] [address] Carly Melara, OD [address] [place] [address] documented as of this encounter Goals Goal Patient Goal Type Associated Problems Recent Progress Patient-Stated? Author Blood Pressure < 140/90 Blood Pressure 110/64( 025 9:24 AM EDT) No Randa Armenta, TomyD documented as of this encounter Visit Diagnoses Not on filedocumented in this encounter Additional Health Concerns Assessment Noted Time PHQ-9 Depression Total Score: 0 08/29/19 23 10:09 AM EDT documented as of this encounter Care Teams Family Service Counselor Relationship Specialty Start Date End Date Dottie Christine MD [address] [place] [address] PCP - General Family Medicine 05/05/18 Randa Hoffman, TomyD [address] [place] [address] Pharmacist Internal Medicine 10/09/22 documented as of this encounter
--- OUTSIDE RECORDS SUMMARY | 2025-02-01 15:35 | XMS_ITS | Encounter Summary ---
Author Organization [employer] Address 75 [facility] [address] [place] [address] Care Team Providers Care Project Buyer Name Role Phone Dottie Christine MD Primary Care Provider + [phone] Randa Hoffman PharmD Unavailable [phone] Encounter Details Date Type Department Care Team (Late Contact Info) Description 01/03/2023 Abstract [facility] [address] [place] [address] Dottie Christine MD [address] [place] [address] Social History Tobacco Use Types Packs/Day Years [...] Description 02/15/2025 3:00 PM EDT Office Visit [facility] OPTOMETRY [address] [place], [place] [phone] Carly Melara, OD [address] [place] [address] documented as of this encounter Goals Goal [...] documented as of this encounter Care Teams Project Buyer Relationship Specialty Start Date End Date Dottie Christine MD [address] [place] [address] PCP - General Family Medicine 05/05/18 Randa Hoffman PharmD [address] [place] [address] Pharmacist Internal Medicine 10/09/22 documented as of this encounter
--- OUTSIDE RECORDS SUMMARY | 2025-02-01 15:35 | XMS_ITS | Encounter Summary ---
Author Organization [employer] Address 75 [facility] [address] [place] [address] Care Team Providers Care Commercial Installer Name Role Phone Dottie Christine MD Primary Care Provider +- [phone] Randa Hoffman PharmD Unavailable [phone] Reason for Referral * Consultation (Routine) - Closed Specialty Diagnoses / Procedures Referred By Contac t Referred To Contact Pharmacy Diagnoses Hypertension Kinza Rivera MD [address] [place] [address] Phone: tel: fax: Referral ID Status Reason Start Date Expiration Date V isits Requested Visits Authorized [id number] Closed Continuity of Care 08/30/2024 08/30/2025 6 6 Encounter Details Date Type Department Care Team (Late st Contact Info) Description 08/27/2024 Orders Only [facility] MEDICINE [address] [place] [address] Kinza Rivera MD [address] [place], [place] [phone] Hypertension (Primary Dx) Social History Tobacco Use [...] 3:00 PM EDT Office Visit [facility] OPTOMETRY [address] [place] [address] Kelton, Carly, OD [address] [place] [address] Scheduled Referrals Name Type Priority Associated Diagnoses Orde r Schedule Referral to Pharmacy MTM Outpatient Referral Routine Hypertension Ordered: 08/30/2024 documented [...] documented as of this encounter Care Teams Commercial Installer Relationship Specialty Start Date End Date Dottie Christine MD [address] [place] [address] PCP - General Family Medicine 05/05/18 Randa Hoffman PharmD [address] [place] [address] Pharmacist Internal Medicine 10/09/22 documented as of this encounter
--- OUTSIDE RECORDS SUMMARY | 2025-02-01 15:35 | XMS_ITS | Encounter Summary ---
Author Organization [employer] Address 75 [facility] 7[address] [place] [address] Care Team Providers Care Yeast Cake Cutter Name Role Phone Dottie Christine MD Primary Care Provider +- [phone] Randa Hoffman PharmD Unavailable +- [phone] Encounter Details Date Type Department Care Team (Latest Contact Info) Description 01/28/2025 Travel Social History Tobacco Use Types Packs/Day Years [...] 01/28/2025 9:25 AM Divya Garcia [place] * Poor appetite or overeating Answer Date of Assessment Author Not at all 01/28/2025 9:25 AM Divya Garcia [place] * Trouble concentrating on things, such as reading the newspaper or watching television Answer Date of Assessment Author Not at all 01/28/2025 9:25 AM EDT Divya Rodriguez MA * Moving or speaking so slowly that other people could have noticed? Or the opposite - being so fidgety or restless that you have been moving around a lot more than usual. Answer Date of Assessment Author Not at all 01/28/2025 9:25 AM EDT Divya Rodriguez MA * Thoughts that you would be better off or hurting yourself in some way Answer Date of Assessment Author Not at all 01/28/2025 9:25 AM EDT Divya Rodriguez [place] documented as of this encounter Plan of Treatment Upcoming Encounters Date Type Department Care Team (Late st Contact Info) Description 02/15/2025 3:00 PM EDT Office Visit [facility] OPTOMETRY [address] [place], [place] [phone] Carly Melara, OD [address] [place] [address] documented as of this encounter Goals Goal [...] documented as of this encounter Care Teams Yeast Cake Cutter Relationship Specialty Start Date End Date Dottie Christine MD [address] [place] [address] PCP - General Family Medicine 05/05/18 Randa Hoffman, PharmD [address] [place] [address] Pharmacist Internal Medicine 10/09/22 documented as of this encounter
--- OUTSIDE RECORDS SUMMARY | 2025-02-01 15:35 | XMS_ITS | Encounter Summary ---
Author Organization [employer] Address [address] [facility] [address] [place] [address] Care Team Providers Care Product Safety Coordinator Name Role Phone Dottie Christine MD Primary Care Provider + [phone] Randa Hoffman PharmD Unavailable Encounter Details Date Type Department Care Team (Late st Contact Info) Description 07/01/2022 Orders Only [facility] MEDICINE [address] [place] [address] Anca Jacob LPN Social History Tobacco Use [...] Description 02/15/2025 3:00 PM EDT Office Visit [facility] OPTOMETRY [address] [place] [address] KeltonCarly degroot, OD [address] [place] [address] documented as of this encounter Visit Diagnoses Not on filedocumented in this encounter Care Teams Product Safety Coordinator Relationship Specialty Start Date End Date Dottie Christine MD [address] [place] [address] PCP - General Family Medicine 05/05/18 Randa Hoffman, PharmD [address] [place] [address] Pharmacist Internal Medicine 10/09/22 documented as of this encounter
--- OUTSIDE RECORDS SUMMARY | 2025-02-01 15:36 | XMS_ITS | Encounter Summary ---
Author Organization [employer] Address 75 [facility] 7t [place] [address] Care Team Providers Care Sessions Clerk Name Role Phone Dottie Christine MD Primary Care Provider + [phone] Randa Hoffman PharmD Unavailable Encounter Details Date Type Department Care Team (Late st Contact Info) Description 05/17/2022 Orders Only [facility] MED & PEDS [address] [place] [address] Valentina Garcia LPN Social History Tobacco Use [...] Description 02/15/2025 3:00 PM EDT Office Visit [facility] OPTOMETRY [address] [place] [address] Carly Melara, OD [address] [place] [address] documented as of this encounter Visit Diagnoses Not on filedocumented in this encounter Care Teams Sessions Clerk Relationship Specialty Start Date End Date Dottie Christine MD [address] [place] [address] PCP - General Family Medicine 05/05/18 Randa Hoffman, PharmD [address] [place] [address] Pharmacist Internal Medicine 10/09/22 documented as of this encounter
--- OUTSIDE RECORDS SUMMARY | 2025-02-01 15:36 | XMS_ITS | Encounter Summary ---
Author Organization [employer] Address 75 [facility] [address] [place] [address] Care Team Providers Care Brake Coupler Dinkey Name Role Phone Dottie Christine MD Primary Care Provider + [phone] Randa Hoffman PharmD Unavailable Encounter Details Date Type Department Care Team (Late st Contact Info) Description 06/07/2022 Abstract [facility] MEDICINE [address] [place] [address] Dottie Christine MD [address] [place] [address] Social History Tobacco Use Types Packs/Day Years [...] 3:00 PM EDT Office Visit [facility] OPTOMETRY [address] [place] [address] KeltonCarly degroot, OD [address] [place] [address] documented as of this encounter Procedures Procedure [...] on filedocumented in this encounter Care Teams Brake Coupler Dinkey Relationship Specialty Start Date End Date Dottie Christine MD [address] [place] [address] PCP - General Family Medicine 05/05/18 Randa Hoffman, TomyD [address] [place] [address] Pharmacist Internal Medicine 10/09/22 documented as of this encounter
[2025-02-01 16:57] LABS: Alanine Aminotransferase 34 U/L (0-40); Albumin Level 4.2 g/dL (3.5-5.0); Alkaline Phosphatase 82 U/L (39-117); Anion Gap 14 (12-20); Aspartate Amino Transferase 34 U/L (5-37); Blood Urea Nitrogen 14 mg/dL (9-16); Calcium 9.3 mg/dL (8.4-10.2); Carbon Dioxide 29 mmol/L (22-29); Chloride 98 mmol/L (96-108); Cholesterol 305 mg/dL (<200); Estimated Glomerular Filt Rate > 60; HDL Cholesterol 53 mg/dL (>40); Potassium 3.3 mmol/L (3.3-5.1); Sodium 138 mmol/L (135-145); Total Protein 7.1 g/dL (6.5-8.0); Triglycerides 247 mg/dL (<150)
[2025-02-01 17:12] LABS: Prostate Specific Antigen 2.82 ng/mL (<0.05-4.0)
[2025-02-01 17:22] LABS: Microalbum/Creatinine Ratio Ur 6.3 ug/mg cr (<30)
== END 2025-02-01 14:13 | disposition home or self-care (01) ==
LOC: HO.HHCL 14:12
PROVIDERS: Urology; PCP Family Medicine; Visit Provider Family Medicine
DX: N40.1 Benign prostatic hyperplasia with lower urinary tract symptoms (principal); N13.8 Other obstructive and reflux uropathy; E11.9 Type 2 diabetes mellitus without complications; Z12.5 Encounter for screening for malignant neoplasm of prostate
CPT/HCPCS: 36415; 80048; 80061; 80076; 82043; 82570; 84153